=== PATIENT | female | born 1960 | race Caucasian/White ===

== ENCOUNTER → 2017-07-01 19:27 | Outpatient (CLI) | payer OTHER, SELFPAY ==
[2017-07-01 20:46] LABS: Vitamin B12 191 pg/mL (211-911)
== END ==
PROVIDERS: Family Provider Family Medicine; PCP Family Medicine; Visit Provider Family Medicine
DX: E11.65 Type 2 diabetes mellitus with hyperglycemia (principal); Z79.899 Other long term (current) drug therapy
CPT/HCPCS: 82607

== ENCOUNTER → 2017-12-24 14:48 | Outpatient (CLI) | payer OTHER, SELFPAY ==
[2017-12-25 08:23] LABS: Vitamin B12 324 pg/mL (211-911)
== END ==
PROVIDERS: Visit Provider Family Medicine
DX: E11.40 Type 2 diabetes mellitus with diabetic neuropathy, unspecified (principal); I10 Essential (primary) hypertension; E53.8 Deficiency of other specified B group vitamins
CPT/HCPCS: 82607

== ENCOUNTER 2018-03-16 09:39 | Inpatient (IN) | payer OTHER, SELFPAY ==
[2018-03-16 09:40] VITALS: BP 115/92; PULSE 119; RESP 20; TEMP 36.6; O2SAT 95; BMI 49.8
[2018-03-16] MEDS: Morphine 4 MG/ML Syringe IV (10:09)
[2018-03-16 10:14] LABS: Absolute Lymphocyte Count 0.49 X10^3/ul (0.83-4.51); Absolute Neutrophil Count 16.1 X10^3/uL (2.0-7.7); Basophil# 0.02 X10^3/uL; Basophil% 0.1 % (0-1); Differential Indicated SCAN CRITERIA MET; Hematocrit 42.2 % (37-47); Hemoglobin 13.7 g/dl (12.0-15.0); Lymphocyte # 0.49 X10^3/ul (4.0); Lymphocyte % 2.8 % (19-41); Mean Corp Hgb Conc 32.5 g/gl (32-36); Mean Corpuscular Hgb 29.5 pg (27.0-32.0); Mean Corpuscular Volume 90.8 fL (81-99); Mean Platelet Vol. 11.1 fl (6.2-12.0); Monocyte# 1.01 X10^3/uL; Monocyte% 5.7 % (0-10); Neutrophil # 16.07 X10^3/uL (2.7-7.7); Neutrophil % 90.9 % (47-70); POSITIVE COUNT NO; POSITIVE DIFFERENTIAL YES; POSITIVE MORPHOLOGY NO; RBC Distribution Width CV 13.1 % (11.6-14.6); Red Blood Count 4.65 M/mm3 (4.2-5.4); White Blood Count 17.7 K/mm3 (4.4-11.0)
--- NOTE | 2018-03-16 10:24 | NURSING ---
DR MERYL NUGENT
--- NOTE | 2018-03-16 10:24 | NURSING ---
MED SURG RLE CELLULITIS MERYL
[2018-03-16 10:26] LABS: Anion Gap 14 (5-15); BUN 19 mg/dL (7-18); Calcium,Total 9.1 mg/dL (8.5-10.1); Chloride 103 mmol/L (98-107); Creatinine, Serum 1.12 mg/dL (0.55-1.02); EST Glomerular Filtration Rate 53 mL/min (>60); Est Glom Filt Rate - Afr Amer 64 mL/min (>60); Glucose 178 mg/dL (74-106); Sodium Level 141 mmol/L (136-145)
--- NOTE | 2018-03-16 10:27 | ED.DCSUM_ITS ---
- ER Visit Summary Date of Service: 03/16/18 Chief Complaint: Cellulitis History of Present Illness: The patient is a 57 F right lower leg cellulitis. Symptoms started overnight last night. She had a headache and some nausea and vomiting. The pain radiates from her right lower leg up to her right groin. She had similar symptoms in the past with cellulitis. She has required hospitalization at multiple facilities, most recently here in 2014. No fevers. No other associated symptoms. She does not take blood thinners. She has multiple allergies to antibiotics. Physical Examination: Heart rate 119 and respiratory rate 20. Otherwise vitals unremarkable. Afebrile. Alert and oriented. No acute distress. Right lower leg shows erythema and warmth with some mild induration. Overall the skin appears intact. She is neurovascular intact distally. Test Results: White count 17.7 and platelets 141. Metabolic panel and cultures pending. Emergency Department Course and Treatment: Patient treated with morphine and vancomycin while awaiting results. Patient has a history of diabetes, hypertension, and hyperlipidemia. She has had multiple episodes of cellulitis in the past, and typically requires hospitalization. Patient has multiple medication allergies and was started on IV vancomycin. Hospitalist was contacted for further care. Treatment Plan: As above Disposition: Admission Impression: 1. Right leg cellulitis This note was generated with [employer] dictation software. It may contain incorrect words, spelling, and punctuation that were not noted in review of the chart prior to signing ED Disposition - Plan for ED Patient: Chief Complaint: Cellulitis Referrals: Gene Arriaga MD [Primary Care Provider] -
[2018-03-16 10:28] VITALS: BP 122/60; PULSE 105; RESP 16; TEMP 36.6; O2SAT 96
[2018-03-16 10:31] LABS: Platelet Estimate ADEQUATE (ADEQ); Platelet Morphology CLUMPED
[2018-03-16 10:32] LABS: Differential Comment SCANNED
--- NOTE | 2018-03-16 10:52 | NURSING ---
DR SHETH IN ROOM
--- NOTE | 2018-03-16 11:26 | PCM.HP.STD ---
Problem List (1) Right lower extremity cellulitis Status: Acute (2) Hyperlipidemia Status: Chronic (3) Hypertension Status: Chronic (4) Morbid obesity Status: Chronic (5) Type II diabetes mellitus Status: Chronic History of Present Illness Date of Admission: 03/16/18 Chief Complaint: Right lower leg pain and redness since yesterday evening The patient is a 57 year old F with history of type 2 diabetes mellitus and recurrent cellulitis came to ER with pain, tenderness and swelling in the right leg since 03/15/2018 evening. Patient denies fever or chills. She had similar symptoms consistent with cellulitis diagnosed last year February. She had left leg cellulitis several years ago. She had associated symptoms of headache and at one time gastric content vomiting. In ED, initial workup shows leukocytosis with left shift with 90% neutrophils, ESR 22. A1c 6.5. Her blood sugars are generally controlled and less than 200 milligrams per deciliter at home [] Past Medical History Past Medical History (Chronic Problems): Chronic Problems Morbid obesity (Chronic) Hyperlipidemia (Chronic) Hypertension (Chronic) Type II diabetes mellitus (Chronic) Allergies cefuroxime axetil [From Ceftin] Allergy (Verified 03/16/18 09:42) Hives clindamycin Allergy (Verified 03/16/18 09:42) Hives ertapenem sodium [From Invanz] Allergy (Verified 03/16/18 09:42) Rash Sulfa (Sulfonamide Antibiotics) Allergy (Verified 03/16/18 09:42) Hives Home Medications: Ambulatory Orders Medication Instructions Recorded Lisinopril [Zestril] 40 mg PO DAILY 11/26/14 Metformin HCl [Glucophage] 500 mg PO BIDCM 11/26/14 Ospemifene [Osphena] 60 mg PO DAILY 11/26/14 Caduet 10 MG-40 MG Tablet 1 tab PO QHS 12/18/14 Cholecalciferol (Vitamin D3) 1,000 unit PO DAILY 03/16/18 [Vitamin D3] Turmeric 400 mg PO DAILY 03/16/18 Surgical History: tonsillectomy, - - D&C, bilateral carpal tunnel surgery, Psychiatric History: No pertinent psych hx 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 Denies: Chills, Fever, Weight Change HEENT: Denies: Head Aches, Sinus Congestion, Sinus Drainage Cardiovascular: Denies: Chest Pain, Palpitations Respiratory: Denies: Cough, Shortness of breath at rest, Sputum production Gastrointestinal: Reports: Nausea, Vomiting. Denies: Abdominal Pain Genitourinary: Denies: Dysuria Musculoskeletal: Reports: Joint Pain. Denies: Joint Tenderness Skin: Reports: Rash, Skin Changes. Denies: Wounds Neurological: Denies: Numbness, Tingling, Focal weakness Psychiatric: Denies: Anxiety, Depression, Homicidal Ideations, Suicidal Ideations Hematologic/ Lymphatic: Denies: Easy Bruising, Easy Bleeding VTE Information - Inpt Only VTE Present on Admission: No VTE Mechan Device Prophylaxis: None VTE Pharm Prophylaxis ordered?: Yes - Physical Exam General: Alert, Oriented x3, Cooperative HEENT: Atraumatic, PERRLA, EOMI, Normocephalic Neck: Supple, No JVD, Negative Carotid Bruits Lungs: Clear to auscultation, Normal air movement Cardiovascular: Regular rate, Normal S1, Normal S2, No murmurs Abdomen: Bowel Sounds Present, Soft, Non Tender, Non-Distended Extremities: No edema, Capillary Refill Less than 3 Seconds Skin: No breakdown, Rash Present - Right lower leg erythematous, tender with induration below knee. Bilateral flat feet Musculoskeletal: Tenderness - In the right lower leg Lymphatic: No Cervical, Supraclavicular, or Inguinal Adenopathy Neurological: Cranial nerves II-XII grossly intact, Neuro grossly intact Psych/Mental Status: Normal Affect, Appropriate Vital Signs Temp Pulse Resp BP Pulse Ox 97.9 F 105 H 16 122/60 H 96 03/16/18 10:28 03/16/18 10:28 03/16/18 10:28 03/16/18 10:28 03/16/18 10:28 Oxygen Delivery Method Room Air Weight: 290 lb Body Mass Index (BMI) 49.8 Finger Stick Blood Glucose 192 Laboratory Tests Past 24 Hrs 03/16/18 03/16/18 10:00 10:00 WBC 17.7 H RBC 4.65 Hgb 13.7 Hct 42.2 MCV 90.8 MCH 29.5 MCHC 32.5 RDW 13.1 RDW Differential 43.0 Plt Count TNP MPV 11.1 Immature Gran % (Auto) 0.500 Neut % (Auto) 90.9 H Lymph % (Auto) 2.8 L [place] % (Auto) 5.7 Eos % (Auto) 0.0 Baso % (Auto) 0.1 Absolute Neuts (auto) 16.1 H Absolute Lymphs (auto) 0.49 L Total Counted Not Reportable Differential Comment SCANNED Platelet Estimate ADEQUATE Plt Morphology Comment CLUMPED Sodium 141 Potassium 4.0 Chloride 103 Carbon Dioxide 24.0 Anion Gap 14 BUN 19 H Creatinine 1.12 H Estim Creat Clear Calc 46.70 Est GFR (MDRD) Af Amer 64 Est GFR (MDRD) Non-Af 53 L BUN/Creatinine Ratio 17.0 Glucose 178 H Calcium 9.1 Assessment/Plan All Active Problems Right lower extremity cellulitis (Acute) The patient is a 57 year old F with history of type 2 diabetes mellitus and recurrent cellulitis came to ER with pain, tenderness and swelling in the right leg since 03/15/2018 evening. Patient denies fever or chills. She had similar symptoms consistent with cellulitis diagnosed last year February. She had left leg cellulitis several years ago. She had associated symptoms of headache and at one time gastric content vomiting. Denies history of trauma/injury, bug/insect/tick bite. Denies previous foot surgery/ankle mortise fracture or dislocation in the past In ED, initial workup shows leukocytosis with left shift with 90% neutrophils, ESR 22. A1c 6.5. No fever in ED. Her blood sugars are generally controlled and less than 200mg/dl at home. 1 right lower leg cellulitis most probably streptococcal: Based on patient's allergy list, patient was given 1 dose of vancomycin in ED. Started on IV Levaquin. Blood cultures x2 ordered. MRSA nasal screen. IV fluid normal saline. Venous Doppler ordered to rule out DVT. Patient denies previous history of venous thromboembolic disease. Of note, patient is on Ospemifene, estrogen receptor modulator at home probably taking for moderate to severe menopausal dyspareunia 2. Diabetes mellitus, type II: A1c 6.5 suggestive of good glycemic control. Accu-Chek before meals and at bedtime and cover with NovoLog sliding scale. Continue home medications. 3. Hypertension: Patient is on lisinopril and amlodipine. Continued. 4. Dyslipidemia: On atorvastatin DVT prophylaxis: On Lovenox 40 mg subcu daily Laboratory Results 03/16/18 10:00: WBC 17.7 H, RBC 4.65, Hgb 13.7, Hct 42.2, MCV 90.8, MCH 29.5, MCHC 32.5, RDW 13.1, RDW Differential 43.0, Plt Count TNP, MPV 11.1, Immature Gran % (Auto) 0.500, Neut % (Auto) 90.9 H, Lymph % (Auto) 2.8 L, [place] % (Auto) 5.7, Eos % (Auto) 0.0, Baso % (Auto) 0.1, Absolute Neuts (auto) 16.1 H, Absolute Lymphs (auto) 0.49 L, Total Counted Not Reportable, Differential Comment SCANNED, Platelet Estimate ADEQUATE, Plt Morphology Comment CLUMPED 03/16/18 10:00: Sodium 141, Potassium 4.0, Chloride 103, Carbon Dioxide 24.0, Anion Gap 14, BUN 19 H, Creatinine 1.12 H, Estim Creat Clear Calc 46.70, Est GFR (MDRD) Af Amer 64, Est GFR (MDRD) Non-Af 53 L, BUN/Creatinine Ratio 17.0, Glucose 178 H, Calcium 9.1 03/16/18 10:00: ESR 22 03/16/18 10:00: Hemoglobin A1c 6.5 H 03/16/18 12:05: POC Glucose 159 H Code Visit Inpatient E&M: 72265 Init Hosp L3
[2018-03-16 11:27] VITALS: BMI 50.3
[2018-03-16 11:45] LABS: Erythrocyte Sedimentation Rate 22 mm/hr (0-30)
[2018-03-16 12:04] LABS: Hemoglobin A1c 6.5 % (4.2-6.3)
[2018-03-16] MEDS: Enoxaparin 40 MG/0.4 ML Syringe SC (12:06)
[2018-03-16] MEDS: Insulin Lispro 100 UNIT/ML INSULN.PEN SQ ×3 (12:09→21:04)
[2018-03-16] MEDS: 0.9% Normal Saline 1,000 ML 100 ML IV ×2 (12:10→23:17)
[2018-03-16 12:12] VITALS: BP 125/66; PULSE 92; RESP 18; TEMP 36.7; O2SAT 96
[2018-03-16] MEDS: oxyCODONE 5 MG Tablet PO ×2 (12:18→16:33)
[2018-03-16 12:31] LABS: Bedside Glucose 159 mg/dL (70-110)
[2018-03-16] MEDS: levoFLOXacin IV 750 MG/150 ML BAG 100 MG IV (13:07)
[2018-03-16 16:18] LABS: M R Staph aureus DNA By PCR Negative (Negative); Probe Check PASS; Specimen Processing Control PASS
[2018-03-16] MEDS: Acetaminophen 325 MG Tablet 650 MG PO ×2 (16:34→23:15)
[2018-03-16 16:36] LABS: Bedside Glucose 166 mg/dL (70-110)
[2018-03-16 16:37] VITALS: BP 126/56; PULSE 107; RESP 18; TEMP 37.5; O2SAT 95
[2018-03-16 19:48] VITALS: BP 112/65; PULSE 102; RESP 18; TEMP 37.5; O2SAT 97
[2018-03-16] MEDS: Mag Hydrox/Al Hydrox/Simeth 30 ML UDC PO (21:04)
[2018-03-16] MEDS: Atorvastatin Calcium 40 MG Tablet PO (21:05)
[2018-03-16 21:06] LABS: Bedside Glucose 176 mg/dL (70-110)
[2018-03-17 03:02] VITALS: BP 133/62; PULSE 102; RESP 16; TEMP 37.4; O2SAT 95
[2018-03-17 03:08] VITALS: PULSE 102
[2018-03-17] MEDS: Acetaminophen 325 MG Tablet 650 MG PO ×2 (06:00→21:44)
[2018-03-17] MEDS: oxyCODONE 5 MG Tablet PO ×2 (06:00→21:45)
[2018-03-17] MEDS: Insulin Lispro 100 UNIT/ML INSULN.PEN SQ ×2 (06:07→11:52)
[2018-03-17 06:16] LABS: Bedside Glucose 150 mg/dL (70-110)
[2018-03-17] MEDS: 0.9% Normal Saline 1,000 ML 100 ML IV ×2 (08:33→21:49)
[2018-03-17] MEDS: Polyethylene Glycol 3350 17 GM PACKET PO (08:34)
[2018-03-17] MEDS: Enoxaparin 40 MG/0.4 ML Syringe SC (08:35)
[2018-03-17 09:04] VITALS: BP 123/63; PULSE 96; RESP 16; TEMP 36.7; O2SAT 94
[2018-03-17] MEDS: levoFLOXacin IV 750 MG/150 ML BAG 100 MG IV (09:40)
[2018-03-17 10:50] LABS: Basophil# 0.01 X10^3/uL; Hematocrit 39.5 % (37-47); Hemoglobin 12.8 g/dl (12.0-15.0); Lymphocyte # 0.52 X10^3/ul (4.0); Mean Corp Hgb Conc 32.4 g/gl (32-36); Mean Corpuscular Hgb 29.7 pg (27.0-32.0); Mean Corpuscular Volume 91.6 fL (81-99); Mean Platelet Vol. 10.3 fl (6.2-12.0); Neutrophil # 9.68 X10^3/uL (2.7-7.7); Platelet Count 171 K/mm3 (150-450); RBC Distribution Width CV 13.3 % (11.6-14.6); RBC Distribution Width SD 44.6 fl (35.1-43.9); Red Blood Count 4.31 M/mm3 (4.2-5.4); White Blood Count 10.7 K/mm3 (4.4-11.0)
--- NOTE | 2018-03-17 10:51 | EKG12_ITS ---
Test Reason : Blood Pressure : / mmHG Vent. Rate : 109 BPM Atrial Rate : 109 BPM P-R Int : 152 ms QRS Dur : 090 ms QT Int : 314 ms P-R-T Axes : 044 027 022 degrees QTc Int : 422 ms Sinus tachycardia Poor R wave progression Anterior [place], age undetermined, cannot be excluded Confirmed by YAYA VIVAS, ESTELLA ([id number]), avid editor PARTH FALCON ([id number]) on 03/20/2018 11:53:10 AM Referred By: MERYL Confirmed By:ESTELLA JAVIER MD
[2018-03-17 10:53] LABS: Differential Indicated SCAN CRITERIA MET; POSITIVE COUNT NO; POSITIVE DIFFERENTIAL YES; POSITIVE MORPHOLOGY YES
--- NOTE | 2018-03-17 11:04 | VDLE_ITS ---
Reason For Study: swelling RIGHT LEFT GSV is normal. GSV is normal. CFV is compressible, spontaneous, phasic, CFV is compressible, spontaneous, phasic, competent and demonstrates normal competent, and demonstrates normal augmentation. augmentation. FV is compressible, spontaneous, phasic, FV is compressible, spontaneous, phasic, competent and demonstrates normal competent and demonstrates normal augmentation. augmentation. POP V is compressible, spontaneous, phasic, POP V is compressible, spontaneous, phasic, competent and demonstrates normal competent and demonstrates normal augmentation. augmentation. T/P Trunk is compressible. T/P Trunk is compressible. PTV is compressible. PTV is compressible. RT PerV is compressible. LT PerV is compressible. Procedure Exam performed portable in patient room. The exam was diagnostic. Difficult study due to pt body habitus. A preliminary report was called and/or faxed to Ben CULLEN. Interpretation Summary Deep veins of the lower extremities are bilaterally patent and compressible segmentally. There is no evidence of deep vein thrombosis on either side. Valvular competence appears intact within the proximal deep venous systems bilaterally. The greater saphenous veins appear bilaterally patent and compressible segmentally. Ordering Physician: Jacques Murray Performed By: Feliciano Perkins RVT
[2018-03-17 11:05] LABS: Bedside Glucose 169 mg/dL (70-110)
--- NOTE | 2018-03-17 11:05 | PCM.PN.HOSP ---
Subjective: Patient has swelling of right leg which seems bigger than yesterday and more red. Patient also complained of pain in posterior aspect of thigh going proximally. Sinus tachycardia on the EKG. Patient also looks mild short of breath. Denies any history of venous thromboembolism or PE. Vitals/I&O's: Vital Signs Temp Pulse Resp BP Pulse Ox 98.1 F 96 16 123/63 H 94 03/17/18 09:04 03/17/18 09:04 03/17/18 09:04 03/17/18 09:04 03/17/18 09:04 Oxygen Delivery Method Room Air Weight: 292 lb 15.909 oz Body Mass Index (BMI) 50.3 Finger Stick Blood Glucose 192 Intake and Output for Last 24 Hours 03/15/18 03/16/18 03/17/18 23:59 23:59 23:59 Intake Total 2513 / 2513 855 / 855 Output Total 100 / 100 500 / 500 Balance 2413 / 2413 355 / 355 General: Alert, Oriented x3, Cooperative, - - Morbid obese HEENT: Atraumatic, PERRLA, EOMI, Normocephalic Neck: Supple, No JVD, Negative Carotid Bruits Lungs: Clear to auscultation, Diminished - In bilateral lung bases, Rales Cardiovascular: Regular Rhythm, Normal S1, No murmurs, Tachycardic Abdomen: Bowel Sounds Present, Soft, Non Tender, Non-Distended Extremities: Capillary Refill Less than 3 Seconds, Edema - Pronounced in right lower extremity Skin: No breakdown, Rash Present - Erythematous rash present on the right leg along with tenderness and induration. Musculoskeletal: Arthritic Changes, Tenderness - Tenderness in right calf and thigh. Neurological: Cranial nerves II-XII grossly intact Psych/Mental Status: Normal Affect, Appropriate Laboratory Results 03/16/18 10:00: ESR 22 03/16/18 10:00: Hemoglobin A1c 6.5 H 03/16/18 12:05: POC Glucose 159 H 03/16/18 12:15: MRSA (PCR) Negative 03/16/18 16:29: POC Glucose 166 H 03/16/18 20:58: POC Glucose 176 H 03/17/18 06:05: POC Glucose 150 H 03/17/18 10:40: WBC 10.7, RBC 4.31, Hgb 12.8, Hct 39.5, MCV 91.6, MCH 29.7, MCHC 32.4, RDW 13.3, RDW Differential 44.6 H, Plt Count 171, MPV 10.3, Immature Gran % (Auto) 1.300 H, Neut % (Auto) 90.9 H, Lymph % (Auto) 4.9 L, [place] % (Auto) 2.8, Eos % (Auto) 0.0, Baso % (Auto) 0.1, Absolute Neuts (auto) 9.7 H, Absolute Lymphs (auto) 0.52 L, Total Counted Pending Current Medications Acetaminophen (Tylenol) 650 mg PO Q6H PRN PRN PRN Reason: Mild Pain (scale 0-3)/T>100.7 Last Admin: 03/17/18 06:00 Dose: 650 mg Al Hydroxide/Mg Hydroxide (Mylanta Ii) 30 ml PO Q6H PRN PRN PRN Reason: Gastric Burning Last Admin: 03/16/18 21:04 Dose: 30 ml Amlodipine Besylate (Norvasc) 10 mg PO QHS [facility] Last Admin: 03/16/18 21:05 Dose: Not Given Apixaban (Eliquis) 10 mg PO BID [facility] Atorvastatin Calcium (Lipitor) 40 mg PO QHS [facility] Last Admin: 03/16/18 21:05 Dose: 40 mg Dextrose (D50w Syringe) 0 gm IV X1 PRN; Protocol PRN Reason: Hypoglycemia Glucagon () 1 mg IM .X1 PRN PRN Reason: Hypoglycemia Sodium Chloride () 1,000 mls @ 100 mls/hr IV .Q10H [facility] Last Admin: 03/17/18 08:33 Dose: 100 mls/hr Levofloxacin (Levaquin Iv) 750 mg in 150 mls @ 100 mls/hr IV Q24 [facility] Last Admin: 03/17/18 09:40 Dose: 100 mls/hr Insulin Human Lispro (Humalog Kwikpen (Bkc)) 0 unit SQ ACHS [facility]; Protocol Last Admin: 03/17/18 06:07 Dose: 2 u Lisinopril (Zestril) 40 mg PO DAILY [facility] Last Admin: 03/17/18 08:34 Dose: Not Given Metformin HCl (Glucophage) 500 mg PO BIDCM [facility] Last Admin: 03/17/18 08:33 Dose: 500 mg Ondansetron HCl (Zofran) 4 mg IV Q8H PRN PRN PRN Reason: Nausea Oxycodone HCl (Oxyir) 5 mg PO Q4H PRN PRN PRN Reason: Moderate Pain (pain scale 4-5) Last Admin: 03/17/18 06:00 Dose: 5 mg Polyethylene Glycol (Miralax) 17 gm PO DAILY [place] Last Admin: 03/17/18 08:34 Dose: 17 gm Sodium Chloride () 5 - 30 ml IV UD PRN PRN Reason: SALINE FLUSH Zolpidem Tartrate (Ambien (Generic)) 5 mg PO QHS PRN PRN PRN Reason: INSOMNIA Medical Necessity - Tobacco Use Smoking Status: Never smoker Assessment/Plan All Active Problems Right lower extremity cellulitis (Acute) The patient is a 57 year old F with history of type 2 diabetes mellitus and recurrent cellulitis came to ER with pain, tenderness and swelling in the right leg since 03/15/2018 evening. Patient denies fever or chills. She had similar symptoms consistent with cellulitis diagnosed last year February. She had left leg cellulitis several years ago. She had associated symptoms of headache and at one time gastric content vomiting. Denies history of trauma/injury, bug/insect/tick bite. Denies previous foot surgery/ankle mortise fracture or dislocation in the past In ED, initial workup shows leukocytosis with left shift with 90% neutrophils, ESR 22. A1c 6.5. No fever in ED. Her blood sugars are generally controlled and less than 200mg/dl at home. 1 right lower leg cellulitis most probably streptococcal: Based on patient's allergy list, patient was given 1 dose of vancomycin in ED. Started on IV Levaquin. Leukocytosis has resolved. Patient is still tachycardic but improving. Blood cultures x2 ordered. MRSA nasal screen. IV fluid normal saline. Venous Doppler is negative of DVT. Patient denies previous history of venous thromboembolic disease. Of note, patient is on Ospemifene, estrogen receptor modulator at home probably taking for moderate to severe menopausal dyspareunia 2. Mild shortness of breath and sinus tachycardia with suspicion of PE: Although patient attributes shortness of breath to her low functional capacity and postural but she has chronic shortness of breath on exertion because of morbid obesity. CTPA is ordered to rule out PE even though less likely in view of negative acute DVT. Patient agrees for CTPA and discussed with her. Diabetes mellitus, type II: A1c 6.5 suggestive of good glycemic control. Accu-Chek before meals and at bedtime and cover with NovoLog sliding scale. Continue home medications. 3. Hypertension: Patient is on lisinopril and amlodipine. Continued. 4. Dyslipidemia: On atorvastatin DVT prophylaxis: Patient was started on Eliquis 10 mg twice daily with high suspicion of DVT/PE. Can be changed back to Lovenox 40 mg subcu daily if PE is negative Laboratory Results 03/17/18 10:40: WBC 10.7, RBC 4.31, Hgb 12.8, Hct 39.5, MCV 91.6, MCH 29.7, MCHC 32.4, RDW 13.3, RDW Differential 44.6 H, Plt Count 171, MPV 10.3, Immature Gran % (Auto) INSURANCE REPRESENTATIVE, Neut % (Auto) INSURANCE REPRESENTATIVE, Lymph % (Auto) INSURANCE REPRESENTATIVE, [place] % (Auto) INSURANCE REPRESENTATIVE, Eos % (Auto) INSURANCE REPRESENTATIVE, Baso % (Auto) INSURANCE REPRESENTATIVE, Absolute Neuts (auto) 9.0 H, Absolute Lymphs (auto) 0.75 L, Total Counted 100, Neutrophils % (Manual) 71 H, Band Neutrophils % 13 H, Lymphocytes % (Manual) 7 L, Monocytes % (Manual) 2, Metamyelocytes % 7 H, Diff Path Review May foll, Platelet Estimate ADEQUATE, RBC Morphology NORM C+C 03/17/18 11:26: D-Dimer Quant (PE/DVT) 1.95 H* 03/17/18 15:14: POC Glucose 126 H 03/16/18 10:00: ESR 22 03/16/18 10:00: Hemoglobin A1c 6.5 H 03/16/18 12:05: POC Glucose 159 H Code Visit Inpatient E&M: 09729 Subs Hosp L3
[2018-03-17 11:18] LABS: Scan Smear per Review Criteria MANUAL DIFF
[2018-03-17 11:21] LABS: Lymphocyte 7 % (19-41); Metamyelocyte 7 % (0-1); Monocyte 2 % (0-10); Neutrophil-Band 13 % (0-5); Neutrophil-Segmented 71 % (47-70); Total Cells Counted 100 (MANUAL DIFF)
[2018-03-17 11:22] LABS: Platelet Estimate ADEQUATE (ADEQ); Red Cell Morphology NORM C+C NORMAL (NORM C&C)
[2018-03-17 11:23] LABS: Absolute Lymphocyte Count 0.75 X10^3/ul (0.83-4.51)
--- NOTE | 2018-03-17 11:40 | CASEMGMT ---
RN CM Face to Face with patient for initial transition planning/care coordination assessment. RN CM introduced self and role at [facility]. Patient sitting in chair, alert and oriented. Patient willing to participate in assessment and is able to answer all questions appropriately. Care providers, pharmacy, and demographics verified. Patient wishes to discharge home, denies need for home health at this time. Patient states she has no further needs or concerns at this time. CM to follow for discharge planning needs that may arise. PCP: Corina Davies Pharmacy: [facility] Insurance: [employer] Prescription Benefit: [employer] Living Will/HPOA: No, declined additional information. LNOK: Living Arrangements: Live with in 1 story house. Transportation: Self or DME/HHC: Glucometer. Declines HHC Disposition Plan: Patient to discharge home with family support and follow-up plans in place. Kiya DAVIES, RN, CM
[2018-03-17] MEDS: APIXABAN 5 MG TABLET 10 MG PO ×2 (11:51→21:52)
[2018-03-17 11:55] LABS: D-Dimer Quantitative (DVT/PE) 1.95 FEU/ug/m (0.27-0.49)
[2018-03-17] MEDS: Ondansetron 4 MG/2 ML Vial IV (11:58)
[2018-03-17 15:04] VITALS: BP 138/74; PULSE 106; RESP 16; TEMP 37.6; O2SAT 94
[2018-03-17 15:21] LABS: Bedside Glucose 126 mg/dL (70-110)
--- NOTE | 2018-03-17 15:31 | CHAPLAIN ---
Type of Pastoral Visit _x__ Initial Visit ___ Follow-up Visit ___ On-call Visit ___ General Patient Visit ___ Spiritual Assessment ___ Family Conference ___ Bereavement ___ Rapid Response ___ Code Blue ___ Other (describe below) Pastoral Care Referral From _x__ Patient ___ Family ___ Nurse ___ Physician ___ Gas Pipe Layer ___ Brokerage Coordinator ___ Other (describe below) Sacrament/Intervention _x__ Active listening ___ Anointing ___ Gnosticism ___ Bereavement ___ Communion ___ Ashlee exploration ___ _x__ Life review _x__ Prayer ___ Reconciliation ___ Sacrament of Sick _x__ Supportive presence ___ Wedding ___ Other (describe below) Pastoral Comments
--- NOTE | 2018-03-17 16:16 | CT_ITS ---
STUDY: CTA CHEST REASON FOR EXAM: Female, 57 years old. High risk. Right lower extremity cellulitis. RADIATION DOSAGE (If Supplied By Facility): CTDIvol = ( 26.69 ) mGy, DLP = ( 599.96 ) mGycm TECHNIQUE: The examination was performed with the intravenous administration of 100ML ml of Isovue 370 contrast material. Post-processing of the angiographic images was performed, with multiplanar reformation and 3D reconstruction. Individualized dose optimization techniques were used for this CT. COMPARISON: None. FINDINGS: Motion artifact degrades anatomic detail. There is minimal left basilar scarring and/or atelectasis. There is suboptimal opacification of the pulmonary arteries. There are filling defects within segmental and subsegmental pulmonary arteries bilaterally consistent with pulmonary emboli. There is atherosclerotic calcification of the aortic arch. There is no demonstrated aortic dissection. There are calcifications of the coronary arteries. There are calcified mediastinal and right hilar lymph nodes. Normal visualized trachea and bronchi. Normal chest wall structures. Normal osseous structures. The limited images of the upper abdomen demonstrate a diffusely low in attenuation liver consistent with fatty infiltration. There are splenic granulomas. CT/CTA Chest W/WO Contrast IMPRESSION: Bilateral pulmonary emboli. Atherosclerosis. Evidence of prior granulomatous disease. Fatty infiltration of the liver. N.B. : The above information has been verbally conveyed by Laura Bee MD to Dr. Murray, ROBYN, on 03/17/2018 17:56:00 (ET). Electronically Signed: Laura Bee MD at 17:44 EDT Tel , Service support ,
[2018-03-17 17:45] LABS: Anion Gap 7 (5-15); BUN 17 mg/dL (7-18); BUN/Creat Ratio 19.2 RATIO (10-20); Calcium,Total 8.1 mg/dL (8.5-10.1); Chloride 102 mmol/L (98-107); Creatinine, Serum 0.88 mg/dL (0.55-1.02); EST Glomerular Filtration Rate 69 mL/min (>60); Est Glom Filt Rate - Afr Amer 84 mL/min (>60); Estimated Creatinine Clearance 59.44 ml/min; Glucose 103 mg/dL (74-106); Potassium 4.1 mmol/L (3.5-5.1); Sodium Level 131 mmol/L (136-145)
--- NOTE | 2018-03-17 17:58 | ECHOCS_ITS ---
Reason For Study: EMBOLI Procedure This was a 2D Doppler, Color Flow transthoracic echocardiogram. The study was technically difficult. Contrast injection was performed. Exam performed portable in patient room. Left Ventricle Normal LV size. Left ventricular systolic function is normal. The estimated ejection fraction is 65 %. Diastolic function is indeterminate. No regional wall motion abnormalities noted. Right Ventricle Mildly dilated right ventricle. Normal systolic function. Atria The left atrium is mildly enlarged. Normal right atrium. No doppler evidence for ASD. Mitral Valve There is no mitral annular calcification. Normal mitral valve. Trivial mitral valve insufficiency. Tricuspid Valve Normal tricuspid valve. Trivial tricuspid valve insufficiency. Right ventricular systolic pressure estimated to be 24 mmHg. Aortic Valve Trisinus/trileaflet aortic valve. Normal aortic valve. Trivial aortic valve insufficiency. Pulmonic Valve The pulmonic valve is not well visualized. Trivial pulmonic valve insufficiency. Great Vessels Normal sized aortic root. Pericardium/Pleural No pericardial effusion. Medication Diluted definity 3ml given slow IV push to enhance endocardial definition. MMode/2D Measurements & Calculations LVIDd: 4.4 cm IVSd: 1.1 cm Ao root diam: 3.3 cm LVIDs: 3.3 cm LVPWd: 0.85 cm LA dimension: 3.7 cm RVDd: 4.3 cm FS: 26.1 % LAV(MOD-bp): 66.4 ml LVAd ap4: 36.7 cm2 SV(MOD-sp4): 71.0 ml LAV(MOD-bp) Indexed: 28.9 ml/m2 EDV(MOD-sp4): 128.5 ml LAV(MOD-sp2): 64.1 ml EDV(sp4-el): 130.8 ml LAV(MOD-sp4): 65.1 ml LVAs ap4: 21.9 cm2 ESV(MOD-sp4): 57.5 ml ESV(sp4-el): 58.2 ml EF(MOD-sp4): 55.2 % EF(sp4-el): 55.5 % SV(sp4-el): 72.7 ml LA A4 area: 21.1 cm2 RA A4 area: 17.9 cm2 Time Measurements MV dec time: 0.29 sec Doppler Measurements & Calculations MV E max lio: 53.5 cm/sec Lat Peak E' Lio: 9.4 cm/sec Med Peak E' Lio: 9.6 cm/sec MV A max lio: 66.6 cm/sec E/E' lat: 5.7 E/E' med: 5.6 MV E/A: 0.80 Ao V2 max: 146.1 cm/sec LV V1 max: 127.8 cm/sec PA V2 max: 104.4 cm/sec Ao max P.5 mmHg LV V1 max P.5 mmHg TR max lio: 229.6 cm/sec TR max P.1 mmHg Interpretation Summary The study was technically difficult. Contrast injection was performed. Left ventricular systolic function is normal. The estimated ejection fraction is 65 %. Mildly dilated right ventricle. The left atrium is mildly enlarged. Trivial mitral valve insufficiency. Trivial tricuspid valve insufficiency. Trivial aortic valve insufficiency. Trivial pulmonic valve insufficiency. Right ventricular systolic pressure estimated to be 24 mmHg. Diastolic function is indeterminate. Ordering Physician: Jacques Murray Referring Physician: MAGGY SALAZAR Performed By: Nancy Odell RDCS
[2018-03-17 18:54] LABS: BNP,B-Type NATRIURETIC PEPTIDE 20.7 pg/mL (0-100)
[2018-03-17 21:35] VITALS: BP 139/93; PULSE 104; RESP 16; TEMP 36.9; O2SAT 98
[2018-03-17] MEDS: Atorvastatin Calcium 40 MG Tablet PO (21:52)
[2018-03-17] MEDS: amLODIPine 10 MG Tablet PO (21:52)
[2018-03-17 22:00] VITALS: PULSE 128
[2018-03-17 22:11] LABS: Bedside Glucose 127 mg/dL (70-110)
[2018-03-18] VITALS (9 sets, daily range): BP systolic 117–139; BP diastolic 61–84; PULSE 83–102; RESP 16–18; TEMP 36.9–37.3; O2SAT 96–100
[2018-03-18 07:16] LABS: Bedside Glucose 137 mg/dL (70-110)
[2018-03-18 07:25] LABS: Basophil% 0.3 % (0-1); Eosinophils% 0.1 % (0-5); Hematocrit 36.1 % (37-47); Hemoglobin 11.4 g/dl (12.0-15.0); Lymphocyte % 11.8 % (19-41); Mean Corp Hgb Conc 31.6 g/gl (32-36); Mean Corpuscular Volume 91.9 fL (81-99); Mean Platelet Vol. 10.5 fl (6.2-12.0); Monocyte% 6.5 % (0-10); Neutrophil # 5.98 X10^3/uL (2.7-7.7); Platelet Count 148 K/mm3 (150-450); RBC Distribution Width CV 13.5 % (11.6-14.6); RBC Distribution Width SD 45.3 fl (35.1-43.9); Red Blood Count 3.93 M/mm3 (4.2-5.4); White Blood Count 7.4 K/mm3 (4.4-11.0)
[2018-03-18 07:26] LABS: Absolute Lymphocyte Count 0.87 X10^3/ul (0.83-4.51); Basophil# 0.02 X10^3/uL; Eosinophil# 0.01 X10^3/uL; Lymphocyte # 0.87 X10^3/ul (4.0); Monocyte# 0.48 X10^3/uL
[2018-03-18 07:44] LABS: POSITIVE COUNT NO; POSITIVE DIFFERENTIAL NO; POSITIVE MORPHOLOGY NO
[2018-03-18 08:02] LABS: Anion Gap 8 (5-15); BUN 14 mg/dL (7-18); BUN/Creat Ratio 18.6 RATIO (10-20); Calcium,Total 8.5 mg/dL (8.5-10.1); Chloride 105 mmol/L (98-107); Creatinine, Serum 0.75 mg/dL (0.55-1.02); EST Glomerular Filtration Rate 84 mL/min (>60); Est Glom Filt Rate - Afr Amer 101 mL/min (>60); Estimated Creatinine Clearance 69.74 ml/min; Glucose 134 mg/dL (74-106); Potassium 4.1 mmol/L (3.5-5.1); Sodium Level 137 mmol/L (136-145)
[2018-03-18] MEDS: Acetaminophen 325 MG Tablet 650 MG PO ×2 (08:17→21:03)
[2018-03-18] MEDS: oxyCODONE 5 MG Tablet PO ×2 (08:17→21:02)
[2018-03-18] MEDS: 0.9% Normal Saline 1,000 ML 100 ML IV (08:19)
[2018-03-18] MEDS: levoFLOXacin IV 750 MG/150 ML BAG 100 MG IV (09:44)
[2018-03-18] MEDS: Polyethylene Glycol 3350 17 GM PACKET PO (09:44)
[2018-03-18] MEDS: Lisinopril 40 MG Tablet PO (09:44)
[2018-03-18] MEDS: APIXABAN 5 MG TABLET 10 MG PO ×2 (09:44→21:11)
[2018-03-18 11:56] LABS: Bedside Glucose 137 mg/dL (70-110)
[2018-03-18 12:33] LABS: Pathologist Review Reviewed
--- NOTE | 2018-03-18 15:48 | PCM.PN.HOSP ---
Subjective: Seen and examined. Radiology called me for positive bilateral segmental/subsegmental PE. Troponin and BNP normal. Echo was ordered. Vitals/I&O's: Vital Signs Temp Pulse Resp BP Pulse Ox 98.5 F 92 16 117/63 96 03/18/18 13:36 03/18/18 14:35 03/18/18 13:36 03/18/18 13:36 03/18/18 13:36 Oxygen Flow Rate (L/min) 2 Oxygen Delivery Method Nasal Cannula Weight: 292 lb 15.909 oz Body Mass Index (BMI) 50.3 Finger Stick Blood Glucose 192 Intake and Output for Last 24 Hours 03/16/18 03/17/18 03/18/18 23:59 23:59 23:59 Intake Total 2513 / 2513 855 / 855 1560 / 1560 Output Total 100 / 100 500 / 500 1550 / 1550 Balance 2413 / 2413 355 / 355 General: Alert, Oriented x3, Cooperative HEENT: Atraumatic, PERRLA, EOMI, Normocephalic Neck: Supple, No JVD, Negative Carotid Bruits Lungs: Clear to auscultation, No rhonchi, No wheeze, No rales, Diminished Cardiovascular: Regular rate, Regular Rhythm, Normal S1, Normal S2, No murmurs Abdomen: Bowel Sounds Present, Soft, Non Tender, Non-Distended Extremities: No edema, Capillary Refill Less than 3 Seconds Skin: No breakdown, Rash Present - Erythematous rash present on the right leg along with tenderness and induration. Redness and induration is improved. There is large blister, clear fluid-filled about 5 cm on the posterior aspect of right leg Musculoskeletal: No Tenderness to Palpation of Joints or Extremities Neurological: Cranial nerves II-XII grossly intact Psych/Mental Status: Normal Affect, Appropriate Microbiology Past 72 Hours 03/16/18 10:20 Blood Culture (Wb) - No Site/Description Given Blood Culture - Preliminary No growth in 48 hours. 03/16/18 10:00 Blood Culture (Wb) - Anticubital Left Blood Culture - Preliminary No growth in 48 hours. Laboratory Results 03/17/18 10:40: Diff Path Review Reviewed 03/17/18 10:40: B-Natriuretic Peptide 20.7 03/17/18 17:17: Sodium 131 L, Potassium 4.1, Chloride 102, Carbon Dioxide 22.0, Anion Gap 7, BUN 17, Creatinine 0.88, Estim Creat Clear Calc 59.44, Est GFR (MDRD) Af Amer 84, Est GFR (MDRD) Non-Af 69, BUN/Creatinine Ratio 19.2, Glucose 103, Calcium 8.1 L 03/17/18 17:17: Troponin I < 0.015 03/17/18 21:48: POC Glucose 127 H 03/18/18 06:43: WBC 7.4, RBC 3.93 L, Hgb 11.4 L, Hct 36.1 L, MCV 91.9, MCH 29.0, MCHC 31.6 L, RDW 13.5, RDW Differential 45.3 H, Plt Count 148 L, MPV 10.5, Immature Gran % (Auto) 0.300, Neut % (Auto) 81.0 H, Lymph % (Auto) 11.8 L, Cedar % (Auto) 6.5, Eos % (Auto) 0.1, Baso % (Auto) 0.3, Absolute Neuts (auto) 6.0, Absolute Lymphs (auto) 0.87, Total Counted Not Reportable 03/18/18 06:43: Sodium 137, Potassium 4.1, Chloride 105, Carbon Dioxide 24.0, Anion Gap 8, BUN 14, Creatinine 0.75, Estim Creat Clear Calc 69.74, Est GFR (MDRD) Af Amer 101, Est GFR (MDRD) Non-Af 84, BUN/Creatinine Ratio 18.6, Glucose 134 H, Calcium 8.5 03/18/18 06:45: POC Glucose 137 H 03/18/18 11:49: POC Glucose 137 H Current Medications Acetaminophen (Tylenol) 650 mg PO Q6H PRN PRN PRN Reason: Mild Pain (scale 0-3)/T>100.7 Last Admin: 03/18/18 08:17 Dose: 650 mg Al Hydroxide/Mg Hydroxide (Mylanta Ii) 30 ml PO Q6H PRN PRN PRN Reason: Gastric Burning Last Admin: 03/16/18 21:04 Dose: 30 ml Amlodipine Besylate (Norvasc) 10 mg PO QHS [place] Last Admin: 03/17/18 21:52 Dose: 10 mg Apixaban (Eliquis) 10 mg PO BID [facility] Last Admin: 03/18/18 09:44 Dose: 10 mg Atorvastatin Calcium (Lipitor) 40 mg PO QHS [facility] Last Admin: 03/17/18 21:52 Dose: 40 mg Dextrose (D50w Syringe) 0 gm IV X1 PRN; Protocol PRN Reason: Hypoglycemia Glucagon () 1 mg IM .X1 PRN PRN Reason: Hypoglycemia Sodium Chloride () 1,000 mls @ 100 mls/hr IV .Q10H [facility] Last Admin: 03/18/18 08:19 Dose: 100 mls/hr Levofloxacin (Levaquin Iv) 750 mg in 150 mls @ 100 mls/hr IV Q24 [facility] Last Admin: 03/18/18 09:44 Dose: 100 mls/hr Insulin Human Lispro (Humalog Kwikpen (Bkc)) 0 unit SQ ACHS [facility]; Protocol Last Admin: 03/18/18 11:51 Dose: Not Given Lisinopril (Zestril) 40 mg PO DAILY [facility] Last Admin: 03/18/18 09:44 Dose: 40 mg Ondansetron HCl (Zofran) 4 mg IV Q8H PRN PRN PRN Reason: Nausea Last Admin: 03/17/18 11:58 Dose: 4 mg Oxycodone HCl (Oxyir) 5 mg PO Q4H PRN PRN PRN Reason: Moderate Pain (pain scale 4-5) Last Admin: 03/18/18 08:17 Dose: 5 mg Polyethylene Glycol (Miralax) 17 gm PO DAILY [facility] Last Admin: 03/18/18 09:44 Dose: 17 gm Sodium Chloride () 5 - 30 ml IV UD PRN PRN Reason: SALINE FLUSH Zolpidem Tartrate (Ambien (Generic)) 5 mg PO QHS PRN PRN PRN Reason: INSOMNIA Medical Necessity - Tobacco Use Smoking Status: Never smoker Assessment/Plan All Active Problems Right lower extremity cellulitis (Acute) The patient is a 57 year old F with history of type 2 diabetes mellitus and recurrent cellulitis came to ER with pain, tenderness and swelling in the right leg since 03/15/2018 evening. Patient denies fever or chills. She had similar symptoms consistent with cellulitis diagnosed last year February. She had left leg cellulitis several years ago. She had associated symptoms of headache and at one time gastric content vomiting. Denies history of trauma/injury, bug/insect/tick bite. Denies previous foot surgery/ankle mortise fracture or dislocation in the past In ED, initial workup shows leukocytosis with left shift with 90% neutrophils, ESR 22. A1c 6.5. No fever in ED. Her blood sugars are generally controlled and less than 200mg/dl at home. 1 right lower leg cellulitis most probably methicillin susceptible staphylococcal, less likely streptococcal: Based on patient's allergy list, patient was given 1 dose of vancomycin in ED. Started on IV Levaquin. Leukocytosis has resolved. Patient is still tachycardic but improving. Blood cultures x2 ordered. MRSA nasal screen negative. IV fluid normal saline. ID was consulted. Discussed with Dr. Zhu and he agree with continuation of Levaquin. As MRSA is negative, patient does not need vancomycin and therefore discontinued. Patient has also tolerated Unasyn in the past. Venous Doppler is negative of DVT. Patient denies previous history of venous thromboembolic disease. Of note, patient is on Ospemifene, estrogen receptor modulator at home probably taking for moderate to severe menopausal dyspareunia; Therefore CTPA was ordered 2. Bilateral segmental and subsegmental PE: CTPA was done yesterday and reported bilateral segmental/subsegmental PE. Patient was already started on Eliquis. Continue Eliquis for at least 6 months. BNP and troponin normal. 2D echo was ordered. Diabetes mellitus, type II: A1c 6.5 suggestive of good glycemic control. Accu-Chek before meals and at bedtime and cover with NovoLog sliding scale. Continue home medications. 3. Hypertension: Patient is on lisinopril and amlodipine. Continued. 4. Dyslipidemia: On atorvastatin DVT prophylaxis: Patient was started on Eliquis 10 mg twice daily with high suspicion of DVT/PE. Can be changed back to Lovenox 40 mg subcu daily if PE is negative Clinical Impression(s) from Imaging Studies Chest CTA 03/17/18 16:16 IMPRESSION: Bilateral pulmonary emboli. Atherosclerosis. Evidence of prior granulomatous disease. Fatty infiltration of the liver. Microbiology Past 72 Hours 03/16/18 10:20 Blood Culture (Wb) - No Site/Description Given Blood Culture - Preliminary No growth in 48 hours. 03/16/18 10:00 Blood Culture (Wb) - Anticubital Left Blood Culture - Preliminary No growth in 48 hours. Laboratory Results 03/17/18 17:17: Troponin I < 0.015 03/18/18 06:43: WBC 7.4, RBC 3.93 L, Hgb 11.4 L, Hct 36.1 L, MCV 91.9, MCH 29.0, MCHC 31.6 L, RDW 13.5, RDW Differential 45.3 H, Plt Count 148 L, MPV 10.5, Immature Gran % (Auto) 0.300, Neut % (Auto) 81.0 H, Lymph % (Auto) 11.8 L, Cedar % (Auto) 6.5, Eos % (Auto) 0.1, Baso % (Auto) 0.3, Absolute Neuts (auto) 6.0, Absolute Lymphs (auto) 0.87, Total Counted Not Reportable 03/18/18 06:43: Sodium 137, Potassium 4.1, Chloride 105, Carbon Dioxide 24.0, Anion Gap 8, BUN 14, Creatinine 0.75, Estim Creat Clear Calc 69.74, Est GFR (MDRD) Af Amer 101, Est GFR (MDRD) Non-Af 84, BUN/Creatinine Ratio 18.6, Glucose 134 H, Calcium 8.5 03/18/18 06:45: POC Glucose 137 H 03/18/18 11:49: POC Glucose 137 H 03/16/18 10:00: ESR 22 03/16/18 10:00: Hemoglobin A1c 6.5 H 03/16/18 12:05: POC Glucose 159 H Code Visit Inpatient E&M: 40682 Subs Hosp L3
--- NOTE | 2018-03-18 15:56 | PN_ITS ---
Subjective: Seen and examined. Radiology called me for positive bilateral segmental/subsegmental PE. Troponin and BNP normal. Echo was ordered. Vitals/I&O's: Vital Signs Temp Pulse Resp BP Pulse Ox 98.5 F 92 16 117/63 96 03/18/18 13:36 03/18/18 14:35 03/18/18 13:36 03/18/18 13:36 03/18/18 13:36 Oxygen Flow Rate (L/min) 2 Oxygen Delivery Method Nasal Cannula Weight: 292 lb 15.909 oz Body Mass Index (BMI) 50.3 Finger Stick Blood Glucose 192 Intake and Output for Last 24 Hours 03/16/18 03/17/18 03/18/18 23:59 23:59 23:59 Intake Total 2513 / 2513 855 / 855 1560 / 1560 Output Total 100 / 100 500 / 500 1550 / 1550 Balance 2413 / 2413 355 / 355 General: Alert, Oriented x3, Cooperative HEENT: Atraumatic, PERRLA, EOMI, Normocephalic Neck: Supple, No JVD, Negative Carotid Bruits Lungs: Clear to auscultation, No rhonchi, No wheeze, No rales, Diminished Cardiovascular: Regular rate, Regular Rhythm, Normal S1, Normal S2, No murmurs Abdomen: Bowel Sounds Present, Soft, Non Tender, Non-Distended Extremities: No edema, Capillary Refill Less than 3 Seconds Skin: No breakdown, Rash Present - Erythematous rash present on the right leg along with tenderness and induration. Redness and induration is improved. There is large blister, clear fluid-filled about 5 cm on the posterior aspect of right leg Musculoskeletal: No Tenderness to Palpation of Joints or Extremities Neurological: Cranial nerves II-XII grossly intact Psych/Mental Status: Normal Affect, Appropriate Microbiology Past 72 Hours 03/16/18 10:20 Blood Culture (Wb) - No Site/Description Given Blood Culture - Preliminary No growth in 48 hours. 03/16/18 10:00 Blood Culture (Wb) - Anticubital Left Blood Culture - Preliminary No growth in 48 hours. Laboratory Results 03/17/18 10:40: Diff Path Review Reviewed 03/17/18 10:40: B-Natriuretic Peptide 20.7 03/17/18 17:17: Sodium 131 L, Potassium 4.1, Chloride 102, Carbon Dioxide 22.0, Anion Gap 7, BUN 17, Creatinine 0.88, Estim Creat Clear Calc 59.44, Est GFR (MDRD) Af Amer 84, Est GFR (MDRD) Non-Af 69, BUN/Creatinine Ratio 19.2, Glucose 103, Calcium 8.1 L 03/17/18 17:17: Troponin I < 0.015 03/17/18 21:48: POC Glucose 127 H 03/18/18 06:43: WBC 7.4, RBC 3.93 L, Hgb 11.4 L, Hct 36.1 L, MCV 91.9, MCH 29.0, MCHC 31.6 L, RDW 13.5, RDW Differential 45.3 H, Plt Count 148 L, MPV 10.5, Immature Gran % (Auto) 0.300, Neut % (Auto) 81.0 H, Lymph % (Auto) 11.8 L, Braxton % (Auto) 6.5, Eos % (Auto) 0.1, Baso % (Auto) 0.3, Absolute Neuts (auto) 6.0, Absolute Lymphs (auto) 0.87, Total Counted Not Reportable 03/18/18 06:43: Sodium 137, Potassium 4.1, Chloride 105, Carbon Dioxide 24.0, Anion Gap 8, BUN 14, Creatinine 0.75, Estim Creat Clear Calc 69.74, Est GFR (MDRD) Af Amer 101, Est GFR (MDRD) Non-Af 84, BUN/Creatinine Ratio 18.6, Glucose 134 H, Calcium 8.5 03/18/18 06:45: POC Glucose 137 H 03/18/18 11:49: POC Glucose 137 H Current Medications Acetaminophen (Tylenol) 650 mg PO Q6H PRN PRN PRN Reason: Mild Pain (scale 0-3)/T>100.7 Last Admin: 03/18/18 08:17 Dose: 650 mg Al Hydroxide/Mg Hydroxide (Mylanta Ii) 30 ml PO Q6H PRN PRN PRN Reason: Gastric Burning Last Admin: 03/16/18 21:04 Dose: 30 ml Amlodipine Besylate (Norvasc) 10 mg PO QHS [place] Last Admin: 03/17/18 21:52 Dose: 10 mg Apixaban (Eliquis) 10 mg PO BID [facility] Last Admin: 03/18/18 09:44 Dose: 10 mg Atorvastatin Calcium (Lipitor) 40 mg PO QHS [facility] Last Admin: 03/17/18 21:52 Dose: 40 mg Dextrose (D50w Syringe) 0 gm IV X1 PRN; Protocol PRN Reason: Hypoglycemia Glucagon () 1 mg IM .X1 PRN PRN Reason: Hypoglycemia Sodium Chloride () 1,000 mls @ 100 mls/hr IV .Q10H [facility] Last Admin: 03/18/18 08:19 Dose: 100 mls/hr Levofloxacin (Levaquin Iv) 750 mg in 150 mls @ 100 mls/hr IV Q24 [facility] Last Admin: 03/18/18 09:44 Dose: 100 mls/hr Insulin Human Lispro (Humalog Kwikpen (Bkc)) 0 unit SQ ACHS [facility]; Protocol Last Admin: 03/18/18 11:51 Dose: Not Given Lisinopril (Zestril) 40 mg PO DAILY [facility] Last Admin: 03/18/18 09:44 Dose: 40 mg Ondansetron HCl (Zofran) 4 mg IV Q8H PRN PRN PRN Reason: Nausea Last Admin: 03/17/18 11:58 Dose: 4 mg Oxycodone HCl (Oxyir) 5 mg PO Q4H PRN PRN PRN Reason: Moderate Pain (pain scale 4-5) Last Admin: 03/18/18 08:17 Dose: 5 mg Polyethylene Glycol (Miralax) 17 gm PO DAILY [facility] Last Admin: 03/18/18 09:44 Dose: 17 gm Sodium Chloride () 5 - 30 ml IV UD PRN PRN Reason: SALINE FLUSH Zolpidem Tartrate (Ambien (Generic)) 5 mg PO QHS PRN PRN PRN Reason: INSOMNIA Medical Necessity - Tobacco Use Smoking Status: Never smoker Assessment/Plan All Active Problems Right lower extremity cellulitis (Acute) The patient is a 57 year old F with history of type 2 diabetes mellitus and recurrent cellulitis came to ER with pain, tenderness and swelling in the right leg since 03/15/2018 evening. Patient denies fever or chills. She had similar symptoms consistent with cellulitis diagnosed last year February. She had left leg cellulitis several years ago. She had associated symptoms of headache and at one time gastric content vomiting. Denies history of trauma/injury, bug/insect/tick bite. Denies previous foot surgery/ankle mortise fracture or dislocation in the past In ED, initial workup shows leukocytosis with left shift with 90% neutrophils, ESR 22. A1c 6.5. No fever in ED. Her blood sugars are generally controlled and less than 200mg/dl at home. 1 right lower leg cellulitis most probably methicillin susceptible staphylococcal, less likely streptococcal: Based on patient's allergy list, patient was given 1 dose of vancomycin in ED. Started on IV Levaquin. Leukocytosis has resolved. Patient is still tachycardic but improving. Blood cultures x2 ordered. MRSA nasal screen negative. IV fluid normal saline. ID was consulted. Discussed with Dr. Zhu and he agree with continuation of Levaquin. As MRSA is negative, patient does not need vancomycin and therefore discontinued. Patient has also tolerated Unasyn in the past. Venous Doppler is negative of DVT. Patient denies previous history of venous thromboembolic disease. Of note, patient is on Ospemifene, estrogen receptor modulator at home probably taking for moderate to severe menopausal dyspareunia; Therefore CTPA was ordered 2. Bilateral segmental and subsegmental PE: CTPA was done yesterday and reported bilateral segmental/subsegmental PE. Patient was already started on E liquis. Continue Eliquis for at least 6 months. BNP and troponin normal. 2D echo was ordered. Diabetes mellitus, type II: A1c 6.5 suggestive of good glycemic control. Accu- Chek before meals and at bedtime and cover with NovoLog sliding scale. Continue home medications. 3. Hypertension: Patient is on lisinopril and amlodipine. Continued. 4. Dyslipidemia: On atorvastatin DVT prophylaxis: Patient was started on Eliquis 10 mg twice daily with high suspicion of DVT/PE. Can be changed back to Lovenox 40 mg subcu daily if PE is negative Clinical Impression(s) from Imaging Studies Chest CTA 03/17/18 16:16 IMPRESSION: Bilateral pulmonary emboli. Atherosclerosis. Evidence of prior granulomatous disease. Fatty infiltration of the liver. Microbiology Past 72 Hours 03/16/18 10:20 Blood Culture (Wb) - No Site/Description Given Blood Culture - Preliminary No growth in 48 hours. 03/16/18 10:00 Blood Culture (Wb) - Anticubital Left Blood Culture - Preliminary No growth in 48 hours. Laboratory Results 03/17/18 17:17: Troponin I < 0.015 03/18/18 06:43: WBC 7.4, RBC 3.93 L, Hgb 11.4 L, Hct 36.1 L, MCV 91.9, MCH 29.0, MCHC 31.6 L, RDW 13.5, RDW Differential 45.3 H, Plt Count 148 L, MPV 10.5, Immature Gran % (Auto) 0.300, Neut % (Auto) 81.0 H, Lymph % (Auto) 11.8 L, Braxton % (Auto) 6.5, Eos % (Auto) 0.1, Baso % (Auto) 0.3, Absolute Neuts (auto) 6.0, Absolute Lymphs (auto) 0.87, Total Counted Not Reportable 03/18/18 06:43: Sodium 137, Potassium 4.1, Chloride 105, Carbon Dioxide 24.0, Anion Gap 8, BUN 14, Creatinine 0.75, Estim Creat Clear Calc 69.74, Est GFR (M DRD) Af Amer 101, Est GFR (MDRD) Non-Af 84, BUN/Creatinine Ratio 18.6, Glucose 134 H, Calcium 8.5 03/18/18 06:45: POC Glucose 137 H 03/18/18 11:49: POC Glucose 137 H 03/16/18 10:00: ESR 22 03/16/18 10:00: Hemoglobin A1c 6.5 H 03/16/18 12:05: POC Glucose 159 H Code Visit Inpatient E&M: 69853 Subs Hosp L3
--- NOTE | 2018-03-18 16:35 | CON.PCM_ITS ---
Problem List (1) Right lower extremity cellulitis Status: Acute Reason for Consult: cellulitis Consulted by: Dr. Murray History of Present Illness: The patient is a 57 year old F with obesity and prior h/o leg cellulitis who presented with sudden onset 03/15 of RLE redness, swelling, warmth, and stabbing/throbbing pain. Pain was moderate. No inciting events or pet scratches/bites. No fever, some chills. Denies any cough or SOB. No recent long car rides or flights. No drainage from leg. Came to ED, started on levaquin. Leg slowly improving with less redness and pain. New blister on calf. Also found to have PE. DVT neg on RLE. Full ROS performed and neg except as noted above. - Medical History Past Medical History (Chronic Problems): Chronic Problems Morbid obesity (Chronic) Hyperlipidemia (Chronic) Hypertension (Chronic) Type II diabetes mellitus (Chronic) Allergies/Adverse Reactions: Allergies cefuroxime axetil [From Ceftin] Allergy (Verified 03/16/18 09:42) Hives clindamycin Allergy (Verified 03/16/18 09:42) Hives ertapenem sodium [From Invanz] Allergy (Verified 03/16/18 09:42) Rash Sulfa (Sulfonamide Antibiotics) Allergy (Verified 03/16/18 09:42) Hives Home Medications: Ambulatory Orders Medication Instructions Recorded Lisinopril [Zestril] 40 mg PO DAILY 11/26/14 Metformin HCl [Glucophage] 500 mg PO BIDCM 11/26/14 Ospemifene [Osphena] 60 mg PO DAILY 11/26/14 Caduet 10 MG-40 MG Tablet 1 tab PO QHS 12/18/14 Cholecalciferol (Vitamin D3) 1,000 unit PO DAILY 03/16/18 [Vitamin D3] Turmeric 400 mg PO DAILY 03/16/18 Vital Signs Temp Pulse Resp BP Pulse Ox 98.5 F 92 16 117/63 96 03/18/18 13:36 03/18/18 14:35 03/18/18 13:36 03/18/18 13:36 03/18/18 13:36 Oxygen Flow Rate (L/min) 2 Oxygen Delivery Method Nasal Cannula Weight: 132.9 kg Body Mass Index (BMI) 50.3 Finger Stick Blood Glucose 192 Microbiology Past 72 Hours 03/16/18 10:20 Blood Culture - Preliminary Blood Culture (Wb) - No Site/Description Given No growth in 48 hours. 03/16/18 10:00 Blood Culture - Preliminary Blood Culture (Wb) - Anticubital Left No growth in 48 hours. Laboratory Tests Past 24 Hrs 03/17/18 03/17/18 03/17/18 10:40 10:40 17:17 WBC RBC Hgb Hct MCV MCH MCHC RDW RDW Differential Plt Count MPV Immature Gran % (Auto) Neut % (Auto) Lymph % (Auto) [place] % (Auto) Eos % (Auto) Baso % (Auto) Absolute Neuts (auto) Absolute Lymphs (auto) Total Counted Diff Path Review Reviewed Sodium 131 L Potassium 4.1 Chloride 102 Carbon Dioxide 22.0 Anion Gap 7 BUN 17 Creatinine 0.88 Estim Creat Clear Calc 59.44 Est GFR (MDRD) Af Amer 84 Est GFR (MDRD) Non-Af 69 BUN/Creatinine Ratio 19.2 Glucose 103 Calcium 8.1 L Troponin I B-Natriuretic Peptide 20.7 03/17/18 03/18/18 03/18/18 17:17 06:43 06:43 WBC 7.4 RBC 3.93 L Hgb 11.4 L Hct 36.1 L MCV 91.9 MCH 29.0 MCHC 31.6 L RDW 13.5 RDW Differential 45.3 H Plt Count 148 L MPV 10.5 Immature Gran % (Auto) 0.300 Neut % (Auto) 81.0 H Lymph % (Auto) 11.8 L [place] % (Auto) 6.5 Eos % (Auto) 0.1 Baso % (Auto) 0.3 Absolute Neuts (auto) 6.0 Absolute Lymphs (auto) 0.87 Total Counted Not Reportable Diff Path Review Sodium 137 Potassium 4.1 Chloride 105 Carbon Dioxide 24.0 Anion Gap 8 BUN 14 Creatinine 0.75 Estim Creat Clear Calc 69.74 Est GFR (MDRD) Af Amer 101 Est GFR (MDRD) Non-Af 84 BUN/Creatinine Ratio 18.6 Glucose 134 H Calcium 8.5 Troponin I < 0.015 B-Natriuretic Peptide - Other Studies Radiology: [] reviewed Other Studies: [] Route of nutrition/ use of supplements: [] Nutritional Intake: [] IV Site: [] Lai Catheter: [] - Physical Exam General: Alert, Oriented x3, Cooperative, No apparent distress HEENT: Atraumatic, PERRLA, EOMI Lungs: Clear to auscultation, Normal air movement Cardiovascular: Regular rate, Regular Rhythm Abdomen: Soft, Non Tender, Non-Distended, Obese Extremities: Edema Skin: Rash Present - redness/warmth/mild tenderness around R chin and calf with large bulla on R calf IV Site: Peripheral, without redness Musculoskeletal: No Tenderness to Palpation of Joints or Extremities Neurological: Cranial nerves II-XII grossly intact - Assessment/Plan Antibiotics: [] Assessment/Plan: [] RLE cellulitis - improving per patient. No purulence. Large serous bulla on calf. No fever, no leukocytosis. Multiple abx allergies, but tolerated several days of unasyn here in 2014. Low suspicion for MRSA, so will cancel vanc. Continue levaquin for now. It is possible she had DVT in the leg which embolized. Will follow, thank you, d/w Dr. Murray.
[2018-03-18 16:46] LABS: Bedside Glucose 141 mg/dL (70-110)
[2018-03-18] MEDS: Insulin Lispro 100 UNIT/ML INSULN.PEN SQ (21:09)
[2018-03-18] MEDS: Atorvastatin Calcium 40 MG Tablet PO (21:10)
[2018-03-18] MEDS: amLODIPine 10 MG Tablet PO (21:10)
[2018-03-18] MEDS: 0.9% Normal Saline 1,000 ML 50 ML IV (21:13)
[2018-03-18 21:21] LABS: Bedside Glucose 156 mg/dL (70-110)
[2018-03-19 02:00] VITALS: PULSE 87
[2018-03-19] MEDS: oxyCODONE 5 MG Tablet PO ×3 (03:07→15:44)
[2018-03-19] MEDS: Acetaminophen 325 MG Tablet 650 MG PO ×3 (03:08→15:43)
[2018-03-19 03:30] VITALS: BP 148/81; PULSE 100; RESP 16; TEMP 37.1; O2SAT 95
[2018-03-19 06:55] LABS: Bedside Glucose 116 mg/dL (70-110)
[2018-03-19 07:04] VITALS: PULSE 113
--- NOTE | 2018-03-19 08:27 | NURSING ---
wound photo: right lower leg (anteromedial view)
--- NOTE | 2018-03-19 08:28 | NURSING ---
wound photo: right lower leg (posterior view)
[2018-03-19 09:26] VITALS: BP 146/71; PULSE 99; RESP 18; TEMP 37.2; O2SAT 94
[2018-03-19] MEDS: Polyethylene Glycol 3350 17 GM PACKET PO (09:30)
[2018-03-19] MEDS: Lisinopril 40 MG Tablet PO (09:30)
[2018-03-19] MEDS: APIXABAN 5 MG TABLET 10 MG PO (09:30)
--- NOTE | 2018-03-19 10:26 | DCINST_ITS ---
You will use the following diet at home:: Calorie/Carbohydrate Controlled (specify 1200, 1400, etc) - 1800 ADA diet Your food should be the consistency of: Regular Discharge Activity: Return to Normal Activity Additional Instructions: Outpatient sleep study/overnight polysomnography rec ommended Allergies/Adverse Reactions: Allergies cefuroxime axetil [From Ceftin] Allergy (Verified 03/16/18 09:42) Hives clindamycin Allergy (Verified 03/16/18 09:42) Hives ertapenem sodium [From Invanz] Allergy (Verified 03/16/18 09:42) Rash Sulfa (Sulfonamide Antibiotics) Allergy (Verified 03/16/18 09:42) Hives Medications to take at Discharge Lisinopril [Zestril] 40 mg PO DAILY 11/26/14 Ospemifene [Osphena] 60 mg PO DAILY 11/26/14 Caduet 10 MG-40 MG Tablet 1 tab PO QHS 12/18/14 Cholecalciferol (Vitamin D3) [Vitamin D3] 1,000 unit PO DAILY 03/16/18 Turmeric 400 mg PO DAILY 03/16/18 Apixaban [Eliquis] 10 mg PO BID #60 tablet 03/19/18 Levofloxacin [Levaquin] 500 mg PO DAILY #5 tablet 03/19/18 Metformin HCl [Glucophage] 500 mg PO BIDCM #0 03/19/18 The following prescriptions were given: Levofloxacin [Levaquin] 500 mg PO DAILY #5 tablet Apixaban [Eliquis] 10 mg PO BID #60 tablet Primary Care Physician: Gene Arriaga MD [Primary Care Provider] - Please follow up with your Primary Care Physician in: in 1-2 weeks Test Results: Test results from this visit will be discussed in further detail at your follow- up appointment, if applicable. Please Follow Up With: Robert Zhu MD When: in 2 weeks for RLE cellulitis
--- NOTE | 2018-03-19 10:32 | PCM.DC.SUM ---
Discharge Date and Diagnosis Date of Admission: 03/16/18 Date of Discharge: 03/19/18 - Primary Discharge Diagnosis right lower leg cellulitis most probably methicillin susceptible staphylococcal, less likely streptococcal: 2. 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 Patient denies fever or chills. She had similar symptoms consistent with cellulitis diagnosed last year February. She had left leg cellulitis several years ago. She had associated symptoms of headache and at one time gastric content vomiting. Denies history of trauma/injury, bug/insect/tick bite. Denies previous foot surgery/ankle mortise fracture or dislocation in the past In ED, initial workup shows leukocytosis with left shift with 90% neutrophils, ESR 22. A1c 6.5. No fever in ED. Her blood sugars are generally controlled and less than 200mg/dl at home. 1 right lower leg cellulitis most probably methicillin susceptible staphylococcal, less likely streptococcal: Based on patient's allergy list, patient was given 1 dose of vancomycin in ED. Started on IV Levaquin. Leukocytosis has resolved. Patient is still tachycardic but improving. Blood cultures x2 ordered. MRSA nasal screen negative. IV fluid normal saline. ID was consulted. Discussed with Dr. Zhu and he agree with continuation of Levaquin. As MRSA is negative, patient does not need vancomycin and therefore discontinued. Patient has also tolerated Unasyn in the past. Patient is discharged on Levaquin for 5 more days. Venous Doppler is negative of DVT. Patient denies previous history of venous thromboembolic disease. Of note, patient is on Ospemifene, estrogen receptor modulator at home probably taking for moderate to severe menopausal dyspareunia; Therefore CTPA was ordered and came positive of bilateral segmental/subsegmental PE 2. Bilateral segmental and subsegmental PE: CTPA was done and reported bilateral segmental/subsegmental PE. Patient was already started on Eliquis. Continue Eliquis for at least 6 months. BNP and troponin normal. 2D echo reported as mild RV dilatation C. EF 65%. No regional wall motion abnormality. Mild LA enlargement. RVSP 24 mmHg with trivial TR. With mild RV dilatation, patient was advised outpatient polysomnograph test/sleep study to evaluate for further obstructive sleep apnea. Patient gives history of snoring as complained by her . Diabetes mellitus, type II: A1c 6.5 suggestive of good glycemic control. Accu-Chek before meals and at bedtime and cover with NovoLog sliding scale. Continue home medications. 3. Hypertension: Patient is on lisinopril and amlodipine. Continued. 4. Dyslipidemia: On atorvastatin DVT prophylaxis: Patient was started on Eliquis 10 mg twice daily with high suspicion of DVT/PE. Can be changed back to Lovenox 40 mg subcu daily if PE is negative Discharge medication reconciliation done. Follow-up instructions completed. Patient complain of right lower leg pain secondary to cellulitis and right lower extremity possible thrombosis which embolized to pulmonary artery, subsegmental PE. On patient's request, prescription for oxycodone IR, 10/03/2024 every 4 hourly as needed total 7 tablets were given. Patient was given a prescription for Levaquin and Eliquis. Total time spent, exact 35 minutes on discharge meds reconciliation, examination, review of imaging and blood test and discussion with the patient on follow-up instructions. - Physical Exam General: Alert, Oriented x3, Cooperative HEENT: Atraumatic, PERRLA, EOMI, Normocephalic Neck: Supple, No JVD, Negative Carotid Bruits Lungs: Clear to auscultation, Normal air movement, No rhonchi, No wheeze, No rales Cardiovascular: Regular rate, Regular Rhythm, Normal S1, Normal S2, No murmurs Abdomen: Bowel Sounds Present, Soft, Non Tender, Non-Distended Extremities: No edema, Capillary Refill Less than 3 Seconds Skin: Rash Present - Erythema and induration is much improved. Large blister over posterior aspect of right leg, clear fluid which has burst Musculoskeletal: No Tenderness to Palpation of Joints or Extremities, Arthritic Changes Neurological: Cranial nerves II-XII grossly intact Psych/Mental Status: Normal Affect, Appropriate Vital Signs Temp Pulse Resp BP Pulse Ox 99.0 F 99 18 146/71 H 94 03/19/18 09:26 03/19/18 09:26 03/19/18 09:26 03/19/18 09:26 03/19/18 09:26 Oxygen Flow Rate (L/min) 96 Oxygen Delivery Method Room Air Weight: 292 lb 15.909 oz Body Mass Index (BMI) 50.3 Finger Stick Blood Glucose 192 Intake and Output for Last 24 Hours 03/17/18 03/18/18 03/19/18 23:59 23:59 23:59 Intake Total 855 / 855 1560 / 1560 2517 / 2517 Output Total 500 / 500 1550 / 1550 Balance 355 / 355 2516 / 2516 Microbiology Past 72 Hours 03/16/18 10:20 Blood Culture - Preliminary Blood Culture (Wb) - No Site/Description Given No growth in 48 hours. 03/16/18 10:00 Blood Culture - Preliminary Blood Culture (Wb) - Anticubital Left No growth in 48 hours. Laboratory Tests Past 24 Hrs 03/17/18 03/19/18 10:40 08:00 Diff Path Review Reviewed S.aureus Protein A PCR Pending MRSA (PCR) Pending POC Glucose 03/19/18 03/18/18 03/18/18 06:51 21:09 16:39 POC Glucose 116 H 156 H 141 H 03/18/18 11:49 POC Glucose 137 H Discharge Activity: Return to Normal Activity Home Medications: Medications to take at Discharge Lisinopril [Zestril] 40 mg PO DAILY 11/26/14 Ospemifene [Osphena] 60 mg PO DAILY 11/26/14 Caduet 10 MG-40 MG Tablet 1 tab PO QHS 12/18/14 Cholecalciferol (Vitamin D3) [Vitamin D3] 1,000 unit PO DAILY 03/16/18 Turmeric 400 mg PO DAILY 03/16/18 Apixaban [Eliquis] 10 mg PO BID #60 tablet 03/19/18 Levofloxacin [Levaquin] 500 mg PO DAILY #5 tablet 03/19/18 Metformin HCl [Glucophage] 500 mg PO BIDCM #0 03/19/18 Oxycodone [Oxyir] 5 mg PO Q4H PRN PRN 3 Days #7 tab 03/19/18 Following Prescrptions Were Given to Patient: Oxycodone [Oxyir] 5 mg PO Q4H PRN PRN 3 Days #7 tab PRN Reason: Severe Pain (-03/12) Levofloxacin [Levaquin] 500 mg PO DAILY #5 tablet Apixaban [Eliquis] 10 mg PO BID #60 tablet Primary Care Physician: Gene Arriaga MD [Primary Care Provider] - Please follow up with your Primary Care Physician in: in 1-2 weeks Please Follow Up With: Robert Zhu MD When: in 2 weeks for RLE cellulitis Medical Necessity - Tobacco Use Smoking Status: Never smoker Meaningful Use Info Meaningful Use Diagnoses (Choose all that apply): None applicable, VTE - VTE Anticoag overlap given w/in hospital stay or rx'd at dc?: Yes Pt receive overlap for 5 days?: No Reason overlap not ordered, prescribed, or given for 5 days: Procedure Not Indicated - On Eliquis
--- NOTE | 2018-03-19 10:56 | CASEMGMT ---
SUBHASH MURRAY updated by hospitalist that patient will be discharging on Eliquis. Eliquis $10 copay card provided to patient. Patient denied further discharge needs at this time. SUBHASH MURRAY will continue to follow this patient and plan for a safe discharge.
[2018-03-19] MEDS: levoFLOXacin IV 750 MG/150 ML BAG 100 MG IV (11:01)
[2018-03-19 11:25] VITALS: PULSE 92
[2018-03-19 11:28] LABS: M R Staph aureus DNA By PCR Negative (Negative); Probe Check PASS; Specimen Processing Control PASS; Staph aureus DNA By PCR NEGATIVE (Negative)
--- NOTE | 2018-03-19 11:35 | PCM.PN.ID ---
Subjective: Feeling better, leg less sore. No fever, no SOB. - Physical Exam General: Alert, Cooperative, No apparent distress Lungs: Clear to auscultation, Normal air movement Cardiovascular: Regular rate, Regular Rhythm Abdomen: Soft, Non Tender, Non-Distended Extremities: Edema Skin: Rash Present - RLE less red Vital Signs Temp Pulse Resp BP Pulse Ox 99.0 F 99 18 146/71 H 94 03/19/18 09:26 03/19/18 09:26 03/19/18 09:26 03/19/18 09:26 03/19/18 09:26 Oxygen Flow Rate (L/min) 96 Oxygen Delivery Method Room Air Weight: 132.9 kg Body Mass Index (BMI) 50.3 Finger Stick Blood Glucose 192 Intake and Output for Last 24 Hours 03/17/18 03/18/18 03/19/18 23:59 23:59 23:59 Intake Total 855 / 855 1560 / 1560 2517 / 2517 Output Total 500 / 500 1550 / 1550 Balance 355 / 355 251 / 2517 Microbiology Past 72 Hours 03/16/18 10:20 Blood Culture - Preliminary Blood Culture (Wb) - No Site/Description Given No growth in 48 hours. 03/16/18 10:00 Blood Culture - Preliminary Blood Culture (Wb) - Anticubital Left No growth in 48 hours. Laboratory Tests Past 24 Hrs 03/17/18 03/19/18 10:40 08:00 Diff Path Review Reviewed S.aureus Protein A PCR NEGATIVE MRSA (PCR) Negative POC Glucose 03/19/18 03/18/18 03/18/18 06:51 21:09 16:39 POC Glucose 116 H 156 H 141 H 03/18/18 11:49 POC Glucose 137 H Medical Necessity - Tobacco Use Smoking Status: Never smoker Route of nutrition/ use of supplements: [] Nutritional Intake: [] IV Site: [] Lai Catheter: [] - Assessment/Plan Antibiotics: [] Assessment/Plan: [] RLE cellulitis - improving per patient. No purulence. Large serous bulla on calf. No fever, no leukocytosis. Multiple abx allergies, but tolerated several days of unasyn here in 2014. Low suspicion for MRSA. Better today, ok for d/c home on 500mg po levaquin for 5 more days. Will follow, d/w Dr. Murray.
[2018-03-19] MEDS: Insulin Lispro 100 UNIT/ML INSULN.PEN SQ (11:51)
[2018-03-19 11:55] LABS: Bedside Glucose 191 mg/dL (70-110)
--- NOTE | 2018-03-19 12:32 | CHAPLAIN ---
Type of Pastoral Visit ___ Initial Visit _x__ Follow-up Visit ___ On-call Visit ___ General Patient Visit ___ Spiritual Assessment ___ Family Conference ___ Bereavement ___ Rapid Response ___ Code Blue ___ Other (describe below) Pastoral Care Referral From _x__ Patient ___ Family ___ Nurse ___ Physician ___ Literacy Education Professor ___ Cheesemaker ___ Other (describe below) Sacrament/Intervention _x__ Active listening ___ Anointing ___ Catholic ___ Bereavement ___ Communion ___ Ashlee exploration ___ ___ Life review _x__ Prayer ___ Reconciliation ___ Sacrament of Sick ___ Supportive presence ___ Wedding ___ Other (describe below) Pastoral Comments
[2018-03-19 15:30] VITALS: BP 145/73; PULSE 97; RESP 18; TEMP 37.1; O2SAT 99
--- NOTE | 2018-03-20 16:12 | CASEMGMT ---
SUBHASH CM Discharge Follow-up Phone Call: ASHLI: 9 Strata: 3 Call Date: 03/20/18 Discharge Date: 03/19/18 Time of Call: [id number] Duration: 1 min Admitting Diagnosis: RLE Cellulitis RN TREVOR attempted to complete follow-up phone call after recent hospitalization. No answer, voice message left with return contact information.
== END 2018-03-19 17:05 | disposition home or self-care (01) | DRG 603 ==
LOC: ED 10:14 → MS3 11:07
PROVIDERS: Admitting Provider Internal Medicine; Emergency Provider Emergency Medicine; Family Provider Family Medicine; PCP Family Medicine; Visit Provider Internal Medicine
DX: L03.115 Cellulitis of right lower limb (principal); Z68.43 Body mass index [BMI] 50.0-59.9, adult; E78.5 Hyperlipidemia, unspecified; E66.01 Morbid (severe) obesity due to excess calories; I10 Essential (primary) hypertension; E11.9 Type 2 diabetes mellitus without complications; Z79.84 Long term (current) use of oral hypoglycemic drugs; B95.61 Methicillin susceptible Staphylococcus aureus infection as the cause of diseases classified elsewhere
CPT/HCPCS: 36415; 71275; 80048; 82962; 83036; 83880; 84484; 85025; 85379; 85652; 87040; 87070; 87205; 87640; 87641; 93005; 93306; 93970; 99281; J7030; J7040; Q9957; Q9967; A4216; C8929; J2405

== ENCOUNTER 2018-04-11 09:30 | Outpatient (RCR) | payer OTHER, SELFPAY ==
[2018-04-04 08:30] VITALS: BP 155/88; PULSE 72; RESP 22; TEMP 36; BMI 49.6
--- NOTE | 2018-04-04 10:35 | PCM.WC.HP ---
(1) Right lower extremity cellulitis Status: Acute Current Visit: Yes (2) Morbid obesity Status: Chronic Current Visit: Yes Code(s): E66.01 - Morbid (severe) obesity due to excess calories (3) Type II diabetes mellitus Status: Chronic Current Visit: Yes Qualifiers: Diabetes mellitus residential insulin use: without supervisor front use Diabetes mellitus complication status: with circulatory complication Diabetes mellitus complication detail: with other circulatory complications Qualified Code(s): E11.59 - Type 2 diabetes mellitus with other circulatory complications Code(s): E11.9 - Type 2 diabetes mellitus without complications (4) Non-healing non-surgical wound Status: Acute Current Visit: Yes Code(s): T14.8XXA - Other injury of unspecified body region, initial encounter History of Present Illness Chief Complaint: Follow-up right lower leg cellulitis and ulcers. History of Wound: 57-year-old white female that develops on and off cellulitis to bilateral lower legs. In March she developed the cellulitis worse in the right leg and then developed pulmonary embolisms. Hospitalized for 2 days is on Eliquis now daily. Has developed open blisters that are now crusted anterior and posterior to the right lower leg. Her family doctor has been treating her and felt he needed to refer just to make sure that she was being treated correctly. He did do cultures and does show a bacteria with sensitivity. Past Medical History Past Medical History: Chronic Problems Morbid obesity (Chronic) Hyperlipidemia (Chronic) Hypertension (Chronic) Type II diabetes mellitus (Chronic) Past Medical History: Cellulitis right leg, ulcers right leg ,pulmonary embolus Surgical History: tonsillectomy, - - D&C, bilateral carpal tunnel surgery, Allergies/Adverse Reactions: Allergies cefuroxime axetil [From Ceftin] Allergy (Verified 04/04/18 09:05) Hives clindamycin Allergy (Verified 04/04/18 09:05) Hives ertapenem sodium [From Invanz] Allergy (Verified 04/04/18 09:05) Rash Sulfa (Sulfonamide Antibiotics) Allergy (Verified 04/04/18 09:05) Hives Home Medications: Ambulatory Orders Medication Instructions Recorded Lisinopril [Zestril] 40 mg PO DAILY 11/26/14 Ospemifene [Osphena] 60 mg PO DAILY 11/26/14 Caduet 10 MG-40 MG Tablet 1 tab PO QHS 12/18/14 Cholecalciferol (Vitamin D3) 1,000 unit PO DAILY 03/16/18 [Vitamin D3] Apixaban [Eliquis] 10 mg PO BID #60 tablet 03/19/18 Metformin HCl [Glucophage] 500 mg PO BIDCM #0 03/19/18 Atorvastatin Calcium [Lipitor] 10 mg PO 04/04/18 Oxycodone HCl/Acetaminophen 04/04/18 [Percocet 5-325] - Family History Maternal Hypertension Paternal Diabetes, Heart Disease, Hypertension Lives: Spouse/ Significant Other Smoking Status: Never smoker Tobacco Use: Non-smoker Drugs: None Review of Systems Constitutional: Denies: Chills, Fever Eyes: Denies: Blurred vision, Drainage, Pain HEENT: Denies: Difficulty Hearing, Difficulty Swallowing, Sore Throat, Visual Changes Cardiovascular: Denies: Chest Pain, Palpitations, Syncope Respiratory: Denies: Cough, Shortness of Breath Gastrointestinal: Denies: Abdominal Pain, Nausea, Vomiting Genitourinary: Denies: Dysuria, Frequency Musculoskeletal: Denies: Joint Pain, Muscle pain Skin: Reports: Wounds - Anterior and posterior right lower leg. Denies: Jaundice, Rash Neurological: Denies: Balance problems, Change in Speech, Difficulty swallowing, Focal weakness Psychiatric: Denies: Anxiety, Depression Endocrine: Denies: Change in Body Habitus Hematologic/ Lymphatic: Denies: Adenopathy - Physical Exam Vital Signs Temp Pulse Resp BP 96.8 F L 72 22 H 155/88 H 04/04/18 08:30 04/04/18 08:30 04/04/18 08:30 04/04/18 08:30 General: Oriented x3, Cooperative, Well developed HEENT: Atraumatic, PERRLA Oral: Moist Mucosa Neck: Supple, No JVD Lungs: Clear to auscultation, Normal air movement Cardiovascular: Regular rate, Regular Rhythm Abdomen: Bowel Sounds Present, Soft, Non Tender, No Hepato-splenomegaly Extremities: No clubbing, No edema, - - Ulcers anterior posterior right lower leg with cellulitis Wound Measurements and Assessment WC - Nurse 1 - General Ulcer Measurement Start: 04/04/18 08:17 Freq: Status: Active Protocol: Activity Type Activity Date Activity User E-Sign Co-Sign Detail Recorded Client Recorded Date Recorded By Document 04/04/18 08:30 DL [id number] 04/04/18 09:00 DL 04/04/18 08:30 Wound Center Nurse 1 [Ulcer Assessment] #3 R Grt Toe Plantar -Current Size (cm) - Length 1.6 -Current Size (cm) - Width 0.5 -Current Size (cm) - Depth 0.1 -Total Square Cm 0.80 -Photo Taken Yes -Classification - Thickness Unclassifiable (Eschar Covered ) -Exudate Amt None Present (0 %) -Wound Margin Thickened -Granulation Amt None Present (0 %) -Necrosis Amt Large (67-100%) -Necrotic Tissue Type Eschar -Structure Exposed N/A -Texture (Adelita-wound Skin Appearance) Localized Edema -Moisture (Daelita-wound Skin Appearance Dry/Scaly ) -Color (Adelita-wound Skin Appearance) Erythema -Temperature (Adelita-wound Skin No Abnormality Appearance) (Pt Warm) -Tenderness on Palpation (Adelita-wound Yes Skin Appearance) -Ulcer Cleansing Wound Cleanser -Foul Odor after Cleansing No -Anesthetic Used 4% Lidocaine Solution #2 R Post Cluster -Current Size (cm) - Length 25 -Current Size (cm) - Width 8 -Current Size (cm) - Depth 0.1 -Total Square Cm 200 -Photo Taken Yes -Classification - Thickness Full Thickness without Exposed Support Structure -Exudate Amt Medium (34-66%) -Exudate Type Serosanguineous -Wound Margin Distinct, Outline Attached -Granulation Amt Medium (34-66%) -Granulation Quality Red -Necrosis Amt Medium (34-66%) -Necrotic Tissue Type Eschar -Structure Exposed N/A -Texture (Adelita-wound Skin Appearance) Localized Edema Scarring -Moisture (Adelita-wound Skin Appearance Weeping ) -Color (Adelita-wound Skin Appearance) Erythema Hemosiderin Staining -Temperature (Adelita-wound Skin No Abnormality Appearance) (Pt Warm) -Tenderness on Palpation (Adelita-wound Yes Skin Appearance) -Ulcer Cleansing Wound Cleanser -Foul Odor after Cleansing No -Anesthetic Used 4% Lidocaine Solution #1 R Galvez -Current Size (cm) - Length 5 -Current Size (cm) - Width 6.5 -Current Size (cm) - Depth 0.1 -Total Square Cm 32.5 -Photo Taken Yes -Classification - Thickness Partial Thickness -Exudate Amt Medium (34-66%) -Exudate Type Serosanguineous -Wound Margin Distinct, Outline Attached -Granulation Amt Large (67-100%) -Granulation Quality [place] Red -Necrosis Amt Small (1-33%) -Necrotic Tissue Type Adherent Slough -Structure Exposed N/A -Texture (Adelita-wound Skin Appearance) Localized Edema Scarring -Moisture (Adelita-wound Skin Appearance Weeping ) -Color (Adelita-wound Skin Appearance) Erythema Hemosiderin Staining -Temperature (Adelita-wound Skin No Abnormality Appearance) (Pt Warm) -Tenderness on Palpation (Adelita-wound Yes Skin Appearance) -Ulcer Cleansing Wound Cleanser -Foul Odor after Cleansing No -Anesthetic Used 4% Lidocaine Solution [Edema Assessment] -Right Calf (cm) 43 -Right Ankle (cm) 27.5 -Left Calf (cm) 43 -Left Ankle (cm) 24.5 WC - Nurse 2 - General Ulcer CM Notes Start: 04/04/18 08:17 Freq: Status: Active Protocol: Activity Type Activity Date Activity User E-Sign Co-Sign Detail Recorded Client Recorded Date Recorded By Document 04/04/18 09:26 MW [id number] 04/04/18 09:42 MW 04/04/18 09:26 Wound Center Nurse 2 [Procedure/Treatment] #3 R Grt Toe Plantar -Time 09:28 -Correct Patient Yes -Correct Side, Site, Position Yes -Correct Procedure Yes -Procedure Performed No -Post Debridement Size (cm) - Length 1.6 -Post Debridement Size (cm) - Width 0.5 -Post Debridement Size (cm) - Depth 0.1 -Total Square Cm 0.80 -Wound/Ulcer Outcome Not Healed -Ulcer Cleansing Not Cleansed -Bleeding Controlled with Pressure -Treatment Response Procedure Tolerated Well #2 R Post Cluster -Time 09:28 -Correct Patient Yes -Correct Side, Site, Position Yes -Correct Procedure Yes -Procedure Performed No -Post Debridement Size (cm) - Length 25.0 -Post Debridement Size (cm) - Width 8.0 -Post Debridement Size (cm) - Depth 0.1 -Total Square Cm 200.00 -Wound/Ulcer Outcome Not Healed -Ulcer Cleansing Not Cleansed -Foul Odor after Cleansing No -Bleeding Controlled with NA -Treatment Response Procedure Tolerated Well #1 R Galvez -Time 09:29 -Correct Patient Yes -Correct Side, Site, Position Yes -Correct Procedure Yes -Procedure Performed No -Post Debridement Size (cm) - Length 5.0 -Post Debridement Size (cm) - Width 6.5 -Post Debridement Size (cm) - Depth 0.1 -Total Square Cm 32.50 -Wound/Ulcer Outcome Not Healed -Ulcer Cleansing Not Cleansed -Foul Odor after Cleansing No -Bleeding Controlled with NA -Treatment Response Procedure Tolerated Well [See Physician Procedure note for Specifics] Pain Scale: 0-10 Numeric [Pain] -Is Patient Pain Free? Yes Musculoskeletal: No Tenderness to Palpation of Joints or Extremities Lymphatic: No Cervical, Supraclavicular, or Inguinal Adenopathy Neurological: Cranial nerves II-XII grossly intact, Neuro grossly intact Psych/Mental Status: Normal Affect, Appropriate Debridement Note Post-Debridement Measurements/Treatment WC - Nurse 2 - General Ulcer CM Notes Start: 04/04/18 08:17 Freq: Status: Active Protocol: Activity Type Activity Date Activity User E-Sign Co-Sign Detail Recorded Client Recorded Date Recorded By Document 04/04/18 09:26 MW [id number] 04/04/18 09:42 MW 04/04/18 09:26 Wound Center Nurse 2 #3 R Grt Toe Plantar -Time 09:28 -Correct Patient Yes -Correct Side, Site, Position Yes -Correct Procedure Yes -Procedure Performed No -Post Debridement Size (cm) - Length 1.6 -Post Debridement Size (cm) - Width 0.5 -Post Debridement Size (cm) - Depth 0.1 -Total Square Cm 0.80 -Wound/Ulcer Outcome Not Healed -Ulcer Cleansing Not Cleansed -Bleeding Controlled with Pressure -Treatment Response Procedure Tolerated Well #2 R Post Cluster -Time 09:28 -Correct Patient Yes -Correct Side, Site, Position Yes -Correct Procedure Yes -Procedure Performed No -Post Debridement Size (cm) - Length 25.0 -Post Debridement Size (cm) - Width 8.0 -Post Debridement Size (cm) - Depth 0.1 -Total Square Cm 200.00 -Wound/Ulcer Outcome Not Healed -Ulcer Cleansing Not Cleansed -Foul Odor after Cleansing No -Bleeding Controlled with NA -Treatment Response Procedure Tolerated Well #1 R Galvez -Time 09:29 -Correct Patient Yes -Correct Side, Site, Position Yes -Correct Procedure Yes -Procedure Performed No -Post Debridement Size (cm) - Length 5.0 -Post Debridement Size (cm) - Width 6.5 -Post Debridement Size (cm) - Depth 0.1 -Total Square Cm 32.50 -Wound/Ulcer Outcome Not Healed -Ulcer Cleansing Not Cleansed -Foul Odor after Cleansing No -Bleeding Controlled with NA -Treatment Response Procedure Tolerated Well Pain Scale: 0-10 Numeric Is Patient Pain Free? Yes No debridement was completed today Assessment/Plan Active Problems Non-healing non-surgical wound (Acute) Right lower extremity cellulitis (Acute) Morbid obesity (Chronic) Type II diabetes mellitus (Chronic) Assessment: Nonhealing nonsurgical ulcers right lower leg anterior posterior. Diabetes type 2. Cellulitis. Morbid obesity. Lower leg edema Plan: Wash legs with Hibiclens. Apply Aquacel silver with Adaptic over top wrap with moistened wrap with Daniel Radu wrap to the right leg. Linezolid 600 mg p.o. twice daily for 10 days. Follow-up one week
--- NOTE | 2018-04-04 10:40 | HP.PCM_ITS ---
(1) Right lower extremity cellulitis Status: Acute Current Visit: Yes (2) Morbid obesity Status: Chronic Current Visit: Yes Code(s): E66.01 - Morbid (severe) obesity due to excess calories (3) Type II diabetes mellitus Status: Chronic Current Visit: Yes Qualifiers: Diabetes mellitus decision science analyst insulin use: without decision science analyst use Diabetes mellitus complication status: with circulatory complication Diabetes mellitus complication detail: with other circulatory complications Qualified Code(s): E11.59 - Type 2 diabetes mellitus with other circulatory complications Code(s): E11.9 - Type 2 diabetes mellitus without complications (4) Non-healing non-surgical wound Status: Acute Current Visit: Yes Code(s): T14.8XXA - Other injury of unspecified body region, initial encounter History of Present Illness Chief Complaint: Follow-up right lower leg cellulitis and ulcers. History of Wound: 57-year-old white female that develops on and off cellulitis to bilateral lower legs. In March she developed the cellulitis worse in the right leg and then developed pulmonary embolisms. Hospitalized for 2 days is on Eliquis now daily. Has developed open blisters that are now crusted anterior and posterior to the right lower leg. Her family doctor has been treating her and felt he needed to refer just to make sure that she was being treated correctly. He did do cultures and does show a bacteria with sensitivity. Past Medical History Past Medical History: Chronic Problems Morbid obesity (Chronic) Hyperlipidemia (Chronic) Hypertension (Chronic) Type II diabetes mellitus (Chronic) Past Medical History: Cellulitis right leg, ulcers right leg ,pulmonary embolus Surgical History: tonsillectomy, - - D&C, bilateral carpal tunnel surgery, C- section Allergies/Adverse Reactions: Allergies cefuroxime axetil [From Ceftin] Allergy (Verified 04/04/18 09:05) Hives clindamycin Allergy (Verified 04/04/18 09:05) Hives ertapenem sodium [From Invanz] Allergy (Verified 04/04/18 09:05) Rash Sulfa (Sulfonamide Antibiotics) Allergy (Verified 04/04/18 09:05) Hives Home Medications: Ambulatory Orders Medication Instructions Recorded Lisinopril [Zestril] 40 mg PO DAILY 11/26/14 Ospemifene [Osphena] 60 mg PO DAILY 11/26/14 Caduet 10 MG-40 MG Tablet 1 tab PO QHS 12/18/14 Cholecalciferol (Vitamin D3) 1,000 unit PO DAILY 03/16/18 [Vitamin D3] Apixaban [Eliquis] 10 mg PO BID #60 tablet 03/19/18 Metformin HCl [Glucophage] 500 mg PO BIDCM #0 03/19/18 Atorvastatin Calcium [Lipitor] 10 mg PO 04/04/18 Oxycodone HCl/Acetaminophen 04/04/18 [Percocet 5-325] - Family History Maternal Hypertension Paternal Diabetes, Heart Disease, Hypertension Lives: Spouse/ Significant Other Smoking Status: Never smoker Tobacco Use: Non-smoker Drugs: None Review of Systems Constitutional: Denies: Chills, Fever Eyes: Denies: Blurred vision, Drainage, Pain HEENT: Denies: Difficulty Hearing, Difficulty Swallowing, Sore Throat, Visual Changes Cardiovascular: Denies: Chest Pain, Palpitations, Syncope Respiratory: Denies: Cough, Shortness of Breath Gastrointestinal: Denies: Abdominal Pain, Nausea, Vomiting Genitourinary: Denies: Dysuria, Frequency Musculoskeletal: Denies: Joint Pain, Muscle pain Skin: Reports: Wounds - Anterior and posterior right lower leg. Denies: Jaundice, Rash Neurological: Denies: Balance problems, Change in Speech, Difficulty swallowing, Focal weakness Psychiatric: Denies: Anxiety, Depression Endocrine: Denies: Change in Body Habitus Hematologic/ Lymphatic: Denies: Adenopathy - Physical Exam Vital Signs Temp Pulse Resp BP 96.8 F L 72 22 H 155/88 H 04/04/18 08:30 04/04/18 08:30 04/04/18 08:30 04/04/18 08:30 General: Oriented x3, Cooperative, Well developed HEENT: Atraumatic, PERRLA Oral: Moist Mucosa Neck: Supple, No JVD Lungs: Clear to auscultation, Normal air movement Cardiovascular: Regular rate, Regular Rhythm Abdomen: Bowel Sounds Present, Soft, Non Tender, No Hepato-splenomegaly Extremities: No clubbing, No edema, - - Ulcers anterior posterior right lower leg with cellulitis Wound Measurements and Assessment WC - Nurse 1 - General Ulcer Measurement Start: 04/04/18 08:17 Freq: Status: Active Protocol: Activity Type Activity Date Activity User E-Sign Co-Sign Detail Recorded Client Recorded Date Recorded By Document 04/04/18 08:30 DL [id number] 04/04/18 09:00 DL 04/04/18 08:30 Wound Center Nurse 1 [Ulcer Assessment] #3 R Grt Toe Plantar -Current Size (cm) - Length 1.6 -Current Size (cm) - Width 0.5 -Current Size (cm) - Depth 0.1 -Total Square Cm 0.80 -Photo Taken Yes -Classification - Thickness Unclassifiable (Eschar Covered ) -Exudate Amt None Present (0 %) -Wound Margin Thickened -Granulation Amt None Present (0 %) -Necrosis Amt Large (67-100%) -Necrotic Tissue Type Eschar -Structure Exposed N/A -Texture (Adelita-wound Skin Appearance) Localized Edema -Moisture (Adelita-wound Skin Appearance Dry/Scaly ) -Color (Adelita-wound Skin Appearance) Erythema -Temperature (Adelita-wound Skin No Abnormality Appearance) (Pt Warm) -Tenderness on Palpation (Adelita-wound Yes Skin Appearance) -Ulcer Cleansing Wound Cleanser -Foul Odor after Cleansing No -Anesthetic Used 4% Lidocaine Solution #2 R Post Cluster -Current Size (cm) - Length 25 -Current Size (cm) - Width 8 -Current Size (cm) - Depth 0.1 -Total Square Cm 200 -Photo Taken Yes -Classification - Thickness Full Thickness without Exposed Support Structure -Exudate Amt Medium (34-66%) -Exudate Type Serosanguineous -Wound Margin Distinct, Outline Attached -Granulation Amt Medium (34-66%) -Granulation Quality Red -Necrosis Amt Medium (34-66%) -Necrotic Tissue Type Eschar -Structure Exposed N/A -Texture (Adelita-wound Skin Appearance) Localized Edema Scarring -Moisture (Adelita-wound Skin Appearance Weeping ) -Color (Adelita-wound Skin Appearance) Erythema Hemosiderin Staining -Temperature (Adelita-wound Skin No Abnormality Appearance) (Pt Warm) -Tenderness on Palpation (Adelita-wound Yes Skin Appearance) -Ulcer Cleansing Wound Cleanser -Foul Odor after Cleansing No -Anesthetic Used 4% Lidocaine Solution #1 R Galvez -Current Size (cm) - Length 5 -Current Size (cm) - Width 6.5 -Current Size (cm) - Depth 0.1 -Total Square Cm 32.5 -Photo Taken Yes -Classification - Thickness Partial Thickness -Exudate Amt Medium (34-66%) -Exudate Type Serosanguineous -Wound Margin Distinct, Outline Attached -Granulation Amt Large (67-100%) -Granulation Quality [place] Red -Necrosis Amt Small (1-33%) -Necrotic Tissue Type Adherent Slough -Structure Exposed N/A -Texture (Adelita-wound Skin Appearance) Localized Edema Scarring -Moisture (Adelita-wound Skin Appearance Weeping ) -Color (Adelita-wound Skin Appearance) Erythema Hemosiderin Staining -Temperature (Adelita-wound Skin No Abnormality Appearance) (Pt Warm) -Tenderness on Palpation (Adelita-wound Yes Skin Appearance) -Ulcer Cleansing Wound Cleanser -Foul Odor after Cleansing No -Anesthetic Used 4% Lidocaine Solution [Edema Assessment] -Right Calf (cm) 43 -Right Ankle (cm) 27.5 -Left Calf (cm) 43 -Left Ankle (cm) 24.5 WC - Nurse 2 - General Ulcer CM Notes Start: 04/04/18 08:17 Freq: Status: Active Protocol: Activity Type Activity Date Activity User E-Sign Co-Sign Detail Recorded Client Recorded Date Recorded By Document 04/04/18 09:26 MW [id number] 04/04/18 09:42 MW 04/04/18 09:26 Wound Center Nurse 2 [Procedure/Treatment] #3 R Grt Toe Plantar -Time 09:28 -Correct Patient Yes -Correct Side, Site, Position Yes -Correct Procedure Yes -Procedure Performed No -Post Debridement Size (cm) - Length 1.6 -Post Debridement Size (cm) - Width 0.5 -Post Debridement Size (cm) - Depth 0.1 -Total Square Cm 0.80 -Wound/Ulcer Outcome Not Healed -Ulcer Cleansing Not Cleansed -Bleeding Controlled with Pressure -Treatment Response Procedure Tolerated Well #2 R Post Cluster -Time 09:28 -Correct Patient Yes -Correct Side, Site, Position Yes -Correct Procedure Yes -Procedure Performed No -Post Debridement Size (cm) - Length 25.0 -Post Debridement Size (cm) - Width 8.0 -Post Debridement Size (cm) - Depth 0.1 -Total Square Cm 200.00 -Wound/Ulcer Outcome Not Healed -Ulcer Cleansing Not Cleansed -Foul Odor after Cleansing No -Bleeding Controlled with NA -Treatment Response Procedure Tolerated Well #1 R Galvez -Time 09:29 -Correct Patient Yes -Correct Side, Site, Position Yes -Correct Procedure Yes -Procedure Performed No -Post Debridement Size (cm) - Length 5.0 -Post Debridement Size (cm) - Width 6.5 -Post Debridement Size (cm) - Depth 0.1 -Total Square Cm 32.50 -Wound/Ulcer Outcome Not Healed -Ulcer Cleansing Not Cleansed -Foul Odor after Cleansing No -Bleeding Controlled with NA -Treatment Response Procedure Tolerated Well [See Physician Procedure note for Specifics] Pain Scale: 0-10 Numeric [Pain] -Is Patient Pain Free? Yes Musculoskeletal: No Tenderness to Palpation of Joints or Extremities Lymphatic: No Cervical, Supraclavicular, or Inguinal Adenopathy Neurological: Cranial nerves II-XII grossly intact, Neuro grossly intact Psych/Mental Status: Normal Affect, Appropriate Debridement Note Post-Debridement Measurements/Treatment WC - Nurse 2 - General Ulcer CM Notes Start: 04/04/18 08:17 Freq: Status: Active Protocol: Activity Type Activity Date Activity User E-Sign Co-Sign Detail Recorded Client Recorded Date Recorded By Document 04/04/18 09:26 MW [id number] 04/04/18 09:42 MW 04/04/18 09:26 Wound Center Nurse 2 #3 R Grt Toe Plantar -Time 09:28 -Correct Patient Yes -Correct Side, Site, Position Yes -Correct Procedure Yes -Procedure Performed No -Post Debridement Size (cm) - Length 1.6 -Post Debridement Size (cm) - Width 0.5 -Post Debridement Size (cm) - Depth 0.1 -Total Square Cm 0.80 -Wound/Ulcer Outcome Not Healed -Ulcer Cleansing Not Cleansed -Bleeding Controlled with Pressure -Treatment Response Procedure Tolerated Well #2 R Post Cluster -Time 09:28 -Correct Patient Yes -Correct Side, Site, Position Yes -Correct Procedure Yes -Procedure Performed No -Post Debridement Size (cm) - Length 25.0 -Post Debridement Size (cm) - Width 8.0 -Post Debridement Size (cm) - Depth 0.1 -Total Square Cm 200.00 -Wound/Ulcer Outcome Not Healed -Ulcer Cleansing Not Cleansed -Foul Odor after Cleansing No -Bleeding Controlled with NA -Treatment Response Procedure Tolerated Well #1 R Galvez -Time 09:29 -Correct Patient Yes -Correct Side, Site, Position Yes -Correct Procedure Yes -Procedure Performed No -Post Debridement Size (cm) - Length 5.0 -Post Debridement Size (cm) - Width 6.5 -Post Debridement Size (cm) - Depth 0.1 -Total Square Cm 32.50 -Wound/Ulcer Outcome Not Healed -Ulcer Cleansing Not Cleansed -Foul Odor after Cleansing No -Bleeding Controlled with NA -Treatment Response Procedure Tolerated Well Pain Scale: 0-10 Numeric Is Patient Pain Free? Yes No debridement was completed today Assessment/Plan Active Problems Non-healing non-surgical wound (Acute) Right lower extremity cellulitis (Acute) Morbid obesity (Chronic) Type II diabetes mellitus (Chronic) Assessment: Nonhealing nonsurgical ulcers right lower leg anterior posterior. Diabetes type 2. Cellulitis. Morbid obesity. Lower leg edema Plan: Wash legs with Hibiclens. Apply Aquacel silver with Adaptic over top wrap with moistened wrap with Daniel Radu wrap to the right leg. Linezolid 600 mg p.o. twice daily for 10 days. Follow-up one week
[2018-04-11 09:35] VITALS: BP 166/83; PULSE 122; RESP 18; BMI 49.6
--- NOTE | 2018-04-11 10:19 | PCM.WC.PN ---
(1) Right lower extremity cellulitis Status: Acute Current Visit: Yes (2) Morbid obesity Status: Chronic Current Visit: Yes Code(s): E66.01 - Morbid (severe) obesity due to excess calories (3) Type II diabetes mellitus Status: Chronic Current Visit: Yes Qualifiers: Diabetes mellitus termite control technician insulin use: without termite control technician use Diabetes mellitus complication status: with circulatory complication Diabetes mellitus complication detail: with other circulatory complications Qualified Code(s): E11.59 - Type 2 diabetes mellitus with other circulatory complications Code(s): E11.9 - Type 2 diabetes mellitus without complications (4) Non-healing non-surgical wound Status: Acute Current Visit: Yes Code(s): T14.8XXA - Other injury of unspecified body region, initial encounter Type of Wound Chief Complaint: Follow-up right lower leg cellulitis and ulcers. History of Wound: 57-year-old white female that develops on and off cellulitis to bilateral lower legs. In March she developed the cellulitis worse in the right leg and then developed pulmonary embolisms. Hospitalized for 2 days is on Eliquis now daily. Has developed open blisters that are now crusted anterior and posterior to the right lower leg. Her family doctor has been treating her and felt he needed to refer just to make sure that she was being treated correctly. He did do cultures and does show a bacteria with sensitivity. Progress of Wound: Anterior and posterior right lower extremity healed cellulitis under control. Patient taking linezolid for her infection tolerating well. Right great toe callus has been pared down and removed any sign of wart in the base with blades and then nitro sticks toe. Patient will be discharged today everything is done. - Physical Exam Vital Signs Temp Pulse Resp BP 96.8 F L 122 H 18 166/83 H 04/04/18 08:30 04/11/18 09:35 04/11/18 09:35 04/11/18 09:35 General: Oriented x3, Cooperative, Well developed HEENT: Atraumatic, PERRLA Oral: Moist Mucosa Neck: Supple, No JVD Lungs: Clear to auscultation, Normal air movement Cardiovascular: Regular rate, Regular Rhythm Abdomen: Bowel Sounds Present, Soft, Non Tender, No Hepato-splenomegaly Extremities: No clubbing, No edema, - - Right lower extremity cellulitis and ulcers right great toe callus and wart Wound Measurements and Assessment WC - Nurse 1 - General Ulcer Measurement Start: 04/04/18 08:17 Freq: Status: Active Protocol: Activity Type Activity Date Activity User E-Sign Co-Sign Detail Recorded Client Recorded Date Recorded By Document 04/11/18 09:35 [id number] 04/11/18 09:45 04/11/18 09:35 Wound Center Nurse 1 [Ulcer Assessment] #3 R Grt Toe Plantar -Combined with other wound No -Current Size (cm) - Length 0.4 -Current Size (cm) - Width 0.3 -Current Size (cm) - Depth 0.1 -Total Square Cm 0.12 -Photo Taken No -Epithelialization None Present -Tunneling No -Undermining/Tunneling No -Circular Undermining No -Exudate Amt None Present (0 %) -Wound Margin Distinct, Outline Attached -Texture (Adelita-wound Skin Appearance) Callus -Temperature (Adelita-wound Skin No Abnormality Appearance) (Pt Warm) -Tenderness on Palpation (Adelita-wound No Skin Appearance) -Ulcer Cleansing Rinsed/ Irrigated with Saline -Foul Odor after Cleansing No -Anesthetic Used 4% Lidocaine Solution #2 R Post Cluster -Combined with other wound No -Current Size (cm) - Length 5.2 -Current Size (cm) - Width 3 -Current Size (cm) - Depth 0.1 -Total Square Cm 15.6 -Photo Taken No -Epithelialization Large 67-100% -Tunneling No -Undermining/Tunneling No -Circular Undermining No -Granulation Amt Large (67-100%) -Granulation Quality Red -Color (Adelita-wound Skin Appearance) Hemosiderin Staining -Temperature (Adelita-wound Skin No Abnormality Appearance) (Pt Warm) -Ulcer Cleansing Rinsed/ Irrigated with Saline -Foul Odor after Cleansing No -Anesthetic Used 4% Lidocaine Solution #1 R Galvez -Combined with other wound No -Current Size (cm) - Length 0.1 -Current Size (cm) - Width 0.1 -Current Size (cm) - Depth 0.1 -Total Square Cm 0.01 -Date of Last Picture (Recall this 04/11/18 field) -Photo Taken Yes -Epithelialization Large 67-100% [Edema Assessment] -Lower Limb Edema Present NA - Nurse 2 - General Ulcer CM Notes Start: 04/04/18 08:17 Freq: Status: Active Protocol: Activity Type Activity Date Activity User E-Sign Co-Sign Detail Recorded Client Recorded Date Recorded By Document 04/11/18 09:54 MW [id number] 04/11/18 10:05 MW 04/11/18 09:54 Wound Center Nurse 2 [Procedure/Treatment] #3 R Grt Toe Plantar -Time 09:54 -Correct Patient Yes -Correct Side, Site, Position Yes -Correct Procedure Yes -Procedure Performed Yes -Type of Procedure Debridement -Clinical Debridement Subcutaneous -Post Debridement Size (cm) - Length 0 -Post Debridement Size (cm) - Width 0 -Post Debridement Size (cm) - Depth 0 -Total Square Cm 0 -Wound/Ulcer Outcome Not Healed -Ulcer Cleansing Rinsed/ Irrigated with Saline -Foul Odor after Cleansing No -Bioengineered Tissue No -Bleeding Controlled with Pressure Silver Nitrate -Treatment Response Procedure Tolerated Well #2 R Post Cluster -Time 09:54 -Correct Patient Yes -Correct Side, Site, Position Yes -Correct Procedure Yes -Procedure Performed No -Post Debridement Size (cm) - Length 0 -Post Debridement Size (cm) - Width 0 -Post Debridement Size (cm) - Depth 0 -Total Square Cm 0 -Wound/Ulcer Outcome Healed- Epithelialized #1 R Galvez -Time 09:55 -Correct Patient Yes -Correct Side, Site, Position Yes -Correct Procedure Yes -Procedure Performed No -Post Debridement Size (cm) - Length 0 -Post Debridement Size (cm) - Width 0 -Post Debridement Size (cm) - Depth 0 -Total Square Cm 0 -Wound/Ulcer Outcome Healed- Epithelialized [See Physician Procedure note for Specifics] Pain Scale: 0-10 Numeric [Pain] -Is Patient Pain Free? Yes Musculoskeletal: No Tenderness to Palpation of Joints or Extremities Lymphatic: No Cervical, Supraclavicular, or Inguinal Adenopathy Neurological: Cranial nerves II-XII grossly intact, Neuro grossly intact Psych/Mental Status: Normal Affect, Appropriate, Alert and oriented to time, place, person, mood and affect Debridement Note Post-Debridement Measurements/Treatment WC - Nurse 2 - General Ulcer CM Notes Start: 04/04/18 08:17 Freq: Status: Active Protocol: Activity Type Activity Date Activity User E-Sign Co-Sign Detail Recorded Client Recorded Date Recorded By Document 04/04/18 09:26 MW [id number] 04/04/18 09:42 MW Document 04/11/18 09:54 MW [id number] 04/11/18 10:05 MW 04/04/18 04/11/18 09:26 09:54 Wound Center Nurse 2 #3 R Grt Toe Plantar -Time 09: 09:54 -Correct Patient Yes Yes -Correct Side, Site, Position Yes Yes -Correct Procedure Yes Yes -Procedure Performed No Yes -Type of Procedure Debridement -Clinical Debridement Subcutaneous -Post Debridement Size (cm) - Length 1.6 0 -Post Debridement Size (cm) - Width 0.5 0 -Post Debridement Size (cm) - Depth 0.1 0 -Total Square Cm 0.80 0 -Wound/Ulcer Outcome Not Healed Not Healed -Ulcer Cleansing Not Cleansed Rinsed/ Irrigated with Saline -Foul Odor after Cleansing No -Bioengineered Tissue No -Bleeding Controlled with Pressure Pressure Silver Nitrate -Treatment Response Procedure Procedure Tolerated Well Tolerated Well #2 R Post Cluster -Time 09: 09:54 -Correct Patient Yes Yes -Correct Side, Site, Position Yes Yes -Correct Procedure Yes Yes -Procedure Performed No No -Post Debridement Size (cm) - Length 25.0 0 -Post Debridement Size (cm) - Width 8.0 0 -Post Debridement Size (cm) - Depth 0.1 0 -Total Square Cm 200.00 0 -Wound/Ulcer Outcome Not Healed Healed- Epithelialized -Ulcer Cleansing Not Cleansed -Foul Odor after Cleansing No -Bleeding Controlled with NA -Treatment Response Procedure Tolerated Well #1 R Galvez -Time 09:29 09:55 -Correct Patient Yes Yes -Correct Side, Site, Position Yes Yes -Correct Procedure Yes Yes -Procedure Performed No No -Post Debridement Size (cm) - Length 5.0 0 -Post Debridement Size (cm) - Width 6.5 0 -Post Debridement Size (cm) - Depth 0.1 0 -Total Square Cm 32.50 0 -Wound/Ulcer Outcome Not Healed Healed- Epithelialized -Ulcer Cleansing Not Cleansed -Foul Odor after Cleansing No -Bleeding Controlled with NA -Treatment Response Procedure Tolerated Well Pain Scale: 0-10 Numeric Is Patient Pain Free? Yes Yes Wound debrided: Right lower extremity ulcer and cellulitis No debridement was completed today - Additional Wound Wound debrided: Right great toe callus and wart Type of Debridement: Excisional debridement Anesthesia Used: 5% Lidocaine Gel Depth: Down to and including healthy tissue, in the subcutaneous layer Percentage of wound debrided: 100 Instrument Used: 3mm curette, #11 blade Tissue Removed: Callus and wart Severity: Limited To Skin Breakdown Bleeding Controlled with: Compression and gauze Patient tolerated procedure: Patient tolerated procedure well Assessment/Plan Active Problems Non-healing non-surgical wound (Acute) Right lower extremity cellulitis (Acute) Morbid obesity (Chronic) Type II diabetes mellitus (Chronic) Assessment: Nonhealing nonsurgical ulcers right lower leg anterior posterior. Diabetes type 2. Cellulitis. Morbid obesity. Lower leg edema Plan: ABD 2 dressing of the right lower leg posterior new skin then. Radu wrap to the right leg, after about a week may go into a 20-30 compression stocking. Finish linezolid 600 mg p.o. twice daily for 10 days. Discharge from the wound center and follow-up as needed
--- NOTE | 2018-04-11 10:23 | PN.PCM_ITS ---
(1) Right lower extremity cellulitis Status: Acute Current Visit: Yes (2) Morbid obesity Status: Chronic Current Visit: Yes Code(s): E66.01 - Morbid (severe) obesity due to excess calories (3) Type II diabetes mellitus Status: Chronic Current Visit: Yes Qualifiers: Diabetes mellitus remote computer terminal operator insulin use: without remote computer terminal operator use Diabetes mellitus complication status: with circulatory complication Diabetes mellitus complication detail: with other circulatory complications Qualified Code(s): E11.59 - Type 2 diabetes mellitus with other circulatory complications Code(s): E11.9 - Type 2 diabetes mellitus without complications (4) Non-healing non-surgical wound Status: Acute Current Visit: Yes Code(s): T14.8XXA - Other injury of unspecified body region, initial encounter Type of Wound Chief Complaint: Follow-up right lower leg cellulitis and ulcers. History of Wound: 57-year-old white female that develops on and off cellulitis to bilateral lower legs. In March she developed the cellulitis worse in the right leg and then developed pulmonary embolisms. Hospitalized for 2 days is on Eliquis now daily. Has developed open blisters that are now crusted anterior and posterior to the right lower leg. Her family doctor has been treating her and felt he needed to refer just to make sure that she was being treated correctly. He did do cultures and does show a bacteria with sensitivity. Progress of Wound: Anterior and posterior right lower extremity healed cellulitis under control. Patient taking linezolid for her infection tolerating well. Right great toe callus has been pared down and removed any sign of wart in the base with blades and then nitro sticks toe. Patient will be discharged today everything is done. - Physical Exam Vital Signs Temp Pulse Resp BP 96.8 F L 122 H 18 166/83 H 04/04/18 08:30 04/11/18 09:35 04/11/18 09:35 04/11/18 09:35 General: Oriented x3, Cooperative, Well developed HEENT: Atraumatic, PERRLA Oral: Moist Mucosa Neck: Supple, No JVD Lungs: Clear to auscultation, Normal air movement Cardiovascular: Regular rate, Regular Rhythm Abdomen: Bowel Sounds Present, Soft, Non Tender, No Hepato-splenomegaly Extremities: No clubbing, No edema, - - Right lower extremity cellulitis and ulcers right great toe callus and wart Wound Measurements and Assessment WC - Nurse 1 - General Ulcer Measurement Start: 04/04/18 08:17 Freq: Status: Active Protocol: Activity Type Activity Date Activity User E-Sign Co-Sign Detail Recorded Client Recorded Date Recorded By Document 04/11/18 09:35 [id number] 04/11/18 09:45 04/11/18 09:35 Wound Center Nurse 1 [Ulcer Assessment] #3 R Grt Toe Plantar -Combined with other wound No -Current Size (cm) - Length 0.4 -Current Size (cm) - Width 0.3 -Current Size (cm) - Depth 0.1 -Total Square Cm 0.12 -Photo Taken No -Epithelialization None Present -Tunneling No -Undermining/Tunneling No -Circular Undermining No -Exudate Amt None Present (0 %) -Wound Margin Distinct, Outline Attached -Texture (Adelita-wound Skin Appearance) Callus -Temperature (Adelita-wound Skin No Abnormality Appearance) (Pt Warm) -Tenderness on Palpation (Adelita-wound No Skin Appearance) -Ulcer Cleansing Rinsed/ Irrigated with Saline -Foul Odor after Cleansing No -Anesthetic Used 4% Lidocaine Solution #2 R Post Cluster -Combined with other wound No -Current Size (cm) - Length 5.2 -Current Size (cm) - Width 3 -Current Size (cm) - Depth 0.1 -Total Square Cm 15.6 -Photo Taken No -Epithelialization Large 67-100% -Tunneling No -Undermining/Tunneling No -Circular Undermining No -Granulation Amt Large (67-100%) -Granulation Quality Red -Color (Adelita-wound Skin Appearance) Hemosiderin Staining -Temperature (Adelita-wound Skin No Abnormality Appearance) (Pt Warm) -Ulcer Cleansing Rinsed/ Irrigated with Saline -Foul Odor after Cleansing No -Anesthetic Used 4% Lidocaine Solution #1 R Galvez -Combined with other wound No -Current Size (cm) - Length 0.1 -Current Size (cm) - Width 0.1 -Current Size (cm) - Depth 0.1 -Total Square Cm 0.01 -Date of Last Picture (Recall this 04/11/18 field) -Photo Taken Yes -Epithelialization Large 67-100% [Edema Assessment] -Lower Limb Edema Present NA - Nurse 2 - General Ulcer CM Notes Start: 04/04/18 08:17 Freq: Status: Active Protocol: Activity Type Activity Date Activity User E-Sign Co-Sign Detail Recorded Client Recorded Date Recorded By Document 04/11/18 09:54 MW [id number] 04/11/18 10:05 MW 04/11/18 09:54 Wound Center Nurse 2 [Procedure/Treatment] #3 R Grt Toe Plantar -Time 09:54 -Correct Patient Yes -Correct Side, Site, Position Yes -Correct Procedure Yes -Procedure Performed Yes -Type of Procedure Debridement -Clinical Debridement Subcutaneous -Post Debridement Size (cm) - Length 0 -Post Debridement Size (cm) - Width 0 -Post Debridement Size (cm) - Depth 0 -Total Square Cm 0 -Wound/Ulcer Outcome Not Healed -Ulcer Cleansing Rinsed/ Irrigated with Saline -Foul Odor after Cleansing No -Bioengineered Tissue No -Bleeding Controlled with Pressure Silver Nitrate -Treatment Response Procedure Tolerated Well #2 R Post Cluster -Time 09:54 -Correct Patient Yes -Correct Side, Site, Position Yes -Correct Procedure Yes -Procedure Performed No -Post Debridement Size (cm) - Length 0 -Post Debridement Size (cm) - Width 0 -Post Debridement Size (cm) - Depth 0 -Total Square Cm 0 -Wound/Ulcer Outcome Healed- Epithelialized #1 R Galvez -Time 09:55 -Correct Patient Yes -Correct Side, Site, Position Yes -Correct Procedure Yes -Procedure Performed No -Post Debridement Size (cm) - Length 0 -Post Debridement Size (cm) - Width 0 -Post Debridement Size (cm) - Depth 0 -Total Square Cm 0 -Wound/Ulcer Outcome Healed- Epithelialized [See Physician Procedure note for Specifics] Pain Scale: 0-10 Numeric [Pain] -Is Patient Pain Free? Yes Musculoskeletal: No Tenderness to Palpation of Joints or Extremities Lymphatic: No Cervical, Supraclavicular, or Inguinal Adenopathy Neurological: Cranial nerves II-XII grossly intact, Neuro grossly intact Psych/Mental Status: Normal Affect, Appropriate, Alert and oriented to time, place, person, mood and affect Debridement Note Post-Debridement Measurements/Treatment WC - Nurse 2 - General Ulcer CM Notes Start: 04/04/18 08:17 Freq: Status: Active Protocol: Activity Type Activity Date Activity User E-Sign Co-Sign Detail Recorded Client Recorded Date Recorded By Document 04/04/18 09:26 MW [id number] 04/04/18 09:42 MW Document 04/11/18 09:54 MW [id number] 04/11/18 10:05 MW 04/04/18 04/11/18 09:26 09:54 Wound Center Nurse 2 #3 R Grt Toe Plantar -Time 09: 09:54 -Correct Patient Yes Yes -Correct Side, Site, Position Yes Yes -Correct Procedure Yes Yes -Procedure Performed No Yes -Type of Procedure Debridement -Clinical Debridement Subcutaneous -Post Debridement Size (cm) - Length 1.6 0 -Post Debridement Size (cm) - Width 0.5 0 -Post Debridement Size (cm) - Depth 0.1 0 -Total Square Cm 0.80 0 -Wound/Ulcer Outcome Not Healed Not Healed -Ulcer Cleansing Not Cleansed Rinsed/ Irrigated with Saline -Foul Odor after Cleansing No -Bioengineered Tissue No -Bleeding Controlled with Pressure Pressure Silver Nitrate -Treatment Response Procedure Procedure Tolerated Well Tolerated Well #2 R Post Cluster -Time 09: 09:54 -Correct Patient Yes Yes -Correct Side, Site, Position Yes Yes -Correct Procedure Yes Yes -Procedure Performed No No -Post Debridement Size (cm) - Length 25.0 0 -Post Debridement Size (cm) - Width 8.0 0 -Post Debridement Size (cm) - Depth 0.1 0 -Total Square Cm 200.00 0 -Wound/Ulcer Outcome Not Healed Healed- Epithelialized -Ulcer Cleansing Not Cleansed -Foul Odor after Cleansing No -Bleeding Controlled with NA -Treatment Response Procedure Tolerated Well #1 R Galvez -Time 09:29 09:55 -Correct Patient Yes Yes -Correct Side, Site, Position Yes Yes -Correct Procedure Yes Yes -Procedure Performed No No -Post Debridement Size (cm) - Length 5.0 0 -Post Debridement Size (cm) - Width 6.5 0 -Post Debridement Size (cm) - Depth 0.1 0 -Total Square Cm 32.50 0 -Wound/Ulcer Outcome Not Healed Healed- Epithelialized -Ulcer Cleansing Not Cleansed -Foul Odor after Cleansing No -Bleeding Controlled with NA -Treatment Response Procedure Tolerated Well Pain Scale: 0-10 Numeric Is Patient Pain Free? Yes Yes Wound debrided: Right lower extremity ulcer and cellulitis No debridement was completed today - Additional Wound Wound debrided: Right great toe callus and wart Type of Debridement: Excisional debridement Anesthesia Used: 5% Lidocaine Gel Depth: Down to and including healthy tissue, in the subcutaneous layer Percentage of wound debrided: 100 Instrument Used: 3mm curette, #11 blade Tissue Removed: Callus and wart Severity: Limited To Skin Breakdown Bleeding Controlled with: Compression and gauze Patient tolerated procedure: Patient tolerated procedure well Assessment/Plan Active Problems Non-healing non-surgical wound (Acute) Right lower extremity cellulitis (Acute) Morbid obesity (Chronic) Type II diabetes mellitus (Chronic) Assessment: Nonhealing nonsurgical ulcers right lower leg anterior posterior. Diabetes type 2. Cellulitis. Morbid obesity. Lower leg edema Plan: ABD 2 dressing of the right lower leg posterior new skin then. Radu wrap to the right leg, after about a week may go into a 20-30 compression stocking. Finish linezolid 600 mg p.o. twice daily for 10 days. Discharge from the wound center and follow-up as needed
== END 2018-05-02 23:59 ==
LOC: WC 09:30
PROVIDERS: Family Provider Family Medicine; PCP Family Medicine; Visit Provider Nurse Practitioner
DX: E11.622 Type 2 diabetes mellitus with other skin ulcer (principal); E11.59 Type 2 diabetes mellitus with other circulatory complications; E66.01 Morbid (severe) obesity due to excess calories; Z68.42 Body mass index [BMI] 45.0-49.9, adult; Z71.3 Dietary counseling and surveillance; Z86.711 Personal history of pulmonary embolism; L03.115 Cellulitis of right lower limb; I10 Essential (primary) hypertension; E78.5 Hyperlipidemia, unspecified; B07.8 Other viral warts; L84 Corns and callosities; L97.819 Non-pressure chronic ulcer of other part of right lower leg with unspecified severity
CPT/HCPCS: 99213; G0463

== ENCOUNTER 2021-05-11 11:27 | Inpatient (IN) | payer OTHER, SELFPAY ==
[2021-05-11] VITALS (31 sets, daily range): BP systolic 73–190; BP diastolic 42–110; PULSE 64–98; RESP 1–32; TEMP 36.1–37.3; O2SAT 45–93; BMI 51.5; BMI 52.0
[2021-05-11 12:13] LABS: Absolute Lymphocyte Count 1.31 X10^3/uL (0.83-4.51); Absolute Neutrophil Count 11.4 X10^3/uL (2.0-7.7); Basophil# 0.04 X10^3/uL; Basophil% 0.3 % (0-1); Eosinophil# 0.27 X10^3/uL; Eosinophils% 1.9 % (0-5); Hematocrit 41.5 % (37-47); Hemoglobin 13.5 g/dL (12.0-15.0); Lymphocyte # 1.31 X10^3/ul (0.83-4.51); Mean Corp Hgb Conc 32.5 g/dL (32-36); Mean Corpuscular Hgb 29.4 pg (27.0-32.0); Mean Corpuscular Volume 90.4 fL (81-99); Mean Platelet Vol. 10.8 fl (6.2-12.0); Monocyte# 1.15 X10^3/uL; Monocyte% 7.9 % (0-10); NRBC Flagged by Analyzer 0 % (0-5); Neutrophil # 11.42 X10^3/uL (2.7-7.7); Neutrophil % 78.4 % (47-70); POSITIVE COUNT YES; Platelet Count 250 K/mm3 (150-450); RBC Distribution Width CV 14.2 % (11.6-14.6); RBC Distribution Width SD 47.4 fl (35.1-43.9); Red Blood Count 4.59 M/mm3 (4.2-5.4); White Blood Count 14.6 K/mm3 (4.4-11.0)
--- NOTE | 2021-05-11 12:15 | RAD_ITS ---
STUDY: X-RAY CHEST REASON FOR EXAM: Female, 60 years old. Cough TECHNIQUE: Single AP portable view of the chest. COMPARISON: None. FINDINGS: Diffuse bilateral airspace disease. Small calcified granuloma at the right lung base. There is no demonstrated pleural abnormality. Normal size heart. Normal mediastinum and charli. Normal visualized pulmonary arteries. Normal visualized aortic arch and descending thoracic aorta. There are diffuse degenerative changes of the visualized thoracic spine. Normal visualized ribs, clavicles, and shoulders. There is no demonstrated abnormality of the visualized soft tissue structures of the upper abdomen. RAD/Chest 1 View (Portable) IMPRESSION: Diffuse bilateral airspace disease. Electronically Signed: Tong Morris MD at 13:09 EST , Service support ,
[2021-05-11] MEDS: dexAMETHasone 4 MG/ML Vial 6 MG IV (12:24)
[2021-05-11] MEDS: Acetaminophen 500 MG Tablet 1000 MG PO (12:26)
[2021-05-11 12:35] LABS: ALB/GLOB Ratio 0.5 RATIO (0.9-2.4); AST(SGOT) 50 U/L (15-37); Alanine Aminotransfer ALT/SGPT 29 U/L (13-56); Albumin, Serum 2.7 g/dL (3.2-5.0); Alkaline Phosphatase 88 U/L (45-117); Anion Gap 12 (5-15); BUN 43 mg/dL (7-18); BUN/Creat Ratio 24.6 RATIO (10-20); Calcium,Total 8.9 mg/dL (8.5-10.1); Chloride 100 mmol/L (98-107); Creatinine, Serum 1.75 mg/dL (0.55-1.02); EST Glomerular Filtration Rate 31 mL/min (>60); Est Glom Filt Rate - Afr Amer 38 mL/min (>60); Estimated Creatinine Clearance 28.78 ml/min; Glucose 184 mg/dL (74-106); Potassium 3.9 mmol/L (3.5-5.1); Protein, Total 7.7 g/dL (6.4-8.2); Sodium Level 138 mmol/L (136-145)
[2021-05-11 12:42] LABS: Differential Indicated SCAN CRITERIA MET
[2021-05-11 12:43] LABS: Lactic Acid 4.6 mmol/L (0.4-1.9); Platelet Estimate ADEQUATE (ADEQ); Platelet Morphology LARGE
--- NOTE | 2021-05-11 12:43 | ED.VIS.DYS ---
HPI History of Present Illness Chief Complaint: Shortness of Breath Informant: patient Onset/Context/Timing Onset: Days (5) Context: gradual Timing: Continuous Quality: Positive for Dyspnea on exertion Worsened by: Exertion Relieved by: other (Coughing episodes) Associated Symptoms cough, ear pain, yellow sputum and green sputum; Negative for rhinorrhea, fever, sore throat, chills, clear sputum or white sputum Chest Pain: Positive for None Narrative Narrative: Patient presents with shortness of breath that has been getting worse over the past 5 days. Patient states it is gradually getting worse. Patient states that her breathing is worse with any exertion. Patient states the pain actually gets better after a coughing episode. Patient states she is coughing up some yellow-green sputum. Patient admits to some bilateral ear pain but denies any sore throat or rhinorrhea. Patient denies any fevers or chills. Patient denies any chest pain. Patient had a positive home Covid test 2 days ago. Patient states she feels weak all over. PE Risk Factors: Negative for Cancer, OCP + Smoking + > 35, Prior DVT or PE, Recent immobilization, Recent surgery and Recent travel [facility] Medical History (Updated 05/11/21 @ 15:[address] Anand Hernandez, DO) Abnormal pulse oximetry Chronic neck and back pain COVID-19 Diarrhea Fatigue Frequent headaches Hypertension Knee pain Shoulder pain Home Medications lisinopril [Zestril] 40 mg PO DAILY 11/26/14 [History Last Taken 03/15/18] acetaminophen 500 - 1,000 mg PO Q6H PRN 05/11/21 [History Last Taken Unknown] amlodipine 10 mg PO DAILY 05/11/21 [History Last Taken Unknown] atorvastatin 40 mg PO DAILY 05/11/21 [History Last Taken Unknown] carvedilol 6.25 mg PO BID 05/11/21 [History Last Taken Unknown] cetirizine [Zyrtec] 10 mg PO DAILY 05/11/21 [History Last Taken Unknown] chlorthalidone 25 mg PO DAILY 05/11/21 [History Last Taken Unknown] cholecalciferol (vitamin D3) 50 mcg PO DAILY 05/11/21 [History Last Taken Unknown] cyanocobalamin (vitamin B-12) [Vitamin B-12] 1,000 mcg SUBLINGUAL DAILY 05/11/21 [History Last Taken Unknown] dulaglutide [Trulicity] 1.5 mg SUBCUT QWEEK 05/11/21 [History Last Taken Unknown] meloxicam 15 mg PO DAILY 05/11/21 [History Last Taken Unknown] metformin 500 mg PO DAILY 05/11/21 [History Last Taken Unknown] Allergy/AdvReac Type Severity Reaction Status Date / Time cefuroxime axetil Allergy Hives Verified 05/11/21 11:32 [From Ceftin] clindamycin Allergy Hives Verified 05/11/21 11:32 ertapenem sodium Allergy Rash Verified 05/11/21 11:32 [From Invanz] Sulfa (Sulfonamide Allergy Hives Verified 05/11/21 11:32 Antibiotics) Surgical History (Updated 05/11/21 @ 12:[address] Anand Hernandez DO) H/O section History of carpal tunnel surgery Hx of arthroscopy of right knee Hx of dilation and curettage Hx of tonsillectomy Social History Smoking Status: Never smoker ROS ROS ED Constitutional Constitutional ED: Denies chills or fever(s) Eyes Eyes: Denies blurry vision or change in vision ENT ENT ED: Reports ear pain bilateral; Denies rhinorrhea or sore throat Cardiovascular Cardiovascular: Denies chest pain or palpitations Respiratory/Chest Respiratory/Chest: Reports cough and dyspnea Gastrointestinal Gastrointestinal: Reports abdominal pain and nausea; Denies vomiting Genitourinary Genitourinary ED: Denies dysuria or hematuria Musculoskeletal Musculoskeletal: Reports back pain; Denies neck pain Integumentary Denies abscess or rash Neurologic Neurologic: Reports headache(s) and weakness Allergic/Immunologic Allergic/Immunologic ED: Denies mouth swelling or urticaria EXAM Physical Exam Const Vital Signs: 05/11/21 11:30 05/11/21 12:40 05/11/21 12:41 Temperature 97 F L Temperature Source Temporal Pulse Rate 91 Respiratory Rate 25 H Respiratory Effort Short of Breath Respiratory Depth Deep Respiratory Pattern Tachypnea Blood Pressure 118/57 L Blood Pressure Mean 77 Pulse Ox 45 70 Oxygen Delivery Method Room Air Nasal Cannula High Flow Oxygen Flow Rate (L/min) 15 15 Fraction of Inspired Oxygen (FIO2) 05/11/21 13:16 05/11/21 13:17 05/11/21 13:32 Temperature 98 F Temperature Source Temporal Pulse Rate 84 81 Respiratory Rate 21 H 29 H Respiratory Effort Respiratory Depth Respiratory Pattern Tachypnea Blood Pressure 124/58 H Blood Pressure Mean 80 Pulse Ox 65 67 92 Oxygen Delivery Method Nasal Cannula Nasal Cannula Oxygen Flow Rate (L/min) 15 Fraction of Inspired Oxygen (FIO2) 100 05/11/21 13:43 05/11/21 14:03 05/11/21 15:55 Temperature 98 F Temperature Source Temporal Pulse Rate 81 90 Respiratory Rate 29 H 21 H Respiratory Effort Respiratory Depth Respiratory Pattern Blood Pressure 124/58 H 140/78 H Blood Pressure Mean 80 98 Pulse Ox 91 91 99 Oxygen Delivery Method Bi-pap Bi-pap Oxygen Flow Rate (L/min) 15 Fraction of Inspired Oxygen (FIO2) 100 Positive well nourished, well developed and obese General Appearance ED: well developed Nutritional Appearance: obese HEENT Reports moist mucous membranes Neck supple and no JVD Resp normal respiratory effort Auscultation: diminished lung sounds diffuse Cardio regular rate, regular rhythm and no murmurs GI normal to inspection, nondistended, normoactive bowel sounds and non-tender Palpation: soft Extremity normal to inspection General Extremety ED: Negative for edema or tenderness General Extremity: Negative for edema Neuro oriented x3, CN's II-XII intact bilaterally and no sensory deficits noted Sensorium / Orientation: alert Motor Exam: strength 5/5 throughout Psych mental status grossly normal Skin no rashes or lesions noted MDM MDM MDM Narrative Medical decision making narrative: Patient was given a dose of Decadron initially. Patient was given Tylenol. Patient was also given 6 puffs of an albuterol inhaler. CBC shows a mild leukocytosis of 14.6. Comprehensive metabolic profile shows a BUN of 43 and creatinine of 1.75. Lactate was elevated at 4.6. Portable chest x-ray was obtained. There is 1 view. On my interpretation, there are extensive bilateral infiltrates. There is no pneumothorax. Bony thorax is normal. There is no cardiomegaly. Radiologist also interpreted the x-ray and agrees. Patient was given IV fluids. CTA of the chest was obtained. There is no evidence of pulmonary embolism. This was interpreted by the radiologist and reviewed by myself. Patient was initially started on high flow oxygen. Patient's saturations were only improved into the 70s with this. Patient was then placed on BiPAP. Patient's oxygen saturations came up to the low 90s but also dropped into the upper 80s. Patient does not want to be intubated at this time. Case was discussed with Dr. Owens from ICU. He had no further recommendations. Case was discussed with the hospitalist. He will admit the patient to ICU. Patient understood and was agreeable with the plan. All questions were answered. Lab Data Attestation: I reviewed the patient's lab results. Labs: Laboratory Results - last 24 hr 05/11/21 05/11/21 05/11/21 12:00 12:00 12:00 WBC 14.6 H RBC 4.59 Hgb 13.5 Hct 41.5 MCV 90.4 MCH 29.4 MCHC 32.5 RDW Std Deviation 47.4 H RDW Coeff of Mehran 14.2 Plt Count 250 MPV 10.8 Immature Gran % (Auto) 2.500 H Neut % (Auto) 78.4 H Lymph % (Auto) 9.0 L [place] % (Auto) 7.9 Eos % (Auto) 1.9 Baso % (Auto) 0.3 Absolute Neuts (auto) 11.4 H Absolute Lymphs (auto) 1.31 Nucleated RBC % 0 Platelet Estimate ADEQUATE Plt Morphology Comment LARGE Sodium 138 Potassium 3.9 Chloride 100 Carbon Dioxide 26.0 Anion Gap 12 BUN 43 H Creatinine 1.75 H Estim Creat Clear Calc 28.78 Est GFR (MDRD) Af Amer 38 L Est GFR (MDRD) Non-Af 31 L BUN/Creatinine Ratio 24.6 H Glucose 184 H Lactic Acid 4.6 H* Calcium 8.9 Total Bilirubin 0.60 AST 50 H ALT 29 Alkaline Phosphatase 88 Total Protein 7.7 Albumin 2.7 L Globulin 5.0 H Albumin/Globulin Ratio 0.5 L ABG Data ABG results: ABG 05/11/21 13:17 Specimen Type ART Sample Site L Radial pH 7.41 Bicarbonate Actual 26.4 H Total CO2 28 Base Excess 2 O2 Saturation 70 L ABG pCO2 41.9 ABG pO2 36 L* [place] Test Positive O2 Delivery Device Cannula Liter Flow 15.0 Crit Call To/Read Back Yes Blood Gas Notified Whom shwiger Radiography Chest X-Ray - ED: 1 View, Read by ED Physician, Read by Radiologist, Right Infiltrate and Left Infiltrate Diagnostic Testing: Clinical Impression(s) from Imaging Studies Chest X-Ray 05/11/21 12:15 IMPRESSION: Diffuse bilateral airspace disease. Electronically Signed: Tong Morris MD at 13:09 EST , Service support , Chest CTA 05/11/21 14:56 IMPRESSION: There is no evidence of pulmonary emboli. Diffuse bilateral air space disease involving both lungs in both upper and lower lobes. Electronically Signed: Tong Morris MD at 15:17 EST , Service support , Treatment and Re-Evaluation Vital Sign Attestation:: Vital signs were reviewed prior to admission. They are stable except for a pulse oximeter that varies between the upper 80s and low 90s. Discharge Plan Dx/Rx/DC Orders Clinical Impression: Pneumonia due to COVID-19 virus, Hypoxia, Lactic acidosis Disposition Disposition: Acute Care [facility]
--- NOTE | 2021-05-11 12:44 | ED.RN ---
pt is talking in complete and run on sentences with no distress noted while pulse ox registers 66% on high flow. physician made aware. abg ordered. pt denies and discomfort at this time.
[2021-05-11 13:26] LABS: Allen Test Positive; Base Excess 2 mmol/L (-2 to +2); Bicarbonate 26.4 mmol/L (22-26); Blood Gas Specimen Type ART; O2 Delivery Device Cannula; PO2 36 mmHG (75-100); SITE L Radial; SO2 70 % (95-99); Total Carbon Dioxide 28 mmol/L; pCO2 41.9 mmHg (35-45); pH 7.41 (7.35-7.45)
[2021-05-11] MEDS: 0.9% Normal Saline 1,000 ML 1000 ML IV (14:21)
--- NOTE | 2021-05-11 14:56 | CT_ITS ---
STUDY: CTA CHEST REASON FOR EXAM: Female, 60 years old. Hypoxia RADIATION DOSAGE (If Supplied By Facility): CTDIvol = ( 13.85 ) mGy, DLP = ( 514.92 ) mGycm TECHNIQUE: The examination was performed with the intravenous administration of IV 100mL Isovue-370. Post-processing of the angiographic images was performed, with multiplanar reformation and 3D reconstruction. Individualized dose optimization techniques were used for this CT. COMPARISON: Comparison is made with prior examination dated 03/17/2018 and prior chest radiograph done earlier in the day.. FINDINGS: Normal enhancement of the main pulmonary artery and right and left pulmonary arteries. Normal enhancement of the bilateral peripheral pulmonary arteries. There is no demonstrated pulmonary embolism. Normal thoracic aorta and visualized great vessels. There is no demonstrated aortic dissection. Normal heart and pericardium. There are visualized mediastinal lymph nodes, which are within normal size limits, and with normal morphology. Normal hilar regions. Normal visualized trachea and bronchi. The lungs are well expanded. There is evidence of diffuse bilateral airspace disease involving both upper and lower lobes and both lungs. Normal pleura. Normal chest wall structures. Normal osseous structures. Normal visualized upper abdomen. CT/CTA Chest W/WO Contrast IMPRESSION: There is no evidence of pulmonary emboli. Diffuse bilateral air space disease involving both lungs in both upper and lower lobes. Electronically Signed: Tong Morris MD at 15:17 EST , Service support ,
[2021-05-11 16:07] LABS: Reflex Lactate? Y
--- NOTE | 2021-05-11 16:16 | HP.PCM.HOS_ITS ---
HPI - General General Date of Admission: 05/11/21 Date of Service: 05/11/21 Chief Complaint: shortness of breath HPI Narrative MARSHAL HOOD, is a 60 F who presents with shortness of breath. Patient became ill on May 03 and has steadily got short of breath. Patient was notably hypoxic and patient placed on BiPAP. Patient informed the emergency room physician that she did not want to go on a ventilator but would do so if necessa ry. Patient did receive the first dose of the [place] vaccine in early part of August. Patient was scheduled to get a second dose at some point this month. [facility] Medical History Abnormal pulse oximetry Arthritis Chronic neck and back pain COVID-19 Diarrhea Fatigue Frequent headaches Hyperlipidemia Hypertension Hypertension Knee pain Shoulder pain Type II diabetes mellitus Home Medications lisinopril [Zestril] 40 mg PO DAILY 11/26/14 [History Last Taken 03/15/18] acetaminophen 500 - 1,000 mg PO Q6H PRN 05/11/21 [History Last Taken Unknown] amlodipine 10 mg PO DAILY 05/11/21 [History Last Taken Unknown] atorvastatin 40 mg PO DAILY 05/11/21 [History Last Taken Unknown] carvedilol 6.25 mg PO BID 05/11/21 [History Last Taken Unknown] cetirizine [Zyrtec] 10 mg PO DAILY 05/11/21 [History Last Taken Unknown] chlorthalidone 25 mg PO DAILY 05/11/21 [History Last Taken Unknown] cholecalciferol (vitamin D3) 50 mcg PO DAILY 05/11/21 [History Last Taken Unknown] cyanocobalamin (vitamin B-12) [Vitamin B-12] 1,000 mcg SUBLINGUAL DAILY 05/11/21 [History Last Taken Unknown] dulaglutide [Trulicity] 1.5 mg SUBCUT QWEEK 05/11/21 [History Last Taken Unknown] meloxicam 15 mg PO DAILY 05/11/21 [History Last Taken Unknown] metformin 500 mg PO DAILY 05/11/21 [History Last Taken Unknown] Allergy/AdvReac Type Severity Reaction Status Date / Time cefuroxime axetil Allergy Hives Verified 05/11/21 11:32 [From Ceftin] clindamycin Allergy Hives Verified 05/11/21 11:32 ertapenem sodium Allergy Rash Verified 05/11/21 11:32 [From Invanz] Sulfa (Sulfonamide Allergy Hives Verified 05/11/21 11:32 Antibiotics) Surgical History H/O section History of carpal tunnel surgery Hx of arthroscopy of right knee Hx of dilation and curettage Hx of tonsillectomy Social History Smoking Status: Never smoker ROS ROS Narrative Nonproductive cough. All review of systems were negative except as mentioned above in the history of present illness and the other review of systems. Vital Signs Vital Signs Vital Signs: 05/11/21 11:30 05/11/21 12:40 05/11/21 12:41 Temperature 36.1 C L Temperature Source Temporal Pulse Rate 91 Respiratory Rate 25 H Respiratory Effort Short of Breath Respiratory Depth Deep Respiratory Pattern Tachypnea Blood Pressure 118/57 L Blood Pressure Mean 77 Pulse Ox 45 70 Oxygen Delivery Method Room Air Nasal Cannula High Flow Oxygen Flow Rate (L/min) 15 15 Fraction of Inspired Oxygen (FIO2) 05/11/21 13:16 05/11/21 13:17 05/11/21 13:32 Temperature 36.6 C Temperature Source Temporal Pulse Rate 84 81 Respiratory Rate 21 H 29 H Respiratory Effort Respiratory Depth Respiratory Pattern Tachypnea Blood Pressure 124/58 H Blood Pressure Mean 80 Pulse Ox 65 67 92 Oxygen Delivery Method Nasal Cannula Nasal Cannula Oxygen Flow Rate (L/min) 15 Fraction of Inspired Oxygen (FIO2) 100 05/11/21 13:43 05/11/21 14:03 05/11/21 15:55 Temperature 36.6 C Temperature Source Temporal Pulse Rate 81 90 Respiratory Rate 29 H 21 H Respiratory Effort Respiratory Depth Respiratory Pattern Blood Pressure 124/58 H 140/78 H Blood Pressure Mean 80 98 Pulse Ox 91 91 93 Oxygen Delivery Method Bi-pap Bi-pap Bi-pap Oxygen Flow Rate (L/min) 15 Fraction of Inspired Oxygen (FIO2) 100 05/11/21 16:02 05/11/21 16:03 Temperature 37.2 C 37.2 C Temperature Source Temporal Temporal Pulse Rate 89 89 Respiratory Rate 18 18 Respiratory Effort Respiratory Depth Respiratory Pattern Blood Pressure 144/81 H 144/81 H Blood Pressure Mean 102 102 Pulse Ox 92 92 Oxygen Delivery Method Bi-pap Bi-pap Oxygen Flow Rate (L/min) 15 Fraction of Inspired Oxygen (FIO2) 100 Weight Weight: 136.078 kg Body Mass Index (BMI) 51.5 Physical Exam Const alert and no apparent distress Constitutional Narrative: On BiPAP. Awake and alert and able to converse. General Appearance: cooperative HEENT normocephalic, head/scalp atraumatic, hearing grossly normal bilaterally and moist oral mucous membranes Resp no retractions Resp Narrative: Coarse breath sounds bilaterally Cardio regular rate, regular rhythm, S1 normal heart sound and S2 normal heart sound GI normal to inspection, nondistended, normoactive bowel sounds, soft to palpation, non-tender and non-distended GI Narrative: Obese Extremity normal to inspection and no clubbing, cyanosis or edema Skin no rashes or lesions noted and no wounds Neuro no focal motor deficits Sensorium / Orientation: awake and alert Psych Mood & Affect: anxious Results Lab / Micro Data Attestation: I reviewed the patient's lab results. Result Diagrams: 05/11/21 12:00 05/11/21 12:00 Labs: Laboratory Results - last 24 hr 05/11/21 12:00: WBC 14.6 H, RBC 4.59, Hgb 13.5, Hct 41.5, MCV 90.4, MCH 29.4, MCHC 32.5, RDW Std Deviation 47.4 H, RDW Coeff of Mehran 14.2, Plt Count 250, MPV 10.8, Immature Gran % (Auto) 2.500 H, Neut % (Auto) 78.4 H, Lymph % (Auto) 9.0 L , [place] % (Auto) 7.9, Eos % (Auto) 1.9, Baso % (Auto) 0.3, Absolute Neuts (auto) 11.4 H, Absolute Lymphs (auto) 1.31, Nucleated RBC % 0, Platelet Estimate ADEQUATE, Plt Morphology Comment LARGE 05/11/21 12:00: Sodium 138, Potassium 3.9, Chloride 100, Carbon Dioxide 26.0, Anion Gap 12, BUN 43 H, Creatinine 1.75 H, Estim Creat Clear Calc 28.78, Est GFR (MDRD) Af Amer 38 L, Est GFR (MDRD) Non-Af 31 L, BUN/Creatinine Ratio 24.6 H, Glucose 184 H, Calcium 8.9, Total Bilirubin 0.60, AST 50 H, ALT 29, Alkaline Phosphatase 88, Total Protein 7.7, Albumin 2.7 L, Globulin 5.0 H, Albumin/Globulin Ratio 0.5 L 05/11/21 12:00: Lactic Acid 4.6 H* ABG Data ABG results: ABG 05/11/21 13:17 Specimen Type ART Sample Site L Radial pH 7.41 Bicarbonate Actual 26.4 H Total CO2 28 Base Excess 2 O2 Saturation 70 L ABG pCO2 41.9 ABG pO2 36 L* [place] Test Positive O2 Delivery Device Cannula Liter Flow 15.0 Crit Call To/Read Back Yes Blood Gas Notified Whom nalini Radiology Impression Chest X-Ray 05/11/21 12:15 IMPRESSION: Diffuse bilateral airspace disease. Electronically Signed: Tong Morris MD at 13:09 EST , Service support , Chest CTA 05/11/21 14:56 IMPRESSION: There is no evidence of pulmonary emboli. Diffuse bilateral air space disease involving both lungs in both upper and lower lobes. Electronically Signed: Tong Morris MD at 15:17 EST , Service support , Assessment & Plan Assessment/Plan (1) Acute respiratory failure with hypoxia: (2) Pneumonia due to COVID-19 virus: PLAN: 1. Acute hypoxic respiratory failure Secondary to COVID-19 pneumonia Check patient for bacterial pneumonia Complicated by the patient's morbid obesity On BiPAP. Wean if able but I am highly concerned the patient would require intubation and patient was informed of such. 2. Acute COVID-19 pneumonia Onset May 03. Isolation through the . Dexamethasone and remdesivir Infectious disease consultation for evaluation for baricitinib 3. Diabetes mellitus type 2 Diet controlled I fully expect, with steroids, that her blood sugar will be profoundly elevated Sliding scale insulin 4. Morbid obesity BMI of 51.5 Going to potentially have a very profound effect on the patient in regards to her respiratory status and overall condition and increases her chances of morbidity and mortality 6. Chronic kidney disease stage III a Creatinine 1.75 Last creatinine was 0.98 back in 2019 If patient does have improvement of her creatinine then this could be potentially qualify as acute kidney injury but I do not have enough information to qualify as such at this time. 7. VTE prophylaxis with subcu heparin Advance care planning: Spent additional 16 minutes discussing with the patient as well as her over the phone in regards to CODE STATUS. I explained to them that the patient has a high likelihood of worsening respiratory status and could require intubation. If patient does not want to be intubated that is her right but she does not want intubation if she gets worse and she could potentially . Patient agreed to intubation and full code measures for respiratory and cardiac standpoint worsen. Charges/Coding Visit Charges Inpatient E&M: 17901 Init Hosp L3 Procedures Hospitalists Procedures: 38569 Advncd Care Plan 30 Min
--- NOTE | 2021-05-11 16:23 | ED.RN ---
report called to [facility]
[2021-05-11 16:59] LABS: Lactic Acid 1.2 mmol/L (0.4-1.9)
--- NOTE | 2021-05-11 17:08 | CHAPLAIN ---
Type of Pastoral Visit ___ Initial Visit ___ Follow-up Visit ___ On-call Visit ___ General Patient Visit ___ Spiritual Assessment ___ Family Conference ___ Bereavement ___ Rapid Response ___ Code Blue _x__ Other (describe below) Pastoral Care Referral From ___ Patient ___ Family ___ Nurse ___ Physician ___ Healthcare Interpreter ___ Inspector Balance Bridge _x__ Other (describe below) Sacrament/Intervention ___ Active listening ___ Anointing ___ Congregational ___ Bereavement ___ Communion ___ Ashlee exploration ___ ___ Life review _x__ Prayer ___ Reconciliation ___ Sacrament of Sick ___ Supportive presence ___ Wedding ___ Other (describe below) Pastoral Comments phone call made into isolation room as patient is on bi-pap; pt is an acquaintance of this careers counsellor and has a ashlee that would be agreeable to spiritual care and prayer; call received and pt able to talk very briefly and accept the support and prayer;
[2021-05-11 18:45] LABS: Allen Test Positive; Base Excess 1 mmol/L (-2 to +2); Bicarbonate 26.6 mmol/L (22-26); Blood Gas Specimen Type ART; FI02 100; Mode AVAPS; O2 Delivery Device BiPAP; PEEP 12; PO2 65 mmHG (75-100); RR 14; SITE L Radial; SO2 92 % (95-99); Total Carbon Dioxide 28 mmol/L; Vt 450; pCO2 44.9 mmHg (35-45); pH 7.38 (7.35-7.45)
[2021-05-11] MEDS: Enoxaparin 40 MG/0.4 ML Syringe SC (20:05)
[2021-05-11] MEDS: Furosemide 40 MG/4 ML Vial IV (20:09)
[2021-05-11] MEDS: Etomidate 20 MG/10 ML Vial IV (21:21)
--- NOTE | 2021-05-11 21:33 | PN_ITS ---
Progress Note Intubation Indication: Hypoxemic respiratory failure Nursing staff obtained a consent verbally from patient's . Hospitalist jamel btained consent verbally from patient since it was an emergency procedure. The patient was placed in the appropriate sniffing position. Preoxygenated sedation via BiPAP and Ambu bag was provided for a minimum of 3 minutes. The patient had continuous cardiac as well as pulse oximetry monitoring during the procedure. Procedure sedation was provided by the administration of etomidate and succinylcholine. GlideScope laryngoscopy was then performed using a number 4 blade, which revealed a grade 2 view. A 7.5 mm endotracheal tube was visualized advancing between the cords to the level of 24 cm at the lip. The stylette was then removed and discarded. Tube placement was confirmed by fogging in the tube along with equal and bilateral breath sounds. Colorimetric change was visualized on the CO2 meter. The cuff was then inflated and the tube secured using a commercially available device. A good pulse oximetry waveform was seen on the monitor throughout the procedure. A portable chest x-ray has been ordered to confirm appropriate placement. The patient tolerated the procedure well. Procedures Hospitalists Procedures: [id number] Insert Emergency Airway
[2021-05-11] MEDS: Propofol 10MG/Ml 1,000 MG/100 ML Bottle 41.3 MG CONT INF (21:35)
--- NOTE | 2021-05-11 21:37 | RAD_ITS ---
STUDY: X-RAY CHEST REASON FOR EXAM: Female, 60 years old. To confirm ET placement -- Call wet read to MD TECHNIQUE: Frontal view COMPARISON: 05/11/2021 at 12:20 hours FINDINGS: Endotracheal tube just above the an[place]. Nasogastric tube in the stomach. The lungs are expanded. Bilateral diffuse infiltrates. Right basilar granuloma. Normal size heart. Normal mediastinum and charli. Normal visualized pulmonary arteries. Normal visualized aortic arch and descending thoracic aorta. Degenerative changes of the thoracic spine. Normal visualized ribs, clavicles, and shoulders. There is no demonstrated abnormality of the visualized soft tissue structures of the upper abdomen. RAD/Chest 1 View (Portable) IMPRESSION: Persistent bilateral infiltrates. Electronically Signed: Satnam Jin DO at 23:10 EST Tel [phone], Service support ,
--- NOTE | 2021-05-11 21:45 | RAD_ITS ---
STUDY: X-RAY - ABDOMEN/PELVIS REASON FOR EXAM: Female, 60 years old. Confirm OG placement -- Prior to admin of any med,fluid,flush,enteral feed TECHNIQUE: Frontal view COMPARISON: None. FINDINGS: Nasogastric tube in the stomach. There is an unremarkable bowel gas pattern. There is no demonstrated free abdominal air. Normal soft tissue structures. Normal visualized osseous structures. RAD/Abdomen Single View (Portable) IMPRESSION: Nasogastric tube in the stomach. Electronically Signed: Satnam Jin DO at 23:12 EST Tel [phone], Service support ,
[2021-05-11 23:10] LABS: BNP,B-Type NATRIURETIC PEPTIDE 27.9 pg/mL (0-100)
--- NOTE | 2021-05-11 23:27 | NURSING ---
2054: Pt remains on BiPAP 100% AVAPS, sats 83-86% with RR 32. Dr Antonio Sheriff notified of same via Cortex, states to prepare for intubation and will come to bedside. 2099: This RN phones pt's spouse to update on pt condition and plan, all questions answered at this time. Pt and spouse agreeable to plan. 2112: Dr Sheriff at bedside, preparing for intubation. Two RN and two AUTOMOTIVE ACCESSORY INSTALLER present. 2120: 20mg Etomidate given followed by 100mg Succinylcholine per MD verbal order. 2123: Pt intubated with 7.5 ETT, 24 @ lip. Symmetric rise and fall of chest, positive colorimetric change noted.
[2021-05-11 23:46] LABS: Base Excess 1 mmol/L (-2 to +2); Bicarbonate 27.3 mmol/L (22-26); Blood Gas Specimen Type ART; FI02 100; Mode AC; O2 Delivery Device Adult Vent; PEEP 16; PO2 69 mmHG (75-100); RR 14; SITE L Radial; SO2 91 % (95-99); Total Carbon Dioxide 29 mmol/L; pH 7.31 (7.35-7.45)
[2021-05-12] VITALS (60 sets, daily range): BP systolic 79–127; BP diastolic 51–84; PULSE 52–123; RESP 14–32; TEMP 36.6–38.3; O2SAT 88–100
[2021-05-12] MEDS: Propofol 10MG/Ml 1,000 MG/100 ML Bottle 41.3 MG CONT INF ×4 (00:05→05:32)
[2021-05-12] MEDS: Famotidine 20 MG Tablet GT ×3 (01:09→19:59)
[2021-05-12] MEDS: Insulin Lispro 100 UNIT/ML INSULN.PEN SC ×4 (01:09→17:30)
[2021-05-12 01:10] LABS: Bedside Glucose 242 mg/dL (70-110)
[2021-05-12] MEDS: Chlorhexidine 15 ML PO ×3 (01:10→19:58)
[2021-05-12 03:59] LABS: Absolute Lymphocyte Count 1.28 X10^3/uL (0.83-4.51); Absolute Neutrophil Count 11.1 X10^3/uL (2.0-7.7); Basophil# 0.05 X10^3/uL; Basophil% 0.3 % (0-1); Eosinophil# 0.49 X10^3/uL; Eosinophils% 3.4 % (0-5); Hematocrit 37.5 % (37-47); Lymphocyte # 1.28 X10^3/ul (0.83-4.51); Mean Corpuscular Hgb 29.5 pg (27.0-32.0); Mean Corpuscular Volume 92.1 fL (81-99); Mean Platelet Vol. 10.6 fl (6.2-12.0); Monocyte# 1.04 X10^3/uL; Monocyte% 7.3 % (0-10); NRBC Flagged by Analyzer 0.2 % (0-5); Neutrophil # 11.05 X10^3/uL (2.7-7.7); Neutrophil % 77.3 % (47-70); POSITIVE MORPHOLOGY YES; Platelet Count 285 K/mm3 (150-450); RBC Distribution Width CV 14.2 % (11.6-14.6); RBC Distribution Width SD 48.4 fl (35.1-43.9); Red Blood Count 4.07 M/mm3 (4.2-5.4); White Blood Count 14.3 K/mm3 (4.4-11.0)
[2021-05-12 04:17] LABS: ALB/GLOB Ratio 0.6 RATIO (0.9-2.4); AST(SGOT) 41 U/L (15-37); Alanine Aminotransfer ALT/SGPT 23 U/L (13-56); Albumin, Serum 2.4 g/dL (3.2-5.0); Alkaline Phosphatase 78 U/L (45-117); Anion Gap 11 (5-15); BUN 46 mg/dL (7-18); BUN/Creat Ratio 23.4 RATIO (10-20); Chloride 103 mmol/L (98-107); Creatinine, Serum 1.97 mg/dL (0.55-1.02); EST Glomerular Filtration Rate 27 mL/min (>60); Est Glom Filt Rate - Afr Amer 33 mL/min (>60); Estimated Creatinine Clearance 25.57 ml/min; Globulin 4.3 g/dL (2.2-4.2); Glucose 264 mg/dL (74-106); Potassium 4.1 mmol/L (3.5-5.1); Protein, Total 6.7 g/dL (6.4-8.2); Sodium Level 140 mmol/L (136-145)
[2021-05-12 04:21] LABS: CPK Total, Creatine Kinase 292 U/L (26-192); Triglycerides 595 mg/dL
[2021-05-12 04:37] LABS: Differential Indicated SCAN CRITERIA MET
[2021-05-12 04:44] LABS: Differential Comment SCANNED
[2021-05-12] MEDS: Dexmedetomidine 1,000 mcg in 0.9% NS 240 mL 17.2 MCG CONT INF (06:00)
[2021-05-12 06:20] LABS: Bedside Glucose 226 mg/dL (70-110)
[2021-05-12] MEDS: Enoxaparin 40 MG/0.4 ML Syringe SC (08:35)
--- NOTE | 2021-05-12 08:53 | RAD_ITS ---
STUDY: X-RAY CHEST REASON FOR EXAM: Female, 60 years old. Hypoxia TECHNIQUE: Single AP portable view of the chest. COMPARISON: Comparison is made with prior study dated 05/21/2021. FINDINGS: Endotracheal tube is in situ. The tip is at 2.3 cm proximal to the antonieta. Nasogastric tube is seen with the tip in the body of the stomach. EKG electrodes are seen. Bilateral alveolar infiltrates. There has been improvement as compared to prior study. There is no demonstrated pleural abnormality. There is mild cardiac enlargement. Normal mediastinum and charli. Normal visualized pulmonary arteries. Normal visualized aortic arch and descending thoracic aorta. There are diffuse degenerative changes of the visualized thoracic spine. Normal visualized ribs, clavicles, and shoulders. There is no demonstrated abnormality of the visualized soft tissue structures of the upper abdomen. RAD/Chest 1 View (Portable) IMPRESSION: Moderate degree of improved aeration of both lungs with residual bilateral patchy infiltrates. Electronically Signed: Tong Morris MD at 12:53 EST , Service support ,
[2021-05-12] MEDS: Propofol 10MG/Ml 1,000 MG/100 ML Bottle 16.5 MG CONT INF (09:00)
--- NOTE | 2021-05-12 10:26 | PCM.PN.HOSP ---
Subjective Subjective Intubated last night. On 100% FiO2. Objective Data Objective Data Vital Signs: Vital Signs Temp Pulse Resp BP Pulse Ox 36.6 C 63 17 115/78 95 05/12/21 00:00 05/12/21 10:24 05/12/21 10:24 05/12/21 09:00 05/12/21 10:24 Oxygen Flow Rate (L/min) 15 Oxygen Delivery Method Mechanical Ventilator Weight: 135.9 kg Body Mass Index (BMI) 52.0 Intake & Output: Intake and Output for Last 24 Hours 05/10/21 05/11/21 05/12/21 23:59 23:59 23:59 Intake Total 1089.21 / 1130.51 1056.55 / 1056.55 Output Total 600 / 600 Balance 1089.21 / 530.51 456.55 / 456.55 Lab / Micro Data Result Diagrams: 05/12/21 03:40 05/12/21 03:40 Labs: Laboratory Results - last 24 hr 05/11/21 12:00: WBC 14.6 H, RBC 4.59, Hgb 13.5, Hct 41.5, MCV 90.4, MCH 29.4, MCHC 32.5, RDW Std Deviation 47.4 H, RDW Coeff of Mehran 14.2, Plt Count 250, MPV 10.8, Immature Gran % (Auto) 2.500 H, Neut % (Auto) 78.4 H, Lymph % (Auto) 9.0 L, Mcclain % (Auto) 7.9, Eos % (Auto) 1.9, Baso % (Auto) 0.3, Absolute Neuts (auto) 11.4 H, Absolute Lymphs (auto) 1.31, Nucleated RBC % 0, Platelet Estimate ADEQUATE, Plt Morphology Comment LARGE 05/11/21 12:00: Sodium 138, Potassium 3.9, Chloride 100, Carbon Dioxide 26.0, Anion Gap 12, BUN 43 H, Creatinine 1.75 H, Estim Creat Clear Calc 28.78, Est GFR (MDRD) Af Amer 38 L, Est GFR (MDRD) Non-Af 31 L, BUN/Creatinine Ratio 24.6 H, Glucose 184 H, Calcium 8.9, Total Bilirubin 0.60, AST 50 H, ALT 29, Alkaline Phosphatase 88, Total Protein 7.7, Albumin 2.7 L, Globulin 5.0 H, Albumin/Globulin Ratio 0.5 L 05/11/21 12:00: Lactic Acid 4.6 H* 05/11/21 12:00: B-Natriuretic Peptide 27.9 05/11/21 16:20: Lactic Acid 1.2 05/11/21 18:05: Alkaline Phosphatase Cancelled 05/12/21 01:02: POC Glucose 242 H 05/12/21 03:40: WBC 14.3 H, RBC 4.07 L, Hgb 12.0, Hct 37.5, MCV 92.1, MCH 29.5, MCHC 32.0, RDW Std Deviation 48.4 H, RDW Coeff of Mehran 14.2, Plt Count 285, MPV 10.6, Immature Gran % (Auto) 2.700 H, Neut % (Auto) 77.3 H, Lymph % (Auto) 9.0 L, Mcclain % (Auto) 7.3, Eos % (Auto) 3.4, Baso % (Auto) 0.3, Absolute Neuts (auto) 11.1 H, Absolute Lymphs (auto) 1.28, Nucleated RBC % 0.2, Differential Comment SCANNED 05/12/21 03:40: Sodium 140, Potassium 4.1, Chloride 103, Carbon Dioxide 26.0, Anion Gap 11, BUN 46 H, Creatinine 1.97 H, Estim Creat Clear Calc 25.57, Est GFR (MDRD) Af Amer 33 L, Est GFR (MDRD) Non-Af 27 L, BUN/Creatinine Ratio 23.4 H, Glucose 264 H, Calcium 8.0 L, Total Bilirubin 0.50, AST 41 H, ALT 23, Alkaline Phosphatase 78, Total Protein 6.7, Albumin 2.4 L, Globulin 4.3 H, Albumin/Globulin Ratio 0.6 L 05/12/21 03:40: Total Creatine Kinase 292 H, Triglycerides 595 H 05/12/21 06:11: POC Glucose 226 H ABG Data ABG results: ABG 05/11/21 05/11/21 05/11/21 13:17 18:40 23:38 Specimen Type ART ART ART Sample Site L Radial L Radial L Radial pH 7.41 7.38 7.31 L Bicarbonate Actual 26.4 H 26.6 H 27.3 H Total CO2 28 28 29 Base Excess 2 1 1 O2 Saturation 70 L 92 L 91 L O2 % 100 100 ABG pCO2 41.9 44.9 54.0 H ABG pO2 36 L* 65 L 69 L Phoenix Test Positive Positive N/A Respiration Rate 14 14 O2 Delivery Device Cannula BiPAP Adult Vent Liter Flow 15.0 Vent Mode AVAPS AC Tidal Volume 450 POC PEEP 12 16 Crit Call To/Read Back Yes Blood Gas Notified Whom branden Clinical Comments [id number] +12 Radiography Diagnostic Testing: Radiology Impression Chest X-Ray 05/11/21 12:15 IMPRESSION: Diffuse bilateral airspace disease. Electronically Signed: Tong Morris MD at 13:09 EST , Service support , Chest CTA 05/11/21 14:56 IMPRESSION: There is no evidence of pulmonary emboli. Diffuse bilateral air space disease involving both lungs in both upper and lower lobes. Electronically Signed: Tong Morris MD at 15:17 EST , Service support , Chest X-Ray 05/11/21 21:37 IMPRESSION: Persistent bilateral infiltrates. Electronically Signed: Satnam Jin DO at 23:10 EST Tel [phone], Service support , KUB X-Ray 05/11/21 21:45 IMPRESSION: Nasogastric tube in the stomach. Electronically Signed: Satnam Jin DO at 23:12 EST Tel [phone], Service support , Physical Exam Const Constitutional Narrative: intubated and sedated. HEENT head/scalp atraumatic Head and Scalp: normocephalic Resp normal respiratory effort, no retractions, no use of accessory muscles and clear to auscultation bilaterally Cardio regular rate, regular rhythm, S1 normal heart sound and S2 normal heart sound GI normal to inspection, nondistended, normoactive bowel sounds, soft to palpation, non-tender and non-distended Extremity normal to inspection Neuro Sensorium / Orientation: awake and alert Assessment & Plan Assessment/Plan (1) Acute respiratory failure with hypoxia: (2) Pneumonia due to COVID-19 virus: PLAN: 1. Acute hypoxic respiratory failure Secondary to COVID-19 pneumonia Check patient for bacterial pneumonia Complicated by the patient's morbid obesity Intubated 05/11 2. Acute COVID-19 pneumonia Onset May 03. Isolation through the . Dexamethasone and remdesivir Infectious disease consultation for evaluation for baricitinib 3. Diabetes mellitus type 2 Diet controlled I fully expect, with steroids, that her blood sugar will be profoundly elevated Sliding scale insulin 4. Morbid obesity BMI of 51.5 Going to potentially have a very profound effect on the patient in regards to her respiratory status and overall condition and increases her chances of morbidity and mortality 6. Chronic kidney disease stage III a Last creatinine was 0.98 back in 2019 If patient does have improvement of her creatinine then this could be potentially qualify as acute kidney injury but I do not have enough information to qualify as such at this time. 7. VTE prophylaxis with LMWH Charges/Coding Visit Charges Inpatient E&M: 36848 Subs Hosp L2
--- NOTE | 2021-05-12 10:48 | PCS.PANDOC ---
PANDEMIC DOCUMENTATION INITIATED: Date: 05/12/2021 Time: 699
[2021-05-12] MEDS: TITRATION PARAMETER CHANGE 1 EACH IV ×2 (11:51)
[2021-05-12] MEDS: dexAMETHasone 10 MG/ML Vial 6 MG IV (11:51)
--- NOTE | 2021-05-12 12:26 | CON.PCM.CC_ITS ---
Assessment & Plan Assessment/Plan (1) Acute respiratory failure with hypoxia: (2) Pneumonia due to COVID-19 virus: (3) Type II diabetes mellitus: QUALIFIERS: Diabetes mellitus complication status: with circulatory complication Diabetes mellitus complication detail: with other circulatory complications Diabetes mellitus long term acute care registered nurse insulin use: without long term acute care registered nurse use Qualified Code(s): E11.59 - Type 2 diabetes mellitus with other circulatory complications (4) Morbid obesity: (5) Hypertension: (6) Hyperlipidemia: PLAN: RECOMMENDATIONS: 1. Increase PEEP to 18. Possible APRV later today 2. Transition from propofol to Precedex therapy 3. Labs to evaluate for complications of medical therapy 4. Diurese as necessary to maintain euvolemia 5. Wean oxygen as tolerated. Spontaneous breathing and awakening trials per protocol 6. Okay to initiate tube feeds 7. Wean pressors as tolerated to maintain a MAP of 65 8. Complete Remdesivir (05/15/2021), Decadron (05/20/2021) and possible baricitinib IMPRESSIONS: 1. Acute hypoxic respiratory failure secondary to ARDS secondary to COVID-19 Patient with significant hypoxia on presentation. Patient likely has an element of obstructive sleep apnea requiring high BiPAP settings, but ultimately required intubation. Patient with extensive bilateral infiltrates at this time. Cannot exclude a secondary infection. Infectious disease has been consulted. Continue with Remdesivir and Decadron. Possible addition of baricitinib later today. Patient currently on a PEEP of 18, but may need to transition to APRV versus paralyzation if not improving. Sedation will be transition to Precedex given elevated triglycerides. Okay to start tube feeds. 2. Distributive shock of unclear etiology Patient with significant acidosis on presentation. Patient also receiving propofol therapy. Cannot exclude a secondary bacterial infection, but infectious diseases to evaluate. Patient is not currently on antibiotics. We will see if we can discontinue Levophed following cessation of propofol. Would not recommend fluid boluses as this has been shown to worsen hypoxia with problem #1 3. Morbid obesity/CKD stage IIIa/diabetes mellitus type 2/hypertension/hyperlipidemia Complicates care, management, recovery and prognosis. Triglycerides are elevated, so propofol is not an ideal sedative. We will need to monitor patient for hyperglycemia given steroid therapy. Hold antihypertensives given problem #2. TIME: 37 minutes critical care time spent addressing patient's acute hypoxic respiratory failure, distributive shock, diabetes mellitus, review of all data and collaboration with care team HPI Consult Data Date of Consult: 05/12/21 HPI Narrative HPI Narrative: MARSHAL HOOD is a 60 F, with past medical history listed below, who presents to [facility] on 05[facility]11[facility]2021 secondary to progressive shortness of breath and paroxysmal type coughing. Patient reportedly had also complained of ear pain and production of yellow to green sputum. Patient had reported worsening shortness of breath over the previous 5 days that have progressed to shortness of breath at rest. Patient actually felt like chest discomfort improved after coughing episode. Patient denied any fevers or chills. Patient did report a positive home COVID test 2 days prior to presentation and progressive weakness. In the ER, patient was afebrile, but tachypneic as high as 29 breaths/min. Patient was normotensive, but noted to be 45% on room air. Patient was placed on a nonrebreather without improvement. Patient subsequently transitioned to BiPAP with 100% FiO2 to maintain marginal saturations. Laboratory data showed a white blood cell count of 14.6, hemoglobin of 13.5 and platelets of 250. Chemistry showed an elevated bicarbonate of 26, BUN of 43, creatinine of 1.75 and a lactate of 4.6. Glucose was elevated at 184, but LFTs were relatively unremarkable. An ABG showed significant hypoxia with adequate ventilation. Chest x-ray showed bilateral infiltrates and a CTA showed no PE, but extensive groundglass opacities. The patient was transferred to the intensive care unit for further evaluation. Throughout the course of the evening, patient continued to decompensate and was eventually intubated. Patient had significant dyssynchrony following intubation, so paralytics were contemplated. This did not have to be initiated, but patient was requiring a PEEP of 16 and 100% FiO2 to maintain marginal saturations. On my evaluation this morning, patient had better vent synchrony without paralytic therapy. However, patient saturations were in the mid 80s. Patient was increased to a PEEP of 18 with some improvement. Unable to obtain any further review of systems or history as patient is currently intubated and sedated. [facility] Medical History Abnormal pulse oximetry Arthritis Chronic neck and back pain COVID-19 Diarrhea Fatigue Frequent headaches Hyperlipidemia Hypertension Hypertension Knee pain Shoulder pain Type II diabetes mellitus Home Medications lisinopril [Zestril] 40 mg PO DAILY 11/26/14 [History Last Taken 03/15/18] acetaminophen 500 - 1,000 mg PO Q6H PRN 05/11/21 [History Last Taken Unknown] amlodipine 10 mg PO DAILY 05/11/21 [History Last Taken Unknown] atorvastatin 40 mg PO DAILY 05/11/21 [History Last Taken Unknown] carvedilol 6.25 mg PO BID 05/11/21 [History Last Taken Unknown] cetirizine [Zyrtec] 10 mg PO DAILY 05/11/21 [History Last Taken Unknown] chlorthalidone 25 mg PO DAILY 05/11/21 [History Last Taken Unknown] cholecalciferol (vitamin D3) 50 mcg PO DAILY 05/11/21 [History Last Taken Unknown] cyanocobalamin (vitamin B-12) [Vitamin B-12] 1,000 mcg SUBLINGUAL DAILY 05/11/21 [History Last Taken Unknown] dulaglutide [Trulicity] 1.5 mg SUBCUT QWEEK 05/11/21 [History Last Taken Unknown] meloxicam 15 mg PO DAILY 05/11/21 [History Last Taken Unknown] metformin 500 mg PO DAILY 05/11/21 [History Last Taken Unknown] Allergy/AdvReac Type Severity Reaction Status Date / Time cefuroxime axetil Allergy Hives Verified 05/11/21 11:32 [From Ceftin] clindamycin Allergy Hives Verified 05/11/21 11:32 ertapenem sodium Allergy Rash Verified 05/11/21 11:32 [From Invanz] Sulfa (Sulfonamide Allergy Hives Verified 05/11/21 11:32 Antibiotics) Surgical History H/O section History of carpal tunnel surgery Hx of arthroscopy of right knee Hx of dilation and curettage Hx of tonsillectomy Social History Smoking Status: Never smoker ROS Review of Systems ROS Unobtainable: due to endotracheal tube Physical Exam Const General Appearance: appears older than stated age, intubated and patient mechanically ventilated Nutritional Appearance: morbidly obese HEENT normocephalic, head/scalp atraumatic, hearing grossly normal bilaterally and moist oral mucous membranes Eyes Sclera: sclera abnormal Positive for bilateral Details: scleral injection Chest inspection of chest normal Chest: symmetrical chest wall rise; Negative for crepitus Resp Auscultation: diminished lung sounds; Negative for rales, rhonchi or wheezes Percussion: Negative for dullness Cardio regular rhythm, S1 normal heart sound, S2 normal heart sound, no murmurs, no rub and no gallops Rate: tachycardic GI normal to inspection, nondistended, normoactive bowel sounds, soft to palpation, non-tender and non-distended GI Narrative: Obese Extremity normal to inspection General Extremity: edema bilateral (3+) lower extremity; Negative for clubbing or cyanosis Skin no rashes or lesions noted and no wounds Neuro moves all extremities and no focal motor deficits Sensorium / Orientation: alert and sedated on vent Psych Appearance: intubated Lab / Micro Data Result Diagrams: 05/12/21 03:40 05/12/21 03:40 Labs: Laboratory Results - last 24 hr 05/11/21 12:00: WBC 14.6 H, RBC 4.59, Hgb 13.5, Hct 41.5, MCV 90.4, MCH 29.4, MCHC 32.5, RDW Std Deviation 47.4 H, RDW Coeff of Mehran 14.2, Plt Count 250, MPV 10.8, Immature Gran % (Auto) 2.500 H, Neut % (Auto) 78.4 H, Lymph % (Auto) 9.0 L , Garvin % (Auto) 7.9, Eos % (Auto) 1.9, Baso % (Auto) 0.3, Absolute Neuts (auto) 11.4 H, Absolute Lymphs (auto) 1.31, Nucleated RBC % 0, Platelet Estimate ADEQUATE, Plt Morphology Comment LARGE 05/11/21 12:00: Sodium 138, Potassium 3.9, Chloride 100, Carbon Dioxide 26.0, Anion Gap 12, BUN 43 H, Creatinine 1.75 H, Estim Creat Clear Calc 28.78, Est GFR (MDRD) Af Amer 38 L, Est GFR (MDRD) Non-Af 31 L, BUN/Creatinine Ratio 24.6 H, Glucose 184 H, Calcium 8.9, Total Bilirubin 0.60, AST 50 H, ALT 29, Alkaline Phosphatase 88, Total Protein 7.7, Albumin 2.7 L, Globulin 5.0 H, Albumin/Globulin Ratio 0.5 L 05/11/21 12:00: Lactic Acid 4.6 H* 05/11/21 12:00: B-Natriuretic Peptide 27.9 05/11/21 16:20: Lactic Acid 1.2 05/11/21 18:05: Alkaline Phosphatase Cancelled 05/12/21 01:02: POC Glucose 242 H 05/12/21 03:40: WBC 14.3 H, RBC 4.07 L, Hgb 12.0, Hct 37.5, MCV 92.1, MCH 29.5, MCHC 32.0, RDW Std Deviation 48.4 H, RDW Coeff of Mehran 14.2, Plt Count 285, MPV 10.6, Immature Gran % (Auto) 2.700 H, Neut % (Auto) 77.3 H, Lymph % (Auto) 9.0 L , Garvin % (Auto) 7.3, Eos % (Auto) 3.4, Baso % (Auto) 0.3, Absolute Neuts (auto) 11.1 H, Absolute Lymphs (auto) 1.28, Nucleated RBC % 0.2, Differential Comment SCANNED 05/12/21 03:40: Sodium 140, Potassium 4.1, Chloride 103, Carbon Dioxide 26.0, Anion Gap 11, BUN 46 H, Creatinine 1.97 H, Estim Creat Clear Calc 25.57, Est GFR (MDRD) Af Amer 33 L, Est GFR (MDRD) Non-Af 27 L, BUN/Creatinine Ratio 23.4 H, Glucose 264 H, Calcium 8.0 L, Total Bilirubin 0.50, AST 41 H, ALT 23, Alkaline Phosphatase 78, Total Protein 6.7, Albumin 2.4 L, Globulin 4.3 H, Albumin/Globulin Ratio 0.6 L 05/12/21 03:40: Total Creatine Kinase 292 H, Triglycerides 595 H 05/12/21 06:11: POC Glucose 226 H Micro: Microbiology 05/12/21 08:50 Urine, Clean Catch Legionella Antigen - Final 05/12/21 08:50 Urine, Clean Catch Streptococcus pneumoniae Antigen (M - Final ABG Data ABG results: ABG 05/11/21 05/11/21 05/11/21 13:17 18:40 23:38 Specimen Type ART ART ART Sample Site L Radial L Radial L Radial pH 7.41 7.38 7.31 L Bicarbonate Actual 26.4 H 26.6 H 27.3 H Total CO2 28 28 29 Base Excess 2 1 1 O2 Saturation 70 L 92 L 91 L O2 % 100 100 ABG pCO2 41.9 44.9 54.0 H ABG pO2 36 L* 65 L 69 L [place] Test Positive Positive N/A Respiration Rate 14 14 O2 Delivery Device Cannula BiPAP Adult Vent Liter Flow 15.0 Vent Mode AVAPS AC Tidal Volume 450 POC PEEP 12 16 Crit Call To/Read Back Yes Blood Gas Notified Whom branden Clinical Comments EPAP12 +12 Radiology Impression Chest X-Ray 05/11/21 12:15 IMPRESSION: Diffuse bilateral airspace disease. Electronically Signed: Tong Morris MD at 13:09 EST , Service support , Chest CTA 05/11/21 14:56 IMPRESSION: There is no evidence of pulmonary emboli. Diffuse bilateral air space disease involving both lungs in both upper and lower lobes. Electronically Signed: Tong Morris MD at 15:17 EST , Service support , Chest X-Ray 05/11/21 21:37 IMPRESSION: Persistent bilateral infiltrates. Electronically Signed: Satnam Jin DO at 23:10 EST Tel [phone], Service support , KUB X-Ray 05/11/21 21:45 IMPRESSION: Nasogastric tube in the stomach. Electronically Signed: Satnam Jin DO at 23:12 EST Tel [phone], Service support , Charges/Coding Procedures Hospitalists Procedures: [id number] Critial Care 1st Hr
[2021-05-12] MEDS: Dexmedetomidine 1,000 mcg in 0.9% NS 240 mL 51 MCG CONT INF ×3 (12:58→22:54)
[2021-05-12 13:00] LABS: Bedside Glucose 221 mg/dL (70-110)
--- NOTE | 2021-05-12 13:12 | PCM.CONS.GEN ---
Assessment & Plan Assessment/Plan (1) Acute respiratory failure with hypoxia: (2) Pneumonia due to COVID-19 virus: PLAN: Critically ill. Sx started around 05/08 per the urgent care note, possibly earlier. Isolate until 05/28. On dex, remdesivir, 100%fiO2. Left message on her 's phone, but he also is ill with covid. Will check CRP and d-dimer. Will order tocilizumb if available; not a candidate for baricinitib due to intubation. Will follow, thank you (3) Morbid obesity: (4) Type II diabetes mellitus: QUALIFIERS: Diabetes mellitus complication status: with circulatory complication Diabetes mellitus complication detail: with other circulatory complications Diabetes mellitus remote computer terminal operator insulin use: without [place] [facility] use Qualified Code(s): E11.59 - Type 2 diabetes mellitus with other circulatory complications HPI Consult Data Date of Consult: 05/12/21 HPI Narrative HPI Narrative: MARSHAL HOOD, is a 60 F who presented 05/11 with 3-5 days progressive dyspnea, cough with yellow/green sputum, weakness, headache, chills, loss of taste/smell, diarrhea, fatigue. and son also recently dx with covid. Pulse ox 66% on urgent care, sent to ED, did test (+) for covid at home. Now in icu on vent, 100% fiO2, remdesivir, levophed, and dex. Reportedly received single dose Moderna in the spring. ROS unobtainable due to intubation. [facility] Medical History Abnormal pulse oximetry Arthritis Chronic neck and back pain COVID-19 Diarrhea Fatigue Frequent headaches Hyperlipidemia Hypertension Hypertension Knee pain Shoulder pain Type II diabetes mellitus Home Medications lisinopril [Zestril] 40 mg PO DAILY 11/26/14 [History Last Taken 03/15/18] acetaminophen 500 - 1,000 mg PO Q6H PRN 05/11/21 [History Last Taken Unknown] amlodipine 10 mg PO DAILY 05/11/21 [History Last Taken Unknown] atorvastatin 40 mg PO DAILY 05/11/21 [History Last Taken Unknown] carvedilol 6.25 mg PO BID 05/11/21 [History Last Taken Unknown] cetirizine [Zyrtec] 10 mg PO DAILY 05/11/21 [History Last Taken Unknown] chlorthalidone 25 mg PO DAILY 05/11/21 [History Last Taken Unknown] cholecalciferol (vitamin D3) 50 mcg PO DAILY 05/11/21 [History Last Taken Unknown] cyanocobalamin (vitamin B-12) [Vitamin B-12] 1,000 mcg SUBLINGUAL DAILY 05/11/21 [History Last Taken Unknown] dulaglutide [Trulicity] 1.5 mg SUBCUT QWEEK 05/11/21 [History Last Taken Unknown] meloxicam 15 mg PO DAILY 05/11/21 [History Last Taken Unknown] metformin 500 mg PO DAILY 05/11/21 [History Last Taken Unknown] Allergy/AdvReac Type Severity Reaction Status Date / Time cefuroxime axetil Allergy Hives Verified 05/11/21 11:32 [From Ceftin] clindamycin Allergy Hives Verified 05/11/21 11:32 ertapenem sodium Allergy Rash Verified 05/11/21 11:32 [From Invanz] Sulfa (Sulfonamide Allergy Hives Verified 05/11/21 11:32 Antibiotics) Surgical History H/O section History of carpal tunnel surgery Hx of arthroscopy of right knee Hx of dilation and curettage Hx of tonsillectomy Social History Smoking Status: Never smoker Physical Exam Const Constitutional Narrative: intubated, sedated HEENT head/scalp atraumatic Eyes PERRL Neck No nodes Resp Auscultation: diminished lung sounds Cardio Rate: tachycardic GI soft to palpation, non-tender and non-distended Extremity General Extremity: edema Skin no rashes or lesions noted Lab / Micro Data Result Diagrams: 05/12/21 03:40 05/12/21 03:40 Labs: Laboratory Results - last 24 hr 05/11/21 12:00: B-Natriuretic Peptide 27.9 05/11/21 16:20: Lactic Acid 1.2 05/11/21 18:05: Alkaline Phosphatase Cancelled 05/12/21 01:02: POC Glucose 242 H 05/12/21 03:40: WBC 14.3 H, RBC 4.07 L, Hgb 12.0, Hct 37.5, MCV 92.1, MCH 29.5, MCHC 32.0, RDW Std Deviation 48.4 H, RDW Coeff of Mehran 14.2, Plt Count 285, MPV 10.6, Immature Gran % (Auto) 2.700 H, Neut % (Auto) 77.3 H, Lymph % (Auto) 9.0 L, [place] % (Auto) 7.3, Eos % (Auto) 3.4, Baso % (Auto) 0.3, Absolute Neuts (auto) 11.1 H, Absolute Lymphs (auto) 1.28, Nucleated RBC % 0.2, Differential Comment SCANNED 05/12/21 03:40: Sodium 140, Potassium 4.1, Chloride 103, Carbon Dioxide 26.0, Anion Gap 11, BUN 46 H, Creatinine 1.97 H, Estim Creat Clear Calc 25.57, Est GFR (MDRD) Af Amer 33 L, Est GFR (MDRD) Non-Af 27 L, BUN/Creatinine Ratio 23.4 H, Glucose 264 H, Calcium 8.0 L, Total Bilirubin 0.50, AST 41 H, ALT 23, Alkaline Phosphatase 78, Total Protein 6.7, Albumin 2.4 L, Globulin 4.3 H, Albumin/Globulin Ratio 0.6 L 05/12/21 03:40: Total Creatine Kinase 292 H, Triglycerides 595 H 05/12/21 06:11: POC Glucose 226 H 05/12/21 11:46: POC Glucose 221 H Micro: Microbiology 05/12/21 08:50 Urine, Clean Catch Legionella Antigen - Final 05/12/21 08:50 Urine, Clean Catch Streptococcus pneumoniae Antigen (M - Final ABG Data ABG results: ABG 05/11/21 05/11/21 05/11/21 13:17 18:40 23:38 Specimen Type ART ART ART Sample Site L Radial L Radial L Radial pH 7.41 7.38 7.31 L Bicarbonate Actual 26.4 H 26.6 H 27.3 H Total CO2 28 28 29 Base Excess 2 1 1 O2 Saturation 70 L 92 L 91 L O2 % 100 100 ABG pCO2 41.9 44.9 54.0 H ABG pO2 36 L* 65 L 69 L [place] Test Positive Positive N/A Respiration Rate 14 14 O2 Delivery Device Cannula BiPAP Adult Vent Liter Flow 15.0 Vent Mode AVAPS AC Tidal Volume 450 POC PEEP 12 16 Crit Call To/Read Back Yes Blood Gas Notified Whom branden Clinical Comments EPAP12 +12 Radiology Impression Chest CTA 05/11/21 14:56 IMPRESSION: There is no evidence of pulmonary emboli. Diffuse bilateral air space disease involving both lungs in both upper and lower lobes. Electronically Signed: Tong Morris MD at 15:17 EST , Service support , Chest X-Ray 05/11/21 21:37 IMPRESSION: Persistent bilateral infiltrates. Electronically Signed: Satnam Jin DO at 23:10 EST Tel [phone], Service support , KUB X-Ray 05/11/21 21:45 IMPRESSION: Nasogastric tube in the stomach. Electronically Signed: Satnam Jin DO at 23:12 EST Tel [phone], Service support , Chest X-Ray 05/12/21 08:53 IMPRESSION: Moderate degree of improved aeration of both lungs with residual bilateral patchy infiltrates. Electronically Signed: Tong Morris MD at 12:53 EST , Service support ,
[2021-05-12] MEDS: Vital High Protein 1,000 ML 50 ML GT (14:33)
[2021-05-12 15:26] LABS: Procalcitonin 0.14 ng/mL (0.00-0.09)
--- NOTE | 2021-05-12 16:06 | RAD_ITS ---
STUDY: X-RAY CHEST REASON FOR EXAM: Female, 60 years old. central line placement TECHNIQUE: Single AP portable view of the chest. COMPARISON: 05/12/2021 at 08 47 FINDINGS: Interval placement of right internal jugular deep venous line with tip of the catheter overlying the superior vena cava and no pneumothorax. Endotracheal tube and nasogastric tube both which are unchanged. Increased alveolar opacities in both lungs consistent with worsening bilateral pneumonia, atelectasis, or ARDS. There is no demonstrated pleural abnormality. There is moderate cardiac enlargement. Normal mediastinum and charli. Normal visualized pulmonary arteries. Normal visualized aortic arch and descending thoracic aorta. Normal visualized thoracic spine. Normal visualized ribs, clavicles, and shoulders. There is no demonstrated abnormality of the visualized soft tissue structures of the upper abdomen. RAD/CXR for Line Placement IMPRESSION: 1. Interval placement of right internal jugular venous line with tip of the catheter overlying the superior vena cava no pneumothorax. 2. Endotracheal tube and nasogastric tube both which are unchanged. 3. Worsening bibasilar atelectasis, pneumonia, pulmonary edema, air D aspirin Electronically Signed: Kaushik Moyer MD at 16:53 EST Tel , Service support ,
[2021-05-12 16:39] LABS: M R Staph aureus DNA By PCR Negative (Negative); Probe Check PASS; Specimen Processing Control PASS
--- NOTE | 2021-05-12 16:46 | PCM.OP.BLANK ---
Operative Report Date of Procedure: 05/12/21 Central line placement procedure note Indication: IV access/hemodynamic instability/vasoactive medications Procedure: A time-out was completed to verify correct patient, indication, medication allergies, procedure, coagulation studies, informed consent signed, and equipment needed. The patient was placed in the supine position for a central line placement to the rt IJ vein. The patients rt neck was prepped using chlorhexidine and a full body sterile drape was applied. 1% lidocaine was used to anesthetize the surrounding skin. A 7fr 16 cm blue guard triple lumen catheter introduced into the internal jugular vein using the modified seldinger technique with the assistance of ultrasound. The catheter was threaded smoothly over the guidewire, the guidewire was removed easily, nonpulsatile blood returned. All ports were aspirated of air and flushed with sterile saline. The catheter was sutured in place and covered with an occlusive dressing impregnated with chlorhexidine. Post-procedure: The patient tolerated the procedure well. Vital signs remained stable. EBL 3 cc. No complications. Chest X Ray ordered to confirm tip placement and the absence of pneumothorax. Procedures Hospitalists Procedures: [id number] Insert Non-tunnel CV Cath
[2021-05-12] MEDS: Acetaminophen 650 MG/20 ML UDC GT (17:30)
[2021-05-12] MEDS: QUEtiapine 25 MG Tablet 50 MG GT (19:59)
[2021-05-12] MEDS: Vital High Protein 1,000 ML 30 ML GT (20:03)
[2021-05-13] VITALS (35 sets, daily range): BP systolic 95–127; BP diastolic 51–79; PULSE 56–80; RESP 13–28; TEMP 36.6–39.1; O2SAT 83–98
[2021-05-13] MEDS: Insulin Lispro 100 UNIT/ML INSULN.PEN SC ×4 (00:21→18:08)
[2021-05-13] MEDS: Vital High Protein 1,000 ML 40 ML GT (04:00)
[2021-05-13] MEDS: Dexmedetomidine 1,000 mcg in 0.9% NS 240 mL 51 MCG CONT INF ×5 (04:05→22:24)
[2021-05-13 04:20] LABS: Hematocrit 38.4 % (37-47); Hemoglobin 12.5 g/dL (12.0-15.0); Mean Corp Hgb Conc 32.6 g/dL (32-36); Mean Corpuscular Hgb 29.8 pg (27.0-32.0); Mean Corpuscular Volume 91.6 fL (81-99); Mean Platelet Vol. 10.4 fl (6.2-12.0); NRBC Flagged by Analyzer 0.3 % (0-5); POSITIVE MORPHOLOGY YES; Platelet Count 274 K/mm3 (150-450); RBC Distribution Width CV 14.1 % (11.6-14.6); RBC Distribution Width SD 47.8 fl (35.1-43.9); Red Blood Count 4.19 M/mm3 (4.2-5.4); White Blood Count 7.7 K/mm3 (4.4-11.0)
[2021-05-13 04:58] LABS: ALB/GLOB Ratio 0.5 RATIO (0.9-2.4); AST(SGOT) 171 U/L (15-37); Alanine Aminotransfer ALT/SGPT 53 U/L (13-56); Albumin, Serum 2.3 g/dL (3.2-5.0); Alkaline Phosphatase 86 U/L (45-117); Anion Gap 7 (5-15); BUN 48 mg/dL (7-18); Calcium,Total 8.3 mg/dL (8.5-10.1); Chloride 106 mmol/L (98-107); Creatinine, Serum 1.37 mg/dL (0.55-1.02); EST Glomerular Filtration Rate 41 mL/min (>60); Est Glom Filt Rate - Afr Amer 50 mL/min (>60); Estimated Creatinine Clearance 36.77 ml/min; Globulin 4.4 g/dL (2.2-4.2); Glucose 295 mg/dL (74-106); Potassium 4.8 mmol/L (3.5-5.1); Protein, Total 6.7 g/dL (6.4-8.2); Sodium Level 141 mmol/L (136-145)
[2021-05-13 05:00] LABS: Differential Indicated SCAN CRITERIA MET
[2021-05-13 06:11] LABS: Bedside Glucose 273 mg/dL (70-110)
[2021-05-13 06:11] LABS: Bedside Glucose 278 mg/dL (70-110)
[2021-05-13 06:11] LABS: Bedside Glucose 309 mg/dL (70-110)
[2021-05-13 06:20] LABS: Scan Smear per Review Criteria MANUAL DIFF
[2021-05-13 06:23] LABS: Blast 1 % (0-0); Myelocyte 2 % (0-0); Neutrophil-Segmented 75 % (47-70); Total Cells Counted 100 (MANUAL DIFF)
[2021-05-13 06:24] LABS: Lymphocyte 10 % (19-41); Monocyte 12 % (0-10); Platelet Estimate ADEQUATE (ADEQ); Red Cell Morphology NORM C+C NORMAL (NORM C&C)
[2021-05-13 06:25] LABS: Absolute Lymphocyte Count 0.77 X10^3/uL (0.83-4.51); Absolute Neutrophil Count 5.8 X10^3/uL (2.0-7.7); Lymphocyte # 0.77 X10^3/ul (0.83-4.51); Neutrophil # 5.78 X10^3/uL (2.7-7.7)
--- NOTE | 2021-05-13 07:37 | PN.CC_ITS ---
Assessment & Plan Assessment/Plan (1) Acute respiratory failure with hypoxia: (2) Pneumonia due to COVID-19 virus: (3) Type II diabetes mellitus: QUALIFIERS: Diabetes mellitus complication status: with circulatory complication Diabetes mellitus complication detail: with other circulatory complications Diabetes mellitus middle or intermediate school principal insulin use: without middle or intermediate school principal use Qualified Code(s): E11.59 - Type 2 diabetes mellitus with other circulatory complications (4) Morbid obesity: (5) Hypertension: (6) Hyperlipidemia: PLAN: RECOMMENDATIONS: 1. Continue PEEP at 18. Possible APRV if requires higher PEEP 2. Continue Precedex and fentanyl for vent synchrony 3. Labs to evaluate for complications of medical therapy 4. Diurese as necessary to maintain euvolemia 5. Wean oxygen as tolerated. Spontaneous breathing and awakening trials per protocol 6. Okay to titrate tube feeds to goal. Add Lantus 7. Wean pressors as tolerated to maintain a MAP of 65 8. Complete Remdesivir (05/15/2021), Decadron (05/20/2021) and received Actemra IMPRESSIONS: 1. Acute hypoxic respiratory failure secondary to ARDS secondary to COVID-19 Patient with significant hypoxia on presentation. Patient likely has an element of obstructive sleep apnea requiring high BiPAP settings, but ultimately required intubation. Patient with extensive bilateral infiltrates at this time. Cannot exclude a secondary infection. Infectious disease has been consulted. Continue with Remdesivir and Decadron. Patient was given Actemra. Patient currently on a PEEP of 18, but may need to transition to APRV versus paralyzation if requires higher pressures. Continue Precedex and fentanyl for vent synchrony. Unable to use propofol secondary to elevated triglycerides. 2. Distributive shock of unclear etiology Resolved. Patient with significant acidosis on presentation. Patient also receiving propofol therapy. Cannot exclude a secondary bacterial infection, but infectious diseases to evaluate. Patient is not currently on antibiotics. Would not recommend fluid boluses as this has been shown to worsen hypoxia with problem #1 3. Morbid obesity/CKD stage IIIa/diabetes mellitus type 2/hypertension/hyperlipidemia Complicates care, management, recovery and prognosis. Triglycerides are elevated, so propofol is not an ideal sedative. We will need to monitor patient for hyperglycemia given steroid therapy. Initiate Lantus. Hold antih ypertensives given problem #2. TIME: 33 minutes critical care time spent addressing patient's acute hypoxic respiratory failure, distributive shock, diabetes mellitus, review of all data and collaboration with care team Subjective Subjective Patient did okay overnight. Patient continues to desaturate quickly with vent dyssynchrony. No paralytics have been required. Patient has tolerated tube feed titration thus far. Blood sugars have been elevated. Patient did receive Actemra yesterday Objective Data Objective Data Vital Signs: Vital Signs Temp Pulse Resp BP Pulse Ox 36.6 C 65 17 127/73 H 92 05/13/21 00:00 05/13/21 07:09 05/13/21 07:09 05/13/21 07:00 05/13/21 07:09 Oxygen Flow Rate (L/min) 15 Oxygen Delivery Method Mechanical Ventilator Weight: 137 kg Body Mass Index (BMI) 52.0 Intake & Output: Intake and Output for Last 24 Hours 05/11/21 05/12/21 05/13/21 23:59 23:59 23:59 Intake Total 1089.21 / 1130.51 2638.62 / 2859.62 855.02 / 855.02 Output Total 1075 / 1475 950 / 950 Balance 1089.21 / 530.51 1563.62 / 1384.62 -94.98 / -94.98 Lab / Micro Data Result Diagrams: 05/13/21 04:00 05/13/21 04:00 Labs: Laboratory Results - last 24 hr 05/12/21 03:30: C-React Prot Ext Range 98.40 H 05/12/21 11:46: POC Glucose 221 H 05/12/21 14:20: MRSA (PCR) Negative 05/12/21 14:40: Procalcitonin 0.14 H 05/12/21 17:30: POC Glucose 278 H 05/13/21 00:20: POC Glucose 309 H 05/13/21 04:00: WBC 7.7, RBC 4.19 L, Hgb 12.5, Hct 38.4, MCV 91.6, MCH 29.8, MCHC 32.6, RDW Std Deviation 47.8 H, RDW Coeff of Mehran 14.1, Plt Count 274, MPV 10.4, Immature Gran % (Auto) BILLING SERVICES MANAGER, Neut % (Auto) BILLING SERVICES MANAGER, Lymph % (Auto) BILLING SERVICES MANAGER, [place] % (Auto) BILLING SERVICES MANAGER, Eos % (Auto) BILLING SERVICES MANAGER, Baso % (Auto) BILLING SERVICES MANAGER, Absolute Neuts (auto) 5.8, Absolute Lymphs (auto) 0.77 L, Total Counted 100, Neutrophils % (Manual) 75 H, Lymphocytes % (Manual) 10 L, Monocytes % (Manual) 12 H, Myelocytes % 2 H, Blast Cells % 1 H*, Nucleated RBC % 0.3, Diff Path Review May foll, Platelet Estimate ADEQUATE, RBC Morphology NORM C+C 05/13/21 04:00: Sodium 141, Potassium 4.8, Chloride 106, Carbon Dioxide 28.0, Anion Gap 7, BUN 48 H, Creatinine 1.37 H, Estim Creat Clear Calc 36.77, Est GFR (MDRD) Af Amer 50 L, Est GFR (MDRD) Non-Af 41 L, BUN/Creatinine Ratio 35.0 H, Glucose 295 H, Calcium 8.3 L, Total Bilirubin 0.40, AST 171 H, ALT 53, Alkaline Phosphatase 86, Total Protein 6.7, Albumin 2.3 L, Globulin 4.4 H, Albumin/Globulin Ratio 0.5 L 05/13/21 05:31: POC Glucose 273 H Micro: Microbiology 05/12/21 02:30 Sputum, Tracheal Aspirate Gram Stain - Final 05/12/21 08:50 Urine, Clean Catch Legionella Antigen - Final 05/12/21 08:50 Urine, Clean Catch Streptococcus pneumoniae Antigen (M - Final Radiography Diagnostic Testing: Radiology Impression Chest X-Ray 05/12/21 08:53 IMPRESSION: Moderate degree of improved aeration of both lungs with residual bilateral patchy infiltrates. Electronically Signed: Tong Morris MD at 12:53 EST , Service support , Chest X-Ray 05/12/21 16:06 IMPRESSION: 1. Interval placement of right internal jugular venous line with tip of the catheter overlying the superior vena cava no pneumothorax. 2. Endotracheal tube and nasogastric tube both which are unchanged. 3. Worsening bibasilar atelectasis, pneumonia, pulmonary edema, air D aspirin Electronically Signed: Kaushik Moyer MD at 16:53 EST Tel , Service support , Physical Exam Const General Appearance: appears older than stated age, intubated and patient mechanically ventilated Nutritional Appearance: morbidly obese HEENT normocephalic, head/scalp atraumatic, hearing grossly normal bilaterally and moist oral mucous membranes Eyes Sclera: sclera abnormal Positive for bilateral Details: scleral injection Chest inspection of chest normal Chest: symmetrical chest wall rise; Negative for crepitus Resp Auscultation: diminished lung sounds; Negative for rales, rhonchi or wheezes Percussion: Negative for dullness Cardio regular rhythm, S1 normal heart sound, S2 normal heart sound, no murmurs, no rub and no gallops Rate: tachycardic GI normal to inspection, nondistended, normoactive bowel sounds, soft to palpation, non-tender and non-distended GI Narrative: Obese Extremity normal to inspection General Extremity: edema bilateral (3+) lower extremity; Negative for clubbing or cyanosis Skin no rashes or lesions noted and no wounds Neuro moves all extremities and no focal motor deficits Sensorium / Orientation: alert and sedated on vent Psych Appearance: intubated Charges/Coding Procedures Hospitalists Procedures: [id number] Critial Care 1st Hr
[2021-05-13] MEDS: Polyethylene Glycol 3350 17 GM PACKET PO (11:15)
[2021-05-13] MEDS: Senna Tablet 2 TABLET PO ×2 (11:15→20:40)
[2021-05-13] MEDS: QUEtiapine 25 MG Tablet 50 MG GT ×2 (11:15→20:38)
[2021-05-13] MEDS: Chlorhexidine 15 ML PO ×2 (11:15→20:38)
[2021-05-13] MEDS: Enoxaparin 40 MG/0.4 ML Syringe SC (11:15)
[2021-05-13] MEDS: dexAMETHasone 10 MG/ML Vial 6 MG IV (11:16)
[2021-05-13] MEDS: Famotidine 20 MG Tablet GT ×2 (11:16→20:38)
[2021-05-13] MEDS: Acetaminophen 650 MG/20 ML UDC GT ×2 (11:46→18:15)
[2021-05-13] MEDS: 0.9% Saline Lock 10 ML Syringe IV ×2 (11:56→18:15)
[2021-05-13 12:16] LABS: Bedside Glucose 281 mg/dL (70-110)
--- NOTE | 2021-05-13 12:36 | PN.HOSP_ITS ---
Subjective Subjective Still on vent. Received tocalizumab. Objective Data Objective Data Vital Signs: Vital Signs Temp Pulse Resp BP Pulse Ox 36.6 C 80 22 H 127/73 H 90 05/13/21 00:00 05/13/21 11:27 05/13/21 11:27 05/13/21 07:00 05/13/21 11:27 Oxygen Flow Rate (L/min) 15 Oxygen Delivery Method Mechanical Ventilator Weight: 137 kg Body Mass Index (BMI) 52.0 Intake & Output: Intake and Output for Last 24 Hours 05/11/21 05/12/21 05/13/21 23:59 23:59 23:59 Intake Total 1089.21 / 1130.51 2638.62 / 2859.62 1671.02 / 1671.02 Output Total 1075 / 1475 1450 / 1450 Balance 1089.21 / 530.51 1563.62 / 1384.62 221.02 / 221.02 Lab / Micro Data Result Diagrams: 05/13/21 04:00 05/13/21 04:00 Labs: Laboratory Results - last 24 hr 05/12/21 03:30: C-React Prot Ext Range 98.40 H 05/12/21 11:46: POC Glucose 221 H 05/12/21 14:20: MRSA (PCR) Negative 05/12/21 14:40: Procalcitonin 0.14 H 05/12/21 17:30: POC Glucose 278 H 05/13/21 00:20: POC Glucose 309 H 05/13/21 04:00: WBC 7.7, RBC 4.19 L, Hgb 12.5, Hct 38.4, MCV 91.6, MCH 29.8, MCHC 32.6, RDW Std Deviation 47.8 H, RDW Coeff of Mehran 14.1, Plt Count 274, MPV 10.4, Immature Gran % (Auto) SENIOR ADMINISTRATIVE ASSOCIATE, Neut % (Auto) SENIOR ADMINISTRATIVE ASSOCIATE, Lymph % (Auto) SENIOR ADMINISTRATIVE ASSOCIATE, [place] % (Auto) SENIOR ADMINISTRATIVE ASSOCIATE, Eos % (Auto) SENIOR ADMINISTRATIVE ASSOCIATE, Baso % (Auto) SENIOR ADMINISTRATIVE ASSOCIATE, Absolute Neuts (auto) 5.8, Absolute Lymphs (auto) 0.77 L, Total Counted 100, Neutrophils % (Manual) 75 H, Lymphocytes % (Manual) 10 L, Monocytes % (Manual) 12 H, Myelocytes % 2 H, Blast Cells % 1 H*, Nucleated RBC % 0.3, Diff Path Review May foll, Platelet Estimate ADEQUATE, RBC Morphology NORM C+C 05/13/21 04:00: Sodium 141, Potassium 4.8, Chloride 106, Carbon Dioxide 28.0, Anion Gap 7, BUN 48 H, Creatinine 1.37 H, Estim Creat Clear Calc 36.77, Est GFR (MDRD) Af Amer 50 L, Est GFR (MDRD) Non-Af 41 L, BUN/Creatinine Ratio 35.0 H, Glucose 295 H, Calcium 8.3 L, Total Bilirubin 0.40, AST 171 H, ALT 53, Alkaline Phosphatase 86, Total Protein 6.7, Albumin 2.3 L, Globulin 4.4 H, Albumin/Globu sherine Ratio 0.5 L 05/13/21 05:31: POC Glucose 273 H 05/13/21 11:58: POC Glucose 281 H Micro: Microbiology 05/12/21 02:30 Sputum, Tracheal Aspirate Gram Stain - Final 05/12/21 02:30 Sputum, Tracheal Aspirate Respiratory Culture - Preliminary Staphylococcus aureus 05/12/21 08:50 Urine, Clean Catch Legionella Antigen - Final 05/12/21 08:50 Urine, Clean Catch Streptococcus pneumoniae Antigen (M - Final Radiography Diagnostic Testing: Radiology Impression Chest X-Ray 05/12/21 08:53 IMPRESSION: Moderate degree of improved aeration of both lungs with residual bilateral patchy infiltrates. Electronically Signed: Tong Morris MD at 12:53 EST , Service support , Chest X-Ray 05/12/21 16:06 IMPRESSION: 1. Interval placement of right internal jugular venous line with tip of the catheter overlying the superior vena cava no pneumothorax. 2. Endotracheal tube and nasogastric tube both which are unchanged. 3. Worsening bibasilar atelectasis, pneumonia, pulmonary edema, air D aspirin Electronically Signed: Kaushik Moyer MD at 16:53 EST Tel , Service support , Physical Exam Const Constitutional Narrative: intubated and sedated. Resp Resp Narrative: coarse BS bilaterally. Cardio regular rate, regular rhythm, S1 normal heart sound and S2 normal heart sound GI normal to inspection, nondistended, normoactive bowel sounds, soft to palpation, non-tender and non-distended Extremity normal to inspection Assessment & Plan Assessment/Plan (1) Acute respiratory failure with hypoxia: (2) Pneumonia due to COVID-19 virus: PLAN: 1. Acute hypoxic respiratory failure Secondary to COVID-19 pneumonia Check patient for bacterial pneumonia Complicated by the patient's morbid obesity Intubated 05/11 Sedation with fentanyl and propofol 2. Acute COVID-19 pneumonia Onset May 03. Isolation through the . Dexamethasone and remdesivir No baricitinib 05/12: received tocalizumab 3. Diabetes mellitus type 2 Diet controlled I fully expect, with steroids, that her blood sugar will be profoundly elevated Sliding scale insulin 4. Morbid obesity BMI of 51.5 Going to potentially have a very profound effect on the patient in regards to her respiratory status and overall condition and increases her chances of morbidity and mortality 6. CONRADO Last creatinine was 0.98 back in 2019 If patient does have improvement of her creatinine then this could be potentially qualify as acute kidney injury but I do not have enough information to qualify as such at this time. Creatinine improving, down to 1.37 7. VTE prophylaxis with LMWH Charges/Coding Visit Charges Inpatient E&M: 64307 Subs Hosp L2
--- NOTE | 2021-05-13 17:57 | PCM.RX.CS ---
Consult Pharmacy has been consulted to manage selected antiobiotic: Vancomycin Type of Consult: New start Suspected Infection: Pneumonia Labs: Sodium 141 mmol/L (136-145) 05/13/21 04:00 Potassium 4.8 mmol/L (3.5-5.1) 05/13/21 04:00 Chloride 106 mmol/L (98-107) 05/13/21 04:00 Carbon Dioxide 28.0 mmol/L (21.0-32.0) 05/13/21 04:00 Anion Gap 7 (5-15) 05/13/21 04:00 BUN 48 mg/dL (7-18) H 05/13/21 04:00 Creatinine 1.37 mg/dL (0.55-1.02) H 05/13/21 04:00 Est GFR (MDRD) Af Amer 50 mL/min (>60) L 05/13/21 04:00 Est GFR (MDRD) Non-Af 41 mL/min (>60) L 05/13/21 04:00 BUN/Creatinine Ratio 35.0 RATIO (10-20) H 05/13/21 04:00 Glucose 295 mg/dL (74-106) H 05/13/21 04:00 Microbiology: Microbiology 05/11/21 12:00 Blood Culture (Wb) - Anticubital Left Blood Culture - Preliminary No growth in 48 hours. 05/12/21 02:30 Sputum, Tracheal Aspirate Gram Stain - Final 05/12/21 02:30 Sputum, Tracheal Aspirate Respiratory Culture - Preliminary Staphylococcus aureus 05/12/21 08:50 Urine, Clean Catch Legionella Antigen - Final 05/12/21 08:50 Urine, Clean Catch Streptococcus pneumoniae Antigen (M - Final Goal Trough: 15-20 mcg/mL Pharmacy Plan for Drug Dosing: NEW START IV VANCOMYCIN Consulting Physician: Dr. Owens Indication: Pneumonia Goal Trough: 15-20 SrCr: 1.37 CrCl: 58 mL/min (using AdjBW) Comments: 2000mg IV x1 loading dose entered and administered 05/13/21 @1700 Vancomycin Dose: 1250mg IV Q12h to start 05/14/21 @0500 Pending Level: 05/15/21 @0430, prior to 4th total dose per protocol Pharmacy Service will continue to monitor and adjust dosing as required.
[2021-05-13 19:36] LABS: Bedside Glucose 433 mg/dL (70-110)
[2021-05-14] VITALS (31 sets, daily range): BP systolic 91–124; BP diastolic 52–69; PULSE 54–73; RESP 13–27; TEMP 37.9–40.3; O2SAT 88–95
[2021-05-14] MEDS: Insulin Lispro 100 UNIT/ML INSULN.PEN SC ×6 (00:28→23:54)
[2021-05-14] MEDS: Vital High Protein 1,000 ML 50 ML GT (00:28)
[2021-05-14] MEDS: Acetaminophen 650 MG/20 ML UDC GT ×4 (00:28→23:15)
[2021-05-14 00:56] LABS: Bedside Glucose 342 mg/dL (70-110)
[2021-05-14 02:58] LABS: Absolute Lymphocyte Count 1.44 X10^3/uL (0.83-4.51); Absolute Neutrophil Count 8.6 X10^3/uL (2.0-7.7); Basophil# 0.04 X10^3/uL; Basophil% 0.4 % (0-1); Eosinophil# 0.06 X10^3/uL; Eosinophils% 0.5 % (0-5); Hematocrit 39.8 % (37-47); Hemoglobin 12.4 g/dL (12.0-15.0); Lymphocyte # 1.44 X10^3/ul (0.83-4.51); Lymphocyte % 13.1 % (19-41); Mean Corp Hgb Conc 31.2 g/dL (32-36); Mean Corpuscular Hgb 29.3 pg (27.0-32.0); Mean Corpuscular Volume 94.1 fL (81-99); Mean Platelet Vol. 10.2 fl (6.2-12.0); Monocyte% 6.4 % (0-10); NRBC Flagged by Analyzer 0 % (0-5); Neutrophil # 8.62 X10^3/uL (2.7-7.7); Neutrophil % 78.7 % (47-70); POSITIVE MORPHOLOGY YES; Platelet Count 253 K/mm3 (150-450); RBC Distribution Width CV 14.4 % (11.6-14.6); RBC Distribution Width SD 49.9 fl (35.1-43.9); Red Blood Count 4.23 M/mm3 (4.2-5.4)
[2021-05-14 03:06] LABS: Differential Indicated SCAN CRITERIA MET
[2021-05-14 03:15] LABS: ALB/GLOB Ratio 0.5 RATIO (0.9-2.4); AST(SGOT) 117 U/L (15-37); Alanine Aminotransfer ALT/SGPT 50 U/L (13-56); Albumin, Serum 1.9 g/dL (3.2-5.0); Alkaline Phosphatase 76 U/L (45-117); Anion Gap 8 (5-15); BUN 54 mg/dL (7-18); BUN/Creat Ratio 33.1 RATIO (10-20); Chloride 110 mmol/L (98-107); Creatinine, Serum 1.63 mg/dL (0.55-1.02); EST Glomerular Filtration Rate 34 mL/min (>60); Est Glom Filt Rate - Afr Amer 41 mL/min (>60); Globulin 4.1 g/dL (2.2-4.2); Glucose 401 mg/dL (74-106); Potassium 4.8 mmol/L (3.5-5.1); Sodium Level 142 mmol/L (136-145)
[2021-05-14] MEDS: Dexmedetomidine 1,000 mcg in 0.9% NS 240 mL 51 MCG CONT INF ×5 (03:23→23:53)
[2021-05-14 04:23] LABS: Atypical Lymphocyte 1+ %
[2021-05-14] MEDS: Furosemide 40 MG/4 ML Vial IV (05:37)
[2021-05-14 06:01] LABS: Bedside Glucose 324 mg/dL (70-110)
--- NOTE | 2021-05-14 06:31 | PN.CC_ITS ---
Assessment & Plan Assessment/Plan (1) Acute respiratory failure with hypoxia: (2) Pneumonia due to COVID-19 virus: (3) Type II diabetes mellitus: QUALIFIERS: Diabetes mellitus complication status: with circulatory complication Diabetes mellitus complication detail: with other circulatory complications Diabetes mellitus adjunct faculty for medical terminology insulin use: without adjunct faculty for medical terminology use Qualified Code(s): E11.59 - Type 2 diabetes mellitus with other circulatory complications (4) Morbid obesity: (5) Hypertension: (6) Hyperlipidemia: PLAN: RECOMMENDATIONS: 1. Continue APRV. Morning ABG while on APRV 2. Continue Precedex and fentanyl for vent synchrony 3. Labs to evaluate for complications of medical therapy 4. Diurese as necessary to maintain euvolemia 5. Wean oxygen as tolerated. Spontaneous breathing and awakening trials per protocol 6. Okay to titrate tube feeds to goal. Increase Lantus 7. Possible need for paralysis 8. Complete Remdesivir (05/15/2021), Decadron (05/20/2021) and received Actemra IMPRESSIONS: 1. Acute hypoxic respiratory failure secondary to ARDS secondary to COVID-19 Patient with significant hypoxia on presentation. Patient likely has an element of obstructive sleep apnea requiring high BiPAP settings, but ultimately required intubation. Patient with extensive bilateral infiltrates at this time. Cannot exclude a secondary infection. Infectious disease has been consulted. Continue with Remdesivir and Decadron. Patient was given Actemra. Patient curr ently on APRV. We will need to check an ABG on a daily basis to ensure adequate ventilation. Continue Precedex and fentanyl for vent synchrony. Unable to use propofol secondary to elevated triglycerides. 2. Distributive shock of unclear etiology Resolved. Patient with significant acidosis on presentation. Patient also receiving propofol therapy. Cannot exclude a secondary bacterial infection, but infectious diseases to evaluate. Patient is not currently on a ntibiotics. Would not recommend fluid boluses as this has been shown to worsen hypoxia with problem #1. Blood pressure did improve following cessation of propofol 3. Morbid obesity/CKD stage IIIa/diabetes mellitus type 2/hypertension/hyperlipidemia Complicates care, management, recovery and prognosis. Triglycerides are elevated, so propofol is not an ideal sedative. We will need to monitor patient for hyperglycemia given steroid therapy. Increase Lantus. Hold a ntihypertensives given problem #2. TIME: 38 minutes critical care time spent addressing patient's acute hypoxic respiratory failure, distributive shock, diabetes mellitus, review of all data and collaboration with care team Subjective Subjective Patient with significant issues overnight. Patient with persistent hypoxia and hyperglycemia. Patient had to be transition to APRV to maintain saturations. Patient with thick secretions per nursing and respiratory. Tube feeds are being tolerated. Objective Data Objective Data Vital Signs: Vital Signs Temp Pulse Resp BP Pulse Ox 38.2 C H 71 24 H 124/69 H 92 05/14/21 05:00 05/14/21 06:00 05/14/21 06:00 05/14/21 06:00 05/14/21 06:00 Oxygen Flow Rate (L/min) 15 Oxygen Delivery Method Mechanical Ventilator Weight: 140.1 kg Body Mass Index (BMI) 52.0 Intake & Output: Intake and Output for Last 24 Hours 05/12/21 05/13/21 05/14/21 23:59 23:59 23:59 Intake Total 2638.62 / 2859.62 4016.52 / 4386.52 1201.85 / 1201.85 Output Total 1075 / 1475 1750 / 2125 575 / 575 Balance 1563.62 / 1384.62 2266.52 / 2261.52 626.85 / 626.85 Lab / Micro Data Result Diagrams: 05/14/21 02:40 05/14/21 02:40 Labs: Laboratory Results - last 24 hr 05/13/21 11:58: POC Glucose 281 H 05/13/21 18:03: POC Glucose 433 H 05/14/21 00:30: POC Glucose 342 H 05/14/21 02:40: WBC 11.0, RBC 4.23, Hgb 12.4, Hct 39.8, MCV 94.1, MCH 29.3, MCHC 31.2 L, RDW Std Deviation 49.9 H, RDW Coeff of Mehran 14.4, Plt Count 253, MPV 10.2, Immature Gran % (Auto) 0.900, Neut % (Auto) 78.7 H, Lymph % (Auto) 13.1 L, [place] % (Auto) 6.4, Eos % (Auto) 0.5, Baso % (Auto) 0.4, Absolute Neuts (auto) 8.6 H, Absolute Lymphs (auto) 1.44, Nucleated RBC % 0, Atypical Lymphocytes 1+ 05/14/21 02:40: Sodium 142, Potassium 4.8, Chloride 110 H, Carbon Dioxide 24.0, Anion Gap 8, BUN 54 H, Creatinine 1.63 H, Estim Creat Clear Calc 30.90, Est GFR (MDRD) Af Amer 41 L, Est GFR (MDRD) Non-Af 34 L, BUN/Creatinine Ratio 33.1 H, Glucose 401 H, Calcium 8.0 L, Total Bilirubin 0.40, AST 117 H, ALT 50, Alkaline Phosphatase 76, Total Protein 6.0 L, Albumin 1.9 L, Globulin 4.1, Albumin/Globulin Ratio 0.5 L 05/14/21 05:36: POC Glucose 324 H Micro: Microbiology 05/11/21 12:00 Blood Culture (Wb) - Anticubital Left Blood Culture - Preliminary No growth in 48 hours. 05/12/21 02:30 Sputum, Tracheal Aspirate Gram Stain - Final 05/12/21 02:30 Sputum, Tracheal Aspirate Respiratory Culture - Preliminary Staphylococcus aureus 05/12/21 08:50 Urine, Clean Catch Legionella Antigen - Final 05/12/21 08:50 Urine, Clean Catch Streptococcus pneumoniae Antigen (M - F inal Physical Exam Const General Appearance: appears older than stated age, intubated and patient mechanically ventilated Nutritional Appearance: morbidly obese HEENT normocephalic, head/scalp atraumatic, hearing grossly normal bilaterally and moist oral mucous membranes Eyes Sclera: sclera abnormal Positive for bilateral Details: scleral injection Chest inspection of chest normal Chest: symmetrical chest wall rise; Negative for crepitus Resp Auscultation: diminished lung sounds; Negative for rales, rhonchi or wheezes Percussion: Negative for dullness Cardio regular rhythm, S1 normal heart sound, S2 normal heart sound, no murmurs, no rub and no gallops Rate: tachycardic GI normal to inspection, nondistended, normoactive bowel sounds, soft to palpation, non-tender and non-distended GI Narrative: Obese Extremity normal to inspection General Extremity: edema bilateral (3+) lower extremity; Negative for clubbing or cyanosis Skin no rashes or lesions noted and no wounds Neuro moves all extremities and no focal motor deficits Sensorium / Orientation: alert and sedated on vent Psych Appearance: intubated Charges/Coding Procedures Hospitalists Procedures: 71435 Critial Care 1st Hr
[2021-05-14] MEDS: Senna Tablet 2 TABLET PO ×2 (10:40→20:42)
[2021-05-14] MEDS: QUEtiapine 25 MG Tablet 50 MG GT ×2 (10:40→20:42)
[2021-05-14] MEDS: Polyethylene Glycol 3350 17 GM PACKET PO (10:40)
[2021-05-14] MEDS: Enoxaparin 40 MG/0.4 ML Syringe SC (10:41)
[2021-05-14] MEDS: Famotidine 20 MG Tablet GT ×2 (10:41→20:42)
[2021-05-14] MEDS: dexAMETHasone 10 MG/ML Vial 6 MG IV (10:42)
[2021-05-14] MEDS: Chlorhexidine 15 ML PO ×2 (10:42→20:41)
--- NOTE | 2021-05-14 11:00 | NURSING ---
Lai catheter removed and Core Temperature Monitoring Lai Catheter placed d/t elevated temperature of 104.1 axillary.
--- NOTE | 2021-05-14 11:30 | NURSING ---
Cooling blanket placed on pt due to elevated temp.
--- NOTE | 2021-05-14 12:00 | NURSING ---
Ice packs placed to b/l axilla & b/l groin d/t temp 104.8 via temp monitoring vazquez catheter.
[2021-05-14 12:35] LABS: Bedside Glucose 320 mg/dL (70-110)
--- NOTE | 2021-05-14 13:37 | PCM.PN.HOSP ---
Subjective Subjective Temperature vazquez placed, with significant difficulty by nursing given profound obesity. Fever registering at 104.8 F. Cooling blanket applied.On AVAPS. FiO2 down as low as 85, but decompensates quickly. Objective Data Objective Data Vital Signs: Vital Signs Temp Pulse Resp BP Pulse Ox 38.2 C H 70 26 H 110/67 90 05/14/21 05:00 05/14/21 10:13 05/14/21 10:13 05/14/21 07:00 05/14/21 10:13 Oxygen Flow Rate (L/min) 15 Oxygen Delivery Method Mechanical Ventilator Weight: 140.1 kg Body Mass Index (BMI) 52.0 Intake & Output: Intake and Output for Last 24 Hours 05/12/21 05/13/21 05/14/21 23:59 23:59 23:59 Intake Total 2638.62 / 2859.62 4016.52 / 4386.52 1872.90 / 1872.90 Output Total 1075 / 1475 1750 / 2125 575 / 575 Balance 1563.62 / 1384.62 2266.52 / 2261.52 1297.90 / 1297.90 Lab / Micro Data Result Diagrams: 05/14/21 02:40 05/14/21 02:40 Labs: Laboratory Results - last 24 hr 05/13/21 18:03: POC Glucose 433 H 05/14/21 00:30: POC Glucose 342 H 05/14/21 02:40: WBC 11.0, RBC 4.23, Hgb 12.4, Hct 39.8, MCV 94.1, MCH 29.3, MCHC 31.2 L, RDW Std Deviation 49.9 H, RDW Coeff of Mehran 14.4, Plt Count 253, MPV 10.2, Immature Gran % (Auto) 0.900, Neut % (Auto) 78.7 H, Lymph % (Auto) 13.1 L, [place] % (Auto) 6.4, Eos % (Auto) 0.5, Baso % (Auto) 0.4, Absolute Neuts (auto) 8.6 H, Absolute Lymphs (auto) 1.44, Nucleated RBC % 0, Atypical Lymphocytes 1+ 05/14/21 02:40: Sodium 142, Potassium 4.8, Chloride 110 H, Carbon Dioxide 24.0, Anion Gap 8, BUN 54 H, Creatinine 1.63 H, Estim Creat Clear Calc 30.90, Est GFR (MDRD) Af Amer 41 L, Est GFR (MDRD) Non-Af 34 L, BUN/Creatinine Ratio 33.1 H, Glucose 401 H, Calcium 8.0 L, Total Bilirubin 0.40, AST 117 H, ALT 50, Alkaline Phosphatase 76, Total Protein 6.0 L, Albumin 1.9 L, Globulin 4.1, Albumin/Globulin Ratio 0.5 L 05/14/21 05:36: POC Glucose 324 H 05/14/21 11:57: POC Glucose 320 H Micro: Microbiology 05/12/21 02:30 Sputum, Tracheal Aspirate Gram Stain - Final 05/12/21 02:30 Sputum, Tracheal Aspirate Respiratory Culture - Final Staphylococcus aureus 05/11/21 12:00 Blood Culture (Wb) - Anticubital Left Blood Culture - Preliminary No growth in 48 hours. 05/12/21 08:50 Urine, Clean Catch Legionella Antigen - Final 05/12/21 08:50 Urine, Clean Catch Streptococcus pneumoniae Antigen (M - Final Physical Exam Const alert and no apparent distress HEENT head/scalp atraumatic Head and Scalp: normocephalic Resp normal respiratory effort, no retractions, no use of accessory muscles and clear to auscultation bilaterally Cardio regular rate, regular rhythm, S1 normal heart sound and S2 normal heart sound GI normal to inspection, nondistended, normoactive bowel sounds, soft to palpation, non-tender and non-distended Extremity normal to inspection Assessment & Plan Assessment/Plan (1) Acute respiratory failure with hypoxia: (2) Pneumonia due to COVID-19 virus: PLAN: 1. Acute hypoxic respiratory failure Secondary to COVID-19 pneumonia and MSSA pneumonia Check patient for bacterial pneumonia Complicated by the patient's morbid obesity Intubated 05/11 Sedation with fentanyl and propofol 2. Acute COVID-19 pneumonia Onset May 03. Isolation through the . Dexamethasone and remdesivir No baricitinib 05/12: received tocalizumab 3. MSSA pneumonia currently on pip/tazo and vanc continue for now given profound fevers. 4. Diabetes mellitus type 2 Diet controlled I fully expect, with steroids, that her blood sugar will be profoundly elevated Sliding scale insulin 5. Morbid obesity BMI of 51.5 Going to potentially have a very profound effect on the patient in regards to her respiratory status and overall condition and increases her chances of morbidity and mortality 6. CONRADO Last creatinine was 0.98 back in 2019 If patient does have improvement of her creatinine then this could be potentially qualify as acute kidney injury but I do not have enough information to qualify as such at this time. Creatinine improving, down to 1.37 7. VTE prophylaxis with LMWH Charges/Coding Visit Charges Inpatient E&M: 29423 Subs Hosp L2
[2021-05-14 23:25] LABS: Bedside Glucose 451 mg/dL (70-110)
[2021-05-14 23:25] LABS: Bedside Glucose 397 mg/dL (70-110)
[2021-05-14] MEDS: Vital High Protein 1,000 ML 55 ML GT (23:41)
[2021-05-15] VITALS (33 sets, daily range): BP systolic 94–119; BP diastolic 53–65; PULSE 48–58; RESP 11–27; TEMP 38.3–39.2; O2SAT 90–99
[2021-05-15 00:26] LABS: Bedside Glucose 486 mg/dL (70-110)
[2021-05-15 01:26] LABS: Bedside Glucose 458 mg/dL (70-110)
[2021-05-15] MEDS: Insulin Lispro 100 UNIT/ML INSULN.PEN 10 UNIT SC ×3 (01:56→22:06)
[2021-05-15 04:36] LABS: Bedside Glucose 425 mg/dL (70-110)
[2021-05-15] MEDS: Dexmedetomidine 1,000 mcg in 0.9% NS 240 mL 51 MCG CONT INF (05:00)
[2021-05-15 05:11] LABS: Allen Test Positive; Base Excess -4 mmol/L (-2 to +2); Bicarbonate 23.2 mmol/L (22-26); Blood Gas Specimen Type ART; FI02 100; Mode BiLevel; O2 Delivery Device ET Tube; PO2 55 mmHG (75-100); RR 12; SITE R Radial; SO2 84 % (95-99); Total Carbon Dioxide 25 mmol/L; pCO2 49.5 mmHg (35-45); pH 7.28 (7.35-7.45)
[2021-05-15 05:12] LABS: Absolute Neutrophil Count 11.3 X10^3/uL (2.0-7.7); Basophil# 0.04 X10^3/uL; Basophil% 0.3 % (0-1); Eosinophil# 0.04 X10^3/uL; Eosinophils% 0.3 % (0-5); Hematocrit 39.1 % (37-47); Hemoglobin 12.1 g/dL (12.0-15.0); Lymphocyte % 9.4 % (19-41); Mean Corp Hgb Conc 30.9 g/dL (32-36); Mean Corpuscular Hgb 29.2 pg (27.0-32.0); Mean Corpuscular Volume 94.2 fL (81-99); Mean Platelet Vol. 10.7 fl (6.2-12.0); Monocyte# 0.99 X10^3/uL; Monocyte% 7.2 % (0-10); NRBC Flagged by Analyzer 0.2 % (0-5); Neutrophil # 11.26 X10^3/uL (2.7-7.7); Neutrophil % 81.8 % (47-70); POSITIVE MORPHOLOGY YES; Platelet Count 202 K/mm3 (150-450); RBC Distribution Width CV 14.1 % (11.6-14.6); Red Blood Count 4.15 M/mm3 (4.2-5.4); White Blood Count 13.8 K/mm3 (4.4-11.0)
[2021-05-15] MEDS: Insulin Lispro 100 UNIT/ML INSULN.PEN SC ×4 (05:15→22:12)
[2021-05-15] MEDS: Acetaminophen 650 MG/20 ML UDC GT ×2 (05:30→18:07)
[2021-05-15 05:36] LABS: Vancomycin, Trough Level 25.6 ug/mL (5.0-15.0)
[2021-05-15 06:00] LABS: ALB/GLOB Ratio 0.5 RATIO (0.9-2.4); AST(SGOT) 71 U/L (15-37); Alanine Aminotransfer ALT/SGPT 54 U/L (13-56); Albumin, Serum 1.9 g/dL (3.2-5.0); Alkaline Phosphatase 76 U/L (45-117); Anion Gap 9 (5-15); BUN 68 mg/dL (7-18); BUN/Creat Ratio 39.8 RATIO (10-20); Chloride 109 mmol/L (98-107); Creatinine, Serum 1.71 mg/dL (0.55-1.02); EST Glomerular Filtration Rate 32 mL/min (>60); Est Glom Filt Rate - Afr Amer 39 mL/min (>60); Estimated Creatinine Clearance 29.46 ml/min; Globulin 3.9 g/dL (2.2-4.2); Glucose 469 mg/dL (74-106); Potassium 5.2 mmol/L (3.5-5.1); Protein, Total 5.8 g/dL (6.4-8.2); Sodium Level 140 mmol/L (136-145)
--- NOTE | 2021-05-15 06:05 | PCM.RX.CS ---
Consult Pharmacy has been consulted to manage selected antiobiotic: Vancomycin Type of Consult: Follow-up Suspected Infection: Pneumonia Prior Doses of Antibiotics Received/Current Regimen: Medications Vancomycin HCl 1,250 mg/ (Sodium Chloride) 275 mls @ 167 mls/hr IV Q12H [place] Last Admin: 05/15/21 05:13 Dose: 167 mls/hr Labs: Sodium 140 mmol/L (136-145) 05/15/21 04:25 Potassium 5.2 mmol/L (3.5-5.1) H 05/15/21 04:25 Chloride 109 mmol/L (98-107) H 05/15/21 04:25 Carbon Dioxide 22.0 mmol/L (21.0-32.0) 05/15/21 04:25 Anion Gap 9 (5-15) 05/15/21 04:25 BUN 68 mg/dL (7-18) H 05/15/21 04:25 Creatinine 1.71 mg/dL (0.55-1.02) H 05/15/21 04:25 Est GFR (MDRD) Af Amer 39 mL/min (>60) L 05/15/21 04:25 Est GFR (MDRD) Non-Af 32 mL/min (>60) L 05/15/21 04:25 BUN/Creatinine Ratio 39.8 RATIO (10-20) H 05/15/21 04:25 Glucose 469 mg/dL (74-106) H* 05/15/21 04:25 Vancomycin Trough 25.6 ug/mL (5.0-15.0) H 05/15/21 04:25 Microbiology: Microbiology 05/11/21 12:10 Blood Culture (Wb) - Arm Right Blood Culture - Preliminary No growth in 48 hours. 05/12/21 02:30 Sputum, Tracheal Aspirate Gram Stain - Final 05/12/21 02:30 Sputum, Tracheal Aspirate Respiratory Culture - Final Staphylococcus aureus 05/11/21 12:00 Blood Culture (Wb) - Anticubital Left Blood Culture - Preliminary No growth in 48 hours. 05/12/21 08:50 Urine, Clean Catch Legionella Antigen - Final 05/12/21 08:50 Urine, Clean Catch Streptococcus pneumoniae Antigen (M - Final Weight used for dosin kg Estimated Creatinine Clearance: 29 Goal Trough: 15-20 mcg/mL Pharmacy Plan for Drug Dosing: Vancomycin trough level was high at 25.6. However the draw was 3 hours early at 9 hours post dose. This accounts for part of the high level, along with the slight increase in SCr. Will continue current dosing, but re-draw a trough in 24 hours. Pharmacy Service will continue to monitor and adjust dosing as required. Follow-Up Labs: Trough Vancomycin Labs to be done on [date and time ordered]: 05/16/21 @0437
[2021-05-15 06:30] LABS: Bedside Glucose 396 mg/dL (70-110)
--- NOTE | 2021-05-15 07:04 | PN.CC_ITS ---
Assessment & Plan Assessment/Plan (1) Acute respiratory failure with hypoxia: (2) Pneumonia due to COVID-19 virus: (3) Type II diabetes mellitus: QUALIFIERS: Diabetes mellitus complication detail: with other circulatory complications Diabetes mellitus complication status: with circulatory complication Diabetes mellitus intermediate frame tender insulin use: without intermediate frame tender use Qualified Code(s): E11.59 - Type 2 diabetes mellitus with other circulatory complications (4) Morbid obesity: (5) Hypertension: (6) Hyperlipidemia: PLAN: RECOMMENDATIONS: 1. Continue APRV. Continue to wean FiO2 as tolerated. 2. Continue remdesivir as ordered to complete treatment course. 3. Continue empiric antimicrobials. 4. Continue prophylactic Lovenox. 5. Continue Decadron to complete 10 days of therapy. 6. Continue appropriate GI prophylaxis. 7. Tube feeds as tolerated. IMPRESSIONS: 1. Acute hypoxic respiratory failure secondary to ARDS secondary to COVID-19 The patient was initially admitted to the hospital on May 11 with progressive dyspnea in the setting of COVID-19 pneumonia. The patient did ulti mately require intubation and has received tocilizumab. She remains on remdesivir, Decadron and prophylactic Lovenox, which will be continued to complete treatment courses. In addition, MSSA was isolated from her sputum culture. Therefore, antimicrobials will be continued. The patient has underl shun renal insufficiency, which has limited her use of diuretics. Respiratory status still remains tenuous. Plan to continue supportive care with APRV mode mechanical ventilation. Continue to wean FiO2 as tolerated for saturations greater than 90%. Continue prophylactic Lovenox. Continue tube feeds as tolerated. Continue appropriate GI prophylaxis. 2. Acute kidney injury Most likely prerenal in etiology. Continue to hold nephrotoxic medications. Continue to monitor urine output for now. No current indication for renal replacement therapy. 3. Morbid obesity/CKD stage IIIa/diabetes mellitus type 2/hypertension/hyperlipidemia Complicates care, management, recovery and prognosis. Triglycerides are elevated, so propofol is not an ideal sedative. Continue Lantus and sliding scale insulin coverage. TIME: 38 minutes of critical care time, independent of procedures, was spent addressing the patient's acute hypoxemic respiratory failure secondary to COVID- 19 pneumonia, acute kidney injury, review of all data and collaboration with care team. Subjective Subjective The patient was seen and examined at the bedside this morning. Events from the last 24 hours have been reviewed. Today is vent day #5. The patient is ion tly febrile with a T-max of 104.6 ?F yesterday afternoon. She is otherwise hemodynamically stable. The patient is currently being maintained on APRV with an FiO2 requirement of 70%. She is currently sedated on Precedex and fentanyl. She is currently tolerating tube feeds. The patient is documented to be overall net +8.7 L for the hospitalization. Creatinine remains elevated at 1.7. Potassium is high at 5.2. Glucose is elevated at 469. The patient remains on remdesivir, antimicrobials, prophylactic Lovenox and Decadron. The patient was not a candidate for baricitinib due to her intubation status. Objective Data Objective Data The patient's most recent lab work, culture data and imaging studies have all been personally reviewed. Surface echocardiogram from 2017 demonstrated normal LV size and function with an ejection fraction of 65%. Coronavirus PCR was positive on May 11. Vital Signs: Vital Signs Temp Pulse Resp BP Pulse Ox 102 F H 52 L 15 99/58 L 94 05/15/21 06:00 05/15/21 06:00 05/15/21 06:00 05/15/21 06:00 05/15/21 06:00 Oxygen Flow Rate (L/min) 15 Oxygen Delivery Method Mechanical Ventilator Weight: 142.2 kg Body Mass Index (BMI) 52.0 Intake & Output: Intake and Output for Last 24 Hours 05/13/21 05/14/21 05/15/21 23:59 23:59 23:59 Intake Total 4016.52 / 4386.52 4918.07 / 5038.07 1399.00 / 1399.00 Output Total 1750 / 2125 2225 / 2225 300 / 300 Balance 2266.52 / 2261.52 2693.07 / 2813.07 1099.00 / 1099.00 Lab / Micro Data Attestation: I reviewed the patient's lab results. Result Diagrams: 05/15/21 04:25 05/15/21 04:25 Labs: Laboratory Results - last 24 hr 05/14/21 11:57: POC Glucose 320 H 05/14/21 16:56: POC Glucose 397 H 05/14/21 23:11: POC Glucose 451 H* 05/15/21 00:18: POC Glucose 486 H* 05/15/21 01:22: POC Glucose 458 H* 05/15/21 04:00: POC Glucose 425 H 05/15/21 04:25: Vancomycin Trough 25.6 H 05/15/21 04:25: Sodium 140, Potassium 5.2 H, Chloride 109 H, Carbon Dioxide 22.0, Anion Gap 9, BUN 68 H, Creatinine 1.71 H, Estim Creat Clear Calc 29.46, Est GFR (MDRD) Af Amer 39 L, Est GFR (MDRD) Non-Af 32 L, BUN/Creatinine Ratio 39.8 H, Glucose 469 H*, Calcium 8.0 L, Total Bilirubin 0.40, AST 71 H, ALT 54, Alkaline Phosphatase 76, Total Protein 5.8 L, Albumin 1.9 L, Globulin 3.9, Albumin/Globulin Ratio 0.5 L 05/15/21 05:14: POC Glucose 396 H Micro: Microbiology 05/11/21 12:10 Blood Culture (Wb) - Arm Right Blood Culture - Preliminary No growth in 48 hours. 05/12/21 02:30 Sputum, Tracheal Aspirate Gram Stain - Final 05/12/21 02:30 Sputum, Tracheal Aspirate Respiratory Culture - Final Staphylococcus aureus 05/11/21 12:00 Blood Culture (Wb) - Anticubital Left Blood Culture - Preliminary No growth in 48 hours. 05/12/21 08:50 Urine, Clean Catch Legionella Antigen - Final 05/12/21 08:50 Urine, Clean Catch Streptococcus pneumoniae Antigen (M - Final ABG Data ABG results: ABG 05/15/21 05:06 Specimen Type ART Sample Site R Radial pH 7.28 L Bicarbonate Actual 23.2 Total CO2 25 Base Excess -4 L O2 Saturation 84 L O2 % 100 ABG pCO2 49.5 H ABG pO2 55 L [place] Test Positive Respiration Rate 12 O2 Delivery Device ET Tube Vent Mode BiLevel Physical Exam Const General Appearance: intubated and patient mechanically ventilated Nutritional Appearance: morbidly obese HEENT normocephalic and head/scalp atraumatic Mouth: endotracheal tube in place and OG tube in place Eyes PERRL Neck supple General: trachea midline Chest inspection of chest normal Resp Auscultation: diminished lung sounds Cardio S1 normal heart sound and S2 normal heart sound Rate: bradycardia GI normal to inspection, nondistended, normoactive bowel sounds Extremity General Extremity: edema; Negative for clubbing Skin no rashes or lesions noted Neuro Sensorium / Orientation: sedated on vent Charges/Coding Procedures Hospitalists Procedures: 12141 Critial Care 1st Hr
[2021-05-15 07:15] LABS: Differential Indicated SCAN CRITERIA MET
--- NOTE | 2021-05-15 08:45 | PN.HOSP_ITS ---
Subjective Subjective Patient is intubated. CVC catheter on right neck. Currently afebrile but had T-max 104.6 Fahrenheit yesterday afternoon. Sedated on Precedex and fentanyl drip. On APRV mode of ventilator, 70% FiO2 Objective Data Objective Data Vital Signs: Vital Signs Temp Pulse Resp BP Pulse Ox 102.1 F H 53 L 12 99/58 L 91 05/15/21 08:00 05/15/21 08:00 05/15/21 08:00 05/15/21 08:00 05/15/21 08:00 Oxygen Flow Rate (L/min) 15 Oxygen Delivery Method Mechanical Ventilator Weight: 313 lb 7.957 oz Body Mass Index (BMI) 52.0 Intake & Output: Intake and Output for Last 24 Hours 05/13/21 05/14/21 05/15/21 23:59 23:59 23:59 Intake Total 4016.52 / 4386.52 4918.07 / 5038.07 1470.00 / 1470.00 Output Total 1750 / 2125 2225 / 2225 300 / 300 Balance 2266.52 / 2261.52 2693.07 / 2813.07 1170.00 / 1170.00 Lab / Micro Data Result Diagrams: 05/15/21 04:25 05/15/21 04:25 Labs: Laboratory Results - last 24 hr 05/14/21 11:57: POC Glucose 320 H 05/14/21 16:56: POC Glucose 397 H 05/14/21 23:11: POC Glucose 451 H* 05/15/21 00:18: POC Glucose 486 H* 05/15/21 01:22: POC Glucose 458 H* 05/15/21 04:00: POC Glucose 425 H 05/15/21 04:25: Vancomycin Trough 25.6 H 05/15/21 04:25: WBC 13.8 H, RBC 4.15 L, Hgb 12.1, Hct 39.1, MCV 94.2, MCH 29.2, MCHC 30.9 L, RDW Std Deviation 49.0 H, RDW Coeff of Mehran 14.1, Plt Count 202, MPV 10.7, Immature Gran % (Auto) 1.000 H, Neut % (Auto) 81.8 H, Lymph % (Auto) 9.4 L , [place] % (Auto) 7.2, Eos % (Auto) 0.3, Baso % (Auto) 0.3, Absolute Neuts (auto) 11.3 H, Absolute Lymphs (auto) 1.30, Nucleated RBC % 0.2, Differential Comment 05/15/21 04:25: Sodium 140, Potassium 5.2 H, Chloride 109 H, Carbon Dioxide 22.0, Anion Gap 9, BUN 68 H, Creatinine 1.71 H, Estim Creat Clear Calc 29.46, Est GFR (MDRD) Af Amer 39 L, Est GFR (MDRD) Non-Af 32 L, BUN/Creatinine Ratio 39.8 H, Glucose 469 H*, Calcium 8.0 L, Total Bilirubin 0.40, AST 71 H, ALT 54, Alkaline Phosphatase 76, Total Protein 5.8 L, Albumin 1.9 L, Globulin 3.9, Albumin/Globulin Ratio 0.5 L 05/15/21 05:14: POC Glucose 396 H Micro: Microbiology 05/11/21 12:10 Blood Culture (Wb) - Arm Right Blood Culture - Preliminary No growth in 48 hours. 05/12/21 02:30 Sputum, Tracheal Aspirate Gram Stain - Final 05/12/21 02:30 Sputum, Tracheal Aspirate Respiratory Culture - Final Staphylococcus aureus 05/11/21 12:00 Blood Culture (Wb) - Anticubital Left Blood Culture - Preliminary No growth in 48 hours. 05/12/21 08:50 Urine, Clean Catch Legionella Antigen - Final 05/12/21 08:50 Urine, Clean Catch Streptococcus pneumoniae Antigen (M - Final ABG Data ABG results: ABG 05/15/21 05:06 Specimen Type ART Sample Site R Radial pH 7.28 L Bicarbonate Actual 23.2 Total CO2 25 Base Excess -4 L O2 Saturation 84 L O2 % 100 ABG pCO2 49.5 H ABG pO2 55 L [place] Test Positive Respiration Rate 12 O2 Delivery Device ET Tube Vent Mode BiLevel Physical Exam Narrative General: Sedated on ventilator HEENT: Atraumatic, Normocephalic, pupils sluggish reactive Oral: ET OG tube Neck: Supple, No JVD, Negative Carotid Bruits Lungs: Air entry equal bilateral lungs. On ventilator Cardiovascular: Sinus rhythm, bradycardia, Normal S1, Normal S2, No murmurs Abdomen: Bowel Sounds sluggish, soft, Non Tender, Non-Distended : Lai catheter. No renal angle tenderness. No suprapubic tenderness. Extremities: No edema, Capillary Refill Less than 3 Seconds Skin: No rashes, No breakdown Musculoskeletal: No Tenderness to Palpation of Joints or Extremities Neurological: Sedated. Complete neuro exam unobtainable Psych/Mental Status: Sedated Assessment & Plan Assessment/Plan (1) Acute respiratory failure with hypoxia: (2) Pneumonia due to COVID-19 virus: PLAN: 1. Acute hypoxic respiratory failure Secondary to COVID-19 pneumonia and MSSA pneumonia Urinary antigens are negative. Blood cultures are negative for more than 48 hours. Complicated by the patient's morbid obesity Intubated 05/11, vent settings being managed by compo conveyor operator. Sedation with fentanyl and propofol 2. Acute COVID-19 pneumonia Onset May 03. Isolation through the . Dexamethasone and remdesivir No baricitinib 05/12: received tocalizumab 3. MSSA pneumonia currently on pip/tazo and vanc. Had 100.4 Fahrenheit on 05/14. Continue to spike fever 102.1 last night 4. Diabetes mellitus type 2 Diet controlled. Blood sugar high, in 400s. Lantus insulin dose increased and started on Humalog scheduled dose. With holding parameters Continue sliding scale insulin 5. Morbid obesity BMI of 51.5 6. CONRADO Last creatinine was 0.98 back in 2019. Last creatinine 1.71 it was 1.97 on 05/12 7. VTE prophylaxis with LMWH Charges/Coding Visit Charges Inpatient E&M: 87866 Subs Hosp L3
[2021-05-15] MEDS: Dexmedetomidine 1,000 mcg in 0.9% NS 240 mL 40.8 MCG CONT INF ×3 (10:03→22:19)
[2021-05-15] MEDS: QUEtiapine 25 MG Tablet 50 MG GT ×2 (10:06→21:55)
[2021-05-15] MEDS: Famotidine 20 MG Tablet GT ×2 (10:06→21:55)
[2021-05-15] MEDS: Enoxaparin 40 MG/0.4 ML Syringe SC (10:06)
[2021-05-15] MEDS: Senna Tablet 2 TABLET PO ×2 (10:06→21:55)
[2021-05-15] MEDS: dexAMETHasone 10 MG/ML Vial 6 MG IV (10:07)
[2021-05-15] MEDS: Polyethylene Glycol 3350 17 GM PACKET PO (10:07)
--- NOTE | 2021-05-15 11:21 | CASEMGMT ---
SUBHASH MURRAY ASSESSMENT Pt currently intubated. COVID +. SUBHASH MURRAY placed call to pt's for initial transition planning/care coordination assessment. SUBHASH MURRAY introduced self and role at [facility]. voices understanding and consents to assessment at this time. Care providers, pharmacy, and demographics verified/updated at this time. Pt had COVID testing done @ [facility] in [place] PCP: Dr Arriaga Specialists:None Preferred Pharmacy: [facility] Retail Insurance: [employer] Prescription Benefit: Yes Living Will/HPOA: Pt does not currently have LW/HCPOA LNOK: Carlos Living Arrangements: Lives w/ and 2 adult sons. Independent prior to recent illness. and one son tested + COVID same day pt did. They had only mild symptoms and plan to return to work in a couple of days when out of isolation. Other son had COVID last year and tested negative for COVID when rest of family was +. Family supportive and will be able to assist w/getting groceries and supplies as needed once pt returns home. Transportation: Pt, DME: Has a glucometer. No home O2 HHC/SNF: No hx of either. PLAN: TBD by course of treatment and progress w/therapy. iMo DAVIES RN, CM
[2021-05-15] MEDS: Chlorhexidine 15 ML PO ×2 (13:12→21:55)
[2021-05-15 13:25] LABS: Bedside Glucose 369 mg/dL (70-110)
[2021-05-15] MEDS: Vital High Protein 1,000 ML 55 ML GT (18:01)
--- NOTE | 2021-05-15 20:22 | PN.ID_ITS ---
Physical Exam Narrative On vent, fever last night Const Orientation / Consciousness: lethargic Resp Auscultation: diminished lung sounds Cardio regular rate and regular rhythm GI non-tender and non-distended Skin no rashes or lesions noted ID ID: Route of nutrition/ use of supplements: [] Nutritional Intake: [] IV Site: [] Lai Catheter: [] Assessment & Plan Assessment/Plan (1) Acute respiratory failure with hypoxia: (2) Pneumonia due to COVID-19 virus: PLAN: Critically ill. Sx started around 05/08 per the urgent care note, possibly earlier. Isolate until 05/28. On dex, off remdesivir, given tocilizumab. Now on vanc/zosyn. Sputum with mssa, will stop vanc today. Will follow (3) Morbid obesity: (4) Type II diabetes mellitus: QUALIFIERS: Diabetes mellitus complication status: with circulatory complication Diabetes mellitus complication detail: with other circulatory complications Diabetes mellitus correction insulin use: without certified physical therapist assistant use Qualified Code(s): E11.59 - Type 2 diabetes mellitus with other circulatory complications
[2021-05-15 22:25] LABS: Bedside Glucose 419 mg/dL (70-110)
[2021-05-15 22:25] LABS: Bedside Glucose 285 mg/dL (70-110)
[2021-05-16] VITALS (36 sets, daily range): BP systolic 90–123; BP diastolic 56–83; PULSE 47–71; RESP 12–40; TEMP 37.7–38.7; O2SAT 60–97
[2021-05-16 04:16] LABS: Absolute Lymphocyte Count 1.18 X10^3/uL (0.83-4.51); Basophil# 0.06 X10^3/uL; Basophil% 0.4 % (0-1); Eosinophil# 0.02 X10^3/uL; Eosinophils% 0.1 % (0-5); Hematocrit 39.7 % (37-47); Hemoglobin 12.5 g/dL (12.0-15.0); Lymphocyte # 1.18 X10^3/ul (0.83-4.51); Lymphocyte % 8.5 % (19-41); Mean Corp Hgb Conc 31.5 g/dL (32-36); Mean Corpuscular Hgb 29.4 pg (27.0-32.0); Mean Corpuscular Volume 93.4 fL (81-99); Mean Platelet Vol. 11.3 fl (6.2-12.0); Monocyte# 1.21 X10^3/uL; Monocyte% 8.7 % (0-10); NRBC Flagged by Analyzer 0.5 % (0-5); Neutrophil # 11.04 X10^3/uL (2.7-7.7); Neutrophil % 79.4 % (47-70); Platelet Count 182 K/mm3 (150-450); RBC Distribution Width CV 14.1 % (11.6-14.6); RBC Distribution Width SD 48.3 fl (35.1-43.9); Red Blood Count 4.25 M/mm3 (4.2-5.4); White Blood Count 13.9 K/mm3 (4.4-11.0)
[2021-05-16 04:36] LABS: Allen Test Positive; Base Excess -2 mmol/L (-2 to +2); Bicarbonate 24.3 mmol/L (22-26); Blood Gas Specimen Type ART; FI02 55; Mode BiLevel; O2 Delivery Device ET Tube; PO2 54 mmHG (75-100); RR 12; SITE R Radial; SO2 84 % (95-99); Total Carbon Dioxide 26 mmol/L; pCO2 47.5 mmHg (35-45); pH 7.32 (7.35-7.45)
[2021-05-16 04:42] LABS: ALB/GLOB Ratio 0.5 RATIO (0.9-2.4); AST(SGOT) 52 U/L (15-37); Alanine Aminotransfer ALT/SGPT 48 U/L (13-56); Albumin, Serum 1.9 g/dL (3.2-5.0); Alkaline Phosphatase 79 U/L (45-117); Anion Gap 6 (5-15); BUN 59 mg/dL (7-18); BUN/Creat Ratio 42.4 RATIO (10-20); Calcium,Total 8.5 mg/dL (8.5-10.1); Chloride 109 mmol/L (98-107); Creatinine, Serum 1.39 mg/dL (0.55-1.02); EST Glomerular Filtration Rate 41 mL/min (>60); Est Glom Filt Rate - Afr Amer 49 mL/min (>60); Estimated Creatinine Clearance 36.24 ml/min; Globulin 3.8 g/dL (2.2-4.2); Glucose 394 mg/dL (74-106); Potassium 5.3 mmol/L (3.5-5.1); Protein, Total 5.7 g/dL (6.4-8.2); Sodium Level 141 mmol/L (136-145)
[2021-05-16] MEDS: Dexmedetomidine 1,000 mcg in 0.9% NS 240 mL 34 MCG CONT INF (05:00)
[2021-05-16] MEDS: Insulin Lispro 100 UNIT/ML INSULN.PEN 10 UNIT SC ×2 (06:05→11:20)
[2021-05-16] MEDS: Insulin Lispro 100 UNIT/ML INSULN.PEN SC ×4 (06:05→23:46)
--- NOTE | 2021-05-16 06:25 | PN.CC_ITS ---
Assessment & Plan Assessment/Plan (1) Acute respiratory failure with hypoxia: (2) Pneumonia due to COVID-19 virus: (3) Type II diabetes mellitus: QUALIFIERS: Diabetes mellitus complication detail: with other circulatory complications Diabetes mellitus complication status: with circulatory complication Diabetes mellitus terminal manager insulin use: without terminal manager use Qualified Code(s): E11.59 - Type 2 diabetes mellitus with other circulatory complications (4) Morbid obesity: (5) Hypertension: (6) Hyperlipidemia: PLAN: RECOMMENDATIONS: 1. Continue APRV. Continue to wean FiO2 as tolerated. 2. Continue empiric antimicrobials. 3. Continue prophylactic Lovenox. 4. Continue Decadron to complete 10 days of therapy. 5. Continue appropriate GI prophylaxis. 6. Tube feeds as tolerated. 7. Initiate diuretics today. 8. Goals of care discussion with the patient's family. IMPRESSIONS: 1. Acute hypoxic respiratory failure secondary to ARDS secondary to COVID-19 The patient was initially admitted to the hospital on May 11 with progressive dyspnea in the setting of COVID-19 pneumonia. The patient did ultimately require intubation and has received tocilizumab. She remains on remdesivir, Decadron and prophylactic Lovenox, which will be continued to complete treatment courses. In addition, MSSA was isolated from her sputum culture. Therefore, antimicrobials will be continued. Respiratory status still remains tenuous. Plan to continue supportive care with APRV mode mechanical ventilation. Continue to wean FiO2 as tolerated for saturations greater than 90%. Continue prophylactic Lovenox. Continue tube feeds as tolerated. Continue appropriate GI prophylaxis. Given improving renal status, will attempt diuresis today. 2. Acute kidney injury Improving. Most likely prerenal in etiology. Continue to hold nephrotoxic medications. Continue to monitor urine output for now. No current indication for renal replacement therapy. 3. Morbid obesity/CKD stage IIIa/diabetes mellitus type 2/hypertension/hyperlipidemia Complicates care, management, recovery and prognosis. Triglycerides are elevated, so propofol is not an ideal sedative. Continue Lantus and sliding scale insulin coverage. TIME: 35 minutes of critical care time, independent of procedures, was spent addressing the patient's acute hypoxemic respiratory failure secondary to COVID- 19 pneumonia, acute kidney injury, review of all data and collaboration with care team. Subjective Subjective The patient was seen and examined at the bedside this morning. Events from the last 24 hours have been reviewed. Today is vent day #6. Overall, the patient's fever curve has improved. She does remain febrile with a T-max overnight of 102.5 ?F. She is otherwise hemodynamically stable. The patient is currently being maintained on APRV with an FiO2 requirement of 60% and P high of 28. She is currently sedated on Precedex and fentanyl. She has been tolerant of tube feeds. She is currently documented to be overall net +10.7 L for the hospitalization. ABG from this morning revealed a pH of 7.32 with a PCO2 of 47 PO2 of 54. Chemistry profile was notable for a potassium of 5.3 and creatinine of 1.39. The patient has completed her treatment course of remdesivir. She remains on antimicrobials, prophylactic Lovenox and Decadron. Objective Data Objective Data The patient's most recent lab work, culture data and imaging studies have all been personally reviewed. Surface echocardiogram from 2017 demonstrated normal LV size and function with an ejection fraction of 65%. Coronavirus PCR was positive on May 11. Vital Signs: Vital Signs Temp Pulse Resp BP Pulse Ox 101.2 F H 50 L 27 H 123/60 H 90 05/16/21 03:00 05/16/21 03:54 05/16/21 03:54 05/16/21 03:00 05/16/21 03:54 Oxygen Flow Rate (L/min) 15 Oxygen Delivery Method Mechanical Ventilator Weight: 142.2 kg Body Mass Index (BMI) 52.0 Intake & Output: Intake and Output for Last 24 Hours 05/14/21 05/15/21 05/16/21 23:59 23:59 23:59 Intake Total 4918.07 / 5038.07 3952.26 / 4113.06 869.52 / 869.52 Output Total 2225 / 2225 1250 / 1550 450 / 450 Balance 2693.07 / 2813.07 2702.26 / 2563.06 419.52 / 419.52 Lab / Micro Data Attestation: I reviewed the patient's lab results. Result Diagrams: 05/16/21 04:05 05/16/21 04:05 Labs: Laboratory Results - last 24 hr 05/15/21 04:25: WBC 13.8 H, RBC 4.15 L, Hgb 12.1, Hct 39.1, MCV 94.2, MCH 29.2, MCHC 30.9 L, RDW Std Deviation 49.0 H, RDW Coeff of Mehran 14.1, Plt Count 202, MPV 10.7, Immature Gran % (Auto) 1.000 H, Neut % (Auto) 81.8 H, Lymph % (Auto) 9.4 L , [place] % (Auto) 7.2, Eos % (Auto) 0.3, Baso % (Auto) 0.3, Absolute Neuts (auto) 11.3 H, Absolute Lymphs (auto) 1.30, Nucleated RBC % 0.2, Differential Comment 05/15/21 05:14: POC Glucose 396 H 05/15/21 13:10: POC Glucose 369 H 05/15/21 18:00: POC Glucose 285 H 05/15/21 22:10: POC Glucose 419 H 05/16/21 04:05: WBC 13.9 H, RBC 4.25, Hgb 12.5, Hct 39.7, MCV 93.4, MCH 29.4, MCHC 31.5 L, RDW Std Deviation 48.3 H, RDW Coeff of Mehran 14.1, Plt Count 182, MPV 11.3, Immature Gran % (Auto) 2.900 H, Neut % (Auto) 79.4 H, Lymph % (Auto) 8.5 L , [place] % (Auto) 8.7, Eos % (Auto) 0.1, Baso % (Auto) 0.4, Absolute Neuts (auto) 11.0 H, Absolute Lymphs (auto) 1.18, Nucleated RBC % 0.5 05/16/21 04:05: Sodium 141, Potassium 5.3 H, Chloride 109 H, Carbon Dioxide 26.0, Anion Gap 6, BUN 59 H, Creatinine 1.39 H, Estim Creat Clear Calc 36.24, Est GFR (MDRD) Af Amer 49 L, Est GFR (MDRD) Non-Af 41 L, BUN/Creatinine Ratio 42.4 H, Glucose 394 H, Calcium 8.5, Total Bilirubin 0.30, AST 52 H, ALT 48, Alkaline Phosphatase 79, Total Protein 5.7 L, Albumin 1.9 L, Globulin 3.8, Albumin/Globulin Ratio 0.5 L Micro: Microbiology 05/11/21 12:10 Blood Culture (Wb) - Arm Right Blood Culture - Preliminary No growth in 48 hours. 05/12/21 02:30 Sputum, Tracheal Aspirate Gram Stain - Final 05/12/21 02:30 Sputum, Tracheal Aspirate Respiratory Culture - Final Staphylococcus aureus 05/11/21 12:00 Blood Culture (Wb) - Anticubital Left Blood Culture - Preliminary No growth in 48 hours. 05/12/21 08:50 Urine, Clean Catch Legionella Antigen - Final 05/12/21 08:50 Urine, Clean Catch Streptococcus pneumoniae Antigen (M - Final ABG Data ABG results: ABG 05/16/21 04:28 Specimen Type ART Sample Site R Radial pH 7.32 L Bicarbonate Actual 24.3 Total CO2 26 Base Excess -2 O2 Saturation 84 L O2 % 55 ABG pCO2 47.5 H ABG pO2 54 L [place] Test Positive Respiration Rate 12 O2 Delivery Device ET Tube Vent Mode BiLevel Physical Exam Const General Appearance: intubated and patient mechanically ventilated Nutritional Appearance: morbidly obese HEENT normocephalic and head/scalp atraumatic Mouth: endotracheal tube in place and OG tube in place Eyes PERRL Neck supple General: trachea midline Chest inspection of chest normal Resp Auscultation: diminished lung sounds Cardio S1 normal heart sound and S2 normal heart sound Rate: bradycardia GI normal to inspection, nondistended, normoactive bowel sounds Extremity General Extremity: edema; Negative for clubbing Skin no rashes or lesions noted Neuro Sensorium / Orientation: sedated on vent Charges/Coding Procedures Hospitalists Procedures: 39650 Critial Care 1st Hr
[2021-05-16 06:26] LABS: Bedside Glucose 358 mg/dL (70-110)
[2021-05-16] MEDS: Enoxaparin 40 MG/0.4 ML Syringe SC (08:44)
[2021-05-16] MEDS: dexAMETHasone 10 MG/ML Vial 6 MG IV (08:44)
[2021-05-16] MEDS: Chlorhexidine 15 ML PO ×2 (08:44→21:41)
[2021-05-16] MEDS: Furosemide 40 MG/4 ML Vial IV ×2 (08:44→18:05)
[2021-05-16] MEDS: Polyethylene Glycol 3350 17 GM PACKET PO (08:45)
[2021-05-16] MEDS: Senna Tablet 2 TABLET PO ×2 (08:45→21:42)
[2021-05-16] MEDS: Famotidine 20 MG Tablet GT ×2 (08:45→21:42)
[2021-05-16] MEDS: QUEtiapine 25 MG Tablet 50 MG GT ×2 (08:45→21:42)
[2021-05-16 09:29] LABS: Pathologist Review Reviewed
[2021-05-16 11:31] LABS: Bedside Glucose 332 mg/dL (70-110)
--- NOTE | 2021-05-16 11:37 | CASEMGMT ---
Social Work SW participated in ICU rounds this morning. SW called , offered support. SW explained to SW is here for support to family, and to assist with discharge planning when appropriate. SW explained will see how pt is doing, if able to go home, or if may need to go somewhere at discharge. states understanding. SW will continue to follow for discharge planning and support to family. TUNG Og
--- NOTE | 2021-05-16 12:01 | CHAPLAIN ---
Type of Pastoral Visit ___ Initial Visit ___ Follow-up Visit ___ On-call Visit ___ General Patient Visit ___ Spiritual Assessment ___ Family Conference ___ Bereavement ___ Rapid Response ___ Code Blue ___ Other (describe below) Pastoral Care Referral From ___ Patient ___ Family ___ Nurse ___ Physician ___ Wash Driller ___ Cellophane Wrapping Examiner ___ Other (describe below) Sacrament/Intervention ___ Active listening ___ Anointing ___ Islam ___ Bereavement ___ Communion ___ Ashlee exploration ___ ___ Life review ___ Prayer ___ Reconciliation ___ Sacrament of Sick ___ Supportive presence ___ Wedding ___ Other (describe below) Pastoral Comments prayers offered outside of door as patient continues to be intubated
--- NOTE | 2021-05-16 13:14 | PN.HOSP_ITS ---
Subjective Subjective Patient on Precedex and fentanyl but not on vasopressor. Had fever overnight, T-max 102.5. On ventilator. Objective Data Objective Data Vital Signs: Vital Signs Temp Pulse Resp BP Pulse Ox 99.8 F H 62 25 H 105/67 97 05/16/21 12:00 05/16/21 12:19 05/16/21 12:19 05/16/21 12:00 05/16/21 12:19 Oxygen Flow Rate (L/min) 15 Oxygen Delivery Method Mechanical Ventilator Weight: 317 lb 3.923 oz Body Mass Index (BMI) 52.0 Intake & Output: Intake and Output for Last 24 Hours 05/14/21 05/15/21 05/16/21 23:59 23:59 23:59 Intake Total 4918.07 / 5038.07 3952.26 / 4113.06 1758.19 / 1758.19 Output Total 2225 / 2225 1250 / 1550 1750 / 1750 Balance 2693.07 / 2813.07 2702.26 / 2563.06 8.19 / 8.19 Lab / Micro Data Result Diagrams: 05/16/21 04:05 05/16/21 04:05 Labs: Laboratory Results - last 24 hr 05/13/21 04:00: Diff Path Review Reviewed 05/15/21 13:10: POC Glucose 369 H 05/15/21 18:00: POC Glucose 285 H 05/15/21 22:10: POC Glucose 419 H 05/16/21 04:05: WBC 13.9 H, RBC 4.25, Hgb 12.5, Hct 39.7, MCV 93.4, MCH 29.4, M CHC 31.5 L, RDW Std Deviation 48.3 H, RDW Coeff of Mehran 14.1, Plt Count 182, MPV 11.3, Immature Gran % (Auto) 2.900 H, Neut % (Auto) 79.4 H, Lymph % (Auto) 8.5 L , [place] % (Auto) 8.7, Eos % (Auto) 0.1, Baso % (Auto) 0.4, Absolute Neuts (auto) 11.0 H, Absolute Lymphs (auto) 1.18, Nucleated RBC % 0.5 05/16/21 04:05: Sodium 141, Potassium 5.3 H, Chloride 109 H, Carbon Dioxide 26.0, Anion Gap 6, BUN 59 H, Creatinine 1.39 H, Estim Creat Clear Calc 36.24, Est GFR (MDRD) Af Amer 49 L, Est GFR (MDRD) Non-Af 41 L, BUN/Creatinine Ratio 42.4 H, Glucose 394 H, Calcium 8.5, Total Bilirubin 0.30, AST 52 H, ALT 48, Alkaline Phosphatase 79, Total Protein 5.7 L, Albumin 1.9 L, Globulin 3.8, Albumin/Globulin Ratio 0.5 L 05/16/21 06:06: POC Glucose 358 H 05/16/21 11:18: POC Glucose 332 H Micro: Microbiology 05/11/21 12:00 Blood Culture (Wb) - Anticubital Left Blood Culture - Final No growth in 5 days. 05/11/21 12:10 Blood Culture (Wb) - Arm Right Blood Culture - Preliminary No growth in 48 hours. 05/12/21 02:30 Sputum, Tracheal Aspirate Gram Stain - Final 05/12/21 02:30 Sputum, Tracheal Aspirate Respiratory Culture - Final Staphylococcus aureus 05/12/21 08:50 Urine, Clean Catch Legionella Antigen - Final 05/12/21 08:50 Urine, Clean Catch Streptococcus pneumoniae Antigen (M - Final ABG Data ABG results: ABG 05/16/21 04:28 Specimen Type ART Sample Site R Radial pH 7.32 L Bicarbonate Actual 24.3 Total CO2 26 Base Excess -2 O2 Saturation 84 L O2 % 55 ABG pCO2 47.5 H ABG pO2 54 L [place] Test Positive Respiration Rate 12 O2 Delivery Device ET Tube Vent Mode BiLevel Physical Exam Narrative General: Sedated on ventilator HEENT: Atraumatic, Normocephalic, pupils sluggish reactive Oral: ET AND OG tube Neck: Supple, No JVD, Negative Carotid Bruits Lungs: Air entry equal bilateral lungs. On ventilator Cardiovascular: Sinus bradycardia, Normal S1, Normal S2, No murmurs Abdomen: Bowel Sounds sluggish, soft, Non Tender, Non-Distended : Lai catheter. No renal angle tenderness. No suprapubic tenderness. Extremities: No edema, Capillary Refill Less than 3 Seconds Skin: No rashes, No breakdown Musculoskeletal: No Tenderness to Palpation of Joints or Extremities Neurological: Sedated. Complete neuro exam unobtainable Psych/Mental Status: Sedated Assessment & Plan Assessment/Plan (1) Acute respiratory failure with hypoxia: (2) Pneumonia due to COVID-19 virus: PLAN: 1. Acute hypoxic respiratory failure Secondary to COVID-19 pneumonia and MSSA pneumonia Urinary antigens are negative. Blood cultures are negative for more than 48 hours. Complicated by the patient's morbid obesity Intubated 05/11, vent settings being managed by manager electrical. Sedation with fentanyl and propofol 05/16: On ventilator APRV. 2. Acute COVID-19 pneumonia Onset May 03. Isolation through the . Dexamethasone and remdesivir No baricitinib 05/12: received tocalizumab 3. MSSA pneumonia currently on pip/tazo and vanc. 05/16: Patient continued to spike fever last night but less than 05/15. 4. Diabetes mellitus type 2 Diet controlled. Blood sugar high, in 400s. Lantus insulin dose increased and started on Humalog scheduled dose. With holding parameters Continue sliding scale insulin 05/16: Blood sugar profile better than before every 330 through 358. Increase the Humalog insulin and glargine insulin dose. 5. Morbid obesity BMI of 51.5 6. CONRADO Last creatinine was 0.98 back in 2019. Last creatinine 1.71 it was 1.97 on 05/12 7. VTE prophylaxis with LMWH Charges/Coding Visit Charges Inpatient E&M: 52802 Subs Hosp L3
[2021-05-16] MEDS: Vital High Protein 1,000 ML 55 ML GT (14:18)
[2021-05-16] MEDS: Acetaminophen 650 MG/20 ML UDC GT ×2 (14:19→21:42)
[2021-05-16] MEDS: Dexmedetomidine 1,000 mcg in 0.9% NS 240 mL 30.6 MCG CONT INF ×2 (14:27→22:15)
[2021-05-16 19:06] LABS: Bedside Glucose 366 mg/dL (70-110)
[2021-05-16] MEDS: Insulin Lispro 100 UNIT/ML INSULN.PEN 20 UNIT SC (21:43)
[2021-05-16] MEDS: Piperacil/Tazobactam 3.375 GM/50 ML ML IV (21:44)
[2021-05-16 22:16] LABS: Bedside Glucose 380 mg/dL (70-110)
[2021-05-17] VITALS (35 sets, daily range): BP systolic 84–151; BP diastolic 54–87; PULSE 50–112; RESP 14–31; TEMP 37.4–38.2; O2SAT 89–94
[2021-05-17] LABS: Bedside Glucose 388 mg/dL (70-110)
[2021-05-17] MEDS: Insulin Lispro 100 UNIT/ML INSULN.PEN SC ×4 (05:04→22:36)
[2021-05-17] MEDS: Insulin Lispro 100 UNIT/ML INSULN.PEN 20 UNIT SC ×2 (05:05→12:07)
[2021-05-17 05:13] LABS: Absolute Lymphocyte Count 1.06 X10^3/uL (0.83-4.51); Absolute Neutrophil Count 12.2 X10^3/uL (2.0-7.7); Basophil# 0.05 X10^3/uL; Basophil% 0.3 % (0-1); Eosinophil# 0.22 X10^3/uL; Eosinophils% 1.5 % (0-5); Hematocrit 40.4 % (37-47); Hemoglobin 12.7 g/dL (12.0-15.0); Lymphocyte # 1.06 X10^3/ul (0.83-4.51); Lymphocyte % 7.2 % (19-41); Mean Corp Hgb Conc 31.4 g/dL (32-36); Mean Corpuscular Hgb 29.1 pg (27.0-32.0); Mean Corpuscular Volume 92.7 fL (81-99); Mean Platelet Vol. 11.7 fl (6.2-12.0); Monocyte# 0.91 X10^3/uL; Monocyte% 6.2 % (0-10); NRBC Flagged by Analyzer 0.3 % (0-5); Neutrophil # 12.16 X10^3/uL (2.7-7.7); Neutrophil % 82.7 % (47-70); Platelet Count 188 K/mm3 (150-450); RBC Distribution Width CV 13.7 % (11.6-14.6); Red Blood Count 4.36 M/mm3 (4.2-5.4); White Blood Count 14.7 K/mm3 (4.4-11.0)
[2021-05-17 05:37] LABS: ALB/GLOB Ratio 0.5 RATIO (0.9-2.4); AST(SGOT) 45 U/L (15-37); Alanine Aminotransfer ALT/SGPT 44 U/L (13-56); Alkaline Phosphatase 74 U/L (45-117); Anion Gap 7 (5-15); BUN 63 mg/dL (7-18); BUN/Creat Ratio 47.7 RATIO (10-20); Calcium,Total 8.9 mg/dL (8.5-10.1); Chloride 107 mmol/L (98-107); Creatinine, Serum 1.32 mg/dL (0.55-1.02); EST Glomerular Filtration Rate 43 mL/min (>60); Est Glom Filt Rate - Afr Amer 52 mL/min (>60); Estimated Creatinine Clearance 38.16 ml/min; Globulin 3.7 g/dL (2.2-4.2); Glucose 303 mg/dL (74-106); Potassium 4.8 mmol/L (3.5-5.1); Protein, Total 5.7 g/dL (6.4-8.2); Sodium Level 142 mmol/L (136-145)
[2021-05-17 05:56] LABS: Base Excess 1 mmol/L (-2 to +2); Bicarbonate 27.3 mmol/L (22-26); Blood Gas Specimen Type ART; FI02 70; Mode BiLevel; O2 Delivery Device Adult Vent; PO2 57 mmHG (75-100); RR 12; SITE L Radial; SO2 86 % (95-99); Total Carbon Dioxide 29 mmol/L; pCO2 53.3 mmHg (35-45); pH 7.32 (7.35-7.45)
[2021-05-17] MEDS: TITRATION PARAMETER CHANGE 1 EACH IV (06:26)
[2021-05-17] MEDS: Piperacil/Tazobactam 3.375 GM/50 ML ML IV ×3 (06:26→20:49)
[2021-05-17] MEDS: Dexmedetomidine 1,000 mcg in 0.9% NS 240 mL 29.3 MCG CONT INF ×2 (06:28→15:00)
--- NOTE | 2021-05-17 06:31 | PN.CC_ITS ---
Assessment & Plan Assessment/Plan (1) Acute respiratory failure with hypoxia: (2) Pneumonia due to COVID-19 virus: (3) Type II diabetes mellitus: QUALIFIERS: Diabetes mellitus complication detail: with other circulatory complications Diabetes mellitus complication status: with circulatory complication Diabetes mellitus mine car dispatcher insulin use: without mine car dispatcher use Qualified Code(s): E11.59 - Type 2 diabetes mellitus with other circulatory complications (4) Morbid obesity: (5) Hypertension: (6) Hyperlipidemia: PLAN: RECOMMENDATIONS: 1. Continue APRV. Continue to wean FiO2 as tolerated. 2. Continue empiric antimicrobials. 3. Continue prophylactic Lovenox. 4. Continue Decadron to complete 10 days of therapy. 5. Continue appropriate GI prophylaxis. 6. Tube feeds as tolerated. 7. Continue twice daily scheduled IV Lasix, as tolerated by hemodynamics and renal function. IMPRESSIONS: 1. Acute hypoxic respiratory failure secondary to ARDS secondary to COVID-19 The patient was initially admitted to the hospital on May 11 with progressive dyspnea in the setting of COVID-19 pneumonia. The patient did ultimately require intubation and has received tocilizumab. The patient also completed a treatment course of remdesivir. She will remain on Decadron and prophylactic Lovenox for now. In addition, MSSA was isolated from her sputum culture. Therefore, antimicrobials will be continued. Respiratory status still remains tenuous. Plan to continue supportive care with APRV mode mechanical ventilation. Continue to wean FiO2 as tolerated for saturations greater than 90%. Continue tube feeds as tolerated. Continue appropriate GI prophylaxis. Continue attempts at diuresis as tolerated by hemodynamics and renal function. 2. Acute kidney injury Improving. Most likely prerenal in etiology. Continue to hold nephrotoxic medications. Continue to monitor urine output for now. No current indication for renal replacement therapy. 3. Morbid obesity/CKD stage IIIa/diabetes mellitus type 2/hypertension/hyperlipidemia Complicates care, management, recovery and prognosis. Triglycerides are elevated, so propofol is not an ideal sedative. Continue Lantus and sliding scale insulin coverage. TIME: 33 minutes of critical care time, independent of procedures, was spent addressing the patient's acute hypoxemic respiratory failure secondary to COVID- 19 pneumonia, acute kidney injury, review of all data and collaboration with care team. Subjective Subjective The patient was seen and examined at the bedside this morning. Events from the last 24 hours have been reviewed. Today is vent day #7. The patient was once again febrile overnight with a T-max of 102.5 ?F. She is otherwise hemodynamically stable. The patient is currently being maintained on APRV with an FiO2 requirement of 70% and P high of 28. She is currently documented to be overall net +9.3 L for the hospitalization. She has remained tolerant of tube feeds. The patient is currently sedated on Precedex and fentanyl. Limited endotracheal tube secretions were noted by the overnight nursing staff. Creatinine is stable at 1.32 this morning. She remains on antimicrobials, prophylactic Lovenox and Decadron, after having completed a treatment course of remdesivir. The patient remains on twice daily scheduled IV Lasix as well. Objective Data Objective Data The patient's most recent lab work, culture data and imaging studies have all been personally reviewed. Surface echocardiogram from 2017 demonstrated normal LV size and function with an ejection fraction of 65%. Coronavirus PCR was positive on May 11. Vital Signs: Vital Signs Temp Pulse Resp BP Pulse Ox 100.1 F H 72 31 H 103/60 91 05/17/21 04:00 05/17/21 05:32 05/17/21 05:32 05/17/21 05:00 05/17/21 05:32 Oxygen Flow Rate (L/min) 15 Oxygen Delivery Method Mechanical Ventilator Weight: 146.3 kg Body Mass Index (BMI) 52.0 Intake & Output: Intake and Output for Last 24 Hours 05/15/21 05/16/21 05/17/21 23:59 23:59 23:59 Intake Total 3952.26 / 4113.06 2700.90 / 2911.50 735.53 / 735.53 Output Total 1250 / 1550 2350 / 3450 2100 / 2100 Balance 2702.26 / 2563.06 350.90 / -538.50 -1364.47 / -1364.47 Lab / Micro Data Attestation: I reviewed the patient's lab results. Result Diagrams: 05/17/21 05:00 05/17/21 05:00 Labs: Laboratory Results - last 24 hr 05/13/21 04:00: Diff Path Review Reviewed 05/16/21 11:18: POC Glucose 332 H 05/16/21 18:06: POC Glucose 366 H 05/16/21 21:40: POC Glucose 380 H 05/16/21 23:45: POC Glucose 388 H 05/17/21 05:00: WBC 14.7 H, RBC 4.36, Hgb 12.7, Hct 40.4, MCV 92.7, MCH 29.1, MCHC 31.4 L, RDW Std Deviation 47.0 H, RDW Coeff of Mehran 13.7, Plt Count 188, MPV 11.7, Immature Gran % (Auto) 2.100 H, Neut % (Auto) 82.7 H, Lymph % (Auto) 7.2 L , [place] % (Auto) 6.2, Eos % (Auto) 1.5, Baso % (Auto) 0.3, Absolute Neuts (auto) 12.2 H, Absolute Lymphs (auto) 1.06, Nucleated RBC % 0.3 05/17/21 05:00: Sodium 142, Potassium 4.8, Chloride 107, Carbon Dioxide 28.0, Anion Gap 7, BUN 63 H, Creatinine 1.32 H, Estim Creat Clear Calc 38.16, Est GFR (MDRD) Af Amer 52 L, Est GFR (MDRD) Non-Af 43 L, BUN/Creatinine Ratio 47.7 H, Glucose 303 H, Calcium 8.9, Total Bilirubin 0.40, AST 45 H, ALT 44, Alkaline Phosphatase 74, Total Protein 5.7 L, Albumin 2.0 L, Globulin 3.7, Albumin/Globulin Ratio 0.5 L Micro: Microbiology 05/11/21 12:00 Blood Culture (Wb) - Anticubital Left Blood Culture - Final No growth in 5 days. 05/11/21 12:10 Blood Culture (Wb) - Arm Right Blood Culture - Preliminary No growth in 48 hours. 05/12/21 02:30 Sputum, Tracheal Aspirate Gram Stain - Final 05/12/21 02:30 Sputum, Tracheal Aspirate Respiratory Culture - Final Staphylococcus aureus 05/12/21 08:50 Urine, Clean Catch Legionella Antigen - Final 05/12/21 08:50 Urine, Clean Catch Streptococcus pneumoniae Antigen (M - Final ABG Data ABG results: ABG 05/17/21 05:49 Specimen Type ART Sample Site L Radial pH 7.32 L Bicarbonate Actual 27.3 H Total CO2 29 Base Excess 1 O2 Saturation 86 L O2 % 70 ABG pCO2 53.3 H ABG pO2 57 L [place] Test N/A Respiration Rate 12 O2 Delivery Device Adult Vent Vent Mode BiLevel Physical Exam Const General Appearance: intubated and patient mechanically ventilated Nutritional Appearance: morbidly obese HEENT normocephalic and head/scalp atraumatic Mouth: endotracheal tube in place and OG tube in place Eyes PERRL Neck supple General: trachea midline Chest inspection of chest normal Resp Auscultation: diminished lung sounds Cardio regular rate, regular rhythm, S1 normal heart sound and S2 normal heart sound GI normal to inspection, nondistended, normoactive bowel sounds Extremity General Extremity: edema; Negative for clubbing Skin no rashes or lesions noted Neuro Sensorium / Orientation: sedated on vent Charges/Coding Procedures Hospitalists Procedures: [id number] Critial Care 1st Hr
[2021-05-17] MEDS: Vital High Protein 1,000 ML 55 ML GT (08:33)
[2021-05-17] MEDS: Polyethylene Glycol 3350 17 GM PACKET PO (08:34)
[2021-05-17] MEDS: Furosemide 40 MG/4 ML Vial IV ×2 (08:34→16:54)
[2021-05-17] MEDS: Enoxaparin 40 MG/0.4 ML Syringe SC (08:34)
[2021-05-17] MEDS: QUEtiapine 25 MG Tablet 50 MG GT ×2 (08:34→20:49)
[2021-05-17] MEDS: dexAMETHasone 10 MG/ML Vial 6 MG IV (08:34)
[2021-05-17] MEDS: Famotidine 20 MG Tablet GT ×2 (08:35→20:49)
[2021-05-17] MEDS: Chlorhexidine 15 ML PO ×2 (08:35→20:49)
[2021-05-17] MEDS: Senna Tablet 2 TABLET PO (08:35)
[2021-05-17] MEDS: Acetaminophen 650 MG/20 ML UDC GT (08:48)
[2021-05-17 11:01] LABS: Bedside Glucose 275 mg/dL (70-110)
[2021-05-17] MEDS: Magnesium Citrate 300 ML GT (12:08)
--- NOTE | 2021-05-17 14:06 | PCM.PN.HOSP ---
Subjective Subjective T-max 98.5 last night. On 70% FiO2, on ventilator. Sedated on Precedex and fentanyl drip. Objective Data Objective Data Vital Signs: Vital Signs Temp Pulse Resp BP Pulse Ox 100.3 F H 77 20 H 116/78 91 05/17/21 12:00 05/17/21 13:44 05/17/21 13:44 05/17/21 13:00 05/17/21 13:44 Oxygen Flow Rate (L/min) 15 Oxygen Delivery Method Mechanical Ventilator Weight: 322 lb 8.58 oz Body Mass Index (BMI) 52.0 Intake & Output: Intake and Output for Last 24 Hours 05/15/21 05/16/21 05/17/21 23:59 23:59 23:59 Intake Total 3952.26 / 4113.06 2700.90 / 2911.50 2312.96 / 2312.96 Output Total 1250 / 1550 2350 / 3450 3300 / 3300 Balance 2702.26 / 2563.06 350.90 / -538.50 -987.04 / -987.04 Lab / Micro Data Result Diagrams: 05/17/21 05:00 05/17/21 05:00 Labs: Laboratory Results - last 24 hr 05/16/21 18:06: POC Glucose 366 H 05/16/21 21:40: POC Glucose 380 H 05/16/21 23:45: POC Glucose 388 H 05/17/21 05:00: WBC 14.7 H, RBC 4.36, Hgb 12.7, Hct 40.4, MCV 92.7, MCH 29.1, MCHC 31.4 L, RDW Std Deviation 47.0 H, RDW Coeff of Mehran 13.7, Plt Count 188, MPV 11.7, Immature Gran % (Auto) 2.100 H, Neut % (Auto) 82.7 H, Lymph % (Auto) 7.2 L, [place] % (Auto) 6.2, Eos % (Auto) 1.5, Baso % (Auto) 0.3, Absolute Neuts (auto) 12.2 H, Absolute Lymphs (auto) 1.06, Nucleated RBC % 0.3 05/17/21 05:00: Sodium 142, Potassium 4.8, Chloride 107, Carbon Dioxide 28.0, Anion Gap 7, BUN 63 H, Creatinine 1.32 H, Estim Creat Clear Calc 38.16, Est GFR (MDRD) Af Amer 52 L, Est GFR (MDRD) Non-Af 43 L, BUN/Creatinine Ratio 47.7 H, Glucose 303 H, Calcium 8.9, Total Bilirubin 0.40, AST 45 H, ALT 44, Alkaline Phosphatase 74, Total Protein 5.7 L, Albumin 2.0 L, Globulin 3.7, Albumin/Globulin Ratio 0.5 L 05/17/21 05:03: POC Glucose 275 H Micro: Microbiology 05/11/21 12:10 Blood Culture (Wb) - Arm Right Blood Culture - Final No growth in 5 days. 05/11/21 12:00 Blood Culture (Wb) - Anticubital Left Blood Culture - Final No growth in 5 days. 05/12/21 02:30 Sputum, Tracheal Aspirate Gram Stain - Final 05/12/21 02:30 Sputum, Tracheal Aspirate Respiratory Culture - Final Staphylococcus aureus 05/12/21 08:50 Urine, Clean Catch Legionella Antigen - Final 05/12/21 08:50 Urine, Clean Catch Streptococcus pneumoniae Antigen (M - Final ABG Data ABG results: ABG 05/17/21 05:49 Specimen Type ART Sample Site L Radial pH 7.32 L Bicarbonate Actual 27.3 H Total CO2 29 Base Excess 1 O2 Saturation 86 L O2 % 70 ABG pCO2 53.3 H ABG pO2 57 L [place] Test N/A Respiration Rate 12 O2 Delivery Device Adult Vent Vent Mode BiLevel Physical Exam Narrative General: Sedated on ventilator HEENT: Atraumatic, Normocephalic, pupils sluggish reactive Oral: ET and OG tube Neck: Supple, No JVD, Negative Carotid Bruits Lungs: Air entry equal bilateral lungs. On ventilator Cardiovascular: Sinus rhythm, Normal S1, Normal S2, No murmurs Abdomen: Bowel Sounds sluggish, soft, Non Tender, Non-Distended : Lai catheter. No renal angle tenderness. No suprapubic tenderness. Extremities: No edema, Capillary Refill Less than 3 Seconds Skin: No rashes, No breakdown Musculoskeletal: No Tenderness to Palpation of Joints or Extremities Neurological: Sedated. Complete neuro exam unobtainable Psych/Mental Status: Sedated Assessment & Plan Assessment/Plan (1) Acute respiratory failure with hypoxia: (2) Pneumonia due to COVID-19 virus: PLAN: 1. Acute hypoxic respiratory failure Secondary to COVID-19 pneumonia and MSSA pneumonia Urinary antigens are negative. Blood cultures are negative for more than 48 hours. Complicated by the patient's morbid obesity Intubated 05/11, vent settings being managed by asset protection assistant. Sedation with fentanyl and propofol 05/16: On ventilator APRV. 05/17: On ventilator. FiO2 75%. No major change. 2. Acute COVID-19 pneumonia Onset May 03. Isolation through the . Dexamethasone and remdesivir No baricitinib 05/12: received tocalizumab 3. MSSA pneumonia currently on pip/tazo and vanc. 05/16: Patient continued to spike fever last night but less than 05/15. 05/07: Persistent fever, 100.7 Fahrenheit. 4. Diabetes mellitus type 2 Diet controlled. Blood sugar high, in 400s. Lantus insulin dose increased and started on Humalog scheduled dose. With holding parameters Continue sliding scale insulin 05/16: Blood sugar profile better than before every 330 through 358. Increase the Humalog insulin and glargine insulin dose. 05/17: Blood sugar remains high in 300s. Humalog and glargine insulin increased. 5. Morbid obesity BMI of 51.5 6. CONRADO Last creatinine was 0.98 back in 2019. Last creatinine 1.71 it was 1.97 on 05/12 7. VTE prophylaxis with LMWH Charges/Coding Visit Charges Inpatient E&M: 41943 Subs Hosp L3
[2021-05-17 14:10] LABS: Bedside Glucose 324 mg/dL (70-110)
[2021-05-17 17:55] LABS: Bedside Glucose 385 mg/dL (70-110)
[2021-05-17] MEDS: Insulin Lispro 100 UNIT/ML INSULN.PEN 30 UNIT SC (22:37)
[2021-05-17 22:51] LABS: Bedside Glucose 310 mg/dL (70-110)
[2021-05-17] MEDS: Dexmedetomidine 1,000 mcg in 0.9% NS 240 mL 32.9 MCG CONT INF (23:29)
[2021-05-18] VITALS (34 sets, daily range): BP systolic 87–157; BP diastolic 56–92; PULSE 67–129; RESP 18–34; TEMP 37.7–38.7; O2SAT 80–95
[2021-05-18] MEDS: Vital High Protein 1,000 ML 55 ML GT ×3 (03:23→23:00)
[2021-05-18 04:41] LABS: Allen Test Positive; Base Excess 6 mmol/L (-2 to +2); Bicarbonate 32.1 mmol/L (22-26); Blood Gas Specimen Type ART; FI02 80; Mode BiLevel; O2 Delivery Device Adult Vent; PO2 60 mmHG (75-100); RR 12; SITE L Radial; SO2 86 % (95-99); Total Carbon Dioxide 34 mmol/L; pCO2 66.1 mmHg (35-45); pH 7.29 (7.35-7.45)
[2021-05-18] MEDS: Acetaminophen 650 MG/20 ML UDC GT (04:59)
[2021-05-18] MEDS: Insulin Lispro 100 UNIT/ML INSULN.PEN SC ×4 (05:00→23:00)
[2021-05-18] MEDS: Insulin Lispro 100 UNIT/ML INSULN.PEN 30 UNIT SC (05:04)
[2021-05-18] MEDS: Piperacil/Tazobactam 3.375 GM/50 ML ML IV ×3 (05:04→23:02)
[2021-05-18 05:11] LABS: Bedside Glucose 281 mg/dL (70-110)
[2021-05-18 05:19] LABS: Absolute Lymphocyte Count 1.41 X10^3/uL (0.83-4.51); Absolute Neutrophil Count 21.4 X10^3/uL (2.0-7.7); Basophil# 0.15 X10^3/uL; Basophil% 0.6 % (0-1); Eosinophil# 0.36 X10^3/uL; Eosinophils% 1.4 % (0-5); Hematocrit 44.7 % (37-47); Hemoglobin 14.3 g/dL (12.0-15.0); Lymphocyte # 1.41 X10^3/ul (0.83-4.51); Lymphocyte % 5.6 % (19-41); Mean Corpuscular Hgb 29.9 pg (27.0-32.0); Mean Corpuscular Volume 93.3 fL (81-99); Mean Platelet Vol. 11.7 fl (6.2-12.0); Monocyte# 1.14 X10^3/uL; Monocyte% 4.5 % (0-10); NRBC Flagged by Analyzer 0.4 % (0-5); Neutrophil # 21.36 X10^3/uL (2.7-7.7); POSITIVE DIFFERENTIAL YES; Platelet Count 261 K/mm3 (150-450); RBC Distribution Width CV 13.9 % (11.6-14.6); RBC Distribution Width SD 46.9 fl (35.1-43.9); Red Blood Count 4.79 M/mm3 (4.2-5.4); White Blood Count 25.1 K/mm3 (4.4-11.0)
[2021-05-18 05:20] LABS: Differential Indicated SCAN CRITERIA MET
[2021-05-18 05:33] LABS: Anion Gap 8 (5-15); BUN 63 mg/dL (7-18); BUN/Creat Ratio 51.2 RATIO (10-20); Calcium,Total 9.3 mg/dL (8.5-10.1); Chloride 104 mmol/L (98-107); Creatinine, Serum 1.23 mg/dL (0.55-1.02); EST Glomerular Filtration Rate 47 mL/min (>60); Est Glom Filt Rate - Afr Amer 57 mL/min (>60); Estimated Creatinine Clearance 40.95 ml/min; Glucose 303 mg/dL (74-106); Potassium 4.5 mmol/L (3.5-5.1); Sodium Level 143 mmol/L (136-145)
[2021-05-18] MEDS: Dexmedetomidine 1,000 mcg in 0.9% NS 240 mL 36.6 MCG CONT INF ×2 (06:00→12:55)
--- NOTE | 2021-05-18 06:06 | PN.CC_ITS ---
Assessment & Plan Assessment/Plan (1) Acute respiratory failure with hypoxia: (2) Pneumonia due to COVID-19 virus: (3) Type II diabetes mellitus: QUALIFIERS: Diabetes mellitus complication detail: with other circulatory complications Diabetes mellitus complication status: with circulatory complication Diabetes mellitus termite treater insulin use: without termite treater use Qualified Code(s): E11.59 - Type 2 diabetes mellitus with other circulatory complications (4) Morbid obesity: (5) Hypertension: (6) Hyperlipidemia: PLAN: RECOMMENDATIONS: 1. Continue APRV. Continue to wean FiO2 as tolerated. 2. Continue antimicrobials. 3. Continue prophylactic Lovenox. 4. Continue Decadron to complete 10 days of therapy. 5. Continue appropriate GI prophylaxis. 6. Tube feeds as tolerated. 7. Continue twice daily scheduled IV Lasix, as tolerated by hemodynamics and renal function. IMPRESSIONS: 1. Acute hypoxic respiratory failure secondary to ARDS secondary to COVID-19 The patient was initially admitted to the hospital on May 11 with progressive dyspnea in the setting of COVID-19 pneumonia. The patient did ultimately require intubation and has received tocilizumab. The patient also completed a treatment course of remdesivir. She will remain on Decadron and prophylactic Lovenox for now. In addition, MSSA was isolated from her sputum culture. Therefore, antimicrobials will be continued. Respiratory status still remains tenuous. Plan to continue supportive care with APRV mode mechanical ventilation. Continue to wean FiO2 as tolerated for saturations greater than 90%. Continue tube feeds as tolerated. Continue appropriate GI prophylaxis. Continue attempts at diuresis as tolerated by hemodynamics and renal function. 2. Acute kidney injury Improving. Most likely prerenal in etiology. Continue to hold nephrotoxic medications. Continue to monitor urine output for now. No current indication for renal replacement therapy. 3. Morbid obesity/CKD stage IIIa/diabetes mellitus type 2/hypertension/hyperlipidemia Complicates care, management, recovery and prognosis. Triglycerides are elevated, so propofol is not an ideal sedative. Continue Lantus and sliding scale insulin coverage. TIME: 35 minutes of critical care time, independent of procedures, was spent addressing the patient's acute hypoxemic respiratory failure secondary to COVID- 19 pneumonia, acute kidney injury, review of all data and collaboration with care team. Subjective Subjective The patient was seen and examined at the bedside this morning. Events from the last 24 hours have been reviewed. Today is vent day #8. The patient remains on APRV mode of mechanical ventilation with an FiO2 requirement of 90% and P high of 28. She has had thick endotracheal secretions, per nursing staff. The patient remains on Precedex and fentanyl. She is currently tolerating tube feeds. The patient is documented to be overall net +8 L for the [facility]. The patient remains on antimicrobials, prophylactic Lovenox, Decadron and Lasix. White blood cell count is elevated to 25,000. Creatinine is stable at 1.23. Glucose is elevated at 303. Objective Data Objective Data The patient's most recent lab work, culture data and imaging studies have all been personally reviewed. Surface echocardiogram from 2018 demonstrated normal LV size and function with an ejection fraction of 65%. Coronavirus PCR was positive on May 11. Vital Signs: Vital Signs Temp Pulse Resp BP Pulse Ox 100 F H 102 H 24 H 127/71 H 91 05/18/21 05:00 05/18/21 05:00 05/18/21 05:00 05/18/21 05:00 05/18/21 05:00 Oxygen Flow Rate (L/min) 15 Oxygen Delivery Method Mechanical Ventilator Weight: 142.2 kg Body Mass Index (BMI) 52.0 Intake & Output: Intake and Output for Last 24 Hours 05/16/21 05/17/21 05/18/21 23:59 23:59 23:59 Intake Total 2700.90 / 2911.50 3293.86 / 3410.86 544.87 / 544.87 Output Total 2350 / 3450 4050 / 5550 2500 / 2500 Balance 350.90 / -538.50 -756.14 / -2139.14 -1955.13 / -1955.13 Lab / Micro Data Attestation: I reviewed the patient's lab results. Result Diagrams: 05/18/21 05:00 05/18/21 05:00 Labs: Laboratory Results - last 24 hr 05/17/21 05:03: POC Glucose 275 H 05/17/21 12:05: POC Glucose 324 H 05/17/21 16:52: POC Glucose 385 H 05/17/21 22:32: POC Glucose 310 H 05/18/21 05:00: WBC 25.1 H, RBC 4.79, Hgb 14.3, Hct 44.7, MCV 93.3, MCH 29.9, MCHC 32.0, RDW Std Deviation 46.9 H, RDW Coeff of Mehran 13.9, Plt Count 261, MPV 11.7, Immature Gran % (Auto) 2.900 H, Neut % (Auto) 85.0 H, Lymph % (Auto) 5.6 L , [place] % (Auto) 4.5, Eos % (Auto) 1.4, Baso % (Auto) 0.6, Absolute Neuts (auto) 21.4 H, Absolute Lymphs (auto) 1.41, Nucleated RBC % 0.4 05/18/21 05:00: Sodium 143, Potassium 4.5, Chloride 104, Carbon Dioxide 31.0, Anion Gap 8, BUN 63 H, Creatinine 1.23 H, Estim Creat Clear Calc 40.95, Est GFR (MDRD) Af Amer 57 L, Est GFR (MDRD) Non-Af 47 L, BUN/Creatinine Ratio 51.2 H, Glucose 303 H, Calcium 9.3 05/18/21 05:03: POC Glucose 281 H Micro: Microbiology 05/11/21 12:10 Blood Culture (Wb) - Arm Right Blood Culture - Final No growth in 5 days. 05/11/21 12:00 Blood Culture (Wb) - Anticubital Left Blood Culture - Final No growth in 5 days. 05/12/21 02:30 Sputum, Tracheal Aspirate Gram Stain - Final 05/12/21 02:30 Sputum, Tracheal Aspirate Respiratory Culture - Final Staphylococcus aureus 05/12/21 08:50 Urine, Clean Catch Legionella Antigen - Final 05/12/21 08:50 Urine, Clean Catch Streptococcus pneumoniae Antigen (M - Final ABG Data ABG results: ABG 05/18/21 04:33 Specimen Type ART Sample Site L Radial pH 7.29 L Bicarbonate Actual 32.1 H Total CO2 34 Base Excess 6 H O2 Saturation 86 L O2 % 80 ABG pCO2 66.1 H ABG pO2 60 L [place] Test Positive Respiration Rate 12 O2 Delivery Device Adult Vent Vent Mode BiLevel Clinical Comments Physical Exam Const General Appearance: intubated and patient mechanically ventilated Nutritional Appearance: morbidly obese HEENT normocephalic and head/scalp atraumatic Mouth: endotracheal tube in place and OG tube in place Eyes PERRL Neck supple General: trachea midline Chest inspection of chest normal Resp Auscultation: diminished lung sounds Cardio regular rate, regular rhythm, S1 normal heart sound and S2 normal heart sound GI normal to inspection, nondistended, normoactive bowel sounds Extremity General Extremity: edema; Negative for clubbing Skin no rashes or lesions noted Neuro Sensorium / Orientation: sedated on vent Charges/Coding Procedures Hospitalists Procedures: [id number] Critial Care 1st Hr
[2021-05-18] MEDS: Famotidine 20 MG Tablet GT ×2 (10:19→23:02)
[2021-05-18] MEDS: QUEtiapine 25 MG Tablet 50 MG GT ×2 (10:19→23:02)
[2021-05-18] MEDS: Enoxaparin 40 MG/0.4 ML Syringe SC (10:19)
[2021-05-18] MEDS: Furosemide 40 MG/4 ML Vial IV ×2 (10:19→17:49)
[2021-05-18] MEDS: dexAMETHasone 10 MG/ML Vial 6 MG IV (10:20)
--- NOTE | 2021-05-18 12:09 | PCM.PN.HOSP ---
Subjective Subjective Low-grade fever, T-max 100.7 Fahrenheit. Remains intubated. 90% FiO2, APRV mode. Objective Data Objective Data Vital Signs: Vital Signs Temp Pulse Resp BP Pulse Ox 100.7 F H 87 22 H 130/85 H 89 05/18/21 08:00 05/18/21 11:00 05/18/21 11:00 05/18/21 11:00 05/18/21 11:00 Oxygen Flow Rate (L/min) 15 Oxygen Delivery Method Mechanical Ventilator Weight: 313 lb 7.957 oz Body Mass Index (BMI) 52.0 Intake & Output: Intake and Output for Last 24 Hours 05/16/21 05/17/21 05/18/21 23:59 23:59 23:59 Intake Total 2700.90 / 2911.50 3293.86 / 3410.86 944.97 / 944.97 Output Total 2350 / 3450 4050 / 5550 2500 / 2500 Balance 350.90 / -538.50 -756.14 / -2139.14 -1555.03 / -1555.03 Lab / Micro Data Result Diagrams: 05/18/21 05:00 05/18/21 05:00 Labs: Laboratory Results - last 24 hr 05/17/21 12:05: POC Glucose 324 H 05/17/21 16:52: POC Glucose 385 H 05/17/21 22:32: POC Glucose 310 H 05/18/21 05:00: WBC 25.1 H, RBC 4.79, Hgb 14.3, Hct 44.7, MCV 93.3, MCH 29.9, MCHC 32.0, RDW Std Deviation 46.9 H, RDW Coeff of Mehran 13.9, Plt Count 261, MPV 11.7, Immature Gran % (Auto) 2.900 H, Neut % (Auto) 85.0 H, Lymph % (Auto) 5.6 L, [place] % (Auto) 4.5, Eos % (Auto) 1.4, Baso % (Auto) 0.6, Absolute Neuts (auto) 21.4 H, Absolute Lymphs (auto) 1.41, Nucleated RBC % 0.4 05/18/21 05:00: Sodium 143, Potassium 4.5, Chloride 104, Carbon Dioxide 31.0, Anion Gap 8, BUN 63 H, Creatinine 1.23 H, Estim Creat Clear Calc 40.95, Est GFR (MDRD) Af Amer 57 L, Est GFR (MDRD) Non-Af 47 L, BUN/Creatinine Ratio 51.2 H, Glucose 303 H, Calcium 9.3 05/18/21 05:03: POC Glucose 281 H Micro: Microbiology 05/11/21 12:10 Blood Culture (Wb) - Arm Right Blood Culture - Final No growth in 5 days. 05/11/21 12:00 Blood Culture (Wb) - Anticubital Left Blood Culture - Final No growth in 5 days. 05/12/21 02:30 Sputum, Tracheal Aspirate Gram Stain - Final 05/12/21 02:30 Sputum, Tracheal Aspirate Respiratory Culture - Final Staphylococcus aureus 05/12/21 08:50 Urine, Clean Catch Legionella Antigen - Final 05/12/21 08:50 Urine, Clean Catch Streptococcus pneumoniae Antigen (M - Final ABG Data ABG results: ABG 05/18/21 04:33 Specimen Type ART Sample Site L Radial pH 7.29 L Bicarbonate Actual 32.1 H Total CO2 34 Base Excess 6 H O2 Saturation 86 L O2 % 80 ABG pCO2 66.1 H ABG pO2 60 L [place] Test Positive Respiration Rate 12 O2 Delivery Device Adult Vent Vent Mode BiLevel Clinical Comments Physical Exam Narrative General: Sedated on ventilator HEENT: Atraumatic, Normocephalic, pupils sluggish reactive Oral: ET and OG tube Neck: Supple, No JVD, Negative Carotid Bruits Lungs: Air entry equal bilateral lungs. On ventilator, on high FiO2, APRV mode. Cardiovascular: Sinus rhythm, Normal S1, Normal S2, No murmurs Abdomen: Bowel Sounds sluggish, soft, Non Tender, Non-Distended : Lai catheter. No renal angle tenderness. No suprapubic tenderness. Extremities: No edema, Capillary Refill Less than 3 Seconds Skin: No rashes, No breakdown Musculoskeletal: No Tenderness to Palpation of Joints or Extremities Neurological: Sedated. Complete neuro exam unobtainable Psych/Mental Status: Sedated Assessment & Plan Assessment/Plan (1) Acute respiratory failure with hypoxia: (2) Pneumonia due to COVID-19 virus: PLAN: 1. Acute hypoxic respiratory failure Secondary to COVID-19 pneumonia and MSSA pneumonia Urinary antigens are negative. Blood cultures are negative for more than 48 hours. Complicated by the patient's morbid obesity Intubated 05/11, vent settings being managed by flat grinder operator. Sedation with fentanyl and propofol 05/16: On ventilator APRV. 05/17: On ventilator. FiO2 75%. No major change. 05/18: FiO2 90%. 2. Acute COVID-19 pneumonia Onset May 03. Isolation through the . Dexamethasone and remdesivir No baricitinib 05/12: received tocalizumab 3. MSSA pneumonia currently on pip/tazo and vanc. 05/16: Patient continued to spike fever last night but less than 05/15. 05/07: Persistent fever, 100.7 Fahrenheit. 05/18: Fever less pronounced. Continue IV antibiotic 4. Diabetes mellitus type 2 Diet controlled. Blood sugar high, in 400s. Lantus insulin dose increased and started on Humalog scheduled dose. With holding parameters Continue sliding scale insulin 05/16: Blood sugar profile better than before every 330 through 358. Increase the Humalog insulin and glargine insulin dose. 05/17: Blood sugar remains high in 300s. Humalog and glargine insulin increased. 05/18: Blood sugar in 200s. Humulin and glargine insulin dose increased 5. Morbid obesity BMI of 51.5 6. CONRADO Last creatinine was 0.98 back in 2019. Last creatinine 1.71 it was 1.97 on 05/12 7. VTE prophylaxis with LMWH Charges/Coding Visit Charges Inpatient E&M: 79441 Subs Hosp L3
[2021-05-18] MEDS: Insulin Lispro 100 UNIT/ML INSULN.PEN 40 UNIT SC ×2 (13:18→23:00)
[2021-05-18] MEDS: Chlorhexidine 15 ML PO ×2 (13:32→23:00)
--- NOTE | 2021-05-18 13:50 | CASEMGMT ---
Social Work SW spoke with pt spouse as he is concerned with pt employment paperwork that needs completed. SW then spoke with pt employer who emailed this SW need documentation for excuse from work. SW will review and speak with physician about completing paperwork. CHAVO Douglass
[2021-05-18 14:00] LABS: Bedside Glucose 240 mg/dL (70-110)
--- NOTE | 2021-05-18 18:27 | RAD_ITS ---
We are attempting to reach an attending provider to discuss findings. An addendum with communication details will be sent when the communication is complete. STUDY: X-RAY CHEST REASON FOR EXAM: Female, 60 years old. hypoxia TECHNIQUE: Single AP portable view of the chest. COMPARISON: May 12, 2021 FINDINGS: 1. Interval development of a large left pneumothorax at 60% or greater. Mild tension is present with minimal rightward mediastinal rotation. The underlying left lung is collapsed and very dense most likely due to pulmonary edema or consolidation. 2. A small left pleural effusion is also present 3. Mild to moderate right pulmonary edema and right lower lobe basilar consolidation are present, slightly different pattern and what was seen on the prior study 4. Stable endotracheal and feeding tubes and right IJ catheter. 5. Normal heart size 6. Stable osseous structures There is no demonstrated abnormality of the visualized soft tissue structures of the upper abdomen. RAD/Chest 1 View (Portable) IMPRESSION: Interval development of a large left pneumothorax with slight tension on the mediastinum Electronically Signed: Jhoan Vela MD at 19:39 EST , Service support ,
--- NOTE | 2021-05-18 19:08 | NURSING ---
attempted to call 8 times to update on patient condition, no answer and recording states voicemail is not set up
[2021-05-18 19:15] LABS: Bedside Glucose 238 mg/dL (70-110)
[2021-05-18 19:15] LABS: Base Excess 13 mmol/L (-2 to +2); Blood Gas Specimen Type ART; FI02 100; Mode BiLevel; O2 Delivery Device Adult Vent; PO2 43 mmHG (75-100); RR 12; SITE L Radial; SO2 60 % (95-99); Total Carbon Dioxide 46 mmol/L; pH 7.16 (7.35-7.45)
[2021-05-18] MEDS: Dexmedetomidine 1,000 mcg in 0.9% NS 240 mL 54.9 MCG CONT INF (19:34)
--- NOTE | 2021-05-18 19:35 | RAD_ITS ---
EXAM: XR Chest, 1 View CLINICAL INDICATION: 60 years old, Female; CHEST TUBE PLACEMENT -- #1 TECHNIQUE: Frontal view of the chest. This report was created using [employer] report generation technology. COMPARISON: XR Chest dated 05/18/2021 at 8:34 PM FINDINGS: Lungs and pleural spaces: Diffuse bilateral pulmonary infiltrates with consolidation, unchanged. Small bilateral pleural effusions. Calcified granuloma right lung base. No definite pneumothorax. Heart: Unremarkable. Cardiac silhouette not enlarged. Mediastinum: Calcified mediastinal lymph nodes consistent with old granulomatous disease. Bones/joints: Unremarkable. Soft tissues: Subcutaneous emphysema left chest, unchanged. Tubes, lines and devices: The endotracheal tube (ETT) is in satisfactory position with tip 3.8 cm above the antonieta. Right internal jugular central venous catheter tip in the upper superior vena cava. Left-sided chest tube. Enteric tube tip in the stomach. RAD/CXR for Line Placement IMPRESSION: 1. Diffuse bilateral pulmonary infiltrates with consolidation, unchanged. 2. Small bilateral pleural effusions. Electronically Signed: Carlos Vallejo MD at 0:18 EST Tel , Service support ,
--- NOTE | 2021-05-18 19:39 | RAD_ITS ---
EXAM: XR Chest, 1 View CLINICAL INDICATION: 60 years old, Female; CHEST TUBE PLACEMENT #2 TECHNIQUE: Frontal view of the chest. This report was created using [employer] report generation technology. COMPARISON: Chest x-ray dated 05/18/2021. FINDINGS: Lungs and pleural spaces: Consolidative infiltrates in both lungs, unchanged. Calcified granuloma right lung base. No pneumothorax. No effusion. Heart: Unremarkable. Cardiac silhouette not enlarged. Mediastinum: Calcified mediastinal lymph nodes consistent with old granulomatous disease. Bones/joints: Unremarkable. Soft tissues: Subcutaneous emphysema left chest wall. Vasculature: Calcified aorta. Tubes, lines and devices: Left-sided chest tube which has been repositioned. Right internal jugular central venous catheter tip in the upper superior vena cava. The endotracheal tube (ETT) is in satisfactory position with tip 3.7 cm above the antonieta. Enteric tube tip cannot be seen but is below the diaphragm. RAD/CXR for Line Placement IMPRESSION: 1. Consolidative infiltrates in both lungs, unchanged. 2. Left-sided chest tube which has been repositioned. No pneumothorax. Electronically Signed: Carlos Vallejo MD at 3:41 EST Tel , Service support ,
--- NOTE | 2021-05-18 19:43 | RAD_ITS ---
EXAM: XR Chest, 1 View CLINICAL INDICATION: 60 years old, Female; CHEST TUBE PLACEMENT -- #3 TECHNIQUE: Frontal view of the chest. This report was created using [employer] report generation technology. COMPARISON: XR Chest dated 05/18/2021 at 8:34 PM FINDINGS: Lungs and pleural spaces: Scattered infiltrates in each lung which are similar to prior study. Calcified granuloma right lung base. No pneumothorax. No effusion. Heart: Unremarkable. Cardiac silhouette not enlarged. Mediastinum: Calcified mediastinal lymph nodes consistent with old granulomatous disease. Bones/joints: Unremarkable. Soft tissues: Subcutaneous emphysema left chest wall. Tubes, lines and devices: The left-sided chest tube has been repositioned with tip in the apex. Right internal jugular central venous catheter tip in the upper superior vena cava. The endotracheal tube (ETT) is in satisfactory position with tip 3.3 cm above the antonieta. Enteric tube tip cannot be seen but is below the diaphragm. RAD/CXR for Line Placement IMPRESSION: 1. The left-sided chest tube has been repositioned with tip in the apex. No pneumothorax. 2. Scattered infiltrates in each lung which are similar to prior study. Electronically Signed: Carlos Vallejo MD at 3:43 EST Tel , Service support ,
--- NOTE | 2021-05-18 21:20 | PCM.CONS.GEN ---
Assessment & Plan Assessment/Plan (1) Pneumothorax, left: (2) COVID-19: (3) Pneumonia due to COVID-19 virus: (4) Acute respiratory failure with hypoxia: PLAN: Consent for a left emergent chest tube was from the over the phone. Left chest tube was emergently placed please see operative note. Patient's hypotension did resolve. After the procedure did talk with the and his son who are here to see the patient. Did explain that she is still in critical condition and a high FiO2 is needed to keep her O2 high 80s/low 90s. Flora Jones M.D. Pager: [phone] [facility] [address] [place] [address], [facility], [address] [place] [address] Office: [phone] HPI Consult Data Date of Consult: 05/19/21 HPI Narrative HPI Narrative: MARSHAL HOOD, is a 60 F who to the ICU due to Covid patient has been on the ventilator for 8 days. Patient started have tachycardia and hypotension chest x-ray showed large left pneumothorax. Called for emergent left chest tube placement. Patient blood pressure systolically were in the 70s and heart rate in the 120s. [facility] Medical History Abnormal pulse oximetry Arthritis Chronic neck and back pain COVID-19 Diarrhea Fatigue Frequent headaches Hyperlipidemia Hypertension Hypertension Knee pain Shoulder pain Type II diabetes mellitus Home Medications lisinopril [Zestril] 40 mg PO DAILY 11/26/14 [History Last Taken 03/15/18] acetaminophen 500 - 1,000 mg PO Q6H PRN 05/11/21 [History Last Taken Unknown] amlodipine 10 mg PO DAILY 05/11/21 [History Last Taken Unknown] atorvastatin 40 mg PO DAILY 05/11/21 [History Last Taken Unknown] carvedilol 6.25 mg PO BID 05/11/21 [History Last Taken Unknown] cetirizine [Zyrtec] 10 mg PO DAILY 05/11/21 [History Last Taken Unknown] chlorthalidone 25 mg PO DAILY 05/11/21 [History Last Taken Unknown] cholecalciferol (vitamin D3) 50 mcg PO DAILY 05/11/21 [History Last Taken Unknown] cyanocobalamin (vitamin B-12) [Vitamin B-12] 1,000 mcg SUBLINGUAL DAILY 05/11/21 [History Last Taken Unknown] dulaglutide [Trulicity] 1.5 mg SUBCUT QWEEK 05/11/21 [History Last Taken Unknown] meloxicam 15 mg PO DAILY 05/11/21 [History Last Taken Unknown] metformin 500 mg PO DAILY 05/11/21 [History Last Taken Unknown] Allergy/AdvReac Type Severity Reaction Status Date / Time cefuroxime axetil Allergy Hives Verified 05/11/21 11:32 [From Ceftin] clindamycin Allergy Hives Verified 05/11/21 11:32 ertapenem sodium Allergy Rash Verified 05/11/21 11:32 [From Invanz] Sulfa (Sulfonamide Allergy Hives Verified 05/11/21 11:32 Antibiotics) Surgical History H/O section History of carpal tunnel surgery Hx of arthroscopy of right knee Hx of dilation and curettage Hx of tonsillectomy Social History Smoking Status: Never smoker ROS Review of Systems ROS Unobtainable: due to endotracheal tube Physical Exam Const Constitutional Narrative: Intubated and sedated General Appearance: intubated and patient mechanically ventilated Nutritional Appearance: morbidly obese Resp Auscultation: breath sounds absent left Cardio Rate: tachycardic GI Inspection: central obesity Palpation: soft Psych Psych Narrative: Patient is sedated Lab / Micro Data Result Diagrams: 05/19/21 05:30 05/19/21 05:30 Labs: Laboratory Results - last 24 hr 05/17/21 22:32: POC Glucose 310 H 05/18/21 05:00: WBC 25.1 H, RBC 4.79, Hgb 14.3, Hct 44.7, MCV 93.3, MCH 29.9, MCHC 32.0, RDW Std Deviation 46.9 H, RDW Coeff of Mehran 13.9, Plt Count 261, MPV 11.7, Immature Gran % (Auto) 2.900 H, Neut % (Auto) 85.0 H, Lymph % (Auto) 5.6 L, Centre % (Auto) 4.5, Eos % (Auto) 1.4, Baso % (Auto) 0.6, Absolute Neuts (auto) 21.4 H, Absolute Lymphs (auto) 1.41, Nucleated RBC % 0.4 05/18/21 05:00: Sodium 143, Potassium 4.5, Chloride 104, Carbon Dioxide 31.0, Anion Gap 8, BUN 63 H, Creatinine 1.23 H, Estim Creat Clear Calc 40.95, Est GFR (MDRD) Af Amer 57 L, Est GFR (MDRD) Non-Af 47 L, BUN/Creatinine Ratio 51.2 H, Glucose 303 H, Calcium 9.3 05/18/21 05:03: POC Glucose 281 H 05/18/21 13:16: POC Glucose 240 H 05/18/21 17:47: POC Glucose 238 H ABG Data ABG results: ABG 05/18/21 05/18/21 04:33 19:08 Specimen Type ART ART Sample Site L Radial L Radial pH 7.29 L 7.16 L* Bicarbonate Actual 32.1 H 42.0 H Total CO2 34 46 Base Excess 6 H 13 H O2 Saturation 86 L 60 L O2 % 80 100 ABG pCO2 66.1 H 119.0 H* ABG pO2 60 L 43 L Phoenix Test Positive N/A Respiration Rate 12 12 O2 Delivery Device Adult Vent Adult Vent Vent Mode BiLevel BiLevel Crit Call To/Read Back Yes Blood Gas Notified Whom Dr Vazquez Clinical Comments Radiology Impression Chest X-Ray 05/18/21 18:27 IMPRESSION: Interval development of a large left pneumothorax with slight tension on the mediastinum Electronically Signed: Jhoan Vela MD at 19:39 EST , Service support , ADDENDUM: 05/18/212047 IMPRESSION: Interval development of a large left pneumothorax with slight tension on the mediastinum N.B. : The above Results were Read Back by Jhoan Vela MD to Lucia Pierre RN, and understanding confirmed on 05/18/2021 20:41:31 (ET). Electronically Signed: Jhoan Vela MD at 19:39 EST , Service support , Charges/Coding Visit Charges Inpatient E&M: 30395 Init Hosp L3
--- NOTE | 2021-05-18 21:21 | OP.PCM_ITS ---
Report of Operation Date of Procedure: 05/18/21 Pre-Operative Diagnosis: tension left pneumothorax Post-Operative Diagnosis: Same Surgery/Procedure Performed:: Placement of 28 Micronesian left chest tube Surgeon: Flora Jones Type of Anesthesia: Other (Patient is sedated on the ventilator in the ICU) Description of Procedure: Left anterior mid axillary line was prepped in the usual sterile fashion with with Betadine as bed was placed supine in the left arm placed overhead. 10 blade scalpel was used to make the incision. Tonsil grasper was used to get into the pleural cavity?there is noted to be about 10 cm of subcutaneous tissue. Mcpherson of air was appreciated upon entry. Initially a 20 Micronesian chest tube was placed (chest x-ray did show that the tube went straight/inferior and it was bent at the distal end). Did attempt to readjust this; however due to the bent tip-- replaced with a 28 Micronesian chest tube. This was secured in place with 0 silk suture and an additional vertical mattress suture was placed at the incision. Hooked up to Pleur-vac at -20 which did have large amount of air bubbles initially which resolved. Drain sponges were placed after the xeroform gauze. Tube and dressing were taped and secured. Chest x-ray showed resolved pneumothorax with the tube at the apex of the left lung, there was noted to be subcutaneous air in the chest x-rays along the chest wall/near the tube exit site. Complications none
[2021-05-19] VITALS (34 sets, daily range): BP systolic 91–150; BP diastolic 46–87; PULSE 65–99; RESP 12–41; TEMP 38–39.1; O2SAT 86–98
[2021-05-19 00:01] LABS: Bedside Glucose 241 mg/dL (70-110)
[2021-05-19] MEDS: Dexmedetomidine 1,000 mcg in 0.9% NS 240 mL 54.9 MCG CONT INF ×3 (00:27→05:00)
--- NOTE | 2021-05-19 01:06 | NURSING ---
Robert arrived at bedside at 1999. Began chest tube insertion to left side. Verified with chest xray and set up to suction. Patent and draining.
--- NOTE | 2021-05-19 05:00 | RAD_ITS ---
EXAM: XR Chest, 1 View CLINICAL INDICATION: 60 years old, Female; assessment of pneumo TECHNIQUE: Frontal view of the chest. This report was created using [employer] report generation technology. COMPARISON: XR Chest dated 05/18/2021 FINDINGS: Lungs and pleural spaces: Infiltrates in the lungs have improved since prior study. There is residual consolidation in the lower lungs. No pneumothorax. Calcified granuloma right lung base. No effusion. Heart: Unremarkable. Cardiac silhouette not enlarged. Mediastinum: Central airways and mediastinal contour are unremarkable. Bones/joints: Unremarkable. Soft tissues: Subcutaneous emphysema left chest. Tubes, lines and devices: Right internal jugular central venous catheter tip in the upper superior vena cava. Left-sided chest tube. The endotracheal tube (ETT) is in satisfactory position with tip 4.6 cm above the antonieta. Enteric tube tip cannot be seen but is below the diaphragm. RAD/Chest 1 View (Portable) IMPRESSION: Infiltrates in the lungs have improved since prior study. There is residual consolidation in the lower lungs. Electronically Signed: Carlos Vallejo MD at 5:24 EST Tel , Service support ,
[2021-05-19 05:25] LABS: Base Excess 8 mmol/L (-2 to +2); Blood Gas Specimen Type ART; FI02 100; Mode BiLevel; O2 Delivery Device Adult Vent; PO2 64 mmHG (75-100); RR 12; SITE L Radial; SO2 87 % (95-99); Total Carbon Dioxide 37 mmol/L; pH 7.25 (7.35-7.45)
[2021-05-19 05:30] LABS: Bedside Glucose 155 mg/dL (70-110)
--- NOTE | 2021-05-19 06:21 | PCM.PN.INT ---
Assessment & Plan Assessment/Plan (1) Acute respiratory failure with hypoxia: (2) Pneumonia due to COVID-19 virus: (3) Type II diabetes mellitus: QUALIFIERS: Diabetes mellitus complication detail: with other circulatory complications Diabetes mellitus complication status: with circulatory complication Diabetes mellitus termite control technician insulin use: without termite control technician use Qualified Code(s): E11.59 - Type 2 diabetes mellitus with other circulatory complications (4) Morbid obesity: (5) Hypertension: (6) Hyperlipidemia: PLAN: RECOMMENDATIONS: 1. Continue APRV. Continue to wean FiO2 as tolerated. 2. Continue antimicrobials. 3. Continue prophylactic Lovenox. 4. Continue Decadron to complete 10 days of therapy. 5. Continue appropriate GI prophylaxis. 6. Tube feeds as tolerated. 7. Continue twice daily scheduled IV Lasix, as tolerated by hemodynamics and renal function. 8. Chest tube to wall suction. 9. Ongoing goals of care discussion with the patient's family. IMPRESSIONS: 1. Acute hypoxic respiratory failure secondary to ARDS secondary to COVID-19 The patient was initially admitted to the hospital on May 11 with progressive dyspnea in the setting of COVID-19 pneumonia. The patient did ultimately require intubation and has received tocilizumab. The patient also completed a treatment course of remdesivir. She will remain on Decadron and prophylactic Lovenox for now. In addition, MSSA was isolated from her sputum culture. Therefore, antimicrobials will be continued. Respiratory status still remains tenuous. Plan to continue supportive care with APRV mode mechanical ventilation. Continue to wean FiO2 as tolerated for saturations greater than 90%. Continue tube feeds as tolerated. Continue appropriate GI prophylaxis. Continue attempts at diuresis as tolerated by hemodynamics and renal function. 2. Pneumothorax The patient's hospital course was complicated by the development of a pneumothorax on May 18, which ultimately required tube thoracotomy. Continue chest tube to wall suction for now. 3. Acute kidney injury Improving. Most likely prerenal in etiology. Continue to hold nephrotoxic medications. Continue to monitor urine output for now. No current indication for renal replacement therapy. 4. Morbid obesity/CKD stage IIIa/diabetes mellitus type 2/hypertension/hyperlipidemia Complicates care, management, recovery and prognosis. Triglycerides are elevated, so propofol is not an ideal sedative. Continue Lantus and sliding scale insulin coverage. TIME: 34 minutes of critical care time, independent of procedures, was spent addressing the patient's acute hypoxemic respiratory failure secondary to COVID-19 pneumonia, pneumothorax, acute kidney injury, review of all data and collaboration with care team. Subjective Subjective The patient was seen and examined at the bedside this morning. Events from the last 24 hours have been reviewed. Last night, the patient acutely decompensated from a respiratory perspective. A stat chest x-ray was obtained which revealed a large left-sided pneumothorax with mild tension physiology. The patient subsequently underwent tube thoracotomy with resolution of the pneumothorax and stabilization of respiratory status. The patient remains on APRV with a P high of 30 and an FiO2 requirement of 90%. She remains sedated on Precedex and fentanyl. She is currently tolerating tube feeds. The patient is currently documented to be overall net +6.4 L for the hospitalization. The patient remains on antimicrobials, prophylactic Lovenox, Decadron and Lasix. Objective Data Objective Data The patient's most recent lab work, culture data and imaging studies have all been personally reviewed. Surface echocardiogram from 2018 demonstrated normal LV size and function with an ejection fraction of 65%. Coronavirus PCR was positive on May 11. Sputum culture dated May 12 was positive for MSSA. Vital Signs: Vital Signs Temp Pulse Resp BP Pulse Ox 101.5 F H 71 29 H 95/64 93 05/19/21 04:00 05/19/21 05:04 05/19/21 05:04 05/19/21 04:00 05/19/21 05:04 Oxygen Flow Rate (L/min) 15 Oxygen Delivery Method Mechanical Ventilator Weight: 142.9 kg Body Mass Index (BMI) 52.0 Intake & Output: Intake and Output for Last 24 Hours 05/17/21 05/18/21 05/19/21 23:59 23:59 23:59 Intake Total 3293.86 / 3410.86 2719.96 / 2794.86 741.56 / 741.56 Output Total 4050 / 5550 4725 / 5125 2200 / 2200 Balance -756.14 / -2139.14 -2004.04 / -2330.14 -1458.44 / -1458.44 Lab / Micro Data Attestation: I reviewed the patient's lab results. Result Diagrams: 05/19/21 05:30 05/19/21 05:30 Labs: Laboratory Results - last 24 hr 05/18/21 13:16: POC Glucose 240 H 05/18/21 17:47: POC Glucose 238 H 05/18/21 22:56: POC Glucose 241 H 05/19/21 05:20: POC Glucose 155 H Micro: Microbiology 05/11/21 12:10 Blood Culture (Wb) - Arm Right Blood Culture - Final No growth in 5 days. 05/11/21 12:00 Blood Culture (Wb) - Anticubital Left Blood Culture - Final No growth in 5 days. 05/12/21 02:30 Sputum, Tracheal Aspirate Gram Stain - Final 05/12/21 02:30 Sputum, Tracheal Aspirate Respiratory Culture - Final Staphylococcus aureus 05/12/21 08:50 Urine, Clean Catch Legionella Antigen - Final 05/12/21 08:50 Urine, Clean Catch Streptococcus pneumoniae Antigen (M - Final ABG Data ABG results: ABG 05/18/21 05/19/21 19:08 05:19 Specimen Type ART ART Sample Site L Radial L Radial pH 7.16 L* 7.25 L Bicarbonate Actual 42.0 H 35.0 H Total CO2 46 37 Base Excess 13 H 8 H O2 Saturation 60 L 87 L O2 % 100 100 ABG pCO2 119.0 H* 79.0 H* ABG pO2 43 L 64 L Phoenix Test N/A N/A Respiration Rate 12 12 O2 Delivery Device Adult Vent Adult Vent Vent Mode BiLevel BiLevel Crit Call To/Read Back Yes Yes Blood Gas Notified Whom Dr George Lam Radiography Diagnostic Testing: Radiology Impression Chest X-Ray 05/18/21 18:27 IMPRESSION: Interval development of a large left pneumothorax with slight tension on the mediastinum Electronically Signed: Jhoan Veal MD at 19:39 EST , Service support , ADDENDUM: 05/18/212047 IMPRESSION: Interval development of a large left pneumothorax with slight tension on the mediastinum N.B. : The above Results were Read Back by Jhoan Vela MD to Lucia Pierre RN, and understanding confirmed on 05/18/2021 20:41:31 (ET). Electronically Signed: Jhoan Vela MD at 19:39 EST , Service support , Chest X-Ray 05/18/21 19:35 IMPRESSION: 1. Diffuse bilateral pulmonary infiltrates with consolidation, unchanged. 2. Small bilateral pleural effusions. Electronically Signed: Carlos Vallejo MD at 0:18 EST Tel , Service support , Chest X-Ray 05/18/21 19:39 IMPRESSION: 1. Consolidative infiltrates in both lungs, unchanged. 2. Left-sided chest tube which has been repositioned. No pneumothorax. Electronically Signed: Carlos Vallejo MD at 3:41 EST Tel , Service support , Chest X-Ray 05/18/21 19:43 IMPRESSION: 1. The left-sided chest tube has been repositioned with tip in the apex. No pneumothorax. 2. Scattered infiltrates in each lung which are similar to prior study. Electronically Signed: Carlos Vallejo MD at 3:43 EST Tel , Service support , Chest X-Ray 05/19/21 05:00 IMPRESSION: Infiltrates in the lungs have improved since prior study. There is residual consolidation in the lower lungs. Electronically Signed: Carlos Vallejo MD at 5:24 EST Tel , Service support , Physical Exam Const General Appearance: intubated and patient mechanically ventilated Nutritional Appearance: morbidly obese HEENT normocephalic and head/scalp atraumatic Mouth: endotracheal tube in place and OG tube in place Eyes PERRL and EOMs intact bilaterally Neck supple General: trachea midline Chest Chest Narrative: No air leak. Chest: chest tube Resp Auscultation: diminished lung sounds Cardio regular rate, regular rhythm, S1 normal heart sound and S2 normal heart sound GI normal to inspection, nondistended, normoactive bowel sounds Extremity General Extremity: edema; Negative for clubbing Skin no rashes or lesions noted Neuro Sensorium / Orientation: sedated on vent Charges/Coding Procedures Hospitalists Procedures: 44969 Critial Care 1st Hr
[2021-05-19] MEDS: Insulin Lispro 100 UNIT/ML INSULN.PEN 40 UNIT SC (06:34)
[2021-05-19] MEDS: Piperacil/Tazobactam 3.375 GM/50 ML ML IV ×3 (06:34→22:02)
[2021-05-19 07:21] LABS: ALB/GLOB Ratio 0.6 RATIO (0.9-2.4); AST(SGOT) 48 U/L (15-37); Absolute Lymphocyte Count 1.44 X10^3/uL (0.83-4.51); Absolute Neutrophil Count 18.4 X10^3/uL (2.0-7.7); Alanine Aminotransfer ALT/SGPT 43 U/L (13-56); Albumin, Serum 2.1 g/dL (3.2-5.0); Alkaline Phosphatase 73 U/L (45-117); Anion Gap 5 (5-15); BUN 67 mg/dL (7-18); BUN/Creat Ratio 60.4 RATIO (10-20); Basophil# 0.09 X10^3/uL; Basophil% 0.4 % (0-1); Calcium,Total 9.5 mg/dL (8.5-10.1); Chloride 106 mmol/L (98-107); Creatinine, Serum 1.11 mg/dL (0.55-1.02); EST Glomerular Filtration Rate 53 mL/min (>60); Eosinophil# 0.18 X10^3/uL; Eosinophils% 0.8 % (0-5); Est Glom Filt Rate - Afr Amer 64 mL/min (>60); Estimated Creatinine Clearance 45.38 ml/min; Globulin 3.8 g/dL (2.2-4.2); Glucose 167 mg/dL (74-106); Hematocrit 42.1 % (37-47); Hemoglobin 13.2 g/dL (12.0-15.0); Lymphocyte # 1.44 X10^3/ul (0.83-4.51); Lymphocyte % 6.6 % (19-41); Mean Corp Hgb Conc 31.4 g/dL (32-36); Mean Corpuscular Volume 95.7 fL (81-99); Mean Platelet Vol. 12.3 fl (6.2-12.0); Monocyte# 1.12 X10^3/uL; Monocyte% 5.2 % (0-10); NRBC Flagged by Analyzer 0.2 % (0-5); Neutrophil # 18.42 X10^3/uL (2.7-7.7); Neutrophil % 85.1 % (47-70); Platelet Count 227 K/mm3 (150-450); Potassium 5.1 mmol/L (3.5-5.1); Protein, Total 5.9 g/dL (6.4-8.2); RBC Distribution Width SD 48.6 fl (35.1-43.9); Sodium Level 144 mmol/L (136-145); White Blood Count 21.7 K/mm3 (4.4-11.0)
[2021-05-19] MEDS: TITRATION PARAMETER CHANGE 1 EACH IV ×2 (08:22→11:23)
[2021-05-19] MEDS: Dexmedetomidine 1,000 mcg in 0.9% NS 240 mL 42.9 MCG CONT INF (09:45)
--- NOTE | 2021-05-19 11:15 | PN.HOSP_ITS ---
Subjective Subjective Seen and examined. Patient had acute decompensation due to left-sided pneumothorax with mild tension physiology/component. Patient had tube thoracostomy with resolution of pneumothorax by surgeon Dr. Jones. Patient on APRV mode ventilator. Remains on high FiO2 90%. Objective Data Objective Data Vital Signs: Vital Signs Temp Pulse Resp BP Pulse Ox 101.5 F H 71 27 H 117/71 93 05/19/21 08:00 05/19/21 10:00 05/19/21 10:00 05/19/21 10:00 05/19/21 10:00 Oxygen Flow Rate (L/min) 15 Oxygen Delivery Method Mechanical Ventilator Weight: 315 lb 0.649 oz Body Mass Index (BMI) 52.0 Intake & Output: Intake and Output for Last 24 Hours 05/17/21 05/18/21 05/19/21 23:59 23:59 23:59 Intake Total 3293.86 / 3410.86 2719.96 / 2794.86 1638.52 / 1638.52 Output Total 4050 / 5550 4725 / 5125 2380 / 2380 Balance -756.14 / -2139.14 -2005.04 / -2330.14 -741.48 / -741.48 Lab / Micro Data Result Diagrams: 05/19/21 05:30 05/19/21 05:30 Labs: Laboratory Results - last 24 hr 05/18/21 13:16: POC Glucose 240 H 05/18/21 17:47: POC Glucose 238 H 05/18/21 22:56: POC Glucose 241 H 05/19/21 05:20: POC Glucose 155 H 05/19/21 05:30: WBC 21.7 H, RBC 4.40, Hgb 13.2, Hct 42.1, MCV 95.7, MCH 30.0, MCHC 31.4 L, RDW Std Deviation 48.6 H, RDW Coeff of Mehran 14.0, Plt Count 227, MPV 12.3 H, Immature Gran % (Auto) 1.900 H, Neut % (Auto) 85.1 H, Lymph % (Auto) 6.6 L, Hall % (Auto) 5.2, Eos % (Auto) 0.8, Baso % (Auto) 0.4, Absolute Neuts (auto) 18.4 H, Absolute Lymphs (auto) 1.44, Nucleated RBC % 0.2 05/19/21 05:30: Sodium 144, Potassium 5.1, Chloride 106, Carbon Dioxide 33.0 H, Anion Gap 5, BUN 67 H, Creatinine 1.11 H, Estim Creat Clear Calc 45.38, Est GFR (MDRD) Af Amer 64, Est GFR (MDRD) Non-Af 53 L, BUN/Creatinine Ratio 60.4 H, Glucose 167 H, Calcium 9.5, Total Bilirubin 0.40, AST 48 H, ALT 43, Alkaline Phosphatase 73, Total Protein 5.9 L, Albumin 2.1 L, Globulin 3.8, Albumin/Globulin Ratio 0.6 L Micro: Microbiology 05/11/21 12:10 Blood Culture (Wb) - Arm Right Blood Culture - Final No growth in 5 days. 05/11/21 12:00 Blood Culture (Wb) - Anticubital Left Blood Culture - Final No growth in 5 days. 05/12/21 02:30 Sputum, Tracheal Aspirate Gram Stain - Final 05/12/21 02:30 Sputum, Tracheal Aspirate Respiratory Culture - Final Staphylococcus aureus 05/12/21 08:50 Urine, Clean Catch Legionella Antigen - Final 05/12/21 08:50 Urine, Clean Catch Streptococcus pneumoniae Antigen (M - Final ABG Data ABG results: ABG 05/18/21 05/19/21 19:08 05:19 Specimen Type ART ART Sample Site L Radial L Radial pH 7.16 L* 7.25 L Bicarbonate Actual 42.0 H 35.0 H Total CO2 46 37 Base Excess 13 H 8 H O2 Saturation 60 L 87 L O2 % 100 100 ABG pCO2 119.0 H* 79.0 H* ABG pO2 43 L 64 L Phoenix Test N/A N/A Respiration Rate 12 12 O2 Delivery Device Adult Vent Adult Vent Vent Mode BiLevel BiLevel Crit Call To/Read Back Yes Yes Blood Gas Notified Whom Dr Vazquez Genaro Radiography Diagnostic Testing: Radiology Impression Chest X-Ray 05/18/21 18:27 IMPRESSION: Interval development of a large left pneumothorax with slight tension on the mediastinum Electronically Signed: Jhona Vela MD at 19:39 EST , Service support , ADDENDUM: 05/18/212047 IMPRESSION: Interval development of a large left pneumothorax with slight tension on the mediastinum N.B. : The above Results were Read Back by Jhoan Vela MD to Lucia Pierre RN, and understanding confirmed on 05/18/2021 20:41:31 (ET). Electronically Signed: Jhoan Vela MD at 19:39 EST , Service support , Chest X-Ray 05/18/21 19:35 IMPRESSION: 1. Diffuse bilateral pulmonary infiltrates with consolidation, unchanged. 2. Small bilateral pleural effusions. Electronically Signed: Carlos Vallejo MD at 0:18 EST Tel , Service support , Chest X-Ray 05/18/21 19:39 IMPRESSION: 1. Consolidative infiltrates in both lungs, unchanged. 2. Left-sided chest tube which has been repositioned. No pneumothorax. Electronically Signed: Carlos Vallejo MD at 3:41 EST Tel , Service support , Chest X-Ray 05/18/21 19:43 IMPRESSION: 1. The left-sided chest tube has been repositioned with tip in the apex. No pneumothorax. 2. Scattered infiltrates in each lung which are similar to prior study. Electronically Signed: Carlos Vallejo MD at 3:43 EST Tel , Service support , Chest X-Ray 05/19/21 05:00 IMPRESSION: Infiltrates in the lungs have improved since prior study. There is residual consolidation in the lower lungs. Electronically Signed: Carlos Vallejo MD at 5:24 EST Tel , Service support , Physical Exam Narrative General: Sedated on ventilator HEENT: Atraumatic, Normocephalic, pupils sluggish reactive Oral: ET and OG tube Neck: Supple, No JVD, Negative Carotid Bruits Lungs: Left-sided chest tube. 28 British. No air leak. On high FiO2, APRV mode. Cardiovascular: Sinus rhythm, Normal S1, Normal S2, No murmurs Abdomen: Bowel Sounds sluggish, soft, Non Tender, Non-Distended : Lai catheter. No renal angle tenderness. No suprapubic tenderness. Extremities: No edema, Capillary Refill Less than 3 Seconds Skin: No rashes, No breakdown Musculoskeletal: No Tenderness to Palpation of Joints or Extremities Neurological: Sedated. Complete neuro exam unobtainable Psych/Mental Status: Sedated Assessment & Plan Assessment/Plan (1) Acute respiratory failure with hypoxia: (2) Pneumonia due to COVID-19 virus: PLAN: 1. Acute hypoxic respiratory failure Secondary to COVID-19 pneumonia and MSSA pneumonia Urinary antigens are negative. Blood cultures are negative for more than 48 hours. Complicated by the patient's morbid obesity Intubated 05/11, vent settings being managed by congregational care pastor. Sedation with fentanyl and propofol 05/16: On ventilator APRV. 05/17: On ventilator. FiO2 75%. No major change. 05/18: FiO2 90%. 05/19: Patient had left pneumothorax complicated by tension physiology. Subsequently patient had 28 British chest tube inserted by surgeon on 07/19 with resolution of pneumothorax. No air leak. Remain on ventilator. 2. Acute COVID-19 pneumonia Onset May 03. Isolation through the . Dexamethasone and remdesivir No baricitinib 05/12: received tocalizumab 3. MSSA pneumonia currently on pip/tazo and vanc. 05/16: Patient continued to spike fever last night but less than 05/15. 05/07: Persistent fever, 100.7 Fahrenheit. 05/18: Fever less pronounced. Continue IV antibiotic 05/19 patient remained febrile. Patient is febrile T-max 100.6 Fahrenheit 4. Diabetes mellitus type 2 Diet controlled. Blood sugar high, in 400s. Lantus insulin dose increased and started on Humalog scheduled dose. With holding parameters Continue sliding scale insulin 05/16: Blood sugar profile better than before every 330 through 358. Increase the Humalog insulin and glargine insulin dose. 05/17: Blood sugar remains high in 300s. Humalog and glargine insulin increased. 05/18: Blood sugar in 200s. Humulin and glargine insulin dose increased 05/19: Blood sugar in 112. Insulin dose decreased appropriately with holding parameters 5. Morbid obesity BMI of 51.5 6. CONRADO Last creatinine was 0.98 back in 2019. Last creatinine 1.71 it was 1.97 on 05/12 7. VTE prophylaxis with LMWH Charges/Coding Visit Charges Inpatient E&M: 67553 Subs Hosp L3
[2021-05-19] MEDS: Famotidine 20 MG Tablet GT ×2 (11:24→22:01)
[2021-05-19] MEDS: dexAMETHasone 10 MG/ML Vial 6 MG IV (11:24)
[2021-05-19] MEDS: Furosemide 40 MG/4 ML Vial IV ×2 (11:24→17:10)
[2021-05-19] MEDS: Enoxaparin 40 MG/0.4 ML Syringe SC (11:24)
[2021-05-19] MEDS: QUEtiapine 25 MG Tablet 50 MG GT ×2 (11:24→22:01)
[2021-05-19] MEDS: Polyethylene Glycol 3350 17 GM PACKET PO (11:25)
[2021-05-19] MEDS: Senna Tablet 2 TABLET PO ×2 (11:25→22:01)
[2021-05-19] MEDS: Chlorhexidine 15 ML PO ×2 (11:26→22:00)
[2021-05-19 12:20] LABS: Bedside Glucose 112 mg/dL (70-110)
--- NOTE | 2021-05-19 12:20 | PN_ITS ---
Progress Note Patient's vital signs remained stable, chest x-ray from this morning showed left chest tube in good position no pneumothorax. There are no leak at the Pleur- evac at -20. Patient is still in critical condition on the ventilator. Discussed with previously as long as she is on the ventilator the chest tube will remain in place. Dr. Abreu will be covering this weekend. Flora Jones M.D. Pager: [phone] [facility] [address] [place] [address], [address] [place] [id number] Office: [phone]
--- NOTE | 2021-05-19 12:20 | PCM.PN.BLA ---
Progress Note Patient's vital signs remained stable, chest x-ray from this morning showed left chest tube in good position no pneumothorax. There are no leak at the Pleur-evac at -20. Patient is still in critical condition on the ventilator. Discussed with previously as long as she is on the ventilator the chest tube will remain in place. Dr. Abreu will be covering this weekend. Flora Jones M.D. Pager: [phone] [facility] [address] [place] [address], [address] [place] [id number] Office: [phone]
[2021-05-19] MEDS: Acetaminophen 650 MG/20 ML UDC GT (14:43)
--- NOTE | 2021-05-19 14:51 | CASEMGMT ---
Social Work SW left message for physician regarding pt's employment paperwork. Phone call to pt's and updated that paperwork from employer was received. PEG also offered support to Mr. Gomes. He states he was able to see pt last evening and thankful for this. He has two sons who live with him and are supportive. Mr. Gomes made aware that SW is available if needs arise. CHAVO Weinstein
[2021-05-19 17:15] LABS: Bedside Glucose 106 mg/dL (70-110)
[2021-05-19] MEDS: Dexmedetomidine 1,000 mcg in 0.9% NS 240 mL 32.2 MCG CONT INF (17:15)
[2021-05-19] MEDS: Insulin Lispro 100 UNIT/ML INSULN.PEN SC (17:19)
[2021-05-19 17:30] LABS: Bedside Glucose 186 mg/dL (70-110)
[2021-05-19] MEDS: Insulin Lispro 100 UNIT/ML INSULN.PEN 20 UNIT SC (22:03)
[2021-05-20] VITALS (33 sets, daily range): BP systolic 71–158; BP diastolic 48–90; PULSE 68–174; RESP 12–47; TEMP 36.7–39.3; O2SAT 84–96
[2021-05-20 00:20] LABS: Bedside Glucose 220 mg/dL (70-110)
[2021-05-20] MEDS: Insulin Lispro 100 UNIT/ML INSULN.PEN SC ×3 (00:22→17:49)
[2021-05-20] MEDS: Dexmedetomidine 1,000 mcg in 0.9% NS 240 mL 32.2 MCG CONT INF ×2 (01:38→10:00)
[2021-05-20 04:39] LABS: Absolute Lymphocyte Count 1.54 X10^3/uL (0.83-4.51); Absolute Neutrophil Count 15.7 X10^3/uL (2.0-7.7); Eosinophil# 0.16 X10^3/uL; Hematocrit 42.5 % (37-47); Hemoglobin 13.1 g/dL (12.0-15.0); Lymphocyte # 1.54 X10^3/ul (0.83-4.51); Mean Corp Hgb Conc 30.8 g/dL (32-36); Mean Corpuscular Hgb 29.2 pg (27.0-32.0); Mean Corpuscular Volume 94.9 fL (81-99); Mean Platelet Vol. 11.9 fl (6.2-12.0); Monocyte# 0.93 X10^3/uL; NRBC Flagged by Analyzer 0.1 % (0-5); Neutrophil # 15.66 X10^3/uL (2.7-7.7); POSITIVE MORPHOLOGY YES; Platelet Count 245 K/mm3 (150-450); RBC Distribution Width CV 14.1 % (11.6-14.6); RBC Distribution Width SD 48.3 fl (35.1-43.9); Red Blood Count 4.48 M/mm3 (4.2-5.4); White Blood Count 18.8 K/mm3 (4.4-11.0)
[2021-05-20 04:42] LABS: Differential Indicated SCAN CRITERIA MET
[2021-05-20 05:02] LABS: ALB/GLOB Ratio 0.5 RATIO (0.9-2.4); AST(SGOT) 38 U/L (15-37); Alanine Aminotransfer ALT/SGPT 35 U/L (13-56); Albumin, Serum 2.1 g/dL (3.2-5.0); Alkaline Phosphatase 68 U/L (45-117); Anion Gap 6 (5-15); BUN 68 mg/dL (7-18); BUN/Creat Ratio 62.4 RATIO (10-20); Calcium,Total 9.9 mg/dL (8.5-10.1); Chloride 102 mmol/L (98-107); Creatinine, Serum 1.09 mg/dL (0.55-1.02); EST Glomerular Filtration Rate 54 mL/min (>60); Est Glom Filt Rate - Afr Amer 65 mL/min (>60); Estimated Creatinine Clearance 46.21 ml/min; Globulin 3.9 g/dL (2.2-4.2); Glucose 202 mg/dL (74-106); Potassium 4.6 mmol/L (3.5-5.1); Sodium Level 142 mmol/L (136-145)
[2021-05-20 05:11] LABS: Scan Smear per Review Criteria MANUAL DIFF
[2021-05-20 05:16] LABS: Base Excess 7 mmol/L (-2 to +2); Blood Gas Specimen Type ART; FI02 65; Mode BiLevel; O2 Delivery Device Adult Vent; PO2 52 mmHG (75-100); RR 12; SITE L Radial; SO2 85 % (95-99); Total Carbon Dioxide 34 mmol/L; pCO2 53.7 mmHg (35-45); pH 7.38 (7.35-7.45)
[2021-05-20 05:20] LABS: Eosinophil 3 % (0-5); Lymphocyte 8 % (19-41); Monocyte 6 % (0-10); Myelocyte 1 % (0-0); Neutrophil-Band 3 % (0-5); Neutrophil-Segmented 79 % (47-70); Total Cells Counted 100 (MANUAL DIFF)
[2021-05-20 05:21] LABS: Platelet Estimate ADEQUATE (ADEQ); Red Cell Morphology NORM C+C NORMAL (NORM C&C)
[2021-05-20 05:36] LABS: Bedside Glucose 216 mg/dL (70-110)
[2021-05-20] MEDS: Piperacil/Tazobactam 3.375 GM/50 ML ML IV ×3 (06:00→21:13)
--- NOTE | 2021-05-20 06:10 | PN.CC_ITS ---
Assessment & Plan Assessment/Plan (1) Acute respiratory failure with hypoxia: (2) Pneumonia due to COVID-19 virus: (3) Type II diabetes mellitus: QUALIFIERS: Diabetes mellitus complication detail: with other circulatory complications Diabetes mellitus complication status: with circulatory complication Diabetes mellitus braider tender insulin use: without braider tender use Qualified Code(s): E11.59 - Type 2 diabetes mellitus with other circulatory complications (4) Morbid obesity: (5) Hypertension: (6) Hyperlipidemia: PLAN: RECOMMENDATIONS: 1. Continue APRV. Continue to wean FiO2 as tolerated. 2. Continue antimicrobials. 3. Continue prophylactic Lovenox. 4. Continue Decadron to complete 10 days of therapy. 5. Continue appropriate GI prophylaxis. 6. Tube feeds as tolerated. 7. Continue twice daily scheduled IV Lasix, as tolerated by hemodynamics and renal function. 8. Chest tube to wall suction. 9. Start amiodarone to address atrial fibrillation. IMPRESSIONS: 1. Acute hypoxic respiratory failure secondary to ARDS secondary to COVID-19 The patient was initially admitted to the hospital on May 11 with progressive dyspnea in the setting of COVID-19 pneumonia. The patient did ultimately require intubation and has received tocilizumab. The patient also completed a treatment course of remdesivir. She will remain on Decadron and prophylactic Lovenox for now. In addition, MSSA was isolated from her sputum culture. Therefore, antimicrobials will be continued. Respiratory status still remains tenuous. Plan to continue supportive care with APRV mode mechanical ventilation. Continue to wean FiO2 as tolerated for saturations greater than 90%. Continue tube feeds as tolerated. Continue appropriate GI prophylaxis. Continue attempts at diuresis as tolerated by hemodynamics and renal function. 2. Pneumothorax The patient's hospital course was complicated by the development of a pneumothorax on May 18, which ultimately required tube thoracotomy. Continue chest tube to wall suction for now. 3. Atrial fibrillation with RVR The patient developed new onset A. fib on May 20. Plan to treat medically with amiodarone as ordered. 4. Acute kidney injury Improving. Most likely prerenal in etiology. Continue to hold nephrotoxic medications. Continue to monitor urine output for now. No current indication for renal replacement therapy. 5. Morbid obesity/CKD stage IIIa/diabetes mellitus type 2/hypertension/hyperlipidemia Complicates care, management, recovery and prognosis. Triglycerides are elevated, so propofol is not an ideal sedative. Continue Lantus and sliding scale insulin coverage. TIME: 35 minutes of critical care time, independent of procedures, was spent addressing the patient's acute hypoxemic respiratory failure secondary to COVID- 19 pneumonia, pneumothorax, acute kidney injury, atrial fibrillation with RVR, review of all data and collaboration with care team. Subjective Subjective The patient was seen and examined at the bedside this morning. Events from the last 24 hours have been reviewed. Today is day #10. The patient currently has a low-grade fever but remains hemodynamically stable. She remains on APRV mode of mechanical ventilation with an FiO2 requirement of 65% and P high of 30. She has been tolerant of tube feeds. She remains sedated on fentanyl and Precedex. She is currently documented to be overall net +8.2 L for the hospitalization. She is currently tolerating tube feeds. The patient remains on antimicrobials, prophylactic Lovenox, Decadron and Lasix. White count remains elevated at 18,000. Creatinine is stable. I was notified by the nursing staff this morning that the patient had a bowel movement and upon rolling her to clean her up she went into atrial fibrillation with RVR. I did speak with the patient's this morning and updated him on her clinical status. I also introduced the idea of potential tracheostomy and PEG tube if she does not make any significant improvements in oxygenation status. Objective Data Objective Data The patient's most recent lab work, culture data and imaging studies have all been personally reviewed. Surface echocardiogram from 2018 demonstrated normal LV size and function with an ejection fraction of 65%. Coronavirus PCR was positive on May 11. Sputum culture dated May 12 was positive for MSSA. Vital Signs: Vital Signs Temp Pulse Resp BP Pulse Ox 99.7 F H 72 24 H 132/90 H 91 05/20/21 02:00 05/20/21 05:13 05/20/21 05:13 05/20/21 02:00 05/20/21 05:13 Oxygen Flow Rate (L/min) 15 Oxygen Delivery Method Mechanical Ventilator Weight: 142.9 kg Body Mass Index (BMI) 52.0 Intake & Output: Intake and Output for Last 24 Hours 05/18/21 05/19/21 05/20/21 23:59 23:59 23:59 Intake Total 2719.96 / 2794.86 3351.48 / 4187.68 908.85 / 908.85 Output Total 4725 / 5127 2290 / 3890 150 / 150 Balance -2005.04 / -2330.14 -388.52 / 297.68 758.85 / 758.85 Lab / Micro Data Attestation: I reviewed the patient's lab results. Result Diagrams: 05/20/21 04:25 05/20/21 04:25 Labs: Laboratory Results - last 24 hr 05/19/21 05:30: WBC 21.7 H, RBC 4.40, Hgb 13.2, Hct 42.1, MCV 95.7, MCH 30.0, MCHC 31.4 L, RDW Std Deviation 48.6 H, RDW Coeff of Mehran 14.0, Plt Count 227, MPV 12.3 H, Immature Gran % (Auto) 1.900 H, Neut % (Auto) 85.1 H, Lymph % (Auto) 6.6 L, [place] % (Auto) 5.2, Eos % (Auto) 0.8, Baso % (Auto) 0.4, Absolute Neuts (auto) 18.4 H, Absolute Lymphs (auto) 1.44, Nucleated RBC % 0.2 05/19/21 05:30: Sodium 144, Potassium 5.1, Chloride 106, Carbon Dioxide 33.0 H, Anion Gap 5, BUN 67 H, Creatinine 1.11 H, Estim Creat Clear Calc 45.38, Est GFR (MDRD) Af Amer 64, Est GFR (MDRD) Non-Af 53 L, BUN/Creatinine Ratio 60.4 H, Glucose 167 H, Calcium 9.5, Total Bilirubin 0.40, AST 48 H, ALT 43, Alkaline Phosphatase 73, Total Protein 5.9 L, Albumin 2.1 L, Globulin 3.8, Albumin/Globulin Ratio 0.6 L 05/19/21 12:00: POC Glucose 112 H 05/19/21 14:37: POC Glucose 106 05/19/21 17:12: POC Glucose 186 H 05/19/21 21:58: POC Glucose 220 H 05/20/21 00:21: POC Glucose 216 H 05/20/21 04:25: WBC 18.8 H, RBC 4.48, Hgb 13.1, Hct 42.5, MCV 94.9, MCH 29.2, MCHC 30.8 L, RDW Std Deviation 48.3 H, RDW Coeff of Mehran 14.1, Plt Count 245, MPV 11.9, Immature Gran % (Auto) SILK WINDING MACHINE OPERATOR, Neut % (Auto) SILK WINDING MACHINE OPERATOR, Lymph % (Auto) SILK WINDING MACHINE OPERATOR, [place] % (Auto) SILK WINDING MACHINE OPERATOR, Eos % (Auto) SILK WINDING MACHINE OPERATOR, Baso % (Auto) SILK WINDING MACHINE OPERATOR, Absolute Neuts (auto) 15.7 H, Absolute Lymphs (auto) 1.54, Total Counted 100, Neutrophils % (Manual) 79 H, Band Neutrophils % 3, Lymphocytes % (Manual) 8 L, Monocytes % (Manual) 6, Eosinophils % (Manual) 3, Myelocytes % 1 H, Nucleated RBC % 0.1, Diff Path Review October, Platelet Estimate ADEQUATE, RBC Morphology NORM C+C 05/20/21 04:25: Sodium 142, Potassium 4.6, Chloride 102, Carbon Dioxide 34.0 H, Anion Gap 6, BUN 68 H, Creatinine 1.09 H, Estim Creat Clear Calc 46.21, Est GFR (MDRD) Af Amer 65, Est GFR (MDRD) Non-Af 54 L, BUN/Creatinine Ratio 62.4 H, Glucose 202 H, Calcium 9.9, Total Bilirubin 0.50, AST 38 H, ALT 35, Alkaline Phosphatase 68, Total Protein 6.0 L, Albumin 2.1 L, Globulin 3.9, Albumin/Globulin Ratio 0.5 L Micro: Microbiology 05/11/21 12:10 Blood Culture (Wb) - Arm Right Blood Culture - Final No growth in 5 days. 05/11/21 12:00 Blood Culture (Wb) - Anticubital Left Blood Culture - Final No growth in 5 days. 05/12/21 02:30 Sputum, Tracheal Aspirate Gram Stain - Final 05/12/21 02:30 Sputum, Tracheal Aspirate Respiratory Culture - Final Staphylococcus aureus 05/12/21 08:50 Urine, Clean Catch Legionella Antigen - Final 05/12/21 08:50 Urine, Clean Catch Streptococcus pneumoniae Antigen (M - Final ABG Data ABG results: ABG 05/20/21 05:10 Specimen Type ART Sample Site L Radial pH 7.38 Bicarbonate Actual 32.0 H Total CO2 34 Base Excess 7 H O2 Saturation 85 L O2 % 65 ABG pCO2 53.7 H ABG pO2 52 L [place] Test N/A Respiration Rate 12 O2 Delivery Device Adult Vent Vent Mode BiLevel Clinical Comments P high 30 T high 4.5 Physical Exam Const General Appearance: intubated and patient mechanically ventilated Nutritional Appearance: morbidly obese HEENT normocephalic and head/scalp atraumatic Mouth: endotracheal tube in place and OG tube in place Eyes PERRL and EOMs intact bilaterally Neck supple General: trachea midline Chest Chest Narrative: No air leak. Chest: chest tube Resp Effort and Inspection: tachypneic Auscultation: diminished lung sounds Cardio Rate: tachycardic Rhythm: abnormal rhythm GI normal to inspection, nondistended, normoactive bowel sounds Extremity General Extremity: edema; Negative for clubbing Skin no rashes or lesions noted Neuro Neuro Narrative: Patient is still able to follow some simple commands. Sensorium / Orientation: sedated on vent Charges/Coding Procedures Hospitalists Procedures: 90307 Critial Care 1st Hr
[2021-05-20] MEDS: Insulin Lispro 100 UNIT/ML INSULN.PEN 20 UNIT SC ×2 (06:23→12:08)
--- NOTE | 2021-05-20 09:59 | PCM.PN.HOSP ---
Subjective Subjective Spiking fever. Remain on ventilator, 65 to 75% FiO2 on APRV mode. Objective Data Objective Data Vital Signs: Vital Signs Temp Pulse Resp BP Pulse Ox 99.0 F 79 29 H 124/67 H 91 05/20/21 06:00 05/20/21 07:04 05/20/21 07:04 05/20/21 06:00 05/20/21 07:04 Oxygen Flow Rate (L/min) 15 Oxygen Delivery Method Mechanical Ventilator Weight: 316 lb 9.341 oz Body Mass Index (BMI) 52.0 Intake & Output: Intake and Output for Last 24 Hours 05/18/21 05/19/21 05/20/21 23:59 23:59 23:59 Intake Total 2719.96 / 2794.86 3351.48 / 4187.68 1632.66 / 1632.66 Output Total 4725 / 5125 3740 / 3890 825 / 825 Balance -2005.04 / -2330.14 -388.52 / 297.68 807.66 / 807.66 Lab / Micro Data Result Diagrams: 05/20/21 04:25 05/20/21 04:25 Labs: Laboratory Results - last 24 hr 05/19/21 12:00: POC Glucose 112 H 05/19/21 14:37: POC Glucose 106 05/19/21 17:12: POC Glucose 186 H 05/19/21 21:58: POC Glucose 220 H 05/20/21 00:21: POC Glucose 216 H 05/20/21 04:25: WBC 18.8 H, RBC 4.48, Hgb 13.1, Hct 42.5, MCV 94.9, MCH 29.2, MCHC 30.8 L, RDW Std Deviation 48.3 H, RDW Coeff of Mehran 14.1, Plt Count 245, MPV 11.9, Immature Gran % (Auto) CLINICAL APPLICATION MANAGER, Neut % (Auto) CLINICAL APPLICATION MANAGER, Lymph % (Auto) CLINICAL APPLICATION MANAGER, [place] % (Auto) CLINICAL APPLICATION MANAGER, Eos % (Auto) CLINICAL APPLICATION MANAGER, Baso % (Auto) CLINICAL APPLICATION MANAGER, Absolute Neuts (auto) 15.7 H, Absolute Lymphs (auto) 1.54, Total Counted 100, Neutrophils % (Manual) 79 H, Band Neutrophils % 3, Lymphocytes % (Manual) 8 L, Monocytes % (Manual) 6, Eosinophils % (Manual) 3, Myelocytes % 1 H, Nucleated RBC % 0.1, Diff Path Review May foll, Platelet Estimate ADEQUATE, RBC Morphology NORM C+C 05/20/21 04:25: Sodium 142, Potassium 4.6, Chloride 102, Carbon Dioxide 34.0 H, Anion Gap 6, BUN 68 H, Creatinine 1.09 H, Estim Creat Clear Calc 46.21, Est GFR (MDRD) Af Amer 65, Est GFR (MDRD) Non-Af 54 L, BUN/Creatinine Ratio 62.4 H, Glucose 202 H, Calcium 9.9, Total Bilirubin 0.50, AST 38 H, ALT 35, Alkaline Phosphatase 68, Total Protein 6.0 L, Albumin 2.1 L, Globulin 3.9, Albumin/Globulin Ratio 0.5 L Micro: Microbiology 05/11/21 12:10 Blood Culture (Wb) - Arm Right Blood Culture - Final No growth in 5 days. 05/11/21 12:00 Blood Culture (Wb) - Anticubital Left Blood Culture - Final No growth in 5 days. 05/12/21 02:30 Sputum, Tracheal Aspirate Gram Stain - Final 05/12/21 02:30 Sputum, Tracheal Aspirate Respiratory Culture - Final Staphylococcus aureus 05/12/21 08:50 Urine, Clean Catch Legionella Antigen - Final 05/12/21 08:50 Urine, Clean Catch Streptococcus pneumoniae Antigen (M - Final ABG Data ABG results: ABG 05/20/21 05:10 Specimen Type ART Sample Site L Radial pH 7.38 Bicarbonate Actual 32.0 H Total CO2 34 Base Excess 7 H O2 Saturation 85 L O2 % 65 ABG pCO2 53.7 H ABG pO2 52 L [place] Test N/A Respiration Rate 12 O2 Delivery Device Adult Vent Vent Mode BiLevel Clinical Comments P high 30 T high 4.5 Physical Exam Narrative General: Sedated on ventilator HEENT: Atraumatic, Normocephalic, pupils sluggish reactive Oral: ET and OG tube Neck: Supple, No JVD, Negative Carotid Bruits Lungs: Left-sided chest tube. 28 Vietnamese. No air leak. On high FiO2, APRV mode. Cardiovascular: Sinus rhythm, Normal S1, Normal S2, No murmurs Abdomen: Tube feed. bowel Sounds sluggish, soft, Non Tender, Non-Distended : Lai catheter. No renal angle tenderness. No suprapubic tenderness. Extremities: No edema, Capillary Refill Less than 3 Seconds Skin: No rashes, No breakdown Musculoskeletal: No Tenderness to Palpation of Joints or Extremities Neurological: Sedated. Complete neuro exam unobtainable Psych/Mental Status: Sedated Assessment & Plan Assessment/Plan (1) Acute respiratory failure with hypoxia: (2) Pneumonia due to COVID-19 virus: PLAN: 1. Acute hypoxic respiratory failure Secondary to COVID-19 pneumonia and MSSA pneumonia Urinary antigens are negative. Blood cultures are negative for more than 48 hours. Complicated by the patient's morbid obesity Intubated 05/11, vent settings being managed by bakery manager. Sedation with fentanyl and propofol 05/16: On ventilator APRV. 05/17: On ventilator. FiO2 75%. No major change. 05/18: FiO2 90%. 05/19: Patient had left pneumothorax complicated by tension physiology. Subsequently patient had 28 Vietnamese chest tube inserted by surgeon on 07/19 with resolution of pneumothorax. No air leak. Remain on ventilator. 05/20: Chest tube will remain in place until patient is weaned off the ventilator. No air leak. Remains on ventilator. Dressing was changed by the surgeon. Total drainage 315 normal serosanguineous fluid. On Lasix. 2. Acute COVID-19 pneumonia Onset May 03. Isolation through the . Dexamethasone and remdesivir No baricitinib 05/12: received tocalizumab 3. MSSA pneumonia currently on pip/tazo and vanc. 05/16: Patient continued to spike fever last night but less than 05/15. 05/07: Persistent fever, 100.7 Fahrenheit. 05/18: Fever less pronounced. Continue IV antibiotic 05/19 patient remained febrile. Patient is febrile T-max 100.6 Fahrenheit 05/20: Patient is spiking fever. 4. Diabetes mellitus type 2 Diet controlled. Blood sugar high, in 400s. Lantus insulin dose increased and started on Humalog scheduled dose. With holding parameters Continue sliding scale insulin 05/16: Blood sugar profile better than before every 330 through 358. Increase the Humalog insulin and glargine insulin dose. 05/17: Blood sugar remains high in 300s. Humalog and glargine insulin increased. 05/18: Blood sugar in 200s. Humulin and glargine insulin dose increased 05/19: Blood sugar in 112. Insulin dose decreased appropriately with holding parameters 05/20: Blood sugar in 200s 5. Morbid obesity BMI of 51.5 6. CONRADO Last creatinine was 0.98 back in 2019. Last creatinine 1.71 it was 1.97 on 05/12 7. VTE prophylaxis with LMWH Charges/Coding Visit Charges Inpatient E&M: 65549 Subs Hosp L3
--- NOTE | 2021-05-20 10:36 | PCM.PN.BLA ---
Progress Note Patient was visited during AM rounds. She was found to be tachycardic with a regular rhythm. Nursing notes patient went into A. fib with RVR following a bowel movement this morning. They deny any issues with chest tube aside from some soiling of the dressing. Patient's left sided chest tube is evaluated and appears secure at the left chest wall, but the dressing was saturated with serosanguineous fluid. There was no apparent air leak in the waterseal chamber with observation. Drainage total is 350 mL of serosanguineous fluid. Given the swelling of the chest tube dressing, it was replaced at bedside with nursing. ?Maintain continuous wall suction at -20 cmH2O given patient's significant vent requirements ?Please notify surgery of any acute issues ?Surgery will continue to follow Visit Charges Inpatient E&M: [id number] [facility] L1
[2021-05-20 11:40] LABS: Bedside Glucose 198 mg/dL (70-110)
[2021-05-20] MEDS: 0.9% Saline Lock 10 ML Syringe IV ×4 (11:50→21:13)
[2021-05-20] MEDS: Vital High Protein 1,000 ML 55 ML GT (12:05)
[2021-05-20] MEDS: Enoxaparin 40 MG/0.4 ML Syringe SC (12:06)
[2021-05-20] MEDS: dexAMETHasone 10 MG/ML Vial 6 MG IV (12:06)
[2021-05-20] MEDS: Furosemide 40 MG/4 ML Vial IV ×2 (12:06→17:49)
[2021-05-20] MEDS: QUEtiapine 25 MG Tablet 50 MG GT ×2 (12:06→21:10)
[2021-05-20] MEDS: Famotidine 20 MG Tablet GT ×2 (12:06→21:10)
[2021-05-20] MEDS: Acetaminophen 650 MG/20 ML UDC GT ×2 (12:07→17:48)
[2021-05-20] MEDS: Chlorhexidine 15 ML PO ×2 (12:39→21:12)
--- NOTE | 2021-05-20 16:20 | RAD_ITS ---
STUDY: X-RAY CHEST REASON FOR EXAM: Female, 60 years old. chest tube leak TECHNIQUE: AP COMPARISON: 05/19/2021 FINDINGS: Left chest tube stable. Endotracheal and esophagogastric tubes are stable. Right jugular central venous catheter stable. Multilobar airspace disease involving the left more than right lung mildly progressed on the left side since the previous day. Small bilateral pleural effusions. No pneumothorax. Decreased left chest wall subcutaneous emphysema. Granuloma in the right lower lobe is stable. Stable size heart. Normal mediastinum and charli. Normal visualized pulmonary arteries. Normal visualized aortic arch and descending thoracic aorta. There are diffuse degenerative changes of the visualized thoracic spine. Normal visualized ribs, clavicles, and shoulders. There is no demonstrated abnormality of the visualized soft tissue structures of the upper abdomen. RAD/Chest 1 View (Portable) IMPRESSION: 1. Mildly worse left mid lung airspace disease. No pneumothorax. 2. Trace bilateral pleural effusions. 3. Decreased left chest wall emphysema. Electronically Signed: Willie Navarro MD (Brooks) at 16:43 EST , Service support ,
[2021-05-20 16:21] LABS: Bedside Glucose 280 mg/dL (70-110)
[2021-05-20 17:56] LABS: Bedside Glucose 281 mg/dL (70-110)
[2021-05-20] MEDS: Dexmedetomidine 1,000 mcg in 0.9% NS 240 mL 32.3 MCG CONT INF (18:14)
[2021-05-20] MEDS: Insulin Lispro 100 UNIT/ML INSULN.PEN 25 UNIT SC (21:11)
[2021-05-20 21:40] LABS: Bedside Glucose 240 mg/dL (70-110)
[2021-05-21] VITALS (30 sets, daily range): BP systolic 94–169; BP diastolic 51–75; PULSE 69–113; RESP 14–32; TEMP 37.9–39.3; O2SAT 88–95
[2021-05-21] MEDS: Insulin Lispro 100 UNIT/ML INSULN.PEN SC ×5 (00:06→23:14)
[2021-05-21 02:16] LABS: Bedside Glucose 187 mg/dL (70-110)
[2021-05-21] MEDS: Dexmedetomidine 1,000 mcg in 0.9% NS 240 mL 18 MCG CONT INF (05:00)
[2021-05-21] MEDS: Acetaminophen 650 MG/20 ML UDC GT ×3 (05:14→18:19)
[2021-05-21] MEDS: Insulin Lispro 100 UNIT/ML INSULN.PEN 25 UNIT SC ×3 (05:14→21:22)
[2021-05-21] MEDS: Piperacil/Tazobactam 3.375 GM/50 ML ML IV (05:15)
[2021-05-21 05:41] LABS: Base Excess 11 mmol/L (-2 to +2); Bicarbonate 37.2 mmol/L (22-26); Blood Gas Specimen Type ART; FI02 60; Mode BiLevel; O2 Delivery Device Adult Vent; PO2 52 mmHG (75-100); RR 12; SITE L Radial; SO2 83 % (95-99); Total Carbon Dioxide 39 mmol/L; pCO2 68.8 mmHg (35-45); pH 7.34 (7.35-7.45)
[2021-05-21 05:43] LABS: Absolute Neutrophil Count 17.7 X10^3/uL (2.0-7.7); Basophil# 0.12 X10^3/uL; Basophil% 0.6 % (0-1); Eosinophil# 0.09 X10^3/uL; Eosinophils% 0.4 % (0-5); Hematocrit 42.6 % (37-47); Hemoglobin 12.8 g/dL (12.0-15.0); Lymphocyte % 7.1 % (19-41); Mean Corpuscular Volume 96.4 fL (81-99); Mean Platelet Vol. 11.6 fl (6.2-12.0); Monocyte# 1.25 X10^3/uL; Monocyte% 5.9 % (0-10); NRBC Flagged by Analyzer 0.2 % (0-5); Neutrophil # 17.71 X10^3/uL (2.7-7.7); Neutrophil % 83.5 % (47-70); Platelet Count 297 K/mm3 (150-450); RBC Distribution Width CV 14.4 % (11.6-14.6); RBC Distribution Width SD 49.8 fl (35.1-43.9); Red Blood Count 4.42 M/mm3 (4.2-5.4); White Blood Count 21.2 K/mm3 (4.4-11.0)
[2021-05-21 06:05] LABS: Bedside Glucose 153 mg/dL (70-110)
[2021-05-21 06:11] LABS: ALB/GLOB Ratio 0.5 RATIO (0.9-2.4); AST(SGOT) 85 U/L (15-37); Alanine Aminotransfer ALT/SGPT 43 U/L (13-56); Albumin, Serum 2.1 g/dL (3.2-5.0); Alkaline Phosphatase 62 U/L (45-117); Anion Gap 4 (5-15); BUN 75 mg/dL (7-18); BUN/Creat Ratio 64.1 RATIO (10-20); Calcium,Total 10.1 mg/dL (8.5-10.1); Chloride 102 mmol/L (98-107); Creatinine, Serum 1.17 mg/dL (0.55-1.02); EST Glomerular Filtration Rate 50 mL/min (>60); Est Glom Filt Rate - Afr Amer 60 mL/min (>60); Estimated Creatinine Clearance 43.05 ml/min; Globulin 3.9 g/dL (2.2-4.2); Glucose 178 mg/dL (74-106); Potassium 4.4 mmol/L (3.5-5.1); Sodium Level 143 mmol/L (136-145)
--- NOTE | 2021-05-21 06:24 | PCM.PN.INT ---
Assessment & Plan Assessment/Plan (1) Acute respiratory failure with hypoxia: (2) Pneumonia due to COVID-19 virus: (3) Type II diabetes mellitus: QUALIFIERS: Diabetes mellitus complication detail: with other circulatory complications Diabetes mellitus complication status: with circulatory complication Diabetes mellitus terminal make up operator insulin use: without terminal make up operator use Qualified Code(s): E11.59 - Type 2 diabetes mellitus with other circulatory complications (4) Morbid obesity: (5) Hypertension: (6) Hyperlipidemia: PLAN: RECOMMENDATIONS: 1. Continue APRV. Continue to wean FiO2 as tolerated. 2. Continue antimicrobials. 3. Continue prophylactic Lovenox. 4. Continue appropriate GI prophylaxis. 5. Tube feeds as tolerated. 6. Continue diuresis as tolerated. Decrease frequency of dosing to once daily, given rising bicarbonate. 7. Chest tube to wall suction. IMPRESSIONS: 1. Acute hypoxic respiratory failure secondary to ARDS secondary to COVID-19 The patient was initially admitted to the hospital on May 11 with progressive dyspnea in the setting of COVID-19 pneumonia. The patient did ultimately require intubation and has received tocilizumab. The patient also completed a treatment course of remdesivir and Decadron. She will remain on prophylactic Lovenox for now. In addition, MSSA was isolated from her sputum culture. Therefore, antimicrobials will be continued. Respiratory status still remains tenuous. Plan to continue supportive care with APRV mode mechanical ventilation. Continue to wean FiO2 as tolerated for saturations greater than 90%. Continue tube feeds as tolerated. Continue appropriate GI prophylaxis. Continue attempts at diuresis as tolerated by hemodynamics and renal function. 2. Pneumothorax The patient's hospital course was complicated by the development of a pneumothorax on May 18, which ultimately required tube thoracotomy. Continue chest tube to wall suction for now. 3. Atrial fibrillation with RVR Resolved. The patient developed new onset A. fib on May 20. With medical management, the patient converted back to normal sinus rhythm. 4. Acute kidney injury Improving. Most likely prerenal in etiology. Continue to hold nephrotoxic medications. Continue to monitor urine output for now. No current indication for renal replacement therapy. 5. Morbid obesity/CKD stage IIIa/diabetes mellitus type 2/hypertension/hyperlipidemia Complicates care, management, recovery and prognosis. Triglycerides are elevated, so propofol is not an ideal sedative. Continue Lantus and sliding scale insulin coverage. TIME: 32 minutes of critical care time, independent of procedures, was spent addressing the patient's acute hypoxemic respiratory failure secondary to COVID-19 pneumonia, pneumothorax, acute kidney injury, atrial fibrillation with RVR, review of all data and collaboration with care team. Subjective Subjective The patient was seen and examined at the bedside this morning. Events from the last 24 hours have been reviewed. Today is day #11. The patient continues to have fevers with a T-max overnight of 102.8 ?F. She is otherwise hemodynamically stable. The patient did convert from atrial fibrillation to normal sinus rhythm yesterday. She is currently tolerating tube feeds. She remains sedated on Precedex and fentanyl. She is currently documented to be overall net +8.7 L for the hospitalization. The patient remains on APRV mode mechanical ventilation with a P high of 30 and FiO2 of 65%.She is currently tolerating tube feeds. The patient remains on antimicrobials, prophylactic Lovenox and Lasix. The patient has completed her treatment course of Decadron. Bicarbonate has increased to 37. Creatinine is relatively stable at 1.17. Accordingly, the Lasix dosing was decreased to once daily this morning. I did speak with the patient's on Saturday the and updated him on her clinical status. I also introduced the idea of potential tracheostomy and PEG tube if she does not make any significant improvements in oxygenation status. Objective Data Objective Data The patient's most recent lab work, culture data and imaging studies have all been personally reviewed. Surface echocardiogram from 2017 demonstrated normal LV size and function with an ejection fraction of 65%. Coronavirus PCR was positive on May 11. Sputum culture dated May 12 was positive for MSSA. Vital Signs: Vital Signs Temp Pulse Resp BP Pulse Ox 100.6 F H 94 30 H 94/52 L 93 05/21/21 04:00 05/21/21 05:23 05/21/21 05:23 05/21/21 04:00 05/21/21 05:23 Oxygen Flow Rate (L/min) 15 Oxygen Delivery Method Mechanical Ventilator Weight: 143.1 kg Body Mass Index (BMI) 52.0 Intake & Output: Intake and Output for Last 24 Hours 05/19/21 05/20/21 05/21/21 23:59 23:59 23:59 Intake Total 3351.48 / 4187.68 3739.17 / 3764.55 512.17 / 512.17 Output Total 3740 / 3890 1860 / 1860 Balance -388.52 / 297.68 1879.17 / 1904.55 512.17 / 512.17 Lab / Micro Data Attestation: I reviewed the patient's lab results. Result Diagrams: 05/21/21 05:30 05/21/21 05:30 Labs: Laboratory Results - last 24 hr 05/20/21 06:11: POC Glucose 198 H 05/20/21 11:58: POC Glucose 280 H 05/20/21 17:42: POC Glucose 281 H 05/20/21 21:09: POC Glucose 240 H 05/21/21 00:04: POC Glucose 187 H 05/21/21 05:12: POC Glucose 153 H 05/21/21 05:30: WBC 21.2 H, RBC 4.42, Hgb 12.8, Hct 42.6, MCV 96.4, MCH 29.0, MCHC 30.0 L, RDW Std Deviation 49.8 H, RDW Coeff of Mehran 14.4, Plt Count 297, MPV 11.6, Immature Gran % (Auto) 2.500 H, Neut % (Auto) 83.5 H, Lymph % (Auto) 7.1 L, [place] % (Auto) 5.9, Eos % (Auto) 0.4, Baso % (Auto) 0.6, Absolute Neuts (auto) 17.7 H, Absolute Lymphs (auto) 1.50, Nucleated RBC % 0.2 05/21/21 05:30: Sodium 143, Potassium 4.4, Chloride 102, Carbon Dioxide 37.0 H, Anion Gap 4 L, BUN 75 H, Creatinine 1.17 H, Estim Creat Clear Calc 43.05, Est GFR (MDRD) Af Amer 60, Est GFR (MDRD) Non-Af 50 L, BUN/Creatinine Ratio 64.1 H, Glucose 178 H, Calcium 10.1, Total Bilirubin 0.50, AST 85 H, ALT 43, Alkaline Phosphatase 62, Total Protein 6.0 L, Albumin 2.1 L, Globulin 3.9, Albumin/Globulin Ratio 0.5 L Micro: Microbiology 05/11/21 12:10 Blood Culture (Wb) - Arm Right Blood Culture - Final No growth in 5 days. 05/11/21 12:00 Blood Culture (Wb) - Anticubital Left Blood Culture - Final No growth in 5 days. 05/12/21 02:30 Sputum, Tracheal Aspirate Gram Stain - Final 05/12/21 02:30 Sputum, Tracheal Aspirate Respiratory Culture - Final Staphylococcus aureus 05/12/21 08:50 Urine, Clean Catch Legionella Antigen - Final 05/12/21 08:50 Urine, Clean Catch Streptococcus pneumoniae Antigen (M - Final ABG Data ABG results: ABG 05/21/21 05:32 Specimen Type ART Sample Site L Radial pH 7.34 L Bicarbonate Actual 37.2 H Total CO2 39 Base Excess 11 H O2 Saturation 83 L O2 % 60 ABG pCO2 68.8 H* ABG pO2 52 L [place] Test N/A Respiration Rate 12 O2 Delivery Device Adult Vent Vent Mode BiLevel Crit Call To/Read Back Yes Blood Gas Notified Whom Dr Vazquez Radiography Diagnostic Testing: Radiology Impression Chest X-Ray 05/20/21 16:20 IMPRESSION: 1. Mildly worse left mid lung airspace disease. No pneumothorax. 2. Trace bilateral pleural effusions. 3. Decreased left chest wall emphysema. Electronically Signed: Willie Navarro MD ([place]) at 16:43 EST , Service support , Physical Exam Const General Appearance: intubated and patient mechanically ventilated Nutritional Appearance: morbidly obese HEENT normocephalic and head/scalp atraumatic Mouth: endotracheal tube in place and OG tube in place Eyes PERRL and EOMs intact bilaterally Neck supple General: trachea midline Chest Chest Narrative: No air leak. Chest: chest tube Resp Auscultation: diminished lung sounds Cardio Cardio Narrative: Currently in normal sinus rhythm Rate: regular rate Rhythm: regular rhythm GI normal to inspection, nondistended, normoactive bowel sounds Extremity General Extremity: edema; Negative for clubbing Skin no rashes or lesions noted Neuro Neuro Narrative: Patient is still able to follow some simple commands. Sensorium / Orientation: sedated on vent Charges/Coding Procedures Hospitalists Procedures: [id number] Critial Care 1st Hr
--- NOTE | 2021-05-21 08:16 | PCM.PN.HOSP ---
Subjective Subjective Overnight changes noticed. Patient did not had significant drain output from chest tube. Intake and output about 450 mill fluid balance Continue to spike fever. T-max 102.8 Fahrenheit Objective Data Objective Data Vital Signs: Vital Signs Temp Pulse Resp BP Pulse Ox 100.2 F H 95 32 H 143/67 H 92 05/21/21 07:00 05/21/21 07:34 05/21/21 07:34 05/21/21 07:00 05/21/21 07:34 Oxygen Flow Rate (L/min) 15 Oxygen Delivery Method Mechanical Ventilator Weight: 315 lb 7.704 oz Body Mass Index (BMI) 52.0 Intake & Output: Intake and Output for Last 24 Hours 05/19/21 05/20/21 05/21/21 23:59 23:59 23:59 Intake Total 3351.48 / 4187.68 3739.17 / 3764.55 588.17 / 588.17 Output Total 3740 / 3890 1860 / 1860 1150 / 1150 Balance -388.52 / 297.68 1879.17 / 1904.55 -561.83 / -561.83 Lab / Micro Data Result Diagrams: 05/21/21 05:30 05/21/21 05:30 Labs: Laboratory Results - last 24 hr 05/20/21 06:11: POC Glucose 198 H 05/20/21 11:58: POC Glucose 280 H 05/20/21 17:42: POC Glucose 281 H 05/20/21 21:09: POC Glucose 240 H 05/21/21 00:04: POC Glucose 187 H 05/21/21 05:12: POC Glucose 153 H 05/21/21 05:30: WBC 21.2 H, RBC 4.42, Hgb 12.8, Hct 42.6, MCV 96.4, MCH 29.0, MCHC 30.0 L, RDW Std Deviation 49.8 H, RDW Coeff of Mehran 14.4, Plt Count 297, MPV 11.6, Immature Gran % (Auto) 2.500 H, Neut % (Auto) 83.5 H, Lymph % (Auto) 7.1 L, [place] % (Auto) 5.9, Eos % (Auto) 0.4, Baso % (Auto) 0.6, Absolute Neuts (auto) 17.7 H, Absolute Lymphs (auto) 1.50, Nucleated RBC % 0.2 05/21/21 05:30: Sodium 143, Potassium 4.4, Chloride 102, Carbon Dioxide 37.0 H, Anion Gap 4 L, BUN 75 H, Creatinine 1.17 H, Estim Creat Clear Calc 43.05, Est GFR (MDRD) Af Amer 60, Est GFR (MDRD) Non-Af 50 L, BUN/Creatinine Ratio 64.1 H, Glucose 178 H, Calcium 10.1, Total Bilirubin 0.50, AST 85 H, ALT 43, Alkaline Phosphatase 62, Total Protein 6.0 L, Albumin 2.1 L, Globulin 3.9, Albumin/Globulin Ratio 0.5 L Micro: Microbiology 05/11/21 12:10 Blood Culture (Wb) - Arm Right Blood Culture - Final No growth in 5 days. 05/11/21 12:00 Blood Culture (Wb) - Anticubital Left Blood Culture - Final No growth in 5 days. 05/12/21 02:30 Sputum, Tracheal Aspirate Gram Stain - Final 05/12/21 02:30 Sputum, Tracheal Aspirate Respiratory Culture - Final Staphylococcus aureus 05/12/21 08:50 Urine, Clean Catch Legionella Antigen - Final 05/12/21 08:50 Urine, Clean Catch Streptococcus pneumoniae Antigen (M - Final ABG Data ABG results: ABG 05/21/21 05:32 Specimen Type ART Sample Site L Radial pH 7.34 L Bicarbonate Actual 37.2 H Total CO2 39 Base Excess 11 H O2 Saturation 83 L O2 % 60 ABG pCO2 68.8 H* ABG pO2 52 L [place] Test N/A Respiration Rate 12 O2 Delivery Device Adult Vent Vent Mode BiLevel Crit Call To/Read Back Yes Blood Gas Notified Whom Dr Vazquez Radiography Diagnostic Testing: Radiology Impression Chest X-Ray 05/20/21 16:20 IMPRESSION: 1. Mildly worse left mid lung airspace disease. No pneumothorax. 2. Trace bilateral pleural effusions. 3. Decreased left chest wall emphysema. Electronically Signed: Willie Navarro MD ([place]) at 16:43 EST , Service support , Physical Exam Narrative General: Sedated on ventilator HEENT: Atraumatic, Normocephalic, pupils sluggish reactive Oral: ET and OG tube Neck: Supple, No JVD, Negative Carotid Bruits Lungs: Left-sided chest tube. 28 Spanish. No air leak. On 60% FiO2, APRV mode. Cardiovascular: Sinus rhythm, Normal S1, Normal S2, No murmurs Abdomen: Tube feed. bowel Sounds sluggish, soft, Non Tender, Non-Distended : Lai catheter. No renal angle tenderness. No suprapubic tenderness. Extremities: Bilateral leg edema, Capillary Refill Less than 3 Seconds Skin: No rashes, No breakdown Musculoskeletal: No Tenderness to Palpation of Joints or Extremities Neurological: Sedated. Complete neuro exam unobtainable Psych/Mental Status: Sedated Assessment & Plan Assessment/Plan (1) Acute respiratory failure with hypoxia: (2) Pneumonia due to COVID-19 virus: PLAN: 1. Acute hypoxic respiratory failure complicated with left pneumothorax of mild tension physiology Secondary to COVID-19 pneumonia and MSSA pneumonia Urinary antigens are negative. Blood cultures are negative for more than 48 hours. Complicated by the patient's morbid obesity Intubated 05/11, vent settings being managed by surface water manager. Sedation with fentanyl and propofol 05/16: On ventilator APRV. 05/17: On ventilator. FiO2 75%. No major change. 05/18: FiO2 90%. 05/19: Patient had left pneumothorax complicated by tension physiology. Subsequently patient had 28 Spanish chest tube inserted by surgeon on 07/19 with resolution of pneumothorax. No air leak. Remain on ventilator. 05/20: Chest tube will remain in place until patient is weaned off the ventilator. No air leak. Remains on ventilator. Dressing was changed by the surgeon. Total drainage 315 normal serosanguineous fluid. On Lasix. 03/21: Continue to wean FiO2. On APRV mode. 2. Acute COVID-19 pneumonia Onset May 03. Isolation through the . Dexamethasone and remdesivir No baricitinib 05/12: received tocalizumab 3. MSSA pneumonia currently on pip/tazo and vanc. 05/16: Patient continued to spike fever last night but less than 05/15. 05/07: Persistent fever, 100.7 Fahrenheit. 05/18: Fever less pronounced. Continue IV antibiotic 05/19 patient remained febrile. Patient is febrile T-max 100.6 Fahrenheit 05/20: Patient is spiking fever. 05/21 on IV antibiotics A. fib with RVR: Probably infectious/respiratory/pneumothorax etiology: Patient converted to sinus rhythm. Resolved. Patient is going to complete amiodarone drip. 4. Diabetes mellitus type 2 Diet controlled. Blood sugar high, in 400s. Lantus insulin dose increased and started on Humalog scheduled dose. With holding parameters Continue sliding scale insulin 05/16: Blood sugar profile better than before every 330 through 358. Increase the Humalog insulin and glargine insulin dose. 05/17: Blood sugar remains high in 300s. Humalog and glargine insulin increased. 05/18: Blood sugar in 200s. Humulin and glargine insulin dose increased 05/19: Blood sugar in 112. Insulin dose decreased appropriately with holding parameters 05/20: Blood sugar in 200s 5. Morbid obesity BMI of 51.5 6. CONRADO creatinine was 0.98 back in 2019. Last creatinine 1.71 it was 1.97 on 05/12 05/21: Creatinine 1.17 improving 7. VTE prophylaxis with LMWH Active Medications Acetaminophen (Acetaminophen 650 Mg/20 Ml Udc) 650 mg GT Q6H PRN PRN PRN Reason: FEVER Last Admin: 05/21/21 05:14 Dose: 650 mg Documented by: Albuterol Sulfate (Albuterol 2.5 Mg/3 Ml Vial.Neb.) 2.5 mg INHALATION Q2H PRN PRN PRN Reason: SOB/WHEEZING Chlorhexidine Gluconate (Chlorhexidine 15 Ml) 15 ml PO BID [facility] Last Admin: 05/20/21 21:12 Dose: 15 ml Documented by: Dextrose (Dextrose 50%-Water 25 Gm/50 Ml Disp.Syrin) 0 gm IV X1 PRN; Protocol PRN Reason: Hypoglycemia Enoxaparin Sodium (Enoxaparin 40 Mg/0.4 Ml Syringe) 40 mg SC DAILY [facility] Last Admin: 05/20/21 12:06 Dose: 40 mg Documented by: Famotidine (Famotidine 20 Mg Tablet) 20 mg GT BID [facility] Last Admin: 05/20/21 21:10 Dose: 20 mg Documented by: Furosemide (Furosemide 40 Mg/4 Ml Vial) 40 mg IV DAILY [facility] Glucagon (Glucagon 1 Mg/Ml Syringe) 1 mg IM .X1 PRN PRN Reason: Hypoglycemia Fentanyl Citrate 1,000 mcg/ (Sodium Chloride) 100 mls @ 2.5 mls/hr CONT INF .Q40H [facility]; Protocol Last Titration: 05/20/21 14:00 Dose: Infused Documented by: Enteral Nutritional Formula (Vital High Protein) 1,000 mls @ 55 mls/hr GT .[id number] [facility] Last Admin: 05/21/21 05:40 Dose: Not Given Documented by: Amiodarone HCl/Dextrose (Nexterone 360 Mg/200 Ml Bag) 360 mg in 200 mls @ 16.667 mls/hr CONT INF .Q12H [facility] Stop: 05/21/21 10:59 Last Admin: 05/21/21 05:14 Dose: 0.5 mg/min, 16.7 mls/hr Documented by: Dexmedetomidine HCl 1,000 mcg/ (Sodium Chloride) 250 mls @ 32.31 mls/hr CONT INF .Q7H45M [facility]; Protocol Last Titration: 05/21/21 07:00 Dose: 0.5 mcg/kg/hr, 18 mls/hr Documented by: Fentanyl Citrate 1,000 mcg/ (Sodium Chloride) 100 mls @ 20 mls/hr CONT INF .Q5H [facility]; Protocol Last Titration: 05/21/21 07:00 Dose: 200 mcg/hr, 20 mls/hr Documented by: Insulin Glargine (Insulin Glargine 100 Units/Ml Pen) 70 units SC BID [facility] Last Admin: 05/20/21 21:10 Dose: 70 units Documented by: Insulin Human Lispro (Insulin Lispro 100 Unit/Ml Insuln.Pen) 0 unit SC Q6 [facility]; Protocol Last Admin: 05/21/21 05:13 Dose: 3 u Documented by: Insulin Human Lispro (Insulin Lispro 100 Unit/Ml Insuln.Pen) 25 unit SC TID [facility] Last Admin: 05/21/21 05:14 Dose: 25 units Documented by: Polyethylene Glycol (Polyethylene Glycol 3350 17 Gm Packet) 17 gm PO DAILY [facility] Last Admin: 05/20/21 12:39 Dose: Not Given Documented by: Quetiapine Fumarate (Quetiapine 25 Mg Tablet) 50 mg GT BID [facility] Last Admin: 05/20/21 21:10 Dose: 50 mg Documented by: Senna (Senna Tablet) 2 tablet PO BID [facility] Last Admin: 05/20/21 20:50 Dose: Not Given Documented by: Sodium Chloride (0.9% Saline Lock 10 Ml Syringe) 10 - 40 ml IV UD PRN PRN Reason: SALINE FLUSH Last Admin: 05/20/21 21:13 Dose: 40 ml Documented by: Charges/Coding Visit Charges Inpatient E&M: 82357 Subs Hosp L3
[2021-05-21] MEDS: QUEtiapine 25 MG Tablet 50 MG GT ×2 (09:16→23:12)
[2021-05-21] MEDS: Enoxaparin 40 MG/0.4 ML Syringe SC (09:16)
[2021-05-21] MEDS: Furosemide 40 MG/4 ML Vial IV (09:17)
[2021-05-21] MEDS: Famotidine 20 MG Tablet GT ×2 (09:17→23:12)
[2021-05-21] MEDS: Senna Tablet 2 TABLET PO (09:17)
[2021-05-21] MEDS: Chlorhexidine 15 ML PO (09:18)
--- NOTE | 2021-05-21 09:41 | PCM.PN.SRG ---
Subjective Subjective Seen and examined during AM rounds. I was actually called to the bedside yesterday after patient developed a continuous air leak. A stat chest x-ray was ordered and showed the chest tube to be in stable positioning, but troubleshooting the chest tube system found the airleak to come from the connection between the Pleur-evac system and the chest tube's distal end. This was reattached and retaped. This morning patient is sedated and not responsive to commands. Objective Data Objective Data Vital Signs: Vital Signs Temp Pulse Resp BP Pulse Ox 100.2 F H 95 32 H 143/67 H 92 05/21/21 07:00 05/21/21 07:34 05/21/21 07:34 05/21/21 07:00 05/21/21 07:34 Oxygen Flow Rate (L/min) 15 Oxygen Delivery Method Mechanical Ventilator Weight: 315 lb 7.704 oz Body Mass Index (BMI) 52.0 Intake & Output: Intake and Output for Last 24 Hours 05/19/21 05/20/21 05/21/21 23:59 23:59 23:59 Intake Total 3351.48 / 4187.68 3739.17 / 3764.55 588.17 / 588.17 Output Total 3740 / 3890 1860 / 1860 1150 / 1150 Balance -388.52 / 297.68 1879.17 / 1904.55 -561.83 / -561.83 Lab / Micro Data Result Diagrams: 05/21/21 05:30 05/21/21 05:30 Labs: Laboratory Results - last 24 hr 05/20/21 06:11: POC Glucose 198 H 05/20/21 11:58: POC Glucose 280 H 05/20/21 17:42: POC Glucose 281 H 05/20/21 21:09: POC Glucose 240 H 05/21/21 00:04: POC Glucose 187 H 05/21/21 05:12: POC Glucose 153 H 05/21/21 05:30: WBC 21.2 H, RBC 4.42, Hgb 12.8, Hct 42.6, MCV 96.4, MCH 29.0, MCHC 30.0 L, RDW Std Deviation 49.8 H, RDW Coeff of Mehran 14.4, Plt Count 297, MPV 11.6, Immature Gran % (Auto) 2.500 H, Neut % (Auto) 83.5 H, Lymph % (Auto) 7.1 L, [place] % (Auto) 5.9, Eos % (Auto) 0.4, Baso % (Auto) 0.6, Absolute Neuts (auto) 17.7 H, Absolute Lymphs (auto) 1.50, Nucleated RBC % 0.2 05/21/21 05:30: Sodium 143, Potassium 4.4, Chloride 102, Carbon Dioxide 37.0 H, Anion Gap 4 L, BUN 75 H, Creatinine 1.17 H, Estim Creat Clear Calc 43.05, Est GFR (MDRD) Af Amer 60, Est GFR (MDRD) Non-Af 50 L, BUN/Creatinine Ratio 64.1 H, Glucose 178 H, Calcium 10.1, Total Bilirubin 0.50, AST 85 H, ALT 43, Alkaline Phosphatase 62, Total Protein 6.0 L, Albumin 2.1 L, Globulin 3.9, Albumin/Globulin Ratio 0.5 L Micro: Microbiology 05/11/21 12:10 Blood Culture (Wb) - Arm Right Blood Culture - Final No growth in 5 days. 05/11/21 12:00 Blood Culture (Wb) - Anticubital Left Blood Culture - Final No growth in 5 days. 05/12/21 02:30 Sputum, Tracheal Aspirate Gram Stain - Final 05/12/21 02:30 Sputum, Tracheal Aspirate Respiratory Culture - Final Staphylococcus aureus 05/12/21 08:50 Urine, Clean Catch Legionella Antigen - Final 05/12/21 08:50 Urine, Clean Catch Streptococcus pneumoniae Antigen (M - Final ABG Data ABG results: ABG 05/21/21 05:32 Specimen Type ART Sample Site L Radial pH 7.34 L Bicarbonate Actual 37.2 H Total CO2 39 Base Excess 11 H O2 Saturation 83 L O2 % 60 ABG pCO2 68.8 H* ABG pO2 52 L [place] Test N/A Respiration Rate 12 O2 Delivery Device Adult Vent Vent Mode BiLevel Crit Call To/Read Back Yes Blood Gas Notified Whom Dr Vazquez Radiography Diagnostic Testing: Radiology Impression Chest X-Ray 05/20/21 16:20 IMPRESSION: 1. Mildly worse left mid lung airspace disease. No pneumothorax. 2. Trace bilateral pleural effusions. 3. Decreased left chest wall emphysema. Electronically Signed: Willie Navarro MD ([place]) at 16:43 EST , Service support , Physical Exam Resp Resp Narrative: Patient's chest tube demonstrates an intermittent air leak in the waterseal chamber. This is after confirming the connection at the Pleur-evac/chest tube interface. Appears to have approximately 100 mL of serosanguineous output in the collection since yesterday which now reads 450 mL of total output. Assessment & Plan Assessment/Plan (1) Pneumothorax, left: PLAN: Status post chest tube placement. Chest tube?Pleur-evac connection came loose yesterday resulting in continuous air leak. However once this was remedied there was no air leak yesterday. Today I find evidence of an intermittent air leak which seems to be coming from the patient. It is possible the patient had another parenchymal event related to her advanced ventilatory needs. Recommend continuing suction at -20 cm of water and repeating a chest x-ray.
--- NOTE | 2021-05-21 09:47 | RAD_ITS ---
STUDY: X-RAY CHEST REASON FOR EXAM: Female, 60 years old. Chest pain/pressure TECHNIQUE: 2 AP portable views COMPARISON: 05/20/2021 FINDINGS: Stable appearance of the ET tube, NG tube, right IJ central venous catheter, and large caliber left-sided chest tube. EKG leads overlie the chest Lungs are expanded, previously described interstitial and airspace opacifications in both lung aiken have mildly improved since the previous study. No demonstrated effusions. Normal size heart. Normal mediastinum and charli. Normal visualized pulmonary arteries. Normal visualized aortic arch and descending thoracic aorta. There are diffuse degenerative changes of the visualized thoracic spine. Normal visualized ribs, clavicles, and shoulders. There is no demonstrated abnormality of the visualized soft tissue structures of the upper abdomen. RAD/Chest 1 View (Portable) IMPRESSION: Stable appearance of the support lines and tubes No pneumothorax or mediastinal shift. Previously described interstitial and airspace opacifications in both lung aiken have mildly improved since the previous study. No subcutaneous emphysema to suspect air leak Electronically Signed: Johan Johnson MD at 11:58 EST , Service support ,
[2021-05-21] MEDS: Vital High Protein 1,000 ML 55 ML GT (10:37)
[2021-05-21 15:31] LABS: Bedside Glucose 205 mg/dL (70-110)
[2021-05-21 16:15] LABS: Bedside Glucose 213 mg/dL (70-110)
[2021-05-21] MEDS: Dexmedetomidine 1,000 mcg in 0.9% NS 240 mL 10.8 MCG CONT INF (21:00)
--- NOTE | 2021-05-21 21:08 | NURSING ---
hung new bag of precedex at Aug said that the bag was empty but it was not so between 1999 and 2099 the medication was still running
[2021-05-21] MEDS: 0.9% Saline Lock 10 ML Syringe IV (21:26)
[2021-05-21 21:35] LABS: Bedside Glucose 186 mg/dL (70-110)
[2021-05-22] VITALS (23 sets, daily range): BP systolic 93–135; BP diastolic 55–122; PULSE 148–167; RESP 16–36; TEMP 37.9–39.8; O2SAT 91–98
--- NOTE | 2021-05-22 | RAD_ITS ---
STUDY: X-RAY CHEST REASON FOR EXAM: Female, 60 years old. Chest Tube placement TECHNIQUE: Single AP portable view of the chest. COMPARISON: 05/21/2021. FINDINGS: Stable appearance of the ET tube, NG tube, right IJ central venous catheter, and large caliber left-sided chest tube. EKG leads overlie the chest Lungs are expanded, previously described interstitial and airspace opacifications in both lung aiken have mildly improved since the previous study. No demonstrated effusions. Normal size heart. Normal mediastinum and charli. Normal visualized pulmonary arteries. Normal visualized aortic arch and descending thoracic aorta. There are diffuse degenerative changes of the visualized thoracic spine. Normal visualized ribs, clavicles, and shoulders. There is no demonstrated abnormality of the visualized soft tissue structures of the upper abdomen. RAD/Chest 1 View (Portable) IMPRESSION: Stable appearance of the support lines and tubes No pneumothorax or mediastinal shift. Previously described interstitial and airspace opacifications in both lung aiken have mildly improved since the previous study. Electronically Signed: Alma Dodge MD at 1:46 EST Tel , Service support ,
[2021-05-22 00:11] LABS: Bedside Glucose 208 mg/dL (70-110)
[2021-05-22 00:11] LABS: Bedside Glucose 200 mg/dL (70-110)
[2021-05-22] MEDS: Acetaminophen 650 MG/20 ML UDC GT ×2 (00:26→09:04)
[2021-05-22] MEDS: Amiodarone 360 MG in Dextrose 5% Viaflo Bag 192.8 ML 16.7 MG CONT INF (04:43)
[2021-05-22 04:57] LABS: Absolute Lymphocyte Count 1.28 X10^3/uL (0.83-4.51); Absolute Neutrophil Count 19.2 X10^3/uL (2.0-7.7); Basophil# 0.09 X10^3/uL; Basophil% 0.4 % (0-1); Eosinophil# 0.12 X10^3/uL; Eosinophils% 0.5 % (0-5); Hematocrit 42.2 % (37-47); Hemoglobin 12.8 g/dL (12.0-15.0); Lymphocyte # 1.28 X10^3/ul (0.83-4.51); Lymphocyte % 5.7 % (19-41); Mean Corp Hgb Conc 30.3 g/dL (32-36); Mean Corpuscular Hgb 29.9 pg (27.0-32.0); Mean Corpuscular Volume 98.6 fL (81-99); Mean Platelet Vol. 11.7 fl (6.2-12.0); Monocyte# 1.29 X10^3/uL; Monocyte% 5.8 % (0-10); NRBC Flagged by Analyzer 0.1 % (0-5); Neutrophil # 19.24 X10^3/uL (2.7-7.7); Neutrophil % 86.4 % (47-70); Platelet Count 298 K/mm3 (150-450); RBC Distribution Width CV 14.8 % (11.6-14.6); RBC Distribution Width SD 52.1 fl (35.1-43.9); Red Blood Count 4.28 M/mm3 (4.2-5.4); White Blood Count 22.3 K/mm3 (4.4-11.0)
[2021-05-22 05:20] LABS: ALB/GLOB Ratio 0.5 RATIO (0.9-2.4); AST(SGOT) 67 U/L (15-37); Alanine Aminotransfer ALT/SGPT 46 U/L (13-56); Albumin, Serum 2.1 g/dL (3.2-5.0); Alkaline Phosphatase 49 U/L (45-117); Anion Gap 4 (5-15); BUN 77 mg/dL (7-18); BUN/Creat Ratio 66.4 RATIO (10-20); Calcium,Total 10.3 mg/dL (8.5-10.1); Chloride 104 mmol/L (98-107); Creatinine, Serum 1.16 mg/dL (0.55-1.02); EST Glomerular Filtration Rate 50 mL/min (>60); Est Glom Filt Rate - Afr Amer 61 mL/min (>60); Estimated Creatinine Clearance 43.42 ml/min; Globulin 3.9 g/dL (2.2-4.2); Glucose 202 mg/dL (74-106); Potassium 4.8 mmol/L (3.5-5.1); Sodium Level 144 mmol/L (136-145)
[2021-05-22] MEDS: Insulin Lispro 100 UNIT/ML INSULN.PEN 25 UNIT SC (05:42)
[2021-05-22] MEDS: Insulin Lispro 100 UNIT/ML INSULN.PEN SC (05:42)
[2021-05-22 06:11] LABS: Base Excess 10 mmol/L (-2 to +2); Bicarbonate 36.1 mmol/L (22-26); Blood Gas Specimen Type ART; FI02 65; Mode BiLevel; O2 Delivery Device Adult Vent; PO2 77 mmHG (75-100); RR 12; SITE L Radial; SO2 93 % (95-99); Total Carbon Dioxide 38 mmol/L; pCO2 71.8 mmHg (35-45); pH 7.31 (7.35-7.45)
[2021-05-22] MEDS: TITRATION PARAMETER CHANGE 1 EACH IV (06:26)
--- NOTE | 2021-05-22 06:38 | EKG12_ITS ---
Test Reason : TACHY Blood Pressure : / mmHG Vent. Rate : 158 BPM Atrial Rate : 316 BPM P-R Int : 000 ms QRS Dur : 072 ms QT Int : 258 ms P-R-T Axes : -75 058 -72 degrees QTc Int : 418 ms Atrial flutter with 2:1 A-V conduction Nonspecific ST abnormality Abnormal ECG Confirmed by YAYA VIVAS, ESTELLA ([id number]), sports editor LUZMA LEIGH ([id number]) on 05/25/2021 11:36:16 AM Referred By: KRISTEN Confirmed By:ESTELLA JAVIER MD
--- NOTE | 2021-05-22 07:58 | PN.CC_ITS ---
Assessment & Plan Assessment/Plan (1) Acute respiratory failure with hypoxia: (2) Pneumonia due to COVID-19 virus: (3) Type II diabetes mellitus: QUALIFIERS: Diabetes mellitus complication detail: with other circulatory complications Diabetes mellitus complication status: with circulatory complication Diabetes mellitus longwall headgate operator insulin use: without longwall headgate operator use Qualified Code(s): E11.59 - Type 2 diabetes mellitus with other circulatory complications (4) Morbid obesity: (5) Hypertension: (6) Hyperlipidemia: PLAN: RECOMMENDATIONS: 1. Continue APRV. Continue to wean FiO2 as tolerated. 2. Continue antimicrobials. 3. Continue prophylactic Lovenox. 4. Continue appropriate GI prophylaxis. 5. Tube feeds as tolerated. 6. Continue diuresis as tolerated. Increase to twice daily 7. Chest tube to wall suction. IMPRESSIONS: 1. Acute hypoxic respiratory failure secondary to ARDS secondary to COVID-19 The patient was initially admitted to the hospital on May 11 with p rogressive dyspnea in the setting of COVID-19 pneumonia. The patient did ultimately require intubation and has received tocilizumab. The patient also completed a treatment course of remdesivir and Decadron. She will remain on prophylactic Lovenox for now. In addition, MSSA was isolated from her sputum culture. Therefore, antimicrobials will be continued. Respiratory status still remains tenuous. Plan to continue supportive care with APRV mode mechanical ventilation. Continue to wean FiO2 as tolerated for saturations greater than 90%. Continue tube feeds as tolerated. Continue appropriate GI prophylaxis. Continue attempts at diuresis as tolerated by hemodynamics and renal function. May attempt to decrease P high and tolerate higher FiO2's if patient continues to have an air leak. ABG shows adequate oxygenation ventilation on the current settings. Patient has had some increase in CO2, likely leading to elevated bicarbonate 2. Pneumothorax The patient's hospital course was complicated by the development of a pneumothorax on May 18, which ultimately required tube thoracotomy. Continue chest tube to wall suction for now. 3. Atrial fibrillation with RVR Recurrence on 05/22/2021. The patient developed new onset A. fib on May 20. With medical management, the patient converted back to normal sinus rhythm. 4. Acute kidney injury Improving. Most likely prerenal in etiology. Continue to hold nephrotoxic medications. Continue to monitor urine output for now. No current indication for renal replacement therapy. 5. Morbid obesity/CKD stage IIIa/diabetes mellitus type 2/hypertension/hyperlipidemia Complicates care, management, recovery and prognosis. Triglycerides are elevated, so propofol is not an ideal sedative. Continue Lantus and sliding scale insulin coverage. Addendum 2:24 PM: Patient with significant difficulties overnight. Family was updated by phone. After the update, they had gathered additional family to come to visit the patient. Just had a family meeting with multiple family members including , both sons, mother and siblings. They were all in agreement that the patient would feel that this was too much. They are asking for comfort measures at this time. They understand that her overall prognosis is very grim given the multiple complications of COVID-19. TIME: 77 minutes of critical care time, independent of procedures, was spent addressing the patient's acute hypoxemic respiratory failure secondary to COVID- 19 pneumonia, pneumothorax, acute kidney injury, atrial fibrillation with RVR, review of all data and collaboration with care team. Subjective Subjective Patient with significant difficulties overnight. Patient reportedly had multiple liquid bowel movements requiring an FMS placement. On repositioning, patient developed what was thought to be A. fib with RVR and was placed on amiodarone. Patient has been persistently febrile. Patient does have a left- sided chest tube that is now showing a continuous leak. Chest x-ray showed good expansion of the left lung despite new leak. Objective Data Objective Data Vital Signs: Vital Signs Temp Pulse Resp BP Pulse Ox 39.2 C H 158 H 34 H 132/111 H 91 05/22/21 07:00 05/22/21 07:04 05/22/21 07:04 05/22/21 07:00 05/22/21 07:04 Oxygen Flow Rate (L/min) 15 Oxygen Delivery Method Mechanical Ventilator Weight: 140 kg Body Mass Index (BMI) 52.0 Intake & Output: Intake and Output for Last 24 Hours 05/20/21 05/21/21 05/22/21 23:59 23:59 23:59 Intake Total 3739.17 / 3764.55 3750.60 / 3981.40 1199.89 / 1199.89 Output Total 1860 / 1860 2970 / 2970 630 / 630 Balance 1879.17 / 1904.55 780.60 / 1011.40 569.89 / 569.89 Lab / Micro Data Result Diagrams: 05/22/21 04:30 05/22/21 04:30 Labs: Laboratory Results - last 24 hr 05/21/21 12:07: POC Glucose 205 H 05/21/21 15:38: POC Glucose 213 H 05/21/21 18:14: POC Glucose 186 H 05/21/21 21:21: POC Glucose 200 H 05/21/21 23:14: POC Glucose 208 H 05/22/21 04:30: WBC 22.3 H, RBC 4.28, Hgb 12.8, Hct 42.2, MCV 98.6, MCH 29.9, MCHC 30.3 L, RDW Std Deviation 52.1 H, RDW Coeff of Mehran 14.8 H, Plt Count 298, MPV 11.7, Immature Gran % (Auto) 1.200 H, Neut % (Auto) 86.4 H, Lymph % (Auto) 5.7 L, [place] % (Auto) 5.8, Eos % (Auto) 0.5, Baso % (Auto) 0.4, Absolute Neuts (auto) 19.2 H, Absolute Lymphs (auto) 1.28, Nucleated RBC % 0.1 05/22/21 04:30: Sodium 144, Potassium 4.8, Chloride 104, Carbon Dioxide 36.0 H, Anion Gap 4 L, BUN 77 H, Creatinine 1.16 H, Estim Creat Clear Calc 43.42, Est GFR (MDRD) Af Amer 61, Est GFR (MDRD) Non-Af 50 L, BUN/Creatinine Ratio 66.4 H, Glucose 202 H, Calcium 10.3 H, Total Bilirubin 0.40, AST 67 H, ALT 46, Alkaline Phosphatase 49, Total Protein 6.0 L, Albumin 2.1 L, Globulin 3.9, Albumin/Globulin Ratio 0.5 L Micro: Microbiology 05/11/21 12:10 Blood Culture (Wb) - Arm Right Blood Culture - Final No growth in 5 days. 05/11/21 12:00 Blood Culture (Wb) - Anticubital Left Blood Culture - Final No growth in 5 days. 05/12/21 02:30 Sputum, Tracheal Aspirate Gram Stain - Final 05/12/21 02:30 Sputum, Tracheal Aspirate Respiratory Culture - Final Staphylococcus aureus 05/12/21 08:50 Urine, Clean Catch Legionella Antigen - Final 05/12/21 08:50 Urine, Clean Catch Streptococcus pneumoniae Antigen (M - Final ABG Data ABG results: ABG 05/22/21 04:52 Specimen Type ART Sample Site L Radial pH 7.31 L Bicarbonate Actual 36.1 H Total CO2 38 Base Excess 10 H O2 Saturation 93 L O2 % 65 ABG pCO2 71.8 H* ABG pO2 77 [place] Test N/A Respiration Rate 12 O2 Delivery Device Adult Vent Vent Mode BiLevel Crit Call To/Read Back Yes Blood Gas Notified Whom Patricia CULLEN Radiography Diagnostic Testing: Radiology Impression Chest X-Ray 05/21/21 09:47 IMPRESSION: Stable appearance of the support lines and tubes No pneumothorax or mediastinal shift. Previously described interstitial and airspace opacifications in both lung aiken have mildly improved since the previous study. No subcutaneous emphysema to suspect air leak Electronically Signed: Johan Johnson MD at 11:58 EST , Service support , Chest X-Ray 05/22/21 00:00 IMPRESSION: Stable appearance of the support lines and tubes No pneumothorax or mediastinal shift. Previously described interstitial and airspace opacifications in both lung aiken have mildly improved since the previous study. Electronically Signed: Alma Dodge MD at 1:46 EST Tel , Service support , Physical Exam Const General Appearance: intubated and patient mechanically ventilated Nutritional Appearance: morbidly obese HEENT normocephalic and head/scalp atraumatic Mouth: endotracheal tube in place and OG tube in place Eyes PERRL and EOMs intact bilaterally Neck supple General: trachea midline Chest Chest Narrative: Air leak noted Chest: chest tube Resp Auscultation: diminished lung sounds Cardio no murmurs, no rub and no gallops Cardio Narrative: Currently in possible A. fib with RVR Rate: tachycardic Rhythm: regular rhythm GI normal to inspection, nondistended, normoactive bowel sounds Extremity General Extremity: edema; Negative for clubbing Skin no rashes or lesions noted Neuro Neuro Narrative: Patient is still able to follow some simple commands. Sensorium / Orientation: sedated on vent Charges/Coding Procedures Hospitalists Procedures: 07180 Critial Care 1st Hr Multi Select Codes Hospitalists' Procedures Procedures: 93276 Critial Care Addl 30 Min
[2021-05-22] MEDS: Furosemide 40 MG/4 ML Vial IV ×2 (09:04→09:13)
[2021-05-22] MEDS: Famotidine 20 MG Tablet GT (09:04)
[2021-05-22] MEDS: Enoxaparin 40 MG/0.4 ML Syringe SC (09:04)
[2021-05-22] MEDS: Chlorhexidine 15 ML PO (09:04)
[2021-05-22] MEDS: QUEtiapine 25 MG Tablet 50 MG GT (09:04)
[2021-05-22] MEDS: Vital High Protein 1,000 ML 55 ML GT (09:06)
--- NOTE | 2021-05-22 09:31 | PCM.PN.SRG ---
Subjective Subjective pt is still intubated, + continuous airleak, CXR no PTX from 12:30am today, febrile, febrile Objective Data Objective Data Vital Signs: Vital Signs Temp Pulse Resp BP Pulse Ox 102.6 F H 158 H 34 H 132/111 H 91 05/22/21 07:00 05/22/21 07:04 05/22/21 07:04 05/22/21 07:00 05/22/21 07:04 Oxygen Flow Rate (L/min) 15 Oxygen Delivery Method Mechanical Ventilator Weight: 308 lb 10.354 oz Body Mass Index (BMI) 52.0 Intake & Output: Intake and Output for Last 24 Hours 05/20/21 05/21/21 05/22/21 23:59 23:59 23:59 Intake Total 3739.17 / 3764.55 3750.60 / 3981.40 1199.89 / 1199.89 Output Total 1860 / 1860 2970 / 2970 630 / 630 Balance 1879.17 / 1904.55 780.60 / 1011.40 569.89 / 569.89 Lab / Micro Data Result Diagrams: 05/22/21 04:30 05/22/21 04:30 Labs: Laboratory Results - last 24 hr 05/21/21 12:07: POC Glucose 205 H 05/21/21 15:38: POC Glucose 213 H 05/21/21 18:14: POC Glucose 186 H 05/21/21 21:21: POC Glucose 200 H 05/21/21 23:14: POC Glucose 208 H 05/22/21 04:30: WBC 22.3 H, RBC 4.28, Hgb 12.8, Hct 42.2, MCV 98.6, MCH 29.9, MCHC 30.3 L, RDW Std Deviation 52.1 H, RDW Coeff of Mehran 14.8 H, Plt Count 298, MPV 11.7, Immature Gran % (Auto) 1.200 H, Neut % (Auto) 86.4 H, Lymph % (Auto) 5.7 L, [place] % (Auto) 5.8, Eos % (Auto) 0.5, Baso % (Auto) 0.4, Absolute Neuts (auto) 19.2 H, Absolute Lymphs (auto) 1.28, Nucleated RBC % 0.1 05/22/21 04:30: Sodium 144, Potassium 4.8, Chloride 104, Carbon Dioxide 36.0 H, Anion Gap 4 L, BUN 77 H, Creatinine 1.16 H, Estim Creat Clear Calc 43.42, Est GFR (MDRD) Af Amer 61, Est GFR (MDRD) Non-Af 50 L, BUN/Creatinine Ratio 66.4 H, Glucose 202 H, Calcium 10.3 H, Total Bilirubin 0.40, AST 67 H, ALT 46, Alkaline Phosphatase 49, Total Protein 6.0 L, Albumin 2.1 L, Globulin 3.9, Albumin/Globulin Ratio 0.5 L Micro: Microbiology 05/11/21 12:10 Blood Culture (Wb) - Arm Right Blood Culture - Final No growth in 5 days. 05/11/21 12:00 Blood Culture (Wb) - Anticubital Left Blood Culture - Final No growth in 5 days. 05/12/21 02:30 Sputum, Tracheal Aspirate Gram Stain - Final 05/12/21 02:30 Sputum, Tracheal Aspirate Respiratory Culture - Final Staphylococcus aureus 05/12/21 08:50 Urine, Clean Catch Legionella Antigen - Final 05/12/21 08:50 Urine, Clean Catch Streptococcus pneumoniae Antigen (M - Final ABG Data ABG results: ABG 05/22/21 04:52 Specimen Type ART Sample Site L Radial pH 7.31 L Bicarbonate Actual 36.1 H Total CO2 38 Base Excess 10 H O2 Saturation 93 L O2 % 65 ABG pCO2 71.8 H* ABG pO2 77 [place] Test N/A Respiration Rate 12 O2 Delivery Device Adult Vent Vent Mode BiLevel Crit Call To/Read Back Yes Blood Gas Notified Quincy Gomez RN Radiography Diagnostic Testing: Radiology Impression Chest X-Ray 05/21/21 09:47 IMPRESSION: Stable appearance of the support lines and tubes No pneumothorax or mediastinal shift. Previously described interstitial and airspace opacifications in both lung aiken have mildly improved since the previous study. No subcutaneous emphysema to suspect air leak Electronically Signed: Johan Johnson MD at 11:58 EST , Service support , Chest X-Ray 05/22/21 00:00 IMPRESSION: Stable appearance of the support lines and tubes No pneumothorax or mediastinal shift. Previously described interstitial and airspace opacifications in both lung aiken have mildly improved since the previous study. Electronically Signed: Alma Dodge MD at 1:46 EST Tel , Service support , Physical Exam Narrative Intubated and sedated Resp Resp Narrative: Left chest tube in place Cardio Rate: tachycardic Assessment & Plan Assessment/Plan (1) Pneumothorax, left: (2) COVID-19: (3) Pneumonia due to COVID-19 virus: (4) Acute respiratory failure with hypoxia: PLAN: Patient's left chest tube does have been air leak?chest x-ray continues to show no pneumothorax, continue -20 suction. Patient does have a PEEP of 30. Is also been having fevers. Family meeting planned this afternoon for possible discussion of CODE STATUS. Flora oJnes M.D. Pager: [phone] [facility] [address] [place] [address], [address], [address] [place] [address] Office: [phone] Charges/Coding Visit Charges Inpatient E&M: 50455 Subs Hosp L2
--- NOTE | 2021-05-22 09:53 | PN.HOSP_ITS ---
Subjective Subjective Follow-up on acute hypoxic respiratory failure/acute COVID-19 pneumonia/acute left pneumothorax: Patient was seen and examined. Overnight, patient went into RVR. She is on IV amiodarone. Heart rate remains elevated. There is an air leak on the chest tube. Family is meeting today to change CODE STATUS and possibly withdraw care. Patient continues to spike fevers. Objective Data Objective Data Vital Signs: Vital Signs Temp Pulse Resp BP Pulse Ox 102.6 F H 158 H 34 H 132/111 H 91 05/22/21 07:00 05/22/21 07:04 05/22/21 07:04 05/22/21 07:00 05/22/21 07:04 Oxygen Flow Rate (L/min) 15 Oxygen Delivery Method Mechanical Ventilator Weight: 140 kg Body Mass Index (BMI) 52.0 Intake & Output: Intake and Output for Last 24 Hours 05/20/21 05/21/21 05/22/21 23:59 23:59 23:59 Intake Total 3739.17 / 3764.55 3750.60 / 3981.40 1199.89 / 1199.89 Output Total 1860 / 1860 2970 / 2970 630 / 630 Balance 1879.17 / 1904.55 780.60 / 1011.40 569.89 / 569.89 Lab / Micro Data Result Diagrams: 05/22/21 04:30 05/22/21 04:30 Labs: Laboratory Results - last 24 hr 05/21/21 12:07: POC Glucose 205 H 05/21/21 15:38: POC Glucose 213 H 05/21/21 18:14: POC Glucose 186 H 05/21/21 21:21: POC Glucose 200 H 05/21/21 23:14: POC Glucose 208 H 05/22/21 04:30: WBC 22.3 H, RBC 4.28, Hgb 12.8, Hct 42.2, MCV 98.6, MCH 29.9, MCHC 30.3 L, RDW Std Deviation 52.1 H, RDW Coeff of Mehran 14.8 H, Plt Count 298, MPV 11.7, Immature Gran % (Auto) 1.200 H, Neut % (Auto) 86.4 H, Lymph % (Auto) 5.7 L, [place] % (Auto) 5.8, Eos % (Auto) 0.5, Baso % (Auto) 0.4, Absolute Neuts (auto) 19.2 H, Absolute Lymphs (auto) 1.28, Nucleated RBC % 0.1 05/22/21 04:30: Sodium 144, Potassium 4.8, Chloride 104, Carbon Dioxide 36.0 H, Anion Gap 4 L, BUN 77 H, Creatinine 1.16 H, Estim Creat Clear Calc 43.42, Est GFR (MDRD) Af Amer 61, Est GFR (MDRD) Non-Af 50 L, BUN/Creatinine Ratio 66.4 H, Glucose 202 H, Calcium 10.3 H, Total Bilirubin 0.40, AST 67 H, ALT 46, Alkaline Phosphatase 49, Total Protein 6.0 L, Albumin 2.1 L, Globulin 3.9, Albumin/Globulin Ratio 0.5 L Micro: Microbiology 05/11/21 12:10 Blood Culture (Wb) - Arm Right Blood Culture - Final No growth in 5 days. 05/11/21 12:00 Blood Culture (Wb) - Anticubital Left Blood Culture - Final No growth in 5 days. 05/12/21 02:30 Sputum, Tracheal Aspirate Gram Stain - Final 05/12/21 02:30 Sputum, Tracheal Aspirate Respiratory Culture - Final Staphylococcus aureus 05/12/21 08:50 Urine, Clean Catch Legionella Antigen - Final 05/12/21 08:50 Urine, Clean Catch Streptococcus pneumoniae Antigen (M - Final ABG Data ABG results: ABG 05/22/21 04:52 Specimen Type ART Sample Site L Radial pH 7.31 L Bicarbonate Actual 36.1 H Total CO2 38 Base Excess 10 H O2 Saturation 93 L O2 % 65 ABG pCO2 71.8 H* ABG pO2 77 [place] Test N/A Respiration Rate 12 O2 Delivery Device Adult Vent Vent Mode BiLevel Crit Call To/Read Back Yes Blood Gas Notified Whom Patricia CULLEN Radiography Diagnostic Testing: Radiology Impression Chest X-Ray 05/21/21 09:47 IMPRESSION: Stable appearance of the support lines and tubes No pneumothorax or mediastinal shift. Previously described interstitial and airspace opacifications in both lung aiken have mildly improved since the previous study. No subcutaneous emphysema to suspect air leak Electronically Signed: Johan Johnson MD at 11:58 EST , Service support , Chest X-Ray 05/22/21 00:00 IMPRESSION: Stable appearance of the support lines and tubes No pneumothorax or mediastinal shift. Previously described interstitial and airspace opacifications in both lung aiken have mildly improved since the previous study. Electronically Signed: Alma Dodge MD at 1:46 EST Tel , Service support , Physical Exam Narrative Physical exam: General: Patient remains sedated, on mechanical ventilator, obese HEENT: Atraumatic Oral: Moist Mucosa Neck: Supple Lungs:Diminished to auscultation Cardiovascular: HS I+II, regular, no murmurs Abdomen: Bowel Sounds Present, Soft, Non Tender Extremities: Trace bilateral pedal edema Assessment & Plan Assessment/Plan (1) Pneumothorax, left: (2) Acute respiratory failure with hypoxia: (3) Pneumonia due to COVID-19 virus: (4) Type II diabetes mellitus: QUALIFIERS: Diabetes mellitus complication detail: with other circulatory complications Diabetes mellitus complication status: with circulatory complication Diabetes mellitus senior care insulin use: without terminal block assembler use Qualified Code(s): E11.59 - Type 2 diabetes mellitus with other circulatory complications (5) Hypertension: QUALIFIERS: Hypertension type: primary hypertension Qualified Code(s): I10 - Essential (primary) hypertension (6) Hyperlipidemia: QUALIFIERS: Hyperlipidemia type: unspecified Qualified Code(s): E 78.5 - Hyperlipidemia, unspecified (7) Lactic acidosis: (8) Paroxysmal atrial fibrillation with RVR: PLAN: 1. Acute hypoxic respiratory failure secondary to acute COVID-19 pneumonia/acute pneumothorax with tension pneumothorax/MSSA pneumonia Remains on ventilator; chest tube with continuous air leak Repeat chest x-ray shows no pneumothorax Completed 7 days of IV Zosyn Sedation switched off in the morning on account of unresponsiveness; will DC Seroquel Will follow up on family meeting 2. Acute COVID-19 pneumonia/MSSA pneumonia Received Tocilizumab on 05/12 Completed remdesivir and Decadron 3. A. fib with RVR, remains in RVR, on amiodarone drip 4. Type II DM, blood sugars are fairly controlled Continue on Lantus and ISS 5. CONRADO, creatinine remains elevated at 1.16 Baseline creatinine of less than 1 Continue to monitor 6. Morbid obesity, BMI 51.5 Charges/Coding Visit Charges Inpatient E&M: 14676 Subs Hosp L3
--- NOTE | 2021-05-22 12:58 | NURSING ---
1020: Called , Carlos to give an update. Updated him on her current condition, HR in 160's, temp 103, only responsive to painful stumli. He sated that he would like for him and his sons to come into the hospital to see her and would like to discuss withdrawing care and a terminal wean. Dr. Owens and Dr Granger notified 1100: patients and both sons are present. and son, Mane went to the room with Health Science Specialist Ray to see the patient. Both returned to the waiting room. All questions answered and stated that they wish to withdraw care and terminally wean the patient but would like to wait until her mother arrives. Dr. Owens and Dr. Granger notified.
--- NOTE | 2021-05-22 13:07 | NURSING ---
1015: left chest tube noted to have an air leak this morning. Dressing tore down and changed per Dr. Owens. Vaseline gauze placed over the site and covered with split gauze and ABD and secured with medipore tape. The leak persisted. Patient turned to the right as far as possible. When pressure is applied to the breast tissue the leak becomes intermittent, when the pressure is released the leak becomes continuous. Dr. Owens and Dr. Jones notified. No new orders received.
--- NOTE | 2021-05-22 13:17 | CASEMGMT ---
Social Work SW participated in ICU rounds this morning. Pt's and two sons here now in the waiting room. SW spoke w/family, they have decided to take pt off the vent, they are just waiting for pt's mother to get to the hospital. SW offered support to family, let them know SW available for support as needed. TUNG Og
[2021-05-22] MEDS: Morphine 4 MG/ML Syringe IV (14:40)
[2021-05-22] MEDS: LORazepam 2 MG/ML Syringe IV (14:40)
--- NOTE | 2021-05-22 15:30 | NURSING ---
Patient extubated at 1439, given prn morphine and ativan at 1440. , 2 sons, mother and 2 cousins present at bedside. Patient was noted to be without respirations, HR, and BP at 1458. Apical pulse not auscultated, verified with 2nd RN Rupa Yarbrough. Dr. Owens and Dr. Jacobsen notified
--- NOTE | 2021-05-22 15:37 | CHAPLAIN ---
Type of Pastoral Visit ___ Initial Visit ___ Follow-up Visit ___ On-call Visit ___ General Patient Visit ___ Spiritual Assessment _x__ Family Conference ___ Bereavement ___ Rapid Response ___ Code Blue _x__ Other (describe below) Pastoral Care Referral From ___ Patient _x__ Family _x__ Nurse ___ Physician ___ Harbor Tug Captain ___ Group Burner Machine ___ Other (describe below) Sacrament/Intervention ___ Active listening ___ Anointing ___ Mu-Ism _x__ Bereavement ___ Communion ___ Ashlee exploration ___ _x__ Life review _x__ Prayer ___ Reconciliation ___ Sacrament of Sick _x__ Supportive presence ___ Wedding _x__ Other (describe below) Pastoral Comments met with spouse and sons and escorted them to patient room; sat with family as they heard reports from RN and then as they made decision to extubate pt and let her pass naturally; met with mother of the patient and two cousins who came also to be present for end-of-life; pt is extubated and escorted family into room as patient soon ; at several times during the day prayer and presence was given; family is spiritually minded and very appreciative of the support and care; family gives thanks to staff for the care
--- NOTE | 2021-05-22 16:16 | EXP.PCM_ITS ---
Preliminary Cause of Preliminary Cause of Preliminary Cause of : Acute hypoxic respiratory failure secondary to ARDS secondary to COVID-19 Pneumothorax Date of Admission: 05/11/21 Date of : 05/22/21 Principle Diagnosis Acute hypoxic respiratory failure secondary to ARDS secondary to COVID-19 Pneumothorax Atrial fibrillation with RVR [place] on CKD stage IIIa Type 2 DM Hypertension Hyperlipidemia Problem List: Active and Suspected Problems (Updated 05/22/21 @ 10:[address] Christen Jacobsen MD) Paroxysmal atrial fibrillation with RVR (Acute) Pneumothorax, left (Acute) Acute respiratory failure with hypoxia (Acute) Pneumonia due to COVID-19 virus (Acute) Hypoxia (Acute) Lactic acidosis (Acute) COVID-19 (Acute) Hospital Course 60-year-old female with multiple comorbidities, who had received 1 dose of a vaccine when she became ill. She was notably hypoxic in the ED and placed on BiPAP. She was admitted to the ICU. She was intubated later on and put on mechanical ventilator. Patient later on developed hypotension and required a central line to be placed. Patient's hospital course was long and tortuous. Her sputum cultures grew MSSA. She completed 7 days of IV Zosyn. She received Tocilizumab on 05/12. She completed remdesivir and Decadron. Patient developed pneumothorax and had to have a chest tube placed. Chest tube was seen to have continuous air leak. Patient also developed A. fib with RVR, she was started on amiodarone drip. She had acute kidney injury that was being monitored. Family were updated on patient's increased oxygenation with high PEEP. Family decided to withdraw care. Patient was terminally weaned on 05/22/21 at 1439HRS Time of : 1458HRS Assessment & Plan Assessment/Plan (1) Pneumothorax, left: (2) Acute respiratory failure with hypoxia: (3) Pneumonia due to COVID-19 virus: (4) Type II diabetes mellitus: QUALIFIERS: Diabetes mellitus complication detail: with other circulatory complications Diabetes mellitus complication status: with circulatory complication Diabetes mellitus assisted insulin use: without assisted use Qualified Code(s): E11.59 - Type 2 diabetes mellitus with other circulatory complications (5) Hypertension: QUALIFIERS: Hypertension type: primary hypertension Qualified Code(s): I10 - Essential (primary) hypertension (6) Hyperlipidemia: QUALIFIERS: Hyperlipidemia type: unspecified Qualified Code(s): E78.5 - Hyperlipidemia, unspecified (7) Lactic acidosis: (8) Paroxysmal atrial fibrillation with RVR: Visit Charges Inpatient E&M: [id number] Disch Hosp
[2021-05-23 09:22] LABS: Pathologist Review Reviewed
== END 2021-05-22 14:58 | DRG 207 ==
LOC: ED 15:47 → ICU 05-12 09:30
PROVIDERS: Hospitalist; Internal Medicine; Internal Medicine Critical Care Medicine; Internal Medicine Infectious Disease; Emergency Provider Emergency Medicine; PCP Family Medicine; Visit Provider Internal Medicine
DX: U07.1 COVID-19 (principal); J80 Acute respiratory distress syndrome; J12.82 Pneumonia due to coronavirus disease 2019; J15.211 Pneumonia due to Methicillin susceptible Staphylococcus aureus; N17.9 Acute kidney failure, unspecified; E87.2 Acidosis; Z68.43 Body mass index [BMI] 50.0-59.9, adult; J95.812 Postprocedural air leak; E11.22 Type 2 diabetes mellitus with diabetic chronic kidney disease; N18.31 Chronic kidney disease, stage 3a; E78.5 Hyperlipidemia, unspecified; I12.9 Hypertensive chronic kidney disease with stage 1 through stage 4 chronic kidney disease, or unspecified chronic kidney disease; I48.0 Paroxysmal atrial fibrillation; E66.01 Morbid (severe) obesity due to excess calories; M19.90 Unspecified osteoarthritis, unspecified site; G89.29 Other chronic pain; E11.59 Type 2 diabetes mellitus with other circulatory complications; E11.65 Type 2 diabetes mellitus with hyperglycemia; E78.1 Pure hyperglyceridemia; R57.8 Other shock; Z79.899 Other long term (current) drug therapy
CPT/HCPCS: 31500; 31720; 36600; 71045; 71275; 74018; 80048; 80053; 80202; 82550; 82803; 82962; 83605; 83880; 84145; 84478; 85025; 86140; 87040; 87070; 87077; 87186; 87205; 87449; 87641; 93005; 94002; 94003; 97802; 97803; 99251; 99285; J7040; J7050; Q9967; A4216; C1751; G0463; J1940; J3010; J3262